=== PATIENT | female | born 1940 | race Caucasian/White ===

== ENCOUNTER 2024-06-29 12:40 | Observation (INO) | payer MEDICARE, SELFPAY ==
[2024-06-29] VITALS (12 sets, daily range): BP systolic 109–144; BP diastolic 63–98; PULSE 69–143; RESP 14–25; TEMP 36.6–37; O2SAT 95–100; BMI 30.7
--- NOTE | ~2024-06-29 | CT_ITS ---
EXAMINATION: CT brain wo con DATE: 06/29/2024 15:02 INDICATION: Tremors TECHNIQUE: Computed tomography (CT) of the head was performed without intravenous contrast. The mA wa s adjusted according to patient size. Iterative reconstruction technique was employed. Exam dose: 12 86.33 mGy-cm total exam DLP. COMPARISON: None FINDINGS: The examination is limited because of motion artifact, despite 2 sets of images being obtai alberto. There is central and cortical cerebral and cerebellar atrophy. There is nonspecific diminished attenu ation the cerebral white matter, likely due to chronic small vessel ischemic changes. Bilateral carot id siphon internal carotid artery calcifications are noted. Chronic right basal ganglia lacunar infarcts. Small chronic left basal ganglia lacunar infarct. No obvious intracranial mass lesion or hemorrhage, midline shift or mass effect or subdural or epidur al hematoma. Prominent opacification of the left maxillary sinus. No fracture or bone destruction of the cranial vault is evident. 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 Reviewed, dictated and finalized at location [facility]. IMPRESSION: Very limited examination due to motion artifact Cerebral atherosclerosis and chronic small vessel ischemic changes of the cereb ral white matter Central and cortical cerebral and cerebellar atrophy Right basal ganglia and left thalamic chronic lacunar infarcts No obvious acute intracranial finding
--- NOTE | ~2024-06-29 | US_ITS ---
EXAMINATION: US carotid duplex BI DATE: 07/01/2024 15:26 INDICATION: Cerebrovascular disease TECHNIQUE: Grayscale, color Doppler, and pulsed Doppler images of the cervical carotid arteries were obtained. The degree of vessel stenosis is placed in one of the following categories: normal, <50%, 5 0-69%, >=70% but less than near-occlusion, near-occlusion, or total occlusion. Note that percent sten osis relative to normal distal artery lumen diameter is indirectly measured from velocity measurement s as described by Moises, et al. Radiology 2003; 229:340-346. COMPARISON: None. FINDINGS: RIGHT: The right common carotid artery (CCA) peak systolic velocity (PSV) is 88 cm/s. The right internal car otid artery (ICA) PSV is 60 cm/s. The right ICA end-diastolic velocity (EDV) is 9 cm/s. The right ICA /CCA PSV ratio is 0.7. Grayscale and color Doppler images yield an estimate of <50% diameter reductio n from plaque in the ICA. The external carotid artery (ECA) PSV is 87 cm/s. There is antegrade flow i n the right vertebral artery. LEFT: The left CCA PSV is 85 cm/s. The left ICA PSV is 90 cm/s. The left ICA EDV is 20 cm/s. The left ICA/C CA PSV ratio is 1.1. Grayscale and color Doppler images yield an estimate of <50% diameter reduction from plaque in the ICA. The ECA PSV is 191 cm/s. There is antegrade flow in the left vertebral artery . IMPRESSION: 1. <50% stenosis in the right internal carotid artery. 2. <50% stenosis in the left internal carotid artery. Reviewed, dictated and finalized at location [facility].
--- NOTE | ~2024-06-29 | MR_ITS ---
MR brain/brain stem wo/w con Ordering provider: Una Rubi APRN History: 83 years Female with . Tremor . Comparison: None. Technique: MRI brain was performed with and without contrast. 15 mL MultiHance was given IV. FINDINGS: BONES: Normal. CRANIOCERVICAL JUNCTION: normal. PITUITARY: Normal. MAJOR INTRACRANIAL VESSELS: Normal flow void. OPTIC NERVES AND CRANIAL NERVES VII AND VIII COMPLEXES: Grossly normal. BRAIN PARENCHYMA AND CSF SPACES: Mild nonspecific T2 white matter hyperintensities are seen in a alberto ateral periventricular and deep white matter distribution which are likely related to chronic ischemi c small vessel disease. Mild diffuse cortical atrophy. Prominent Virchow-Misha spaces are seen bila terally in the basal ganglia. T2 bright signal is seen in the midbrain area most likely due to chinchilla anneliese degeneration. Tthe brainstem and cerebellum are normal. No acute or chronic intracranial hemorrha ge. No extra axial fluid collections. Diffusion weighted and ADC mapping images reveal no recent isch emia. No midline shift or mass effect. No abnormal contrast enhancement. PARANASAL SINUSES: Left maxillary sinus disease. MASTOIDS: Normal SUPERFICIAL/SURROUNDING SOFT TISSUES: Normal. IMPRESSION: 1. No acute intracranial process. 2. Mild brain atrophy with deep white matter ischemic changes.wallerian degeneration seen in the mid brain. 3. No abnormal enhancement. Reviewed, dictated and finalized at location A. IMPRESSION: 1. No acute intracranial process. 2. Mild brain atrophy with deep white matter ischemic changes.wallerian degene ration seen in the midbrain. 3. No abnormal enhancement.
[2024-06-29 12:51] LABS: Glucose Point of Care 228 mg/dl (65-105)
--- NOTE | 2024-06-29 14:13 | ED.GENADULT ---
HPI - General Adult General Chief complaint: Unspecified Stated complaint: tremors Time Seen by Provider: 06/29/24 13:36 History of Present Illness HPI narrative: 83-year-old female presented emergency department for evaluation for increased psychomotor agitation and tremor. Family states patient is currently being treated for a urinary tract infection. Family states that they were diagnosed with COVID a few weeks ago, family states patient ever test positive for COVID.. This morning patient has increased tremor. Patient denies any specific complaint other than the tremor. Related Data Home Medications Medication Instructions Recorded Confirmed anastrozole 1 mg tablet mg 06/29/24 06/29/24 atorvastatin 20 mg tablet mg 06/29/24 hydrochlorothiazide 25 mg tablet mg 06/29/24 lisinopril 40 mg tablet mg 06/29/24 metformin 500 mg tablet mg 06/29/24 metoprolol tartrate 50 mg tablet mg 06/29/24 cluzxlrv-otz-tyetx acid 0.4 tablet PO 06/29/24 06/29/24 mg-lycopene 300 mcg-lutein 250 mcg tablet (Centrum Silver) omeprazole 20 mg capsule,delayed mg 06/29/24 release paroxetine HCl 40 mg tablet mg PO 06/29/24 Review of Systems Review of Systems: All systems reviewed & are unremarkable except as noted in HPI and below Exam Narrative: APPEARANCE: Well appearing, no pain, no distress, well-nourished. HEAD: normocephalic, atraumatic. EYES: PERRLA/EOMI, conjunctivae clear. NOSE: Normal no drainage EARS:TMS clear with good light reflex. THROAT: Pharynx clear, no exudate. NECK: Supple. No adenopathy, no masses. RESPIRATORY: Airway patent, respirations nonlabored. Clear to auscultation bilaterally, no rales, rhonchi, wheezing. CARDIOVASCULAR: Regular rate and rhythm without murmurs rubs or gallops. ABDOMINAL: Soft, nontender, nondistended, normal bowel sounds MUSCULOSKELETAL: Moves all extremities. Strength/ROM intact, No edema, No calf tenderness. NEURO: Alert. Grossly intact. Tremor. Tremor is lessened when patient is distracted. SKIN: Warm, dry. Normal Color Course Course Emergency Course: Patient was admitted for further evaluation. Vital Signs Vital signs: Vital Signs Temperature 98.3 F 06/29/24 12:45 Pulse Rate 85 06/29/24 12:45 Respiratory Rate 18 08/17/24 12:45 Pulse Oximetry 99 06/29/24 12:45 Oxygen Delivery Room Air 06/29/24 12:45 Temperature 97.9 F 06/29/24 13:40 Pulse Rate 70 06/29/24 18:01 Respiratory Rate 14 06/29/24 18:01 Blood Pressure 110/79 06/29/24 18:01 Pulse Oximetry 98 06/29/24 18:01 Oxygen Delivery Room Air 06/29/24 13:40 Medical Decision Making MDM Narrative Medical decision making narrative: [age] old female presented emergency department for evaluation for increased tremor that is new. Family states that in this condition patient is unable to care for herself. Patient is afebrile with no leukocytosis and a stable hemoglobin 11.4. Patient had a creatinine of 1.9 per baseline is unknown. Patient's potassium was within normal limits, patient does have history of hypokalemia. Patient's magnesium was 1.4 this was replaced. Urine was negative for urinary tract infection. Patient had a negative urine drug screen. Head CT showed no acute intracranial abnormality. Since patient is still having some tremor and is unable to care for herself in this current state case was discussed with hospitalist patient was admitted for further workup. Differential Diagnosis Differential Diagnosis: Subdural hematoma, subarachnoid hemorrhage, urinary tract infection, COVID, RSV, influenza, dementia, anxiety Vital Signs Vital Signs: Vital Signs Temperature 98.3 F 06/29/24 12:45 Pulse Rate 85 06/29/24 12:45 Respiratory Rate 18 06/29/24 12:45 Pulse Oximetry 99 06/29/24 12:45 Oxygen Delivery Room Air 06/29/24 12:45 Temperature 97.9 F 06/29/24 13:40 Pulse Rate 70 06/29/24 18:01 Respiratory Rate 14 06/29/24 18:01 Blood Pre
[2024-06-29] MEDS: SODIUM CHLORIDE 0.9% IV 1,000 ML 999 ML IV CONT (14:26)
[2024-06-29] MEDS: LORazepam INJ (*CRX) 2 MG/ML VIAL 0.5 MG IV PUSH (14:30)
[2024-06-29] MEDS: ACETAMINOPHEN 500 MG TABLET 1000 MG PO (14:30)
[2024-06-29 14:47] LABS: Add Urine Microscopic? YES; Appearance Urine Clear (Clear); Bacteria Urine None Seen /hpf; Bilirubin Urine Negative (Negative); Blood Urine Negative (Negative); Color Urine Yellow (Yellow); Glucose Urine UA Negative (Negative); Ketones Urine Trace mg/dL (Negative); Leukocyte Esterase Ur Negative LEU/UL (Negative); Nitrate Urine Negative (Negative); Protein Urine Trace mg/dL (Negative); RBC Urine 0-2 /hpf (0-2); Specific Grav Ur 1.018 (1.001-1.035); Squamous Epithelial Cell Urine None Seen /hpf (Few); Urobilinogen Urine 0.2 mg/dL (<2.0); WBC Urine 0-5 /hpf (0-3); pH Urine 5.5 (5.0-9.0)
[2024-06-29 16:03] LABS: Basophils Percent Auto 0.4 % (0.2-1.2); Eosinophils Absolute Auto 0.1 K/mm3 (0-0.3); Eosinophils Percent Auto 1.1 % (0-4.4); Hematocrit 34.4 % (37.0-47.0); Hemoglobin 11.4 g/dL (12.0-15.0); Immature Granulocyte Absolute 0.02 K/mm3 (0.00-0.031); Immature Granulocyte Percent A 0.3 % (0-0.5); Immature Platelet Fraction Pct 4.6 % (0.9-11.2); Lymphocytes Absolute Auto 1.46 K/mm3 (0.9-3.2); Lymphocytes Percent Auto 20.2 % (18.3-44.2); Mean Corpuscular HGB Conc 33.1 g/dl (32-36); Mean Corpuscular Hemoglobin 31.7 pg (26-34); Mean Corpuscular Volume 95.6 fl (80-100); Mean Platelet Volume 10.9 fl (7.4-10.4); Monocytes Absolute Auto 0.5 K/mm3 (0.1-0.6); Monocytes Percent Auto 7.5 % (2.6-8.5); Neutrophils Absolute Auto 5.1 K/mm3 (1.3-6.7); Neutrophils Percent Auto 70.5 % (45.5-73.1); Platelet Count Result 206 k/mm3 (150-375); Red Cell Distribution Width 11.9 % (11.5-14.5); White Blood Count 7.2 K/mm3 (4.5-10.0)
[2024-06-29 16:16] LABS: Alanine Aminotransferase 34 U/L (6-35); Albumin Level 3.9 g/dL (3.5-5.1); Alkaline Phosphatase 85 U/L (38-126); Anion Gap 13 mmol/L (4-12); Aspartate Amino Transferase 50 U/L (14-36); Bilirubin,Total 0.5 mg/dL (0.2-1.3); Blood Urea Nitrogen 18 mg/dL (7-17); Calcium 9.1 mg/dL (8.4-10.2); Carbon Dioxide 27 mmol/L (22-30); Chloride 96 mmol/L (98-107); Estimated CRCL calculation 22 ml/min; Estimated Glomerular Filt Rate 25; Glucose 125 mg/dL (65-110); Potassium 3.8 mmol/L (3.4-5.0); Sodium 136 mmol/L (137-145)
[2024-06-29 17:04] LABS: Magnesium 1.4 mg/dL (1.6-2.3)
[2024-06-29] MEDS: MAGNESIUM SULF 1 GM/D5W 100 ML 1 GM/100 ML BAG IVPB ×2 (17:24→22:32)
--- NOTE | 2024-06-29 18:18 | PM.IMHP ---
H&P: HPI History of Present Illness Date/Time: 06/29/24 18:18 Chief Complaint: Abnormal Movements/Shaking Narrative: 83 y/o F presents here with abnormal movements/aching with PMH of hypertension, hyperlipidemia, GERD, and diabetes. The patient presents here from home via EMS for further evaluation of abnormal movements and diaphoresis that started this morning. Family at the bedside reports that she had a tremor to her arms/hands bilaterally that started 1-1.5 weeks ago. Appeared symmetric to family. Tremor was initially intermittent and aggravated by not eating. Per daughter who saw her last night she did not have any tremor and appeared at her baseline prior to symptom onset. Then today when her daughter went over there at 10:30 she saw the patient was shaking pretty violently . She describes it as effecting her whole body, sporadic (not rhythmic), different amplitudes in different limbs. No precipitating falls or new medications. No new stressors. Patient has been complaining of abdominal pain, headache, and dizziness started approximately 1 month ago. She described the headache to her daughter as shooting pains in her brain. No alcohol use or recreational drug use. Paxil increased 2 months ago because patient was not leaving her house as much and they were concerned she was more anxious. Initial VS at presentation: 98.3? F, HR 85, R 18, 136/93, and 99% on RA. ED workup showed: No leukocytosis, hemoglobin 11.4, sodium 136, creatinine 1.9 and GFR 25 (no previous available for comparison), initial glucose 228, magnesium 1.4, and UA showed trace ketones. Head CT was very limited due to motion artifact, however showed cerebral atherosclerosis and chronic small vessel ischemic changes, central and cortical cerebral and cerebellar atrophy, right basal ganglia and left ophthalmic chronic lacunar infarcts, with no obvious acute intracranial finding. Review of Systems Review of Systems: All systems reviewed & are unremarkable except as noted in HPI and below [facility] Past Medical History Medical History (Updated 06/29/24 @ 22:04 by Una Rubi APRN) Anxiety Breast cancer s/p on mastectomy and radiation Dementia Diabetes Eczema GERD (gastroesophageal reflux disease) HTN (hypertension) Hyperlipidemia Migraine Surgical History Surgical History (Updated 06/29/24 @ 21:57 by Una Rubi APRN) History of mastectomy Social History Social History Smoking status: Former smoker Alcohol intake: never Substance use: never Do You Feel Safe in your Home?: Yes Lack of Transportation: No Lack of Food: Never True Current Housing: I Have Housing Concerned About Future Housing: No Difficulty Paying Gas/Electric Bills: No Difficulty Paying for Meds: No Currently Unemployed: No Education: High School Diploma/GED Difficulty w/ Childcare or Family Care: No Spiritual care concerns: No Meds Home Medications and Allergies Home Medications Medication Instructions Recorded Confirmed Type anastrozole 1 mg tablet 1 mg PO DAILY 06/29/24 06/29/24 History atorvastatin 20 mg tablet 20 mg PO DAILY 06/29/24 06/29/24 History hydrochlorothiazide 25 mg tablet 25 mg PO DAILY 06/29/24 06/29/24 History lisinopril 40 mg tablet 40 mg PO DAILY 06/29/24 06/29/24 History metformin 500 mg tablet 500 mg PO DAILY 06/29/24 06/29/24 History metoprolol tartrate 50 mg tablet 50 mg PO BID 06/29/24 06/29/24 History hjrfmcsa-ohy-vlqxv acid 0.4 1 tablet PO DAILY 06/29/24 06/29/24 History mg-lycopene 300 mcg-lutein 250 mcg tablet (Centrum Silver) omeprazole 20 mg capsule,delayed 20 mg PO DAILY 06/29/24 06/29/24 History release paroxetine HCl 40 mg tablet 40 mg PO DAILY 06/29/24 06/29/24 History Allergies Allergy/AdvReac Type Severity Reaction Status Date / Time No Known Allergies Allergy Verified 06/29/24 20:01 Vital Signs Vital Signs - 24 hr 06/29/24 12:45 06/29/24 13:40 06/29/24 13:49 Julio
[2024-06-29 19:18] LABS: Amphetamine Screen Urine Negative (Negative); Barbiturate Screen Urine Negative (Negative); Benzodiazepines Screen Urine Negative (Negative); Cannabinoid Screen Urine Negative (Negative); Cocaine Screen Urine Negative (Negative); Methadone Screen Urine Negative (Negative); Opiate Screen Urine Negative (Negative); Phencyclidine Screen Urine Negative (Negative)
--- NOTE | 2024-06-29 19:36 | ADMGEN ---
This patient, Jolene Mclean, was admitted to Medical Room 250-01. Patient/family oriented to hospital policies and general routines including ID bracelet, bed and alarms, visiting hours, pain management, procedures, bathroom and other care routines, personal items, smoking policy, room service/diet, and visiting hours. Information on how to activate the Rapid Response Team has been discussed. Patient/Family are encouraged to report perceived risks to care and to ask questions if they do not understand what they are told or what they should do.
[2024-06-29 20:29] LABS: Creatine Kinase 74 U/L (30-135); Lactic Acid Reflex 1.1 mmol/L (0.7-2.0)
[2024-06-29] MEDS: SODIUM CHLORIDE 0.9% IV 1,000 ML 100 ML IV CONT (22:32)
[2024-06-29] MEDS: METOPROLOL TARTRATE 50 MG TAB PO (22:32)
[2024-06-29 22:49] LABS: Glucose Point of Care 139 mg/dl (65-105)
[2024-06-29 22:54] LABS: Creatine Kinase 103 U/L (30-135)
[2024-06-29] MEDS: diazePAM INJ (*CRX) 10 MG/2 ML SYRINGE 5 MG IV PUSH (22:54)
[2024-06-30] VITALS (13 sets, daily range): BP systolic 131–165; BP diastolic 58–69; PULSE 58–68; RESP 16–20; TEMP 36–36.8; O2SAT 94–100
[2024-06-30 05:13] LABS: Basophils Percent Auto 0.5 % (0.2-1.2); Eosinophils Absolute Auto 0.3 K/mm3 (0-0.3); Eosinophils Percent Auto 4.3 % (0-4.4); Hematocrit 38.3 % (37.0-47.0); Hemoglobin 12.1 g/dL (12.0-15.0); Immature Granulocyte Absolute 0.01 K/mm3 (0.00-0.031); Immature Granulocyte Percent A 0.2 % (0-0.5); Lymphocytes Percent Auto 33.8 % (18.3-44.2); Mean Corpuscular HGB Conc 31.6 g/dl (32-36); Mean Corpuscular Hemoglobin 31.3 pg (26-34); Mean Corpuscular Volume 99.2 fl (80-100); Mean Platelet Volume 10.1 fl (7.4-10.4); Monocytes Absolute Auto 0.8 K/mm3 (0.1-0.6); Monocytes Percent Auto 12.4 % (2.6-8.5); Neutrophils Absolute Auto 3.2 K/mm3 (1.3-6.7); Neutrophils Percent Auto 48.8 % (45.5-73.1); Platelet Count Result 213 k/mm3 (150-375); Red Blood Count 3.86 M/mm3 (4.2-5.4); White Blood Count 6.5 K/mm3 (4.5-10.0)
[2024-06-30 05:34] LABS: Hemoglobin A1C 6.3 % (<5.7)
[2024-06-30 05:59] LABS: Alanine Aminotransferase 39 U/L (6-35); Albumin Level 4.5 g/dL (3.5-5.1); Alkaline Phosphatase 85 U/L (38-126); Anion Gap 14 mmol/L (4-12); Aspartate Amino Transferase 71 U/L (14-36); Bilirubin,Total 0.9 mg/dL (0.2-1.3); Blood Urea Nitrogen 15 mg/dL (7-17); Calcium 9.3 mg/dL (8.4-10.2); Carbon Dioxide 23 mmol/L (22-30); Chloride 98 mmol/L (98-107); Estimated CRCL calculation 23 ml/min; Estimated Glomerular Filt Rate 31; Glucose 108 mg/dL (65-110); Potassium 3.7 mmol/L (3.4-5.0); Sodium 135 mmol/L (137-145)
--- NOTE | 2024-06-30 07:37 | PM.IMPN ---
Progress Note: A&P Assessment and Plan (1) Tremor: Code(s): R25.1 - Tremor, unspecified Status: Acute Assessment and Plan: - Head CT Very limited examination due to motion artifact Cerebral atherosclerosis and chronic small vessel ischemic changes of the cerebral white matter Central and cortical cerebral and cerebellar atrophy Right basal ganglia and left thalamic chronic lacunar infarcts No obvious acute intracranial finding - Mag 1.4, repleted - recent increase of Paxil from 20 mg -> 40 mg on 05/21 - UDS negative and UA showed trace ketones - neurology consulted, awaiting recs - NPO, difficulty drinking/swallowing due to tremor. May need speech consult if no improvement with holding Paxil. - DDx: CVA, serotonin syndrome, conversion disorder, nonepileptic seizures/pseudoseizures, hypomagnesium. Strong suspicion for serotonin syndrome given physical exam and recent increase with peak around when symptom it is started. Holding Paxil. (2) LISA (acute kidney injury): Code(s): N17.9 - Acute kidney failure, unspecified Status: Acute Assessment and Plan: - reports intermittent diarrhea for some time, suspect patient has IBS. However has worsened after recent UTI treatment. Rehydrate. - add CK, 74 - monitor I&Os - hold quinton inhibitors and diuretics - trend renal function (3) HTN (hypertension): Qualifiers: Hypertension type: primary hypertension Qualified Code(s): I10 - Essential (primary) hypertension Code(s): I10 - Essential (primary) hypertension Status: Acute Assessment and Plan: - chronic, currently 110/79 - holding hydrochlorothiazide and lisinopril, continue metoprolol - monitor (4) Anxiety: Code(s): F41.9 - Anxiety disorder, unspecified Status: Acute Assessment and Plan: - holding Paxil, concern for serotonin syndrome - she had been on paxil for over 20 years and recently it was increased per her pcp due to her decreased energy level and increased depressed mood (5) Hypomagnesemia: Code(s): E83.42 - Hypomagnesemia Status: Acute Assessment and Plan: - Mag 1.4, given 1G. will give additional 1G. - trend (6) Diabetes: Qualifiers: Diabetes mellitus complication status: without complication Diabetes mellitus skilled nursing insulin use: without skilled nursing use Diabetes mellitus type: type 2 Qualified Code(s): E11.9 - Type 2 diabetes mellitus without complications Code(s): E11.9 - Type 2 diabetes mellitus without complications Status: Acute Assessment and Plan: - hypoglycemia protocol - POC blood glucose ACHS - home medication: Hold metformin - correct regimen ordered - low dose TIDWM - A1C ordered Plan Diet: NPO GI Prophylaxis: Not currently indicated DVT Prophylaxis: SCDs Lines: Peripheral Code Status: Full code Time Spent With Patient Time with patient: Greater than 35 minutes Subjective Date/time seen: 06/30/24 07:37 Interval history: Narrative: 83 y/o F presents here with abnormal movements/aching with PMH of hypertension, hyperlipidemia, GERD, and diabetes. The patient presents here from home via EMS for further evaluation of abnormal movements and diaphoresis that started this morning. Family at the bedside reports that she had a tremor to her arms/hands bilaterally that started 1-1.5 weeks ago. Appeared symmetric to family. Tremor was initially intermittent and aggravated by not eating. Per daughter who saw her last night she did not have any tremor and appeared at her baseline prior to symptom onset. Then today when her daughter went over there at 10:30 she saw the patient was shaking pretty violently . She describes it as effecting her whole body, sporadic (not rhythmic), different amplitudes in different limbs. No precipitating falls or new medications. No new stressors. Patient has been complaining of abdominal pain, headache, and di
[2024-06-30 08:07] LABS: Glucose Point of Care 102 mg/dl (65-105)
[2024-06-30] MEDS: SODIUM CHLORIDE 0.9% IV 1,000 ML 100 ML IV CONT ×2 (09:51→21:06)
[2024-06-30] MEDS: METOPROLOL TARTRATE 50 MG TAB PO ×2 (09:51→21:06)
[2024-06-30] MEDS: ANASTROZOLE (*CHEMO) 1 MG TABLET PO (09:52)
[2024-06-30 12:06] LABS: Glucose Point of Care 133 mg/dl (65-105)
--- NOTE | 2024-06-30 13:00 | PC.NURSE ---
gave patient water, pudding, and nakul crackers to perform a bedside swallow evaluation as requested by hospitalist. patient swallowed with no trouble
[2024-06-30 14:05] LABS: Toxigenic C. Diff NEGATIVE (NEGATIVE)
[2024-06-30 17:16] LABS: Glucose Point of Care 101 mg/dl (65-105)
[2024-06-30 20:34] LABS: Glucose Point of Care 113 mg/dl (65-105)
[2024-07-01] VITALS (12 sets, daily range): BP systolic 165–182; BP diastolic 60–81; PULSE 61–78; RESP 14–18; TEMP 36.3–36.4; O2SAT 99–100
[2024-07-01] MEDS: SODIUM CHLORIDE 0.9% IV 1,000 ML 100 ML IV CONT (07:24)
--- NOTE | 2024-07-01 07:38 | PM.IMPN ---
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 Strong suspicion for serotonin syndrome given physical exam and recent increase with peak around when symptom it is started. Holding Paxil. (2) LISA (acute kidney injury): Code(s): N17.9 - Acute kidney failure, unspecified Status: Acute Assessment and Plan: - reports intermittent diarrhea for some time, suspect patient has IBS. However has worsened after recent UTI treatment. Rehydrate. - add CK, 74 - monitor I&Os - hold quinton inhibitors and diuretics - trend renal function (3) HTN (hypertension): Qualifiers: Hypertension type: primary hypertension Qualified Code(s): I10 - Essential (primary) hypertension Code(s): I10 - Essential (primary) hypertension Status: Acute Assessment and Plan: - chronic, currently 110/79 - holding hydrochlorothiazide and lisinopril, continue metoprolol - monitor (4) Anxiety: Code(s): F41.9 - Anxiety disorder, unspecified Status: Acute Assessment and Plan: - holding Paxil, concern for serotonin syndrome - she had been on paxil for over 20 years and recently it was increased per her pcp due to her decreased energy level and increased depressed mood (5) Hypomagnesemia: Code(s): E83.42 - Hypomagnesemia Status: Acute Assessment and Plan: - Mag 1.4, given 1G. will give additional 1G. - trend (6) Diabetes: Qualifiers: Diabetes mellitus complication status: without complication Diabetes mellitus senior living insulin use: without senior living use Diabetes mellitus type: type 2 Qualified Code(s): E11.9 - Type 2 diabetes mellitus without complications Code(s): E11.9 - Type 2 diabetes mellitus without complications Status: Acute Assessment and Plan: - hypoglycemia protocol - POC blood glucose ACHS - home medication: Hold metformin - correct regimen ordered - low dose TIDWM - A1C ordered (7) Toxic metabolic encephalopathy: Code(s): G92.8 - Other toxic encephalopathy Status: Acute Assessment and Plan: - neurology saw her today- appreciate recommendations A repeat mini-mental status examination in 4 weeks is recommended and if necessary she can be started on medications for memory loss. - f/u with DR Rutherford as an outpt - carotid Doppler study and lipid profile ordered-advised to treat her with antiplatelets and statins as a concurrent risk factor for many other problems the patient in this age may face. The results of B12 and folic acid level and TSH are pending. A follow-up magnesium level is also pending. Plan Diet: heart healthy diet GI Prophylaxis: Not currently indicated DVT Prophylaxis: SCDs Lines: Peripheral Code Status: Full code Time Spent With Patient Time with patient: Greater than 35 minutes Subjective Date/time seen: 07/01/24 07:38 Interval history: Narrative: 83 y/o F presents here with abnormal movements/aching with PMH of hypertension, hyperlipidemia, GERD, and diabetes. The patient presents here from home via EMS for further evaluation of abnormal movements and diaphoresis that started this morning. Family at the bedside reports that she had a hay
[2024-07-01 08:17] LABS: Glucose Point of Care 102 mg/dl (65-105)
[2024-07-01 08:41] LABS: Hematocrit 33.3 % (37.0-47.0); Hemoglobin 10.8 g/dL (12.0-15.0); Mean Corpuscular HGB Conc 32.4 g/dl (32-36); Mean Corpuscular Hemoglobin 31.8 pg (26-34); Mean Corpuscular Volume 97.9 fl (80-100); Mean Platelet Volume 10.5 fl (7.4-10.4); Platelet Count Result 204 k/mm3 (150-375); Red Cell Distribution Width 12.1 % (11.5-14.5); White Blood Count 5.1 K/mm3 (4.5-10.0)
[2024-07-01] MEDS: METOPROLOL TARTRATE 50 MG TAB PO ×2 (08:56→20:52)
[2024-07-01] MEDS: ANASTROZOLE (*CHEMO) 1 MG TABLET PO (08:56)
--- NOTE | 2024-07-01 11:37 | WPDNEUROPN ---
Progress Note: A&P Assessment and Plan (1) Toxic metabolic encephalopathy: Code(s): G92.8 - Other toxic encephalopathy Status: Acute (2) Diabetes: Qualifiers: Diabetes mellitus type: type 2 Diabetes mellitus fci insulin use: without fci use Diabetes mellitus complication status: without complication Qualified Code(s): E11.9 - Type 2 diabetes mellitus without complications Code(s): E11.9 - Type 2 diabetes mellitus without complications Status: Acute (3) Hypomagnesemia: Code(s): E83.42 - Hypomagnesemia Status: Acute (4) HTN (hypertension): Qualifiers: Hypertension type: primary hypertension Qualified Code(s): I10 - Essential (primary) hypertension Code(s): I10 - Essential (primary) hypertension Status: Acute (5) LISA (acute kidney injury): Code(s): N17.9 - Acute kidney failure, unspecified Status: Acute (6) Tremor: Code(s): R25.1 - Tremor, unspecified Status: Acute Plan I agree with the 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 After holding off Paxil there has been a significant improvement in the overall neurological condition. Of course he may have underlying dementia Alzheimer's type and this require some follow-up. A repeat mini-mental status examination in 4 weeks is recommended and if necessary she can be started on medications for memory loss. Given her my phone number and advised to contact my office for follow-up. I noted the B12 and folic acid level and thyroid function test were tested and these are within normal range. In view of the cerebrovascular disease noted on MRI of the brain I will suggest a carotid Doppler study and lipid profile and treat her with antiplatelets and statins as a concurrent risk factor for many other problems the patient in this age may face. The results of B12 and folic acid level and TSH are pending. A follow-up magnesium level is also pending. Please feel free to call me if you have any questions with regard to neurological problems in this patient. Subjective Date/time seen: 07/01/24 11:37 Interval history: the patient is a 83-year-old white female presented to the hospital with increased agitation and tremulousness. 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 It was noted that on 05/21/2024 the dose of Paxil was increased from 20-40 mg a day. The patient herself is not able to give me much in the way of history. Apparently patient lives by herself and has 5 children were supportive. The other family members are not present however she has been doing fairly well in the last 24 hours. The patient apparently also has had some headache and abdominal pain and dizziness on and off for the last month. Her magnesium level was found to be low at 1.4. She also has history of diabetes mellitus. Her creatinine was found to be high at 1.[address] scan of brain did not show any significant abnormalities. MRI of the brain was performed today which did show acute abnormalities.. Mild atrophy and deep white matter changes described. These are suggestive of chronic ischemic changes. There is no definite history of passing out spell or stroke. At this time she denies any other pain or dizziness. Review of Systems Review of Systems: All systems reviewed & are unremarkable except as noted in HPI and below Exam Narrative: fully conscious alert, oriented to self time place and person, smiling frequently. No aphasia or dysarthria. However she was unable to name 5 colors or 5 fruits. She had difficulty spelling backward but did manage to do simple calculations such as number of quarters in 5 dollars. She does follow 1 step command and at times two-step command. There does appear to be mild cognitive impairment. Appear to be having any hallucinations or have any delusional ideas. She was unable to tell me the year but chaparrita
[2024-07-01 12:00] LABS: Glucose Point of Care 122 mg/dl (65-105)
[2024-07-01] MEDS: hydrALAZINE HCL 20 MG/ML VIAL 10 MG IV PUSH (14:37)
[2024-07-01 16:29] LABS: Anion Gap 9 mmol/L (4-12); Blood Urea Nitrogen 13 mg/dL (7-17); Calcium 8.6 mg/dL (8.4-10.2); Carbon Dioxide 26 mmol/L (22-30); Chloride 103 mmol/L (98-107); Cholesterol 125 mg/dL (0-200); Estimated CRCL calculation 27 ml/min; Estimated Glomerular Filt Rate 36; Glucose 103 mg/dL (65-110); HDL Direct 38 mg/dL; Magnesium 1.7 mg/dL (1.6-2.3); Potassium 3.5 mmol/L (3.4-5.0); Sodium 138 mmol/L (137-145); Triglycerides 147 mg/dL (<150)
[2024-07-01 16:45] LABS: LDL Cholesterol Direct 60 mg/dL
[2024-07-01 17:11] LABS: Glucose Point of Care 156 mg/dl (65-105)
[2024-07-01 17:45] LABS: Folic Acid > 20.0 ng/mL (2.76->20)
[2024-07-02] VITALS (13 sets, daily range): BP systolic 130–205; BP diastolic 42–76; PULSE 59–74; RESP 16–18; TEMP 36.5–36.7; O2SAT 97–100
[2024-07-02 00:51] LABS: Glucose Point of Care 216 mg/dl (65-105)
[2024-07-02 07:32] LABS: Hemoglobin 11.2 g/dL (12.0-15.0); Mean Corpuscular HGB Conc 32.9 g/dl (32-36); Mean Corpuscular Hemoglobin 31.7 pg (26-34); Mean Corpuscular Volume 96.3 fl (80-100); Platelet Count Result 232 k/mm3 (150-375); Red Blood Count 3.53 M/mm3 (4.2-5.4); Red Cell Distribution Width 12.1 % (11.5-14.5); White Blood Count 5.2 K/mm3 (4.5-10.0)
[2024-07-02 07:47] LABS: Anion Gap 9 mmol/L (4-12); Blood Urea Nitrogen 12 mg/dL (7-17); Calcium 9.3 mg/dL (8.4-10.2); Carbon Dioxide 27 mmol/L (22-30); Chloride 101 mmol/L (98-107); Estimated CRCL calculation 29 ml/min; Estimated Glomerular Filt Rate 39; Glucose 121 mg/dL (65-110); Potassium 3.6 mmol/L (3.4-5.0); Sodium 137 mmol/L (137-145)
--- NOTE | 2024-07-02 08:32 | PM.IMPN ---
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 Strong suspicion for serotonin syndrome given physical exam and recent increase with peak around when symptom it is started. Holding Paxil. - neurology is following (2) LISA (acute kidney injury): Code(s): N17.9 - Acute kidney failure, unspecified Status: Acute Assessment and Plan: - reports intermittent diarrhea for some time, suspect patient has IBS. However has worsened after recent UTI treatment. Rehydrate. - add CK, 74 - monitor I&Os - hold quinton inhibitors and diuretics - trend renal function (3) HTN (hypertension): Qualifiers: Hypertension type: primary hypertension Qualified Code(s): I10 - Essential (primary) hypertension Code(s): I10 - Essential (primary) hypertension Status: Acute Assessment and Plan: - chronic, currently 110/79 - holding hydrochlorothiazide and lisinopril, continue metoprolol - monitor (4) Anxiety: Code(s): F41.9 - Anxiety disorder, unspecified Status: Acute Assessment and Plan: - holding Paxil, concern for serotonin syndrome - she had been on paxil for over 20 years and recently it was increased per her pcp due to her decreased energy level and increased depressed mood (5) Hypomagnesemia: Code(s): E83.42 - Hypomagnesemia Status: Acute Assessment and Plan: - Mag 1.4, given 1G. will give additional 1G. 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 Diabetes mellitus type: type 2 Qualified Code(s): E11.9 - Type 2 diabetes mellitus without complications Code(s): E11.9 - Type 2 diabetes mellitus without complications Status: Acute Assessment and Plan: - hypoglycemia protocol - POC blood glucose ACHS - home medication: Hold metformin - correct regimen ordered - low dose TIDWM - A1C ordered (7) Toxic metabolic encephalopathy: Code(s): G92.8 - Other toxic encephalopathy Status: Acute Assessment and Plan: - neurology saw her today- appreciate recommendations A repeat mini-mental status examination in 4 weeks is recommended and if necessary she can be started on medications for memory loss. - f/u with DR Rutherford as an outpt - carotid Doppler study and lipid profile ordered-advised to treat her with antiplatelets and statins as a concurrent risk factor for many other problems the patient in this age may face. The results of B12 and folic acid level and TSH are pending. A follow-up magnesium level is also pending. Plan Carotid doppler completed: MPRESSION: 1. <50% stenosis in the right internal carotid artery. 2. <50% stenosis in the left internal carotid artery. discussed antiplatelets and statins- wants to wait to discuss it with pcp Diet: heart healthy diet GI Prophylaxis: Not currently indicated DVT Prophylaxis: SCDs Lines: Peripheral Code Status: Full code Time Spent With Patient Time with patient: Greater than 35 minutes Subjective Date/time seen: 07/02/24 08:32 Interval history: the patient is a 83-year-old white fema
[2024-07-02 08:43] LABS: Glucose Point of Care 126 mg/dl (65-105)
[2024-07-02] MEDS: METOPROLOL TARTRATE 50 MG TAB PO ×2 (09:05→20:27)
[2024-07-02] MEDS: ANASTROZOLE (*CHEMO) 1 MG TABLET PO (09:05)
[2024-07-02 11:59] LABS: Glucose Point of Care 146 mg/dl (65-105)
[2024-07-02] MEDS: hydrALAZINE HCL 20 MG/ML VIAL 10 MG IV PUSH (15:15)
[2024-07-02 17:05] LABS: Glucose Point of Care 180 mg/dl (65-105)
[2024-07-02 20:36] LABS: Glucose Point of Care 171 mg/dl (65-105)
[2024-07-03] VITALS (11 sets, daily range): BP systolic 142–149; BP diastolic 53–67; PULSE 58–66; RESP 16–18; TEMP 36.5–36.7; O2SAT 98–100
[2024-07-03 04:58] LABS: Hematocrit 35.4 % (37.0-47.0); Hemoglobin 11.5 g/dL (12.0-15.0); Mean Corpuscular HGB Conc 32.5 g/dl (32-36); Mean Corpuscular Hemoglobin 31.6 pg (26-34); Mean Corpuscular Volume 97.3 fl (80-100); Mean Platelet Volume 10.2 fl (7.4-10.4); Platelet Count Result 232 k/mm3 (150-375); Red Blood Count 3.64 M/mm3 (4.2-5.4); Red Cell Distribution Width 12.2 % (11.5-14.5); White Blood Count 5.6 K/mm3 (4.5-10.0)
[2024-07-03 05:08] LABS: Anion Gap 8 mmol/L (4-12); Blood Urea Nitrogen 13 mg/dL (7-17); Calcium 9.3 mg/dL (8.4-10.2); Carbon Dioxide 29 mmol/L (22-30); Chloride 101 mmol/L (98-107); Estimated CRCL calculation 27 ml/min; Estimated Glomerular Filt Rate 36; Glucose 117 mg/dL (65-110); Potassium 4.1 mmol/L (3.4-5.0); Sodium 138 mmol/L (137-145)
[2024-07-03 08:07] LABS: Glucose Point of Care 122 mg/dl (65-105)
[2024-07-03] MEDS: METOPROLOL TARTRATE 50 MG TAB PO ×2 (09:03→20:05)
[2024-07-03] MEDS: ANASTROZOLE (*CHEMO) 1 MG TABLET PO (09:04)
[2024-07-03 11:43] LABS: Glucose Point of Care 227 mg/dl (65-105)
--- NOTE | 2024-07-03 12:01 | WPDNEUROPN ---
Subjective Date/time seen: 07/03/24 12:01 Interval history: patient being treated for the serotonergic syndrome, with significant improvement documented after holding the Paxil in addition to the possibility of underlying dementia of Alzheimer's type for which she is to follow up with the physician as an outpatient her B12 folic acid and thyroid studies were normal, MRI of the brain was suggestive of only mild brain atrophy, and Doppler study was suggested by which is also normal, B12 folate levels are pending Objective Data Vital Signs Vital Signs: Vital Signs - 24 hr 07/02/24 14:26 07/02/24 16:16 07/02/24 18:21 Temperature Pulse Rate 60 74 Respiratory Rate 18 Blood Pressure 205/75 H 152/54 H Pulse Oximetry 97 Oxygen Delivery 07/02/24 19:39 07/02/24 20:27 07/02/24 20:00 Temperature 36.5 C Pulse Rate 66 66 72 Respiratory Rate 18 Blood Pressure 143/54 H Pulse Oximetry 98 Oxygen Delivery 07/03/24 00:00 07/03/24 04:00 07/03/24 04:54 Temperature 36.6 C Pulse Rate 64 58 L 58 L Respiratory Rate 16 Blood Pressure 149/58 H Pulse Oximetry 98 Oxygen Delivery 07/03/24 08:00 07/03/24 09:03 07/03/24 09:03 Temperature Pulse Rate 63 62 62 Respiratory Rate Blood Pressure 146/59 H Pulse Oximetry Oxygen Delivery 07/03/24 10:40 07/03/24 09:00 Temperature Pulse Rate Respiratory Rate Blood Pressure Pulse Oximetry Oxygen Delivery Room Air Room Air Intake/Output Intake/Output: Intake & Output 06/30/24 07/01/24 07/02/24 07/03/24 23:59 23:59 23:59 23:59 Intake Total 2870 2933.3 530 410 Output Total 1600 1750 1800 1100 Balance 1270 1183.3 -1270 -690 Meds/Results Medications: Active Medications Generic Name Dose Route Start Last Admin Trade Name Freq PRN Reason Stop Dose Admin Anastrozole 1 mg 06/30/24 09:00 07/03/24 09:04 Anastrozole (*Chemo) 1 Mg Tablet PO 1 mg DAILY VERENA Administration Dextrose 12.5 gm 06/29/24 22:04 Dextrose 50% 25 Gm/50 Ml Syringe IV PUSH PRN PRN Hypoglycemia Protocol Glucagon 1 mg 06/29/24 22:04 Glucagon For Inj 1 Mg Vial IM PRN PRN Hypoglycemia Protocol Glucose 15 gm 06/29/24 22:04 Glucose Oral Gel 15 Gm Of Glucse In 37.5 Gm Tube PO PRN PRN Hypoglycemia Protocol Hydralazine HCl 10 mg 07/01/24 13:57 07/02/24 15:15 Hydralazine Hcl 20 Mg/Ml Vial IV PUSH 10 mg Q8H PRN Administration Blood Pressure - High Insulin Aspart 2 - 5 units 06/30/24 08:00 07/03/24 08:56 Insulin Aspart (*Bkc) 100 Units/Ml SUB-Q Not Given TIDWM VERENA Protocol Metoprolol Tartrate 50 mg 06/29/24 22:00 07/03/24 09:03 Metoprolol Tartrate 50 Mg Tab PO 50 mg Q12HR VEERNA Administration Ondansetron HCl 4 mg 06/29/24 17:12 Ondansetron Inj 4 Mg/2 Ml Vial IV PUSH Q4H PRN Nausea Radiology Results: ITS Impressions Head CT 06/29/24 15:22 IMPRESSION: Very limited examination due to motion artifact Cerebral atherosclerosis and chronic small vessel ischemic changes of the cerebral white matter Central and cortical cerebral and cerebellar atrophy Right 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 No acute intracranial process. 2. Mild brain atrophy with deep white matter ischemic changes.wallerian degeneration seen in the midbrain. 3. No abnormal enhancement. Carotid Doppler Study 07/01/24 15:32 IMPRESSION: 1. <50% stenosis in the right internal carotid artery. 2. <50% stenosis in the left internal carotid artery. Labs Labs: Laboratory Results - last 24 hr 07/02/24 07/02/24 07/03/24 16:59 19:44 04:48 WBC 5.6 RBC 3.64 L Hgb 11.5 L Hct 35.4 L MCV 97.3 MCH 31.6 MCHC 32.5 RDW 12.2 Plt Count 232 MPV 10.2 Sodium 138 Potassium 4.1
--- NOTE | 2024-07-03 12:04 | PM.IMPN ---
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 However has worsened after recent UTI treatment. continue to hydrate (3) HTN (hypertension): Qualifiers: Hypertension type: primary hypertension Qualified Code(s): I10 - Essential (primary) hypertension Code(s): I10 - Essential (primary) hypertension Status: Acute Assessment and Plan: - chronic, currently 110/79 - holding hydrochlorothiazide and lisinopril, continue metoprolol - monitor (4) Anxiety: Code(s): F41.9 - Anxiety disorder, unspecified Status: Acute Assessment and Plan: - holding Paxil, concern for serotonin syndrome (5) Hypomagnesemia: Code(s): E83.42 - Hypomagnesemia Status: Acute Assessment and Plan: Mg level corrected (6) Diabetes: Qualifiers: Diabetes mellitus type: type 2 Diabetes mellitus meterman insulin use: without snf use Diabetes mellitus complication status: without complication Qualified Code(s): E11.9 - Type 2 diabetes mellitus without complications Code(s): E11.9 - Type 2 diabetes mellitus without complications Status: Acute Assessment and Plan: - hypoglycemia protocol - POC blood glucose ACHS - home medication: Hold metformin - correct regimen ordered - low dose TIDWM - A1C ordered (7) Toxic metabolic encephalopathy: Code(s): G92.8 - Other toxic encephalopathy Status: Acute Assessment and Plan: - neurology saw her today- appreciate recommendations A repeat mini-mental status examination in 4 weeks is recommended and if necessary she can be started on medications for memory loss. - f/u with DR Rutherford as an outpt The results of B12 and folic acid level and TSH are pending. Subjective Date/time seen: 07/03/24 12:04 Interval history: Interval history Patient is a 83-year-old white female presented to the hospital with increased agitation and tremulousness. 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 It was noted that on 05/21/2024 the dose of Paxil was increased from 20-40 mg a day. The patient herself is not able to give me much in the way of history. Apparently patient lives by herself and has 5 children were supportive. The other family members are not present however she has been doing fairly well in the last 24 hours. The patient apparently also has had some headache and abdominal pain and dizziness on and off for the last month. Her magnesium level was found to be low at 1.4. She also has history of diabetes mellitus. Her creatinine was found to be high at 1.[address] scan of brain did not show any significant abnormalities. MRI of the brain was performed today which did show acute abnormalities.. Mild atrophy and deep white matter changes described. These are suggestive of chronic ischemic changes. There is no definite history of passing out spell or stroke. At this time she denies any other pain or dizziness. 07/02- pt is seen and examined. she is a little confused- thought thta she was at home- but easily re oritned. I discussed with her antiplatelets and statins as recommended per neurology-
--- NOTE | 2024-07-03 12:07 | PCPTNOTE ---
On 07/03/24, the student, [Isamar Kaur], provided care and completed [facility] documentation on this patient. I have reviewed the student's documentation and agree with the findings.
[2024-07-03] MEDS: INSULIN ASPART (*BKC) 100 UNITS/ML SUB-Q (12:19)
[2024-07-03] MEDS: SODIUM CHLORIDE 0.9% IV 1,000 ML 70 ML IV CONT (13:31)
[2024-07-03 17:02] LABS: Glucose Point of Care 117 mg/dl (65-105)
[2024-07-03 20:59] LABS: Glucose Point of Care 137 mg/dl (65-105)
[2024-07-04] MEDS: SODIUM CHLORIDE 0.9% IV 1,000 ML 70 ML IV CONT (03:52)
[2024-07-04 05:33] VITALS: BP 148/52; PULSE 59; RESP 17; TEMP 36.7; O2SAT 100
[2024-07-04 06:48] LABS: Hematocrit 31.3 % (37.0-47.0); Hemoglobin 10.1 g/dL (12.0-15.0); Mean Corpuscular HGB Conc 32.3 g/dl (32-36); Mean Corpuscular Hemoglobin 31.4 pg (26-34); Mean Corpuscular Volume 97.2 fl (80-100); Mean Platelet Volume 9.9 fl (7.4-10.4); Platelet Count Result 192 k/mm3 (150-375); Red Blood Count 3.22 M/mm3 (4.2-5.4); Red Cell Distribution Width 12.3 % (11.5-14.5); White Blood Count 4.2 K/mm3 (4.5-10.0)
[2024-07-04 06:59] LABS: Anion Gap 7 mmol/L (4-12); Blood Urea Nitrogen 13 mg/dL (7-17); Calcium 8.9 mg/dL (8.4-10.2); Carbon Dioxide 27 mmol/L (22-30); Chloride 104 mmol/L (98-107); Estimated CRCL calculation 27 ml/min; Estimated Glomerular Filt Rate 36; Glucose 123 mg/dL (65-110); Potassium 3.8 mmol/L (3.4-5.0); Sodium 138 mmol/L (137-145)
[2024-07-04 08:13] VITALS: BP 178/63; PULSE 61; O2SAT 99
[2024-07-04 08:14] VITALS: PULSE 61
[2024-07-04] MEDS: PANTOPRAZOLE 40 MG TABLET PO (08:14)
[2024-07-04] MEDS: ANASTROZOLE (*CHEMO) 1 MG TABLET PO (08:14)
[2024-07-04] MEDS: METOPROLOL TARTRATE 50 MG TAB PO (08:14)
[2024-07-04] MEDS: ATORVASTATIN 20 MG TABLET PO (08:14)
[2024-07-04 08:27] LABS: Glucose Point of Care 128 mg/dl (65-105)
[2024-07-04 12:10] LABS: Glucose Point of Care 160 mg/dl (65-105)
--- NOTE | 2024-07-04 13:32 | PM.DS ---
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 creat level improved with fluids, htcz held on dc (3) HTN (hypertension): Qualifiers: Hypertension type: primary hypertension Qualified Code(s): I10 - Essential (primary) hypertension Code(s): I10 - Essential (primary) hypertension Status: Acute Assessment and Plan: - chronic and stable (4) Anxiety: Code(s): F41.9 - Anxiety disorder, unspecified Status: Acute Assessment and Plan: - holding Paxil, concern for serotonin syndrome - paxil stopped on DC neurology will follow later (5) Hypomagnesemia: Code(s): E83.42 - Hypomagnesemia Status: Acute Assessment and Plan: Mg level corrected (6) Diabetes: Qualifiers: Diabetes mellitus complication status: without complication Diabetes mellitus watermelon inspector insulin use: without watermelon inspector use Diabetes mellitus type: type 2 Qualified Code(s): E11.9 - Type 2 diabetes mellitus without complications Code(s): E11.9 - Type 2 diabetes mellitus without complications Status: Acute Assessment and Plan: -DC on metformin (7) Toxic metabolic encephalopathy: Code(s): G92.8 - Other toxic encephalopathy Status: Acute Assessment and Plan: - neurology saw her today- appreciate recommendations A repeat mini-mental status examination in 4 weeks is recommended and if necessary she can be started on medications for memory loss. - f/u with DR Rutherford as an outpt - paxil held on DC DS: Summary Hospital Course Hospital Course: nterval history Patient is a 83-year-old white female presented to the hospital with increased agitation and tremulousness. 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 It was noted that on 05/21/2024 the dose of Paxil was increased from 20-40 mg a day. The patient herself is not able to give me much in the way of history. Apparently patient lives by herself and has 5 children were supportive. The other family members are not present however she has been doing fairly well in the last 24 hours. The patient apparently also has had some headache and abdominal pain and dizziness on and off for the last month. Her magnesium level was found to be low at 1.4. She also has history of diabetes mellitus. Her creatinine was found to be high at 1.[address] scan of brain did not show any significant abnormalities. MRI of the brain was performed today which did show acute abnormalities.. Mild atrophy and deep white matter changes described. These are suggestive of chronic ischemic changes. There is no definite history of passing out spell or stroke. At this time she denies any other pain or dizziness. 07/02- pt is seen and examined. she is a little confused- thought thta she was at home- but easily re oritned. I discussed with her antiplatelets and statins as recommended per neurology- she wants to wait and discuss it wth her PCP which is reasonable. She voices no complains, still somewha
[2024-07-04 14:00] VITALS: BP 172/58; PULSE 64; RESP 17; TEMP 36.8; O2SAT 99
== END 2024-07-04 16:21 | disposition home or self-care (01) ==
LOC: ANHED 13:56 → ANH2MED 18:02
PROVIDERS: Nurse Practitioner; Student in an Organized Health Care Education/Training Program; Admitting Provider Internal Medicine; Emergency Provider Emergency Medicine; PCP Internal Medicine; Visit Provider Family Medicine
DX: R25.1 Tremor, unspecified (principal); N17.9 Acute kidney failure, unspecified; E83.42 Hypomagnesemia; G92.8 Other toxic encephalopathy; I10 Essential (primary) hypertension; E78.5 Hyperlipidemia, unspecified; K21.9 Gastro-esophageal reflux disease without esophagitis; E11.9 Type 2 diabetes mellitus without complications; Z85.3 Personal history of malignant neoplasm of breast; Z90.10 Acquired absence of unspecified breast and nipple; F03.90 Unspecified dementia, unspecified severity, without behavioral disturbance, psychotic disturbance, mood disturbance, and anxiety; Z87.891 Personal history of nicotine dependence; F41.9 Anxiety disorder, unspecified; I65.23 Occlusion and stenosis of bilateral carotid arteries
CPT/HCPCS: 36415; 70450; 70553; 80048; 80053; 80061; 80307; 81001; 82550; 82607; 82746; 82948; 83036; 83605; 83735; 84443; 85025; 85027; 85055; 87045; 87427; 87449; 87493; 93880; 96361; 96365; 96366; 96375; 96376; 97161; 97165; 99285; A9270; A9577; G0378; J0360; J1815; J2060; J3360; J3475; J7030

== ENCOUNTER 2024-09-20 14:20 | Outpatient (CLI) | payer MEDICARE, SELFPAY ==
--- NOTE | ~2024-09-20 | CT_ITS ---
Non-contrast CT scan of the Abdomen and Pelvis Clinical indication: Weight loss Technique: 2.5 mm axial scans were obtained through the abdomen and pelvis without intravenous or or al contrast. Dose reduction technique was used on this scan by utilizing automated exposure control a nd iterative reconstruction technique. The dose-length product (DLP) was 432.17 mGy-cm. Findings: Images through the lung bases reveal no abnormalities. There is no evidence of renal or ureteral calculi. The kidneys and the ureters are nondilated. The liver, spleen, pancreas, and adrenals appear normal. Cholelithiasis noted. There are atherosclero tic calcifications of the aorta. . There is no evidence of bowel obstruction. There is colonic diverticulosis. Normal appendix. Images through the pelvis were performed. There is no evidence of ascites or lymphadenopathy. Urinary bladder unremarkable. No pelvic mass seen. Impression: Cholelithiasis. Colonic diverticulosis. Reviewed, dictated and finalized at [facility]. [employer] Impression: Cholelithiasis. Colonic diverticulosis.
== END 2024-09-20 14:21 | disposition home or self-care (01) ==
LOC: ANHIMG 14:20
PROVIDERS: PCP Internal Medicine; Visit Provider Internal Medicine
DX: R63.4 Abnormal weight loss (principal); K80.20 Calculus of gallbladder without cholecystitis without obstruction; K57.30 Diverticulosis of large intestine without perforation or abscess without bleeding
CPT/HCPCS: 74176

== ENCOUNTER 2024-09-26 09:23 | Outpatient (CLI) | payer MEDICARE, SELFPAY ==
--- NOTE | ~2024-09-26 | NM_ITS ---
EXAMINATION: NM hepatobiliary wo pharm DATE: 09/26/2024 14:02 INDICATION: Cholelithiasis without obstruction. COMPARISON: CT abdomen and pelvis 09/20/2024 TECHNIQUE: 5 mCi Tc-99m mebrofenin (Choletec) was administered intravenously. Scintigraphic images o f the abdomen were obtained for one hour. Delayed images were obtained at 4 hours. FINDINGS: There is normal clearance of radiotracer from the blood pool. There is homogeneous tracer u ptake by the liver. Activity progresses to the bowel. IMPRESSION: 1. Lack of activity in the gallbladder at 4 hours. On the prior CT, the gallbladder was small and co ntracted around gallstones. Lack of activity in the gallbladder may be secondary to acute or chronic cholecystitis. Reviewed, dictated and finalized at location A. T DESK TEAM MEMBER IMPRESSION: 1. Lack of activity in the gallbladder at 4 hours. On the prior CT, the gallbl adder was small and contracted around gallstones. Lack of activity in the gallb ladder may be secondary to acute or chronic cholecystitis.
== END 2024-09-26 09:24 | disposition home or self-care (01) ==
PROVIDERS: PCP Internal Medicine; Visit Provider Internal Medicine
DX: K80.80 Other cholelithiasis without obstruction (principal)
CPT/HCPCS: 78226; A9537

== ENCOUNTER 2024-10-07 15:01 | Outpatient (CLI) | payer MEDICARE, SELFPAY ==
--- NOTE | 2024-10-07 15:06 | ECG_ITS ---
Test Date: 2024-10-07 15:12:08 Measurements Intervals [place] Rate: 60 P: 65 W[place]: 227 QRS: 63 QRSD: 78 T: 54 QT: 414 QTc: 415 Interpretive Statements SINUS RHYTHM WITH FIRST DEGREE AV BLOCK CANNOT R/O SEPTAL INFARCT, AGE INDETERMINATE ST-T WAVE ABNORMALITY IN ANTEROLATERAL LEADS- CONSIDER ISCHEMIA BASELINE ARTIFACT- I, II, III, AVR, AVL, AVF ABNORMAL ECG No previous ECG available for comparison Electronically Signed On 10-07-2024 15:28:19 [employer]RA[employer]EL WHE[employer] by Santosh Stanford D.O.
[2024-10-07 15:47] LABS: Prothrombin Time 13.3 Seconds (11.1-14.7)
[2024-10-07 15:48] LABS: Partial Thromboplastin Time 30.7 Seconds (22.3-36.8)
[2024-10-07 16:13] LABS: Alanine Aminotransferase 35 U/L (6-35); Albumin Level 4.6 g/dL (3.5-5.1); Alkaline Phosphatase 77 U/L (38-126); Amylase 101 U/L (30-110); Aspartate Amino Transferase 48 U/L (14-36); Bilirubin,Total 0.7 mg/dL (0.2-1.3); Lipase 286 U/L (23-300)
[2024-10-07 16:14] LABS: Anion Gap 10 mmol/L (4-12); Blood Urea Nitrogen 39 mg/dL (7-17); Calcium 10.3 mg/dL (8.4-10.2); Carbon Dioxide 29 mmol/L (22-30); Chloride 98 mmol/L (98-107); Estimated Glomerular Filt Rate 16; Glucose 142 mg/dL (65-110); Potassium 3.7 mmol/L (3.4-5.0); Sodium 137 mmol/L (137-145)
== END 2024-10-07 15:02 | disposition home or self-care (01) ==
LOC: ANHSURGERY 15:05
PROVIDERS: Anesthesiology; PCP Internal Medicine; Visit Provider Surgery
DX: Z01.818 Encounter for other preprocedural examination (principal); K80.10 Calculus of gallbladder with chronic cholecystitis without obstruction; I12.9 Hypertensive chronic kidney disease with stage 1 through stage 4 chronic kidney disease, or unspecified chronic kidney disease; N18.9 Chronic kidney disease, unspecified; R94.31 Abnormal electrocardiogram [ECG] [EKG]
CPT/HCPCS: 36415; 80048; 80076; 82150; 83690; 85610; 85730; 93005

== ENCOUNTER 2024-10-09 07:26 | Inpatient (IN) | payer MEDICARE, SELFPAY ==
[2024-10-02 10:36] VITALS: BMI 25.2
--- NOTE | 2024-10-02 10:52 | PC.NURSE ---
Report to the Outpatient Waiting Room, entrance under the green pavilion located off [facility], at time __06:00am on date 10/09/24 . Planned Procedure Time: _07:30am .? Time changes happen often and if your time is changed the preop area will call you the afternoon before. - You and your visitor will be asked to self-screen and do not enter if you have any COVID symptoms. Please call surgeon if you need to reschedule. - A mask is optional within the hospital at this time. Patients may have clear liquids (water, carbonated beverages, clear teas, apple juice) until 3 hours prior to surgery with a maximum of 20 ounces. - No food from midnight until time of surgery and no smoking. This includes no chewing gum, candy or mints. Take only the following medications with a SIP of water on the morning of surgery: __Metoprolol DO NOT STOP ANY OF YOUR OTHER PRESCRIPTION MEDICATIONS PRIOR TO SURGERY EXCEPT THE FOLLOWING Medications to discontinue per physician ___None Date to take last dose None Please no make-up, nail greek, hairspray, perfume, deodorant, or body powder the day of surgery.? No jewelry (including any body piercings) or valuables the day of surgery, leave them at home.? Please take a shower or bath the night before, or the morning of, surgery with an antibacterial soap.? Wear comfortable, loose fitting clothing.? - Jewelry must be removed prior to entering the operating room.? Rings and piercings that are not removed may be cut off. - The hospital will not accept responsibility for valuables.? - Please leave all valuables, including medications, at home the day of surgery. If you are going home after surgery, a licensed motorcycle delivery driver must drive you home.? - NO public transportation without another adult if you receive anesthesia. - We recommend that an adult stay with you for 24 hours following discharge. - We also recommend that you do not drive, make important decision, drink alcoholic beverages, or take any drugs that were not prescribed by your health care provider for at least 24 hours after your discharge time. Follow any additional instructions given to you from your surgeon. Telephone instructions given to _Brittney MURRAY ( daughter) and asked if any additional questions and then verbalized understanding. Patient advised to call surgeon office or pre surgery nurse liaison [phone] if any additional questions.
--- NOTE | 2024-10-09 | ECHO_ITS ---
Patient Info Name: Jolene Mclean Age: 83 years : 1940 Gender: Female Ht: 63 in Wt: 145 lbs BSA: 1.72 m2 HR: 66 bpm BP: 111 / 66 mmHg Heart Rhythm: Sinus Rhythm Technical Quality: Fair Exam Date: 10/09/2024 12:51 PM Exam Location: Echo Lab Patient Status: Inpatient Admit Date: 10/09/2024 Staff Ordering Physician: Ramses Gomez MD/landon) Advanced Manufacturing Technician: Darlin Nguyen RDCS Attending Provider: Jarrett Kelly MD Referring Physician: Jason BLUM; Exam Type: CA echo dop color flow w con Study Info Indications R94.31 - Abnormal electrocardiogram ECG EKG Complete two-dimensional, color flow and Doppler transthoracic echocardiogram is performed with contrast to opacify the left ventricle and to improve the deliniation of the left ventricle endocardial borders. Contrast/Agitated Saline Contrast/Ag. Saline: Definity Amount: 2.00 ml Administered By: Darlin Nguyen RDCS Existing IV Access: Yes IV Access Condition: patent with no signs of infiltration Summary 1. Left ventricular chamber dimension is normal. 2. Left ventricular systolic function is normal, estimated at >70%. 3. The left ventricular diastolic function is grade I diastolic dysfunction. 4. Right ventricular systolic function is normal. 5. There is mild tricuspid valve regurgitation. Left Ventricle Left ventricular chamber dimension is normal. Left ventricular systolic function is normal, estimated at >70%. There is no increased left ventricular wall thickness. The left ventricular diastolic function is grade I diastolic dysfunction. Right Ventricle Right ventricular chamber dimension is normal. Right ventricular systolic function is normal. Left Atria Left atrial chamber dimension is normal. Right Atria Right atrial chamber dimension is normal. Atrial Septum Intact interatrial septum visualized by color flow imaging. Aortic Valve The aortic valve is not well visualized. There is no aortic valve stenosis. There is no aortic valve regurgitation. Pulmonic Valve The pulmonic valve is not well visualized. Mitral Valve There is trace mitral valve regurgitation. The mitral valve annulus is mildly calcified. Tricuspid Valve There is mild tricuspid valve regurgitation. Pericardium/Pleural The pericardium appears epicardial fat pad. There is no pericardial effusion. Inferior Vena Cava Normal inferior vena cava with >50% collapse upon inspiration consistent with normal right atrial pressure, 3 mmHg. Aorta The aortic root size at the sinus of Valsalva is normal. Left Ventricular Outflow Tract Name Value Normal LVOT 2D LVOT Diameter 1.88 cm LVOT Doppler LVOT Peak Gradient 5 mmHg LVOT Mean Gradient 2 mmHg LVOT VTI 22.06 cm LVOT VTI/AV VTI Ratio 0.74 LVOT Stroke Volume 61.40 ml LVOT CO 4.06 l/min LVOT CI 2.35 L/min/m2 Pulmonic Valve Name Value Normal RVOT Doppler RVOT Peak Gradient 4 mmHg PV Doppler PV Peak Gradient 5 mmHg Mitral Valve Name Value Normal MV Doppler MV Decel [place] 335.07 cm/s2 MV PHT 0 s MV Area (PHT) 2.86 cm2 4.00-5.00 MV Diastolic Function MV E Peak Velocity 88.91 cm/s MV A Peak Velocity 143.99 cm/s MV E/A 0.62 MV Decel Time 0 s MV Annular TDI MV E/e' (Septal) 18.37 <=8.00 MV E/e' (Lateral) 14.39 <=8.00 MV E/e' (Average) 16.38 Tricuspid Valve Name Value Normal TV Regurgitation Doppler TR Peak Velocity 303.37 cm/s TR Peak Gradient 24 mmHg Estimated PAP/RSVP RA Pressure 3 mmHg <=5 PA Systolic Pressure 40 mmHg <36 RV Systolic Pressure 40 mmHg <36 Aorta Name Value Normal Ascending Aorta Ao Root Diameter (MM) 2.99 cm Ao Root Diam Index (MM) 1.74 cm/m2 Aortic Valve Name Value Normal AV Doppler AV Peak Velocity 156.82 cm/s AV Peak Gradient 10 mmHg AV Mean Gradient 4 mmHg AV VTI 29.73 cm AV Area (Cont Eq VTI) 2.07 cm2 >=3.00 AV Area (Cont Eq Aristides) 2.00 cm2 AV Regurgitation 2D LVOT Area 2.78 cm2 Ventricles Name Value Normal LV Dimensions 2D/MM IVS Diastolic Thickness (2D) 0.94 cm 0.60-1.00 LVID Diastole (2D) 3.55 cm 3.80-5.20 LVIW Diastolic Thickness (2D) 0.86 cm 0.60-0.90 LVID Systole (2D) 2.11 cm 2.20-3.50 LVOT Diameter 1.88 cm LV Mass (2D Cubed) 90.68 g 67.00-162.00 LV Mass Index (2D Cubed) 0.01 g/cm2 0.00-0.01 Relative Wall Thickness (2D) 0.48 LV Fractional Shortening/Ejection Fraction 2D/MM LV Fractional Shortening (2D) 41 % 27-45 LV EF (2D Teicholz) 72 % 54-74 LV Diastolic Volume (4C MOD) 35.16 ml LV EF (4C MOD) 77 % LV Diastolic Volume (2C MOD) 39.76 ml LV EF (2C MOD) 73 % LV Diastolic Volume (BP MOD) 37.93 ml 46.00-106.00 LV Diastolic Volume Index (BP MOD) 0.02 l/m2 0.03-0.06 LV Systolic Volume (BP MOD) 9.45 ml 14.00-42.00 LV Systolic Volume Index (BP MOD) 0.01 l/m2 0.01-0.02 LV EF (BP MOD) 75 % 54-74 LV Diastolic Length (4C) 7.28 cm LV Systolic Length (4C) 6.00 cm LV Stroke Volume (4C MOD) 27.20 ml Atria Name Value Normal LA Dimensions LA Dimension (MM) 4.43 cm 2.70-3.80 LA Volume (4C A-L) 30.92 ml LA Volume (BP A-L) 28.99 ml RA Dimensions RA Area (4C) 11.72 cm2 <=18.00 Report Signatures
--- NOTE | ~2024-10-09 | US_ITS ---
EXAMINATION: US renal BI DATE: 10/09/2024 14:32 INDICATION: Acute on chronic kidney disease TECHNIQUE: Multiple ultrasound grayscale images of the kidneys were obtained. COMPARISON: CT dated 09/20/2024 FINDINGS: The right kidney measures 8.1 x 3.4 x 4.6 cm. The left kidney measures 8.4 x 4.9 x 3.8 cm. The kidney s demonstrate normal echogenicity. There is no hydronephrosis in either kidney. No stones identified . The bladder is normal. IMPRESSION: 1. Normal kidneys without hydronephrosis. Reviewed, dictated and finalized at location A. [facility]
[2024-10-09] MEDS: LACTATED RINGERS 1,000 ML 30 ML IV CONT (06:30)
[2024-10-09] MEDS: KETOROLAC 15 MG/ML VIAL (*BKC) IV PUSH (06:30)
[2024-10-09] MEDS: ACETAMINOPHEN 500 MG TABLET 1000 MG PO (06:30)
[2024-10-09 07:05] LABS: Anion Gap 12 mmol/L (4-12); Blood Urea Nitrogen 51 mg/dL (7-17); Calcium 9.9 mg/dL (8.4-10.2); Carbon Dioxide 26 mmol/L (22-30); Chloride 100 mmol/L (98-107); Estimated CRCL calculation 9 ml/min; Estimated Glomerular Filt Rate 12; Glucose 110 mg/dL (65-110); Potassium 4.3 mmol/L (3.4-5.0); Sodium 138 mmol/L (137-145)
[2024-10-09 07:18] VITALS: BP 111/60; PULSE 66; RESP 16; TEMP 36.7; O2SAT 100
--- NOTE | 2024-10-09 07:22 | WPDHPUPDATE1 ---
History and Physical Update Update Date/Time: 10/09/24 07:22 The patient presented for a scheduled elective laparoscopic cholecystectomy this morning. She had significant elevations in her creatinine 2 days ago on preoperative labs. She has been very symptomatic with her gallbladder has not been taking p.o. very well for an extended period. Stat labs this morning showed further elevation in her creatinine which is now 3.6 which is increased from 2.8 two days ago. She also had some abnormalities noted on her preoperative EKG. Patient appears to be in acute renal failure now likely from poor p.o. intake of volume depletion. Also with her changes on EKG preoperatively I discussed with the patient's family that the patient should be medically optimized before proceeding with a laparoscopic cholecystectomy. They are in agreement with admission to the hospital and medical management of her acute renal failure and further evaluation of her cardiac abnormalities on EKG. After her medical condition has been optimized then can consider performing a laparoscopic cholecystectomy during this admission versus interval laparoscopic cholecystectomy. He cannot take another p.o. intake during this admission then we may need to start her on TPN.
--- NOTE | 2024-10-09 07:36 | SUR.PREOP ---
BMP DRAWN TODAY SHOW WORSENING ELEVATED BUN/CR. DR. CHURCH AND DOMO AWARE AND PT TO BE ADMITTED FOR ACUTE RENAL FAILURE AND SURGERY CANCELLED TODAY. PT ADMIT TO 261. DAUGHTERS PRESENT AND HAVE SPOKEN WITH DR. CHURCH.
--- NOTE | 2024-10-09 07:39 | P.HP_ITS ---
H&P: HPI History of Present Illness Date/Time: 10/09/24 07:39 Chief Complaint: Acute renal failure Narrative: Patient is an 83-year-old female who was seen in my office last week with complaints of chronic nausea as well as poor p.o. intake. Her initial workup for this issue as an outpatient prior to being evaluated by me in the office included CT scan abdomen pelvis which showed cholelithiasis within a decom pressed gallbladder and a HIDA scan which showed nonvisualization of gallbladder at 4hours. She did not have any complaints of pain or pain and so I felt she had chronic cholecystitis due to cholelithiasis leading to poor p.o. intake and her chronic nausea. She was set up to have a laparoscopic cholecystectomy today on a semi elective basis. Her labs 2 days ago preoperatively showed normal whit e blood cell count but her creatinine historically been around 1.5 had elevated to 2.8. This may have been due to dehydration and poor p.o. intake. She also had a preoperative EKG which showed some changes but after discussion with Anesthesia yesterday because she was so symptomatic it was decided that proceeding with a laparoscopic cholecystectomy would be indicated in light of the minor EKG changes. However on presentation to the hospital this morning stat repeat BMP was performed showing further elevation of her creatinine to 3.6 and for the increase in her BUN. It appears the patient is acute renal failure of the present time. The patient has dementia and I discussed with the family her current medical condition I recommend admission to the hospital for treatment of her acute renal failure, for preoperative evaluation of her cardiac status by the Cardiology, and medical optimization prior to any surgery. Patient's family was in agreement with this plan and surgery was canceled for this morning patient was admitted to the hospital. Review of Systems Review of Systems: The remainder of the review of systems to include constitutional, HEENT, cardiovascular, respiratory, GI, , integumentary, musculoskeletal, endocrine, immunologic, hematologic, psychiatric, and neurologic are all negative except for which is mentioned above in the HPI. [facility] Past Medical History Medical History Anxiety Breast cancer s/p on mastectomy and radiation Chronic kidney disease Dementia Diabetes Eczema GERD (gastroesophageal reflux disease) HTN (hypertension) Hyperlipidemia MCI (mild cognitive impairment) Migraine Toxic metabolic encephalopathy Surgical History Surgical History History of mastectomy Family History Family History Mother Heart disease Social History Social History Smoking packs per day: 1 Smoking cigarettes per day: 20.0 Years smoked: 20 Smoking pack-years: 20.00 Smoking status: Former smoker Smoking end date: 11/13/80 Alcohol intake: never Substance use: never Substance use type: does not use Do You Feel Safe in your Home?: Yes Lack of Transportation: No Lack of Food: Never True Current Housing: I Have Housing Concerned About Future Housing: No Difficulty Paying Gas/Electric Bills: No Difficulty Paying for Meds: No Currently Unemployed: No Education: High School Diploma/GED Difficulty w/ Childcare or Family Care: No Living arrangements: alone Spiritual care concerns: No Meds Home Medications and Allergies Home Medications Medication Instructions Recorded Confirmed Type anastrozole 1 mg tablet 1 mg PO DAILY 06/29/24 10/09/24 History atorvastatin 20 mg tablet 20 mg PO DAILY 06/29/24 10/09/24 History lisinopril 40 mg tablet 40 mg PO DAILY 06/29/24 10/09/24 History metformin 500 mg tablet 500 mg PO DAILY 06/29/24 10/09/24 History metoprolol tartrate 50 mg tablet 50 mg PO BID 06/29/24 10/09/24 History donepezil 5 mg tablet (Aricept) 5 mg PO QHS #90 tabs 08/16/24 10/09/24 Rx hydrochlorothiazide 25 mg tablet 25 mg PO DAILY 10/01/24 10/09/24 History pantoprazole 40 mg tablet,delayed 40 mg PO QAM 10/01/24 10/09/24 History release ondansetron 4 mg disintegrating 8 mg PO PRN PRN Nausea 10/02/24 10/09/24 History tablet Allergies Allergy/AdvReac Type Severity Reaction Status Date / Time No Known Allergies Allergy Verified 10/09/24 07:06 Vital Signs Vital Signs - 24 hr 10/09/24 07:18 Temperature 36.7 C Pulse Rate 66 Respiratory Rate 16 Blood Pressure 111/60 Pulse Oximetry 100 Oxygen Delivery Room Air Exam Const: General: comfortable and no acute distress HENMT: Ears: TM's normal bilaterally Face/Nose/Sinus: Normal nares present Mouth: Yes moist mucous membranes Eyes: General: appearance normal, both eyes and all related structures Sclera: sclerae normal Pupils: Equal, round and reactive pupils present EOM: EOMs intact bilaterally Neck: Neck: supple and no JVD Resp: Effort & Inspection: normal respiratory effort Auscultation: clear to auscultation bilaterally Cardio: Rate: regular rate Rhythm: regular rhythm GI: Other: Abdomen is soft and nondistended. No tenderness to palpation in the right upper quadrant in the area the gallbladder. No masses. No ventral hernias. Skin: General skin exam: normal color and no rashes or lesions noted Neuro: General: gait normal Speech: normal speech Motor exam (neuro): 5/5 motor strength present throughout Sensory Exam: normal sensation Extrem: General: normal to inspection Psych: Other: Patient answers questions but clearly has poor insight due to her dementia. H&P: Results Labs Labs: [facility] 10/09/24 06:45 Sodium 138 Potassium 4.3 Chloride 100 Carbon Dioxide 26 BUN 51 H D Creatinine 3.60 H Glucose 110 Calcium 9.9 Imaging US - abdomen: Radiologist's impression: Patient: Jolene Mclean : 1940 MR#: [id number] Age: 83 Acct:[id number] Loc: [facility] ADM Date: 09/20/24Attending Dr: David Grover MLawrence Ordering Physician: Ajay*David MD Date of Service: 09/20/24 Procedure(s): CT abdomen pelvis [facility] Accession Number(s): [id number] cc: Ajay*, David Matos MD~ Non-contrast CT scan of the Abdomen and Pelvis Clinical indication: Weight loss Technique: 2.5 mm axial scans were obtained through the abdomen and pelvis without intravenous or oral contrast. Dose reduction technique was used on this scan by utilizing automated exposure control and iterative reconstruction technique. The dose-length product (DLP) was 432.17 mGy-cm. Findings: Images through the lung bases reveal no abnormalities. There is no evidence of renal or ureteral calculi. The kidneys and the ureters are nondilated. The liver, spleen, pancreas, and adrenals appear normal. Cholelithiasis noted. There are atherosclerotic calcifications of the aorta. . There is no evidence of bowel obstruction. There is colonic diverticulosis. Normal appendix. Images through the pelvis were performed. There is no evidence of ascites or lymphadenopathy. Urinary bladder unremarkable. No pelvic mass seen. Impression: Cholelithiasis. Colonic diverticulosis. Reviewed, dictated and finalized at location M. YST PROGRAMMER Patient: Jolene Mclean : 1940 MR#: [id number] Age: 83 Acct:[id number] Loc: [facility] ADM Date: 09/26/24Attending Dr: David Kelly M.D. Ordering Physician: David Kelly MD Date of Service: 09/26/24 Procedure(s): KS hepatobiliary wo pharm Accession Number(s): [id number] cc: David Kelly MD~ EXAMINATION: KS hepatobiliary wo pharm DATE: 09/26/2024 14:02 INDICATION: Cholelithiasis without obstruction. COMPARISON: CT abdomen and pelvis 09/20/2024 TECHNIQUE: 5 mCi Tc-99m mebrofenin (Choletec) was administered intravenously. Scintigraphic images of the abdomen were obtained for one hour. Delayed images were obtained at 4 hours. FINDINGS: There is normal clearance of radiotracer from the blood pool. There is homogeneous tracer uptake by the liver. Activity progresses to the bowel. IMPRESSION: 1. Lack of activity in the gallbladder at 4 hours. On the prior CT, the gallbladder was small and contracted around gallstones. Lack of activity in the gallbladder may be secondary to acute or chronic cholecystitis. Reviewed, dictated and finalized at location A. YST PROGRAMMER Assessment and Plan Assessment and plan (1) Chronic cholecystitis with calculus: Code(s): K80.10 - Calculus of gallbladder with chronic cholecystitis without obstruction Status: Acute Assessment and Plan: Patient appears to have chronic cholecystitis secondary to cholelithiasis. It has been very symptomatic recently and she has had poor p.o. intake and chronic nausea. He needs to have a laparoscopic cholecystectomy, however, due to her worsening renal function and likely acute renal failure this will need to be addressed 1st. She is going to be admitted to the hospital for medical management and medical optimization with consultations to nephrology and cardiology since she also has some abnormalities on her EKG. Can proceed with a laparoscopic cholecystectomy once she has been medically optimized. (2) Acute renal failure: Code(s): N17.9 - Acute kidney failure, unspecified Status: Acute Assessment and Plan: Creatinine has risen from a baseline of around 1.2-1.5 to 3.6 today over a short period. Suspect she has acute renal failure on top of chronic renal dysfunction. She will need to be admitted to the hospital and nephrology will be consulted. She is on an SHELIA-inhibitor and I suspect this will be held by Nephrology. Workup and management of her renal condition as per Nephrology. (3) MCI (mild cognitive impairment): Code(s): G31.84 - Mild cognitive impairment of uncertain or unknown etiology Status: Acute Assessment and Plan: Patient has chronic dementia which seems to be mild. Continue medications as per hospitalist service (4) Diabetes: Qualifiers: Diabetes mellitus complication status: without complication Diabetes mellitus long wall mining machine tender insulin use: without intermediate use Diabetes mellitus type: type 2 Qualified Code(s): E11.9 - Type 2 diabetes mellitus without complications Code(s): E11.9 - Type 2 diabetes mellitus without complications Status: Acute Assessment and Plan: Patient is not insulin-dependent diabetic. We will keep her on diabetic diet as she can tolerate. (5) Abnormal finding on EKG: Code(s): R94.31 - Abnormal electrocardiogram [ECG] [EKG] Status: Acute Assessment and Plan: Patient has some abnormalities on her preoperative EKG. We will get a Cardiology evaluation while she is inpatient for these changes. Management as per Cardiology.
--- NOTE | 2024-10-09 08:38 | ADMGEN ---
This patient, Jolene Mclean, was admitted to 2 Medical Room 261-01. Patient/family oriented to hospital policies and general routines including ID bracelet, bed and alarms, visiting hours, pain management, procedures, bathroom and other care routines, personal items, smoking policy, room service/diet, and visiting hours. Information on how to activate the Rapid Response Team has been discussed. Patient/Family are encouraged to report perceived risks to care and to ask questions if they do not understand what they are told or what they should do.
[2024-10-09 09:39] VITALS: BMI 25.7
[2024-10-09] MEDS: DEXTROSE 5%/0.9% SOD CHL 1,000 ML 125 ML IV CONT ×2 (10:08→21:29)
[2024-10-09] MEDS: ONDANSETRON INJ 4 MG/2 ML VIAL IV PUSH ×2 (10:08→15:16)
[2024-10-09 10:52] LABS: Basophils Percent Auto 0.3 % (0.2-1.2); Eosinophils Absolute Auto 0.1 K/mm3 (0-0.3); Eosinophils Percent Auto 1.8 % (0-4.4); Hematocrit 35.6 % (37.0-47.0); Hemoglobin 11.5 g/dL (12.0-15.0); Immature Granulocyte Absolute 0.01 K/mm3 (0.00-0.031); Immature Granulocyte Percent A 0.2 % (0-0.5); Lymphocytes Percent Auto 24.7 % (18.3-44.2); Mean Corpuscular HGB Conc 32.3 g/dl (32-36); Mean Corpuscular Hemoglobin 30.7 pg (26-34); Mean Corpuscular Volume 95.2 fl (80-100); Mean Platelet Volume 11.1 fl (7.4-10.4); Monocytes Absolute Auto 0.6 K/mm3 (0.1-0.6); Monocytes Percent Auto 9.2 % (2.6-8.5); Neutrophils Absolute Auto 4.1 K/mm3 (1.3-6.7); Neutrophils Percent Auto 63.8 % (45.5-73.1); Platelet Count Result 170 k/mm3 (150-375); Red Blood Count 3.74 M/mm3 (4.2-5.4); Red Cell Distribution Width 12.6 % (11.5-14.5); White Blood Count 6.5 K/mm3 (4.5-10.0)
[2024-10-09 11:01] LABS: Prothrombin Time 13.6 Seconds (11.1-14.7)
[2024-10-09 11:08] LABS: Alanine Aminotransferase 27 U/L (6-35); Albumin Level 3.8 g/dL (3.5-5.1); Alkaline Phosphatase 75 U/L (38-126); Anion Gap 13 mmol/L (4-12); Aspartate Amino Transferase 35 U/L (14-36); Bilirubin,Total 0.6 mg/dL (0.2-1.3); Blood Urea Nitrogen 47 mg/dL (7-17); Calcium 9.4 mg/dL (8.4-10.2); Carbon Dioxide 22 mmol/L (22-30); Chloride 100 mmol/L (98-107); Estimated CRCL calculation 9 ml/min; Estimated Glomerular Filt Rate 12; Glucose 91 mg/dL (65-110); Magnesium 1.3 mg/dL (1.6-2.3); Potassium 4.2 mmol/L (3.4-5.0); Sodium 135 mmol/L (137-145)
--- NOTE | 2024-10-09 11:22 | P.CONCA_ITS ---
Assessment and Plan Assessment and plan (1) Abnormal finding on EKG: Code(s): R94.31 - Abnormal electrocardiogram [ECG] [EKG] Status: Acute Assessment and Plan: EKG shows sinus rhythm with first degree AV block, nonspecific STTW abnormality. No prior EKG available for comparison. No cardiac symptoms. No cardiac history. Will obtain a transthoracic echocardiogram. If TTE without significant abnormality, then no additional cardiac workup or testing needed prior to the planned surgery. (2) Acute renal failure: Code(s): N17.9 - Acute kidney failure, unspecified Status: Acute Assessment and Plan: Nephrology consulted. (3) Chronic cholecystitis with calculus: Code(s): K80.10 - Calculus of gallbladder with chronic cholecystitis without obstruction Status: Acute Assessment and Plan: Management as per Surgery. (4) HTN (hypertension): Qualifiers: Hypertension type: primary hypertension Qualified Code(s): I10 - Essential (primary) hypertension Code(s): I10 - Essential (primary) hypertension Status: Acute Assessment and Plan: Stable. History of Present Illness History of Present Illness Consult date/time: 10/09/24 11:22 Requesting physician: Jarrett Kelly MD Consult reason: Other (Abnormal ECG) Reason For Visit: Chr Cholecystitis Secondary to Gallstones Narrative: We are consulted for abnormal ECG. This is an 83 year old female with hypertension, hyperlipidemia, diabetes mellitus, CKD who has been having nausea, vomiting, abdominal pain. Found to have chronic cholecystitis. She was set up to have a laparoscopic cholecystectomy on a semi elective basis. Found to have LISA on CKD. Preoperative EKG abnormal. Despite minor EKG abnormality, plan was still to proceed with surgery, however labs showed worsening renal function. Therefore, patient admitted to the hospital for acute on chronic renal failure, preoperative evaluation from us and medical optimization prior to surgery. Patient denies any cardiac history. No history of chest pain. Activity status is limited. Does walk around the house, does not go up stairs. However, no symptoms with exertion. Workup shows SCr is now 3.7. EKG shows sinus rhythm with first degree AV block, nonspecific STTW abnormality. No prior EKG available for comparison. Review of Systems Review of Systems: All systems reviewed & are unremarkable except as noted in HPI and below (HPI) [facility] Past Medical History Medical History Anxiety Breast cancer s/p on mastectomy and radiation Chronic kidney disease Dementia Diabetes Eczema GERD (gastroesophageal reflux disease) HTN (hypertension) Hyperlipidemia MCI (mild cognitive impairment) Migraine Toxic metabolic encephalopathy Surgical History Surgical History History of mastectomy Family History Family History (Reviewed 10/09/24 @ 11: by Ramses Gomez MD) Mother Heart disease Social History Social History Smoking packs per day: 1 Smoking cigarettes per day: 20.0 Years smoked: 20 Smoking pack-years: 20.00 Smoking status: Former smoker Alcohol intake: never Substance use: never Substance use type: does not use Do You Feel Safe in your Home?: Yes Lack of Transportation: No Lack of Food: Never True Current Housing: I Have Housing Concerned About Future Housing: No Difficulty Paying Gas/Electric Bills: No Difficulty Paying for Meds: No Currently Unemployed: No Education: High School Diploma/GED Difficulty w/ Childcare or Family Care: No Living arrangements: alone Spiritual care concerns: No Meds Home Medications and Allergies Home Medications Medication Instructions Recorded Confirmed Type anastrozole 1 mg tablet 1 mg PO DAILY 06/29/24 10/09/24 History atorvastatin 20 mg tablet 20 mg PO DAILY 06/29/24 10/09/24 History lisinopril 40 mg tablet 40 mg PO DAILY 06/29/24 10/09/24 History metformin 500 mg tablet 500 mg PO DAILY 06/29/24 10/09/24 History metoprolol tartrate 50 mg tablet 50 mg PO BID 06/29/24 10/09/24 History donepezil 5 mg tablet (Aricept) 5 mg PO QHS #90 tabs 08/16/24 10/09/24 Rx hydrochlorothiazide 25 mg tablet 25 mg PO DAILY 10/01/24 10/09/24 History pantoprazole 40 mg tablet,delayed 40 mg PO QAM 10/01/24 10/09/24 History release ondansetron 4 mg disintegrating 8 mg PO PRN PRN Nausea 10/02/24 10/09/24 History tablet Allergies Allergy/AdvReac Type Severity Reaction Status Date / Time No Known Allergies Allergy Verified 10/09/24 07:06 Vital Signs Vital Signs - 24 hr 10/09/24 07:18 Temperature 36.7 C Pulse Rate 66 Respiratory Rate 16 Blood Pressure 111/60 Pulse Oximetry 100 Oxygen Delivery Room Air Exam Const: General: comfortable and no acute distress HENMT: Mouth: Yes dry mucous membranes Eyes: General: appearance normal, both eyes and all related structures Sclera: sclerae normal Resp: Effort & Inspection: normal respiratory effort Cardio: Rate: regular rate Rhythm: regular rhythm Heart sounds: no murmurs Skin: General skin exam: normal color Neuro: Speech: normal speech Psych: Mental Status: mental status grossly normal Affect: normal affect Results Labs and Meds 10/09/24 10:37 10/09/24 10:37 Lab results: Cardiac Enzymes 10/09/24 Range/Units 10:37 AST 35 (14-36) U/L Coagulation 10/09/24 Range/Units 10:37 PT 13.6 (11.1-14.7) Seconds CBC 10/09/24 Range/Units 10:37 WBC 6.5 (4.5-10.0) K/mm3 RBC 3.74 L (4.2-5.4) M/mm3 Hgb 11.5 L (12.0-15.0) g/dL Hct 35.6 L (37.0-47.0) % Plt Count 170 (150-375) k/mm3 Lymph # (Auto) 1.60 (0.9-3.2) K/mm3 [place] # (Auto) 0.6 (0.1-0.6) K/mm3 Eos # (Auto) 0.1 (0-0.3) K/mm3 Baso # (Auto) 0.0 (0.0-0.1) K/mm3 Comprehensive Metabolic Panel 10/09/24 10/09/24 Range/Units 06:45 10:37 Sodium 138 135 L (137-145) mmol/L Potassium 4.3 4.2 (3.4-5.0) mmol/L Chloride 100 100 (98-107) mmol/L Carbon Dioxide 26 22 (22-30) mmol/L BUN 51 H D 47 H (7-17) mg/dL Creatinine 3.60 H 3.70 H (0.7-1.0) mg/dL Glucose 110 91 (65-110) mg/dL Calcium 9.9 9.4 (8.4-10.2) mg/dL AST 35 (14-36) U/L ALT 27 (6-35) U/L Alkaline Phosphatase 75 (38-126) U/L Total Protein 7.0 (6.3-8.2) g/dL Albumin 3.8 (3.5-5.1) g/dL Patient Weight 10/09/24 23:59 Weight 65.8 kg
[2024-10-09 12:31] VITALS: BMI 25.7
--- NOTE | 2024-10-09 12:41 | P.CONNP_ITS ---
Assessment and Plan Assessment and plan (1) LISA (acute kidney injury): Code(s): N17.9 - Acute kidney failure, unspecified Status: Acute Assessment and Plan: * history would suggest prerenal azotemia/volume depletion * this was likely complicated by ongoing SHELIA-I and HCTZ use as well * check renal ultrasound, CPK, and urine studies * agree with trial of IVFs * follow trend of repeat labs and UOP (2) Stage 3b chronic kidney disease: Code(s): N18.32 - Chronic kidney disease, stage 3b Status: Chronic Assessment and Plan: * baseline creatinine seems to run ~ 1.3 - 1.4mg/dl * presumably due to hypertension, diabetes, vascular disease, and age-related change (3) Chronic cholecystitis with calculus: Code(s): K80.10 - Calculus of gallbladder with chronic cholecystitis without obstruction Status: Acute Assessment and Plan: * as noted by history/imaging * noted symptoms (nausea, vomiting, poor oral intake) * will eventually need cholecystectomy once medically optimized * Surgery following (4) HTN (hypertension): Qualifiers: Hypertension type: primary hypertension Qualified Code(s): I10 - Essential (primary) hypertension Code(s): I10 - Essential (primary) hypertension Status: Chronic Assessment and Plan: * reasonable control * holding HCTZ and lisinopril given #1 * follow trend of hemodynamics (5) Diabetes: Qualifiers: Diabetes mellitus complication status: without complication Diabetes mellitus assisted insulin use: without local intermodal truck driver use Diabetes mellitus type: type 2 Qualified Code(s): E11.9 - Type 2 diabetes mellitus without complications Code(s): E11.9 - Type 2 diabetes mellitus without complications Status: Chronic Assessment and Plan: * follow accu-cheks * glycemic control per hospitalists I will continue to follow the patient with you while she remains hospitalized and make further recommendations as deemed necessary. Thank you for allowing me to participate in the care of this patient. History of Present Illness Reason for Consult Consult date: 10/09/24 Reason for consult: acute renal failure (on chronic kidney disease) Chief Complaint Chief complaint: Chr Cholecystitis Secondary to Gallstones History of Present Illness Narrative: The patient is an 83-year-old female with a past medical history as outlined below who was directly admitted to the hospital today for further evaluation of acute kidney injury/acute renal failure. The patient was originally seen by General surgery for evaluation of chronic nausea and poor oral intake earlier this month. At that time, she reports she h ad had chronic nausea with occasional emesis in association with right upper quadrant pain for last 4 months. Symptoms have continued to worsen in the last month if not in the last several weeks. Outpatient CT scan of the abdomen pelvis demonstrated cholelithiasis and chronic diverticulosis. HIDA scan done on 09/26/2020 for showed lack of activity in the gallbladder at 4:00 a.m. with the suspected lack of activity in the gallbladder due to acute or chronic cholecystitis. She presented today to the hospital for elective laparoscopic cholecystectomy however preoperative labs showed worsening of her baseline renal function and stat labs performed today in anticipation of her surgery showed further worsening of her renal dysfunction. In light of this finding as well as the fact that she did have some minor EKG changes on preop testing, she was directly admitted to the hospital for further evaluation and therapy. Renal consultation was requested due to her acute kidney injury/acute renal failure on top of her baseline chronic kidney disease. Her baseline creatinine normally runs around 1.3-1.4 mg/dL for last few years. Her outpatient preoperative labs demonstrated her creatinine was up to 2.8 mg/dL and subsequent testing done today showed her creatinine to 3.6 mg/dL. She had no critical electrolyte abnormalities noted. Given the above history with regard to nausea, vomiting, and poor oral intake for a significant period time, it is suspected that volume depletion is the likely etiology of her worsening renal dysfunction. Her baseline chronic kidney disease is likely secondary to her hypertension, diabetes vascular disease, and age-related change. Currently, at the time my evaluation she does not appear to be in any acute distress. Review of Systems Review of Systems: As per HPI. [facility] Past Medical History Medical History Anxiety Breast cancer s/p on mastectomy and radiation Chronic kidney disease Dementia Diabetes Eczema GERD (gastroesophageal reflux disease) HTN (hypertension) Hyperlipidemia MCI (mild cognitive impairment) Migraine Toxic metabolic encephalopathy Surgical History Surgical History History of mastectomy Family History Family History Mother Heart disease Social History Social History Smoking packs per day: 1 Smoking cigarettes per day: 20.0 Years smoked: 20 Smoking pack-years: 20.00 Smoking status: Former smoker Alcohol intake: never Substance use: never Substance use type: does not use Do You Feel Safe in your Home?: Yes Lack of Transportation: No Lack of Food: Never True Current Housing: I Have Housing Concerned About Future Housing: No Difficulty Paying Gas/Electric Bills: No Difficulty Paying for Meds: No Currently Unemployed: No Education: High School Diploma/GED Difficulty w/ Childcare or Family Care: No Living arrangements: alone Spiritual care concerns: No Meds Home Medications and Allergies Home Medications Medication Instructions Recorded Confirmed Type anastrozole 1 mg tablet 1 mg PO DAILY 06/29/24 10/09/24 History atorvastatin 20 mg tablet 20 mg PO DAILY 06/29/24 10/09/24 History lisinopril 40 mg tablet 40 mg PO DAILY 06/29/24 10/09/24 History metformin 500 mg tablet 500 mg PO DAILY 06/29/24 10/09/24 History metoprolol tartrate 50 mg tablet 50 mg PO BID 06/29/24 10/09/24 History donepezil 5 mg tablet (Aricept) 5 mg PO QHS #90 tabs 08/16/24 10/09/24 Rx hydrochlorothiazide 25 mg tablet 25 mg PO DAILY 10/01/24 10/09/24 History pantoprazole 40 mg tablet,delayed 40 mg PO QAM 10/01/24 10/09/24 History release ondansetron 4 mg disintegrating 8 mg PO PRN PRN Nausea 10/02/24 10/09/24 History tablet Allergies Allergy/AdvReac Type Severity Reaction Status Date / Time No Known Allergies Allergy Verified 10/09/24 07:06 Vital Signs Vital Signs Temp Pulse Resp BP Pulse Ox O2 Del Method 10/09/24 12:30 97.3 F L 69 18 137/49 L 100 10/09/24 11:00 97.3 F L 69 18 137/49 L 100 10/09/24 09:40 Room Air 10/09/24 07:18 98.0 F 66 16 111/60 100 Room Air Exam Narrative: GENERAL APPEARANCE: welderly but well developed well nourished female in no acute distress HEENT: normocephalic, atraumatic, normal conjunctiva and sclera, nares patient NECK: no lymphadenopathy, thyromegaly, or JVD MOUTH: normal lips, teeth, and gums CARDIOVASCULAR: RRR, normal S1 and S2, no rub RESPIRATORY: clear aneteriorly ABDOMEN: soft, nontender, nondistended, positive bowel sounds present EXTREMITIES: no evidence of cyanosis, clubbing, or edema NEUROLOGICAL: awake and alert; CN II - XII intact bilaterally; no focal deficits noted Results Lab Results 10/11/24 05:12 10/11/24 05:12 Lab results: Most recent lab results Calcium 9.4 mg/dL (8.4-10.2) 10/09/24 10:37 Phosphorus 3.0 mg/dL (2.5-4.5) 10/09/24 10:37 Magnesium 1.3 mg/dL (1.6-2.3) L 10/09/24 10:37
[2024-10-09] MEDS: PERFLUTREN LIPID MICROSPHERES 1.5 ML VIAL DILUTED TO 10 ML TOTAL VOLUME IV PUSH (13:30)
--- NOTE | 2024-10-09 13:52 | IVDEFINITY ---
Prior to administration of IV Definity the patient was educated on the risks and benefits of the imaging enhancing agent including potential adverse side effects. The patient verbalized understanding. Allergies were verified. No exclusion criteria were identified and at least one of the following inclusion criteria were met: 1) physician request, 2) patient technically difficult to image (per the [place] [employer] guidelines of two or more segments not discernable within the apical view), or 3) questionable left ventricular function. ?
[2024-10-09 14:00] VITALS: BP 137/49; PULSE 69; RESP 18; TEMP 36.3; O2SAT 100
[2024-10-09 16:00] VITALS: BP 137/49; PULSE 69; RESP 18; TEMP 36.3; O2SAT 100
[2024-10-09] MEDS: ENOXAPARIN 30 MG/0.3 ML SYRINGE SUB-Q (16:42)
--- NOTE | 2024-10-09 16:48 | P.CONIM_ITS ---
Assessment and Plan Assessment and plan (1) Acute renal failure: Qualifiers: Acute renal failure type: unspecified Qualified Code(s): N17.9 - Acute kidney failure, unspecified Code(s): N17.9 - Acute kidney failure, unspecified Status: Acute Assessment and Plan: - acute renal failure in the setting of CKD - renal US: Normal kidneys without hydronephrosis. - nephrology consulted, awaiting formal recs - additional labs ordered by nephrology team, awaiting results - trend renal function and monitor I&Os - maintenance fluids: D5NS @125 mL/hr (2) Abnormal finding on EKG: Code(s): R94.31 - Abnormal electrocardiogram [ECG] [EKG] Status: Acute Assessment and Plan: - slight EKG changes shown on her preop workup - cardiology consulted, Jason MAURO provided the following recs: Obtain trans thoracic echocardiogram, if there are no significant a bnormalities there is no additional cardiac workup or testing needed prior to planned surgery (3) Chronic cholecystitis with calculus: Code(s): K80.10 - Calculus of gallbladder with chronic cholecystitis without obstruction Status: Acute Assessment and Plan: - management per surgical team (4) Hypomagnesemia: Code(s): E83.42 - Hypomagnesemia Status: Acute Assessment and Plan: - Mag 1.3 - replete with 1G IVPB - trend (5) Diabetes: Qualifiers: Diabetes mellitus complication status: without complication 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 use: without correction use Diabetes mellitus type: type 2 Qualified Code(s): E11.9 - Type 2 diabetes mellitus without complications Code(s): E11.9 - Type 2 diabetes mellitus without complications Status: Chronic Assessment and Plan: - hypoglycemia protocol - POC blood glucose ACHS - home medication: Hold metformin - correct regimen ordered - low dose TIDWM - A1C 6.3% on 06/30/2024 (6) HTN (hypertension): Qualifiers: Hypertension type: primary hypertension Qualified Code(s): I10 - Essential (primary) hypertension Code(s): I10 - Essential (primary) hypertension Status: Chronic Assessment and Plan: - chronic, currently 137/49 - home medications: Hold hydrochlorothiazide 25 mg and lisinopril 40 mg daily given initially soft/normal pressure, resume when appropriate. Continue metoprolol 50 mg b.i.d.. - monitor Plan Diet: Diabetic GI Prophylaxis: Pantoprazole DVT Prophylaxis: Lovenox Lines: Peripheral Code Status: Full code HPI Date of Consult Consult date: 10/09/24 Requesting Physician: Jarrett Kelly MD Primary Care Provider: David Grover, Consult Narrative Reason for consult: Acute Renal Failure Narrative: 83 y/o F presented here for laparoscopic cholecystectomy with PMH of breast cancer s/p mastectomy and radiation, CKD, dementia, diabetes, GERD, HTN, and anxiety. The patient was originally seen outpatient by General surgery for chronic nausea and poor p.o. intake on 10/01/2024. She reports that she has had ongoing/chronic nausea with occasional emesis and right upper quadrant pain for the past 4 months. Symptoms have worsened in the last month. Outpatient CT of the abdomen/pelvis on 09/20/2024 showed cholelithiasis and chronic diverticulosis. HIDA scan on 09/26/2024 showed lack of activity in the gallbladder at 4:00 a.m. suspected that lack of activity in the gallbladder may be secondary to acute or chronic cholecystitis. Does patient presented today for a semi elective laparoscopic cholecystectomy. However preop labs drawn on 10/07 showed a new elevation in her creatinine from 1.5-2.8. Repeat labs performed today which showed a creatinine of 3.6. In light of the new impairment in her renal function the cholecystectomy has been for con and patient was admitted for further evaluation of acute renal failure. Of note, the patient has also had minor EKG changes for which surgery is requesting cardiology evaluation of her cardiac status. The patient is currently reporting mild nausea. Denies abdominal pain at this time. Initial VS at presentation: 98? F, HR 66, RR 16, 111/60, and 100% on RA. Preop workup showed: No leukocytosis, hemoglobin 11.5, normal coags, creatinine 3.7 and GFR 12 (previously 2.8 and GFR 16 on 10/07/2024, then 1.4 and GFR 36 on 07/04/2024), magnesium 1.3. Renal ultrasound showed normal kidneys without hydronephrosis. Review of Systems Review of Systems: All systems reviewed & are unremarkable except as noted in HPI and below PMFSH Past Medical History Medical History Anxiety Breast cancer s/p on mastectomy and radiation Chronic kidney disease Dementia Diabetes Eczema GERD (gastroesophageal reflux disease) HTN (hypertension) Hyperlipidemia MCI (mild cognitive impairment) Migraine Toxic metabolic encephalopathy Surgical History Surgical History History of mastectomy Family History Family History Mother Heart disease Social History Social History Smoking packs per day: 1 Smoking cigarettes per day: 20.0 Years smoked: 20 Smoking pack-years: 20.00 Smoking status: Former smoker Alcohol intake: never Substance use: never Substance use type: does not use Do You Feel Safe in your Home?: Yes Lack of Transportation: No Lack of Food: Never True Current Housing: I Have Housing Concerned About Future Housing: No Difficulty Paying Gas/Electric Bills: No Difficulty Paying for Meds: No Currently Unemployed: No Education: High School Diploma/GED Difficulty w/ Childcare or Family Care: No Living arrangements: alone Spiritual care concerns: No Meds Home Medications and Allergies Home Medications Medication Instructions Recorded Confirmed Type anastrozole 1 mg tablet 1 mg PO DAILY 06/29/24 10/09/24 History atorvastatin 20 mg tablet 20 mg PO DAILY 06/29/24 10/09/24 History lisinopril 40 mg tablet 40 mg PO DAILY 06/29/24 10/09/24 History metformin 500 mg tablet 500 mg PO DAILY 06/29/24 10/09/24 History metoprolol tartrate 50 mg tablet 50 mg PO BID 06/29/24 10/09/24 History donepezil 5 mg tablet (Aricept) 5 mg PO QHS #90 tabs 08/16/24 10/09/24 Rx hydrochlorothiazide 25 mg tablet 25 mg PO DAILY 10/01/24 10/09/24 History pantoprazole 40 mg tablet,delayed 40 mg PO QAM 10/01/24 10/09/24 History release ondansetron 4 mg disintegrating 8 mg PO PRN PRN Nausea 10/02/24 10/09/24 History tablet Allergies Allergy/AdvReac Type Severity Reaction Status Date / Time No Known Allergies Allergy Verified 10/09/24 07:06 Vital Signs Vital Signs - 24 hr 11/27/24 07:18 10/09/24 09:40 10/09/24 14:00 Temperature 98.0 F 97.3 F L Pulse Rate 66 69 Respiratory Rate 16 18 Blood Pressure 111/60 137/49 L Pulse Oximetry 100 100 Oxygen Delivery Room Air Room Air 10/09/24 16:00 Temperature 97.3 F L Pulse Rate 69 Respiratory Rate 18 Blood Pressure 137/49 L Pulse Oximetry 100 Oxygen Delivery Exam Const: General: comfortable and no acute distress Other: , female, nontoxic appearance HENMT: Face/Nose/Sinus: Normal nares present Other: Tacky mucous membranes Eyes: General: appearance normal, both eyes and all related structures Sclera: sclerae normal Pupils: Equal, round and reactive pupils present EOM: EOMs intact bilaterally Resp: Effort & Inspection: normal respiratory effort Auscultation: clear to auscultation bilaterally Cardio: Rate: regular rate Rhythm: regular rhythm Other: S1-S2 present without murmur, rub, ectopy GI: Other: Abdomen soft, nondistended, nontender. Normoactive bowel sounds in all quadrants. Skin: General skin exam: normal color and no rashes or lesions noted Wounds: no wounds Neuro: Speech: normal speech Motor exam (neuro): 5/5 motor strength present throughout Sensory Exam: normal sensation Other: A&O x3 Extrem: General: normal to inspection Psych: Mental Status: mental status grossly normal Affect: normal affect Other: Fair insight and judgment, pleasant Results Labs 10/09/24 10:37 10/09/24 10:37 Labs: Short CBC 10/09/24 Range/Units 10:37 WBC 6.5 (4.5-10.0) K/mm3 Hgb 11.5 L (12.0-15.0) g/dL Hct 35.6 L (37.0-47.0) % Plt Count 170 (150-375) k/mm3 [facility] 10/09/24 10/09/24 06:45 10:37 Sodium 138 135 L Potassium 4.3 4.2 Chloride 100 100 Carbon Dioxide 26 22 BUN 51 H D 47 H Creatinine 3.60 H 3.70 H Glucose 110 91 Calcium 9.9 9.4 Liver Function 10/09/24 Range/Units 10:37 Total Bilirubin 0.6 (0.2-1.3) mg/dL AST 35 (14-36) U/L ALT 27 (6-35) U/L Alkaline Phosphatase 75 (38-126) U/L Albumin 3.8 (3.5-5.1) g/dL Quality VTE Prophylaxis VTE prophylaxis: pharmacologic ordered Hospitalist MIPS Advance Care Plan I have confirmed that the patient's Advanced Care Plan is present, code status is documented, or surrogate decision maker is listed in patient medical record.: Yes Medication Reconciliation I have utilized all available resources to obtain, update and review the patients current medications (includes all prescriptions, OTC, herbals, cannabis, and nutritional supplements).: Yes
[2024-10-09 16:57] LABS: Glucose Point of Care 122 mg/dl (65-105)
[2024-10-09] MEDS: MAGNESIUM SULF 1 GM/D5W 100 ML 1 GM/100 ML BAG IVPB (20:13)
[2024-10-09 20:25] VITALS: BP 130/45; PULSE 61; RESP 16; TEMP 36.4; O2SAT 99
[2024-10-09 21:02] LABS: Glucose Point of Care 124 mg/dl (65-105)
[2024-10-09 21:29] VITALS: PULSE 68
[2024-10-09] MEDS: METOPROLOL TARTRATE 50 MG TAB PO (21:29)
[2024-10-09] MEDS: DONEPEZIL HCL 5 MG TABLET PO (21:29)
[2024-10-09 21:54] LABS: Add Urine Microscopic? YES; Appearance Urine Clear (Clear); Bacteria Urine None Seen /hpf; Bilirubin Urine Negative (Negative); Blood Urine Negative (Negative); Color Urine Yellow (Yellow); Glucose Urine UA Negative (Negative); Ketones Urine Negative (Negative); Leukocyte Esterase Ur Trace LEU/UL (Negative); Nitrate Urine Negative (Negative); Protein Urine Negative (Negative); RBC Urine 0-2 /hpf (0-2); Specific Grav Ur 1.014 (1.001-1.035); Squamous Epithelial Cell Urine Occasional /hpf (Few); Urobilinogen Urine 0.2 mg/dL (<2.0); WBC Urine 0-5 /hpf (0-3)
[2024-10-09 22:06] LABS: Eosinophil Urine None Seen % (None Seen); Urine Eos QC 2nd Tech Confirmed
[2024-10-09 23:00] LABS: Total Protein Urine Random 7 mg/dL; Ur Ttl Prot Creatinine Ratio 0.06 mg/mg (0-0.20)
[2024-10-09 23:22] LABS: Urea Random Urine 455 MG/DL
[2024-10-09 23:25] LABS: Sodium Urine Random 36 meq/L
[2024-10-10] VITALS (7 sets, daily range): BP systolic 114–145; BP diastolic 41–62; PULSE 58–72; RESP 14–18; TEMP 35.9–36.8; O2SAT 99–100
[2024-10-10 05:27] LABS: Basophils Percent Auto 0.2 % (0.2-1.2); Eosinophils Absolute Auto 0.2 K/mm3 (0-0.3); Eosinophils Percent Auto 3.6 % (0-4.4); Hematocrit 31.7 % (37.0-47.0); Hemoglobin 10.5 g/dL (12.0-15.0); Immature Granulocyte Absolute 0.01 K/mm3 (0.00-0.031); Immature Granulocyte Percent A 0.2 % (0-0.5); Lymphocytes Absolute Auto 0.97 K/mm3 (0.9-3.2); Lymphocytes Percent Auto 23.4 % (18.3-44.2); Mean Corpuscular HGB Conc 33.1 g/dl (32-36); Mean Corpuscular Hemoglobin 31.1 pg (26-34); Mean Corpuscular Volume 93.8 fl (80-100); Monocytes Absolute Auto 0.4 K/mm3 (0.1-0.6); Monocytes Percent Auto 10.6 % (2.6-8.5); Neutrophils Absolute Auto 2.6 K/mm3 (1.3-6.7); Platelet Count Result 162 k/mm3 (150-375); Red Blood Count 3.38 M/mm3 (4.2-5.4); Red Cell Distribution Width 12.5 % (11.5-14.5); White Blood Count 4.2 K/mm3 (4.5-10.0)
[2024-10-10 05:40] LABS: Alanine Aminotransferase 22 U/L (6-35); Albumin Level 3.4 g/dL (3.5-5.1); Alkaline Phosphatase 67 U/L (38-126); Anion Gap 8 mmol/L (4-12); Aspartate Amino Transferase 26 U/L (14-36); Bilirubin,Total 0.5 mg/dL (0.2-1.3); Blood Urea Nitrogen 39 mg/dL (7-17); Calcium 8.8 mg/dL (8.4-10.2); Carbon Dioxide 24 mmol/L (22-30); Chloride 104 mmol/L (98-107); Creatine Kinase 23 U/L (30-135); Creatine Kinase < 20 U/L (30-135); Estimated CRCL calculation 11 ml/min; Estimated Glomerular Filt Rate 15; Glucose 146 mg/dL (65-110); Magnesium 1.6 mg/dL (1.6-2.3); Potassium 3.5 mmol/L (3.4-5.0); Sodium 136 mmol/L (137-145)
[2024-10-10 05:41] LABS: Hemoglobin A1C 5.8 % (<5.7); Magnesium 1.6 mg/dL (1.6-2.3)
[2024-10-10] MEDS: DEXTROSE 5%/0.9% SOD CHL 1,000 ML 125 ML IV CONT ×2 (05:58→15:24)
[2024-10-10 07:47] LABS: Glucose Point of Care 147 mg/dl (65-105)
--- NOTE | 2024-10-10 09:52 | P.PN_ITS ---
Progress Note: A&P Assessment and Plan (1) LISA (acute kidney injury): Code(s): N17.9 - Acute kidney failure, unspecified Status: Acute Assessment and Plan: Renal function is improving. Creatinine is down to 3.0 today. Nephrology following. Continue management as per Nephrology (2) Dementia: Code(s): F03.90 - Unspecified dementia, unspecified severity, without behavioral disturbance, psychotic disturbance, mood disturbance, and anxiety Status: Acute Assessment and Plan: Baseline. Continue home medications. (3) Chronic cholecystitis with calculus: Code(s): K80.10 - Calculus of gallbladder with chronic cholecystitis without obstruction Status: Acute Assessment and Plan: No evidence acute cholecystitis. Will plan on laparoscopic cholecystectomy prior to discharge home when she is medically optimized. Likely early next week. Patient cardiac workup for abnormal EKG. Echocardiogram showed no significant abnormalities for her age. Cardiology has cleared her to proceed with a general anesthetic for surgery when needed. Subjective Date/time seen: 10/10/24 09:52 Interval history: Patient complaining of some nausea today which is been chronic. No emesis. She has Zofran ordered for her. She had echocardiogram performed yesterday as ordered by the hr systems analyst. That was relatively normal for her age. No reason not to proceed with a general anesthetic for her gallbladder once her renal function improved from a cardiac standpoint. Her creatinine today is down to 3.0. Nephrology is following and managing. No fever. White blood count is normal. Liver enzymes are normal. Exam GI: Other: Abdomen is soft and nondistended. No tenderness the right upper quadrant. Exam is benign. Objective Data Vital Signs Vital Signs: Vital Signs - 24 hr 10/09/24 14:00 10/09/24 16:00 10/09/24 20:25 Temperature 36.3 C L 36.3 C L 36.4 C L Pulse Rate 69 69 61 Respiratory Rate 18 18 16 Blood Pressure 137/49 L 137/49 L 130/45 L Pulse Oximetry 100 100 99 Oxygen Delivery 10/09/24 21:29 10/09/24 20:00 10/10/24 05:14 Temperature 36.8 C Pulse Rate 68 60 Respiratory Rate 14 Blood Pressure 135/57 L Pulse Oximetry 99 Oxygen Delivery Room Air Intake/Output Intake/Output: Intake & Output 11/25/24 10/08/24 10/09/24 10/10/24 23:59 23:59 23:59 23:59 Intake Total 1460 1976 Output Total 300 300 Balance 1160 1677 Meds/Results Medications: Active Medications Generic Name Dose Route Start Last Admin Trade Name Freq PRN Reason Stop Dose Admin Anastrozole 1 mg 10/10/24 09:00 Anastrozole (*Chemo) 1 Mg Tablet PO DAILY VERENA Atorvastatin Calcium 20 mg 10/10/24 09:00 Atorvastatin 20 Mg Tablet PO DAILY VERENA Dextrose 12.5 gm 10/09/24 15:46 Dextrose 50% 25 Gm/50 Ml Syringe IV PUSH PRN PRN Hypoglycemia Protocol Donepezil HCl 5 mg 10/09/24 21:00 10/09/24 21:29 Donepezil Hcl 5 Mg Tablet PO 5 mg QHS VERENA Administration Enoxaparin Sodium 30 mg 10/09/24 17:00 10/09/24 16:42 Enoxaparin 30 Mg/0.3 Ml Syringe SUB-Q 30 mg Q24H VERENA Administration Glucagon 1 mg 10/09/24 15:46 Glucagon For Inj 1 Mg Vial IM PRN PRN Hypoglycemia Protocol Glucose 15 gm 10/09/24 15:46 Glucose Oral Gel 15 Gm Of Glucse In 37.5 Gm Tube PO PRN PRN Hypoglycemia Protocol Dextrose/Sodium Chloride 1,000 mls @ 125 mls/hr 10/09/24 07:30 10/10/24 05:58 Dextrose 5% Sodium Chloride 0.9% IV CONT 125 mls/hr .Q8H VERENA Administration Dextrose 1,000 mls @ 100 mls/hr 10/09/24 15:46 Dextrose 5% 1,000 Ml IVPB PRN PRN Hypoglycemia Protocol Insulin Aspart 2 - 5 units 10/09/24 17:00 10/09/24 17:00 Insulin Aspart (*Bkc) 100 Units/Ml SUB-Q Not Given TIDWM VERENA Protocol Metoprolol Tartrate 50 mg 10/09/24 21:00 10/09/24 21:29 Metoprolol Tartrate 50 Mg Tab PO 50 mg Q12HR VERENA Administration Ondansetron HCl 4 mg 10/09/24 07:26 10/09/24 15:16 Ondansetron Inj 4 Mg/2 Ml Vial IV PUSH 4 mg Q6H PRN Administration Nausea And Vomiting Pantoprazole Sodium 40 mg 10/10/24 09:00 Pantoprazole 40 Mg Tablet PO [facility] Radiology Results: ITS Impressions Renal Ultrasound 10/09/24 14:39 IMPRESSION: 1. Normal kidneys without hydronephrosis. Labs Labs: Laboratory Results - last 24 hr 10/09/24 10/09/24 10/09/24 10:37 16:51 20:52 WBC 6.5 RBC 3.74 L Hgb 11.5 L Hct 35.6 L MCV 95.2 MCH 30.7 MCHC 32.3 RDW 12.6 Plt Count 170 MPV 11.1 H Immature Gran % (Auto) 0.2 Neut % (Auto) 63.8 Lymph % (Auto) 24.7 [place] % (Auto) 9.2 H Eos % (Auto) 1.8 Baso % (Auto) 0.3 Lymph # (Auto) 1.60 [place] # (Auto) 0.6 Eos # (Auto) 0.1 Baso # (Auto) 0.0 Abs Immat Gran (auto) 0.01 Absolute Neuts (auto) 4.1 Absolute Nucleated RBC 0.000 Nucleated RBC % 0.0 PT 13.6 INR 1.0 Sodium 135 L Potassium 4.2 Chloride 100 Carbon Dioxide 22 Anion Gap 13 H BUN 47 H Creatinine 3.70 H Estim Creat Clear Calc 9 Estimated GFR 12 L Glucose 91 POC Capillary Glucose 122 H 124 H Hemoglobin A1c Calcium 9.4 Phosphorus 3.0 Magnesium 1.3 L Total Bilirubin 0.6 AST 35 ALT 27 Alkaline Phosphatase 75 Total Creatine Kinase Total Protein 7.0 Albumin 3.8 Urine Color Urine Appearance Urine pH Ur Specific [place] Urine Protein Urine Glucose (UA) Urine Ketones Ur Blood (Man) Urine Nitrate Urine Bilirubin Urine Urobilinogen Leukocyte Esterase Rfl Urine RBC Urine WBC Ur Squamous Epith Cells Urine Bacteria Urine Casts Urine Eosinophils U Random Total Protein Ur Random Sodium Ur Random Urea Urine Total Volume Urine Creatinine Protein/Creat Ratio 2 Blood Type O Positive Antibody Screen Negative 10/09/24 10/09/24 10/09/24 21:42 21:42 21:42 WBC RBC Hgb Hct MCV MCH MCHC RDW Plt Count MPV Immature Gran % (Auto) Neut % (Auto) Lymph % (Auto) [place] % (Auto) Eos % (Auto) Baso % (Auto) Lymph # (Auto) [place] # (Auto) Eos # (Auto) Baso # (Auto) Abs Immat Gran (auto) Absolute Neuts (auto) Absolute Nucleated RBC Nucleated RBC % PT INR Sodium Potassium Chloride Carbon Dioxide Anion Gap BUN Creatinine Estim Creat Clear Calc Estimated GFR Glucose POC Capillary Glucose Hemoglobin A1c Calcium Phosphorus Magnesium Total Bilirubin AST ALT Alkaline Phosphatase Total Creatine Kinase Total Protein Albumin Urine Color Yellow Urine Appearance Clear Urine pH 5.0 Ur Specific [place] 1.014 Urine Protein Negative Urine Glucose (UA) Negative Urine Ketones Negative Ur Blood (Man) Negative Urine Nitrate Negative Urine Bilirubin Negative Urine Urobilinogen 0.2 Leukocyte Esterase Rfl Trace H Urine RBC 0-2 Urine WBC 0-5 Ur Squamous Epith Cells Occasional Urine Bacteria None seen Urine Casts 3-5 Urine Eosinophils None seen U Random Total Protein Cancelled 7 Ur Random Sodium 36 Ur Random Urea 455 Urine Total Volume Cancelled Urine Creatinine Cancelled 117.0 Protein/Creat Ratio 2 0.06 Blood Type Antibody Screen 10/10/24 10/10/24 10/10/24 05:13 05:13 05:13 WBC 4.2 L RBC 3.38 L Hgb 10.5 L Hct 31.7 L MCV 93.8 MCH 31.1 MCHC 33.1 RDW 12.5 Plt Count 162 MPV 11.0 H Immature Gran % (Auto) 0.2 Neut % (Auto) 62.0 Lymph % (Auto) 23.4 [place] % (Auto) 10.6 H Eos % (Auto) 3.6 Baso % (Auto) 0.2 Lymph # (Auto) 0.97 [place] # (Auto) 0.4 Eos # (Auto) 0.2 Baso # (Auto) 0.0 Abs Immat Gran (auto) 0.01 Absolute Neuts (auto) 2.6 Absolute Nucleated RBC 0.000 Nucleated RBC % 0.0 PT INR Sodium 136 L Potassium 3.5 Chloride 104 Carbon Dioxide 24 Anion Gap 8 BUN 39 H Creatinine 3.00 H Estim Creat Clear Calc 11 Estimated GFR 15 L Glucose 146 H POC Capillary Glucose Hemoglobin A1c 5.8 H Calcium 8.8 Phosphorus Magnesium 1.6 1.6 Total Bilirubin 0.5 AST 26 ALT 22 Alkaline Phosphatase 67 Total Creatine Kinase < 20 L 23 L Total Protein 6.0 L Albumin 3.4 L Urine Color Urine Appearance Urine pH Ur Specific [place] Urine Protein Urine Glucose (UA) Urine Ketones Ur Blood (Man) Urine Nitrate Urine Bilirubin Urine Urobilinogen Leukocyte Esterase Rfl Urine RBC Urine WBC Ur Squamous Epith Cells Urine Bacteria Urine Casts Urine Eosinophils U Random Total Protein Ur Random Sodium Ur Random Urea Urine Total Volume Urine Creatinine Protein/Creat Ratio 2 Blood Type Antibody Screen 10/10/24 07:43 WBC RBC Hgb Hct MCV MCH MCHC RDW Plt Count MPV Immature Gran % (Auto) Neut % (Auto) Lymph % (Auto) [place] % (Auto) Eos % (Auto) Baso % (Auto) Lymph # (Auto) [place] # (Auto) Eos # (Auto) Baso # (Auto) Abs Immat Gran (auto) Absolute Neuts (auto) Absolute Nucleated RBC Nucleated RBC % PT INR Sodium Potassium Chloride Carbon Dioxide Anion Gap BUN Creatinine Estim Creat Clear Calc Estimated GFR Glucose POC Capillary Glucose 147 H Hemoglobin A1c Calcium Phosphorus Magnesium Total Bilirubin AST ALT Alkaline Phosphatase Total Creatine Kinase Total Protein Albumin Urine Color Urine Appearance Urine pH Ur Specific [place] Urine Protein Urine Glucose (UA) Urine Ketones Ur Blood (Man) Urine Nitrate Urine Bilirubin Urine Urobilinogen Leukocyte Esterase Rfl Urine RBC Urine WBC Ur Squamous Epith Cells Urine Bacteria Urine Casts Urine Eosinophils U Random Total Protein Ur Random Sodium Ur Random Urea Urine Total Volume Urine Creatinine Protein/Creat Ratio 2 Blood Type Antibody Screen
[2024-10-10] MEDS: ANASTROZOLE (*CHEMO) 1 MG TABLET PO (10:00)
[2024-10-10] MEDS: PANTOPRAZOLE 40 MG TABLET PO (10:00)
[2024-10-10] MEDS: ATORVASTATIN 20 MG TABLET PO (10:01)
[2024-10-10] MEDS: METOPROLOL TARTRATE 50 MG TAB PO ×2 (10:02→20:27)
--- NOTE | 2024-10-10 10:49 | PM.IMPN ---
Progress Note: A&P Assessment and Plan (1) Acute renal failure: Qualifiers: Acute renal failure type: unspecified Qualified Code(s): N17.9 - Acute kidney failure, unspecified Code(s): N17.9 - Acute kidney failure, unspecified Status: Acute Assessment and Plan: - acute renal failure in the setting of CKD. - renal US: Normal kidneys without hydronephrosis. - Possibly pre-renal secondary to volume depletion and worsened by HCTZ and Lisinopril. - nephrology following and agrees with IVF challenge for now. - Continue to trend renal function and monitor I&Os - Continue IVF hydration. (2) Abnormal finding on EKG: Code(s): R94.31 - Abnormal electrocardiogram [ECG] [EKG] Status: Acute Assessment and Plan: - slight EKG changes shown on her preop workup. - Seen by cardiology and TTE recommended: - ECHO done; LVEF 70 %. No significant abnormalities noted. - No further work-up for now. (3) Chronic cholecystitis with calculus: Code(s): K80.10 - Calculus of gallbladder with chronic cholecystitis without obstruction Status: Acute Assessment and Plan: - General surgery following. - Awaiting renal function to stabilize prior to any surgical interventions. (4) Hypomagnesemia: Code(s): E83.42 - Hypomagnesemia Status: Acute Assessment and Plan: - Continue to replete as needed and trend levels. (5) Diabetes: Qualifiers: Diabetes mellitus type: type 2 Diabetes mellitus nursing home insulin use: without nursing home use Diabetes mellitus complication status: without complication Qualified Code(s): E11.9 - Type 2 diabetes mellitus without complications Code(s): E11.9 - Type 2 diabetes mellitus without complications Status: Chronic Assessment and Plan: - hypoglycemia protocol - POC blood glucose ACHS - home medication: Hold metformin - correct regimen ordered - low dose TIDWM - A1C 6.3% on 06/30/2024 (6) HTN (hypertension): Qualifiers: Hypertension type: primary hypertension Qualified Code(s): I10 - Essential (primary) hypertension Code(s): I10 - Essential (primary) hypertension Status: Chronic Assessment and Plan: - Fairly well controlled. - Hold HCTZ and Lisinopril for now with LISA. - Continue metoprolol. - monitor levels closely. Plan Diet: Diabetic GI Prophylaxis: Pantoprazole DVT Prophylaxis: Lovenox Lines: Peripheral Code Status: Full code Time Spent With Patient Time with patient: 15 - 25 minutes Subjective Date/time seen: 10/10/24 10:49 Patient states she feels alright. States she was very nauseated this AM so she didn't have breakfast but feels better now. Interval history: Patient calm seated bedside and looks to be in no acute distress. Review of Systems Review of Systems: All systems reviewed & are unremarkable except as noted in HPI and below Exam Narrative: General: Well appearing, no acute distress. HEENT: Atraumatic, PERRL, EOM, moist mucus membranes. NECK: Supple. HEART: RRR, no murmurs. Abdomen: Soft, non-tender, non-distended, +ve bowel sounds X4 quadrants. Extremities: No edema, +ve pedal and radial pulses. Skin: Warm and dry. No lesions noted. Neuro: Well oriented. CN II-XII grossly intact. Psych: Calm and co-operative. Objective Data Vital Signs Vital Signs: Vital Signs - 24 hr 10/09/24 14:00 10/09/24 16:00 10/09/24 20:25 Temperature 97.3 F L 97.3 F L 97.5 F L Pulse Rate 69 69 61 Respiratory Rate 18 18 16 Blood Pressure 137/49 L 137/49 L 130/45 L Pulse Oximetry 100 100 99 Oxygen Delivery 10/09/24 21:29 10/09/24 20:00 10/10/24 05:14 Temperature 98.3 F Pulse Rate 68 60 Respiratory Rate 14 Blood Pressure 135/57 L Pulse Oximetry 99 Oxygen Delivery Room Air 10/10/24 10:02 Temperature Pulse Rate 59 L Respiratory Rate Blood Pressure Pulse Oximetry Oxygen Delivery Intake/Output Intake/Output: Intake & Output 10/07/24 10/08/24 10/09/24 10/10/24 23:59 23:59 23:59 23:59 Intake Total 1460 1977 Output Total 300 300 Balance 1160 1677 Meds/Results Medications: Active Medications Generic Name Dose Route Start Last Admin Trade Name Freq PRN Reason Stop Dose Admin Anastrozole 1 mg 10/10/24 09:00 10/10/24 10:00 Anastrozole (*Chemo) 1 Mg Tablet PO 1 mg DAILY VERENA Administration Atorvastatin Calcium 20 mg 10/10/24 09:00 10/10/24 10:01 Atorvastatin 20 Mg Tablet PO 20 mg DAILY VERENA Administration Dextrose 12.5 gm 10/09/24 15:46 Dextrose 50% 25 Gm/50 Ml Syringe IV PUSH PRN PRN Hypoglycemia Protocol Donepezil HCl 5 mg 10/09/24 21:00 10/09/24 21:29 Donepezil Hcl 5 Mg Tablet PO 5 mg QHS VERENA Administration Enoxaparin Sodium 30 mg 10/09/24 17:00 10/09/24 16:42 Enoxaparin 30 Mg/0.3 Ml Syringe SUB-Q 30 mg Q24H VERENA Administration Glucagon 1 mg 10/09/24 15:46 Glucagon For Inj 1 Mg Vial IM PRN PRN Hypoglycemia Protocol Glucose 15 gm 10/09/24 15:46 Glucose Oral Gel 15 Gm Of Glucse In 37.5 Gm Tube PO PRN PRN Hypoglycemia Protocol Dextrose/Sodium Chloride 1,000 mls @ 100 mls/hr 10/09/24 07:30 10/10/24 05:58 Dextrose 5% Sodium Chloride 0.9% IV CONT 125 mls/hr .Q10H VERENA Administration Dextrose 1,000 mls @ 100 mls/hr 10/09/24 15:46 Dextrose 5% 1,000 Ml IVPB PRN PRN Hypoglycemia Protocol Insulin Aspart 2 - 5 units 10/09/24 17:00 10/09/24 17:00 Insulin Aspart (*Bkc) 100 Units/Ml SUB-Q Not Given TIDWM VERENA Protocol Metoprolol Tartrate 50 mg 10/09/24 21:00 10/10/24 10:02 Metoprolol Tartrate 50 Mg Tab PO 50 mg Q12HR VERENA Administration Ondansetron HCl 4 mg 10/09/24 07:26 10/09/24 15:16 Ondansetron Inj 4 Mg/2 Ml Vial IV PUSH 4 mg Q6H PRN Administration Nausea And Vomiting Ondansetron HCl 4 mg 10/10/24 09:56 Ondansetron Hcl Odt 4 Mg Tablet PO Q6H PRN Nausea And Vomiting Pantoprazole Sodium 40 mg 10/10/24 09:00 10/10/24 10:00 Pantoprazole 40 Mg Tablet PO 40 mg QAM VERENA Administration Radiology Results: ITS Impressions Renal Ultrasound 10/09/24 14:39 IMPRESSION: 1. Normal kidneys without hydronephrosis. Labs Labs: Laboratory Results - last 24 hr 10/09/24 10/09/24 10/09/24 10:37 16:51 20:52 WBC 6.5 RBC 3.74 L Hgb 11.5 L Hct 35.6 L MCV 95.2 MCH 30.7 MCHC 32.3 RDW 12.6 Plt Count 170 MPV 11.1 H Immature Gran % (Auto) 0.2 Neut % (Auto) 63.8 Lymph % (Auto) 24.7 [place] % (Auto) 9.2 H Eos % (Auto) 1.8 Baso % (Auto) 0.3 Lymph # (Auto) 1.60 [place] # (Auto) 0.6 Eos # (Auto) 0.1 Baso # (Auto) 0.0 Abs Immat Gran (auto) 0.01 Absolute Neuts (auto) 4.1 Absolute Nucleated RBC 0.000 Nucleated RBC % 0.0 PT 13.6 INR 1.0 Sodium 135 L Potassium 4.2 Chloride 100 Carbon Dioxide 22 Anion Gap 13 H BUN 47 H Creatinine 3.70 H Estim Creat Clear Calc 9 Estimated GFR 12 L Glucose 91 POC Capillary Glucose 122 H 124 H Hemoglobin A1c Calcium 9.4 Phosphorus 3.0 Magnesium 1.3 L Total Bilirubin 0.6 AST 35 ALT 27 Alkaline Phosphatase 75 Total Creatine Kinase Total Protein 7.0 Albumin 3.8 Urine Color Urine Appearance Urine pH Ur Specific [place] Urine Protein Urine Glucose (UA) Urine Ketones Ur Blood (Man) Urine Nitrate Urine Bilirubin Urine Urobilinogen Leukocyte Esterase Rfl Urine RBC Urine WBC Ur Squamous Epith Cells Urine Bacteria Urine Casts Urine Eosinophils U Random Total Protein Ur Random Sodium Ur Random Urea Urine Total Volume Urine Creatinine Protein/Creat Ratio 2 Blood Type O Positive Antibody Screen Negative 10/09/24 10/09/24 10/09/24 21:42 21:42 21:42 WBC RBC Hgb Hct MCV MCH MCHC RDW Plt Count MPV Immature Gran % (Auto) Neut % (Auto) Lymph % (Auto) [place] % (Auto) Eos % (Auto) Baso % (Auto) Lymph # (Auto) [place] # (Auto) Eos # (Auto) Baso # (Auto) Abs Immat Gran (auto) Absolute Neuts (auto) Absolute Nucleated RBC Nucleated RBC % PT INR Sodium Potassium Chloride Carbon Dioxide Anion Gap BUN Creatinine Estim Creat Clear Calc Estimated GFR Glucose POC Capillary Glucose Hemoglobin A1c Calcium Phosphorus Magnesium Total Bilirubin AST ALT Alkaline Phosphatase Total Creatine Kinase Total Protein Albumin Urine Color Yellow Urine Appearance Clear Urine pH 5.0 Ur Specific [place] 1.014 Urine Protein Negative Urine Glucose (UA) Negative Urine Ketones Negative Ur Blood (Man) Negative Urine Nitrate Negative Urine Bilirubin Negative Urine Urobilinogen 0.2 Leukocyte Esterase Rfl Trace H Urine RBC 0-2 Urine WBC 0-5 Ur Squamous Epith Cells Occasional Urine Bacteria None seen Urine Casts 3-5 Urine Eosinophils None seen U Random Total Protein Cancelled 7 Ur Random Sodium 36 Ur Random Urea 455 Urine Total Volume Cancelled Urine Creatinine Cancelled 117.0 Protein/Creat Ratio 2 0.06 Blood Type Antibody Screen 10/10/24 10/10/24 10/10/24 05:13 05:13 05:13 WBC 4.2 L RBC 3.38 L Hgb 10.5 L Hct 31.7 L MCV 93.8 MCH 31.1 MCHC 33.1 RDW 12.5 Plt Count 162 MPV 11.0 H Immature Gran % (Auto) 0.2 Neut % (Auto) 62.0 Lymph % (Auto) 23.4 [place] % (Auto) 10.6 H Eos % (Auto) 3.6 Baso % (Auto) 0.2 Lymph # (Auto) 0.97 [place] # (Auto) 0.4 Eos # (Auto) 0.2 Baso # (Auto) 0.0 Abs Immat Gran (auto) 0.01 Absolute Neuts (auto) 2.6 Absolute Nucleated RBC 0.000 Nucleated RBC % 0.0 PT INR Sodium 136 L Potassium 3.5 Chloride 104 Carbon Dioxide 24 Anion Gap 8 BUN 39 H Creatinine 3.00 H Estim Creat Clear Calc 11 Estimated GFR 15 L Glucose 146 H POC Capillary Glucose Hemoglobin A1c 5.8 H Calcium 8.8 Phosphorus Magnesium 1.6 1.6 Total Bilirubin 0.5 AST 26 ALT 22 Alkaline Phosphatase 67 Total Creatine Kinase < 20 L 23 L Total Protein 6.0 L Albumin 3.4 L Urine Color Urine Appearance Urine pH Ur Specific [place] Urine Protein Urine Glucose (UA) Urine Ketones Ur Blood (Man) Urine Nitrate Urine Bilirubin Urine Urobilinogen Leukocyte Esterase Rfl Urine RBC Urine WBC Ur Squamous Epith Cells Urine Bacteria Urine Casts Urine Eosinophils U Random Total Protein Ur Random Sodium Ur Random Urea Urine Total Volume Urine Creatinine Protein/Creat Ratio 2 Blood Type Antibody Screen 10/10/24 07:43 WBC RBC Hgb Hct MCV MCH MCHC RDW Plt Count MPV Immature Gran % (Auto) Neut % (Auto) Lymph % (Auto) [place] % (Auto) Eos % (Auto) Baso % (Auto) Lymph # (Auto) [place] # (Auto) Eos # (Auto) Baso # (Auto) Abs Immat Gran (auto) Absolute Neuts (auto) Absolute Nucleated RBC Nucleated RBC % PT INR Sodium Potassium Chloride Carbon Dioxide Anion Gap BUN Creatinine Estim Creat Clear Calc Estimated GFR Glucose POC Capillary Glucose 147 H Hemoglobin A1c Calcium Phosphorus Magnesium Total Bilirubin AST ALT Alkaline Phosphatase Total Creatine Kinase Total Protein Albumin Urine Color Urine Appearance Urine pH Ur Specific [place] Urine Protein Urine Glucose (UA) Urine Ketones Ur Blood (Man) Urine Nitrate Urine Bilirubin Urine Urobilinogen Leukocyte Esterase Rfl Urine RBC Urine WBC Ur Squamous Epith Cells Urine Bacteria Urine Casts Urine Eosinophils U Random Total Protein Ur Random Sodium Ur Random Urea Urine Total Volume Urine Creatinine Protein/Creat Ratio 2 Blood Type Antibody Screen Quality VTE Prophylaxis VTE prophylaxis: pharmacologic ordered Hospitalist MIPS Advance Care Plan I have confirmed that the patient's Advanced Care Plan is present, code status is documented, or surrogate decision maker is listed in patient medical record.: Yes Medication Reconciliation I have utilized all available resources to obtain, update and review the patients current medications (includes all prescriptions, OTC, herbals, cannabis, and nutritional supplements).: Yes
--- NOTE | 2024-10-10 11:16 | P.PNNP_ITS ---
Progress Note: A&P Assessment and Plan (1) LISA (acute kidney injury): Code(s): N17.9 - Acute kidney failure, unspecified Status: Acute Assessment and Plan: * improvement noted * history would suggest prerenal azotemia/volume depletion * this was likely complicated by ongoing SHELIA-I and HCTZ use as well * evaluation to date: * normal renal ultrasound * urine electrolytes prerenal * urine eosinophils negative * low CPK * bland urine sediment * continue trial of IVFs * follow trend of repeat labs and UOP (2) Stage 3b chronic kidney disease: Code(s): N18.32 - Chronic kidney disease, stage 3b Status: Chronic Assessment and Plan: * baseline creatinine seems to run ~ 1.3 - 1.4mg/dl * presumably due to hypertension, diabetes, vascular disease, and age-related change (3) Chronic cholecystitis with calculus: Code(s): K80.10 - Calculus of gallbladder with chronic cholecystitis without obstruction Status: Acute Assessment and Plan: * as noted by history/imaging * noted symptoms (nausea, vomiting, poor oral intake) * will eventually need chelecyhstectomy once medically optimized * Surgery following (4) HTN (hypertension): Qualifiers: Hypertension type: primary hypertension Qualified Code(s): I10 - Essential (primary) hypertension Code(s): I10 - Essential (primary) hypertension Status: Chronic Assessment and Plan: * reasonable control * holding HCTZ and lisinopril given #1 * follow trend of hemodynamics (5) Diabetes: Qualifiers: Diabetes mellitus complication status: without complication Diabetes mellitus extermination inspector insulin use: without extermination inspector use Diabetes mellitus type: type 2 Qualified Code(s): E11.9 - Type 2 diabetes mellitus without complications Code(s): E11.9 - Type 2 diabetes mellitus without complications Status: Chronic Assessment and Plan: * follow accu-cheks * glycemic control per hospitalists Will continue to follow. Subjective Date/time seen: 10/10/24 11:16 Interval history: Follow-up for acute kidney injury/acute renal failure on chronic kidney disease. Improvement in renal function noted with current interventions/therapy; no apparent distress voiced at the time of my visit; does mention nausea earlier this morning but this is a long-standing issue but denies any vomiting; no other issues/events overnight or earlier this morning. Exam Narrative: General: elderly but WD/WN female in NAD Heart: normal S1 and S2; no rub Lungs: clear to auscultation Abdomen: soft, nontender, nondistended, positive bowel sounds Extremities: no cyanosis or clubbing; no edema Skin: warm and dry Objective Data Vital Signs Vital Signs: Vital Signs Temp Pulse Resp BP Pulse Ox O2 Del Method 10/10/24 11:00 96.7 F L 62 18 114/41 L 100 10/10/24 10:02 59 L 10/10/24 08:00 62 18 100 Room air 10/10/24 05:14 98.3 F 60 14 135/57 L 99 10/09/24 20:00 Room Air 10/09/24 21:29 68 10/09/24 20:25 97.5 F L 61 16 130/45 L 99 Intake/Output Intake/Output: Intake & Output 10/07/24 10/08/24 10/09/24 10/10/24 23:59 23:59 23:59 23:59 Intake Total 1460 3217 Output Total 300 1100 Balance 1160 2117 Meds/Results Medications: Active Medications Generic Name Dose Route Start Last Admin Trade Name Freq PRN Reason Stop Dose Admin Anastrozole 1 mg 10/10/24 09:00 10/10/24 10:00 Anastrozole (*Chemo) 1 Mg Tablet PO 1 mg DAILY VERENA Administration Atorvastatin Calcium 20 mg 10/10/24 09:00 10/10/24 10:01 Atorvastatin 20 Mg Tablet PO 20 mg DAILY VERENA Administration Dextrose 12.5 gm 10/09/24 15:46 Dextrose 50% 25 Gm/50 Ml Syringe IV PUSH PRN PRN Hypoglycemia Protocol Donepezil HCl 5 mg 10/09/24 21:00 10/09/24 21:29 Donepezil Hcl 5 Mg Tablet PO 5 mg QHS VERENA Administration Enoxaparin Sodium 30 mg 10/09/24 17:00 10/09/24 16:42 Enoxaparin 30 Mg/0.3 Ml Syringe SUB-Q 30 mg Q24H VERENA Administration Glucagon 1 mg 10/09/24 15:46 Glucagon For Inj 1 Mg Vial IM PRN PRN Hypoglycemia Protocol Glucose 15 gm 10/09/24 15:46 Glucose Oral Gel 15 Gm Of Glucse In 37.5 Gm Tube PO PRN PRN Hypoglycemia Protocol Dextrose/Sodium Chloride 1,000 mls @ 100 mls/hr 11/27/24 07:30 10/10/24 15:24 Dextrose 5% Sodium Chloride 0.9% IV CONT 125 mls/hr .Q10H VERENA Administration Dextrose 1,000 mls @ 100 mls/hr 10/09/24 15:46 Dextrose 5% 1,000 Ml IVPB PRN PRN Hypoglycemia Protocol Insulin Aspart 2 - 5 units 10/09/24 17:00 10/09/24 17:00 Insulin Aspart (*Bkc) 100 Units/Ml SUB-Q Not Given TIDWM [facility] Protocol Metoprolol Tartrate 50 mg 10/09/24 21:00 10/10/24 10:02 Metoprolol Tartrate 50 Mg Tab PO 50 mg Q12HR VERENA Administration Ondansetron HCl 4 mg 10/09/24 07:26 10/09/24 15:16 Ondansetron Inj 4 Mg/2 Ml Vial IV PUSH 4 mg Q6H PRN Administration Nausea And Vomiting Ondansetron HCl 4 mg 10/10/24 09:56 10/10/24 12:12 Ondansetron Hcl Odt 4 Mg Tablet PO 4 mg Q6H PRN Administration Nausea And Vomiting Pantoprazole Sodium 40 mg 10/10/24 09:00 10/10/24 10:00 Pantoprazole 40 Mg Tablet PO 40 mg QAM [facility] Administration Radiology Results: ITS Impressions Renal Ultrasound 10/09/24 14:39 IMPRESSION: 1. Normal kidneys without hydronephrosis. Labs Labs: Laboratory Tests 10/10/24 05:13 10/10/24 05:13 Hemoglobin A1c 5.8 H Calcium 8.8 Magnesium 1.6 Total Bilirubin 0.5 AST 26 ALT 22 Alkaline Phosphatase 67 Total Creatine Kinase < 20 L
[2024-10-10 11:50] LABS: Glucose Point of Care 168 mg/dl (65-105)
[2024-10-10] MEDS: ONDANSETRON HCL ODT 4 MG TABLET PO ×2 (12:12→19:15)
[2024-10-10 16:16] LABS: Glucose Point of Care 133 mg/dl (65-105)
[2024-10-10] MEDS: ENOXAPARIN 30 MG/0.3 ML SYRINGE SUB-Q (19:15)
[2024-10-10] MEDS: DONEPEZIL HCL 5 MG TABLET PO (20:27)
[2024-10-10 21:45] LABS: Glucose Point of Care 158 mg/dl (65-105)
[2024-10-11] MEDS: DEXTROSE 5%/0.9% SOD CHL 1,000 ML 100 ML IV CONT ×3 (01:38→23:42)
[2024-10-11 03:49] VITALS: BP 151/51; PULSE 61; RESP 20; TEMP 36.6; O2SAT 100
[2024-10-11 05:37] LABS: Basophils Percent Auto 0.5 % (0.2-1.2); Eosinophils Absolute Auto 0.2 K/mm3 (0-0.3); Eosinophils Percent Auto 5.6 % (0-4.4); Hematocrit 33.7 % (37.0-47.0); Hemoglobin 10.9 g/dL (12.0-15.0); Immature Granulocyte Absolute 0.01 K/mm3 (0.00-0.031); Immature Granulocyte Percent A 0.3 % (0-0.5); Lymphocytes Absolute Auto 1.19 K/mm3 (0.9-3.2); Lymphocytes Percent Auto 31.9 % (18.3-44.2); Mean Corpuscular HGB Conc 32.3 g/dl (32-36); Mean Corpuscular Hemoglobin 30.5 pg (26-34); Mean Corpuscular Volume 94.4 fl (80-100); Mean Platelet Volume 11.2 fl (7.4-10.4); Monocytes Absolute Auto 0.4 K/mm3 (0.1-0.6); Monocytes Percent Auto 11.5 % (2.6-8.5); Neutrophils Absolute Auto 1.9 K/mm3 (1.3-6.7); Neutrophils Percent Auto 50.2 % (45.5-73.1); Platelet Count Result 168 k/mm3 (150-375); Red Blood Count 3.57 M/mm3 (4.2-5.4); Red Cell Distribution Width 12.8 % (11.5-14.5); White Blood Count 3.7 K/mm3 (4.5-10.0)
[2024-10-11 05:53] LABS: Alanine Aminotransferase 23 U/L (6-35); Albumin Level 3.5 g/dL (3.5-5.1); Alkaline Phosphatase 73 U/L (38-126); Anion Gap 10 mmol/L (4-12); Aspartate Amino Transferase 28 U/L (14-36); Bilirubin,Total 0.5 mg/dL (0.2-1.3); Blood Urea Nitrogen 24 mg/dL (7-17); Calcium 8.8 mg/dL (8.4-10.2); Carbon Dioxide 24 mmol/L (22-30); Chloride 107 mmol/L (98-107); Estimated CRCL calculation 15 ml/min; Estimated Glomerular Filt Rate 22; Glucose 120 mg/dL (65-110); Potassium 3.6 mmol/L (3.4-5.0); Sodium 141 mmol/L (137-145)
[2024-10-11 08:15] LABS: Glucose Point of Care 104 mg/dl (65-105)
--- NOTE | 2024-10-11 08:33 | P.PNIM_ITS ---
Progress Note: A&P Assessment and Plan (1) Acute renal failure: Qualifiers: Acute renal failure type: unspecified Qualified Code(s): N17.9 - Acute kidney failure, unspecified Code(s): N17.9 - Acute kidney failure, unspecified Status: Acute Assessment and Plan: - acute renal failure in the setting of CKD. - Likely pre-renal secondary to volume depletion from poor PO intake and worsened by HCTZ and Lisinopril. - Continues to improve; Cr 3.7>>3>>2.1 - renal US: Normal kidneys without hydronephrosis. - nephrology following and we'll continue IVF challenge for now. - Continue to trend renal panel and monitor I&Os - Continue IVF hydration. (2) Abnormal finding on EKG: Code(s): R94.31 - Abnormal electrocardiogram [ECG] [EKG] Status: Acute Assessment and Plan: - slight EKG changes shown on her preop workup. - Seen by cardiology and TTE recommended: - ECHO done; LVEF 70 %. No significant abnormalities noted. - No further work-up for now. (3) Chronic cholecystitis with calculus: Code(s): K80.10 - Calculus of gallbladder with chronic cholecystitis without obstruction Status: Acute Assessment and Plan: - General surgery following. - Awaiting renal function to stabilize prior to any surgical interventions plans. (4) Hypomagnesemia: Code(s): E83.42 - Hypomagnesemia Status: Acute Assessment and Plan: - Continue to replete as needed and trend levels. (5) Diabetes: Qualifiers: Diabetes mellitus type: type 2 Diabetes mellitus terminal operations manager insulin use: without terminal operations manager use Diabetes mellitus complication status: without complication Qualified Code(s): E11.9 - Type 2 diabetes mellitus without complications Code(s): E11.9 - Type 2 diabetes mellitus without complications Status: Chronic Assessment and Plan: - hypoglycemia protocol - POC blood glucose ACHS - home medication: Hold metformin - correct regimen ordered - low dose TIDWM - A1C 6.3% on 06/30/2024 (6) HTN (hypertension): Qualifiers: Hypertension type: primary hypertension Qualified Code(s): I10 - Essential (primary) hypertension Code(s): I10 - Essential (primary) hypertension Status: Chronic Assessment and Plan: - Fairly well controlled. - Hold HCTZ and Lisinopril for now with LISA. - Continue metoprolol. - monitor levels closely. Plan Diet: Diabetic GI Prophylaxis: Pantoprazole DVT Prophylaxis: Lovenox Lines: Peripheral Code Status: Full code Time Spent With Patient Time with patient: 15 - 25 minutes Subjective Date/time seen: 10/11/24 08:33 Patient states she feels alright. States she gets nauseated at times, with dry heaves but no emesis. Interval history: Patient calm on bedrest but looks to be in no acute distress. Review of Systems Review of Systems: All systems reviewed & are unremarkable except as noted in HPI and below Exam Narrative: General: Elderly female, well appearing, no acute distress. HEENT: Atraumatic, PERRL, EOM, moist mucus membranes. NECK: Supple. HEART: RRR, no murmurs. Abdomen: Soft, non-tender, non-distended, +ve bowel sounds X4 quadrants. Extremities: No edema, +ve pedal and radial pulses. Skin: Warm and dry. No lesions noted. Neuro: Well oriented. CN II-XII grossly intact. Psych: Calm and co-operative. Objective Data Vital Signs Vital Signs: Vital Signs - 24 hr 10/10/24 10:02 10/10/24 14:00 10/10/24 20:27 Temperature 96.7 F L Pulse Rate 59 L 62 72 Respiratory Rate 18 Blood Pressure 114/41 L Pulse Oximetry 100 Oxygen Delivery 10/10/24 21:00 10/10/24 20:00 10/11/24 03:49 Temperature 97.7 F 97.8 F Pulse Rate 58 L 58 L 61 Respiratory Rate 18 18 20 Blood Pressure 145/62 H 151/51 H Pulse Oximetry 100 100 100 Oxygen Delivery Room Air Intake/Output Intake/Output: Intake & Output 10/08/24 10/09/24 10/10/24 10/11/24 23:59 23:59 23:59 23:59 Intake Total 1460 4457 290 Output Total 300 1300 Balance 1160 3157 290 Meds/Results Medications: Active Medications Generic Name Dose Route Start Last Admin Trade Name Freq PRN Reason Stop Dose Admin Anastrozole 1 mg 10/10/24 09:00 10/10/24 10:00 Anastrozole (*Chemo) 1 Mg Tablet PO 1 mg DAILY VERENA Administration Atorvastatin Calcium 20 mg 10/10/24 09:00 10/10/24 10:01 Atorvastatin 20 Mg Tablet PO 20 mg DAILY VERENA Administration Dextrose 12.5 gm 10/09/24 15:46 Dextrose 50% 25 Gm/50 Ml Syringe IV PUSH PRN PRN Hypoglycemia Protocol Donepezil HCl 5 mg 10/09/24 21:00 10/10/24 20:27 Donepezil Hcl 5 Mg Tablet PO 5 mg QHS VERENA Administration Enoxaparin Sodium 30 mg 10/09/24 17:00 10/10/24 19:15 Enoxaparin 30 Mg/0.3 Ml Syringe SUB-Q 30 mg Q24H VERENA Administration Glucagon 1 mg 10/09/24 15:46 Glucagon For Inj 1 Mg Vial IM PRN PRN Hypoglycemia Protocol Glucose 15 gm 10/09/24 15:46 Glucose Oral Gel 15 Gm Of Glucse In 37.5 Gm Tube PO PRN PRN Hypoglycemia Protocol Dextrose/Sodium Chloride 1,000 mls @ 100 mls/hr 10/09/24 07:30 10/11/24 01:38 Dextrose 5% Sodium Chloride 0.9% IV CONT 100 mls/hr .Q10H VERENA Administration Dextrose 1,000 mls @ 100 mls/hr 10/09/24 15:46 Dextrose 5% 1,000 Ml IVPB PRN PRN Hypoglycemia Protocol Insulin Aspart 2 - 5 units 10/09/24 17:00 10/11/24 08:24 Insulin Aspart (*Bkc) 100 Units/Ml SUB-Q Not Given TIDWM VERENA Protocol Metoprolol Tartrate 50 mg 10/09/24 21:00 10/10/24 20:27 Metoprolol Tartrate 50 Mg Tab PO 50 mg Q12HR VERENA Administration Ondansetron HCl 4 mg 10/09/24 07:26 10/09/24 15:16 Ondansetron Inj 4 Mg/2 Ml Vial IV PUSH 4 mg Q6H PRN Administration Nausea And Vomiting Ondansetron HCl 4 mg 10/10/24 09:56 10/10/24 19:15 Ondansetron Hcl Odt 4 Mg Tablet PO 4 mg Q6H PRN Administration Nausea And Vomiting Pantoprazole Sodium 40 mg 10/10/24 09:00 10/10/24 10:00 Pantoprazole 40 Mg Tablet PO 40 mg QAM VERENA Administration Radiology Results: ITS Impressions Renal Ultrasound 10/09/24 14:39 IMPRESSION: 1. Normal kidneys without hydronephrosis. Labs Labs: Laboratory Results - last 24 hr 10/10/24 10/10/24 10/10/24 11:40 16:11 21:05 WBC RBC Hgb Hct MCV MCH MCHC RDW Plt Count MPV Immature Gran % (Auto) Neut % (Auto) Lymph % (Auto) [place] % (Auto) Eos % (Auto) Baso % (Auto) Lymph # (Auto) [place] # (Auto) Eos # (Auto) Baso # (Auto) Abs Immat Gran (auto) Absolute Neuts (auto) Absolute Nucleated RBC Nucleated RBC % Sodium Potassium Chloride Carbon Dioxide Anion Gap BUN Creatinine Estim Creat Clear Calc Estimated GFR Glucose POC Capillary Glucose 168 H 133 H 158 H Calcium Total Bilirubin AST ALT Alkaline Phosphatase Total Protein Albumin 10/11/24 10/11/24 05:12 07:55 WBC 3.7 L RBC 3.57 L Hgb 10.9 L Hct 33.7 L MCV 94.4 MCH 30.5 MCHC 32.3 RDW 12.8 Plt Count 168 MPV 11.2 H Immature Gran % (Auto) 0.3 Neut % (Auto) 50.2 Lymph % (Auto) 31.9 [place] % (Auto) 11.5 H Eos % (Auto) 5.6 H Baso % (Auto) 0.5 Lymph # (Auto) 1.19 [place] # (Auto) 0.4 Eos # (Auto) 0.2 Baso # (Auto) 0.0 Abs Immat Gran (auto) 0.01 Absolute Neuts (auto) 1.9 Absolute Nucleated RBC 0.000 Nucleated RBC % 0.0 Sodium 141 Potassium 3.6 Chloride 107 Carbon Dioxide 24 Anion Gap 10 BUN 24 H D Creatinine 2.10 H Estim Creat Clear Calc 15 Estimated GFR 22 L Glucose 120 H POC Capillary Glucose 104 Calcium 8.8 Total Bilirubin 0.5 AST 28 ALT 23 Alkaline Phosphatase 73 Total Protein 6.0 L Albumin 3.5 Quality VTE Prophylaxis VTE prophylaxis: pharmacologic ordered Hospitalist [facility] Advance Care Plan I have confirmed that the patient's Advanced Care Plan is present, code status is documented, or surrogate decision maker is listed in patient medical record.: Yes Medication Reconciliation I have utilized all available resources to obtain, update and review the patients current medications (includes all prescriptions, OTC, herbals, cannabis, and nutritional supplements).: Yes
[2024-10-11] MEDS: ATORVASTATIN 20 MG TABLET PO (08:59)
[2024-10-11] MEDS: ANASTROZOLE (*CHEMO) 1 MG TABLET PO (08:59)
[2024-10-11 09:00] VITALS: PULSE 68
[2024-10-11] MEDS: PANTOPRAZOLE 40 MG TABLET PO (09:00)
[2024-10-11] MEDS: METOPROLOL TARTRATE 50 MG TAB PO ×2 (09:00→21:23)
--- NOTE | 2024-10-11 11:18 | PM.PNNEP ---
Progress Note: A&P Assessment and Plan (1) LISA (acute kidney injury): Code(s): N17.9 - Acute kidney failure, unspecified Status: Acute Assessment and Plan: slow improvement noted history would suggest prerenal azotemia/volume depletion this was likely complicated by ongoing SHELIA-I and HCTZ use as well evaluation to date: normal renal ultrasound urine electrolytes prerenal urine eosinophils negative low CPK bland urine sediment continue IVFs for now follow trend of repeat labs and UOP (2) Stage 3b chronic kidney disease: Code(s): N18.32 - Chronic kidney disease, stage 3b Status: Chronic Assessment and Plan: baseline creatinine seems to run ~ 1.3 - 1.4mg/dl presumably due to hypertension, diabetes, vascular disease, and age-related change (3) Chronic cholecystitis with calculus: Code(s): K80.10 - Calculus of gallbladder with chronic cholecystitis without obstruction Status: Acute Assessment and Plan: as noted by history/imaging noted symptoms (nausea, vomiting, poor oral intake) will eventually need chelecyhstectomy once medically optimized Surgery following (4) HTN (hypertension): Qualifiers: Hypertension type: primary hypertension Qualified Code(s): I10 - Essential (primary) hypertension Code(s): I10 - Essential (primary) hypertension Status: Chronic Assessment and Plan: reasonable control holding HCTZ and lisinopril given #1 follow trend of hemodynamics (5) Diabetes: Qualifiers: Diabetes mellitus complication status: without complication Diabetes mellitus streetsweeper operator insulin use: without streetsweeper operator use Diabetes mellitus type: type 2 Qualified Code(s): E11.9 - Type 2 diabetes mellitus without complications Code(s): E11.9 - Type 2 diabetes mellitus without complications Status: Chronic Assessment and Plan: follow accu-cheks glycemic control per hospitalists Will continue to follow. Subjective Date/time seen: 10/11/24 11:18 Interval history: Follow-up for acute kidney injury/acute renal failure on chronic kidney disease. Ongoing improvement in renal function/creatinine noted with current interventions/therapy; overall, she reports feeling better as well; oral intake still reduced but attempting to drink fluids; no apparent distress noted; no issues/events overnight or earlier this morning. Exam Narrative: General: elderly but WD/WN female in NAD Heart: normal S1 and S2; no rub Lungs: clear to auscultation Abdomen: soft, nontender, nondistended, positive bowel sounds Extremities: no cyanosis or clubbing; no edema Skin: warm and intact Objective Data Vital Signs Vital Signs: Vital Signs Temp Pulse Resp BP Pulse Ox O2 Del Method 10/11/24 12:31 97.4 F L 59 L 16 137/68 100 10/11/24 09:00 68 10/11/24 03:49 97.8 F 61 20 151/51 H 100 10/10/24 20:00 58 L 18 100 Room Air 10/10/24 21:00 97.7 F 58 L 18 145/62 H 100 10/10/24 20:27 72 Intake/Output Intake/Output: Intake & Output 10/08/24 10/09/24 10/10/24 10/11/24 23:59 23:59 23:59 23:59 Intake Total 1460 4457 1490 Output Total 300 1300 Balance 1160 3157 1490 Meds/Results Medications: Active Medications Generic Name Dose Route Start Last Admin Trade Name Freq PRN Reason Stop Dose Admin Anastrozole 1 mg 10/10/24 09:00 10/11/24 08:59 Anastrozole (*Chemo) 1 Mg Tablet PO 1 mg DAILY VERENA Administration Atorvastatin Calcium 20 mg 10/10/24 09:00 10/11/24 08:59 Atorvastatin 20 Mg Tablet PO 20 mg DAILY VERENA Administration Dextrose 12.5 gm 10/09/24 15:46 Dextrose 50% 25 Gm/50 Ml Syringe IV PUSH PRN PRN Hypoglycemia Protocol Donepezil HCl 5 mg 10/09/24 21:00 10/10/24 20:27 Donepezil Hcl 5 Mg Tablet PO 5 mg QHS VERENA Administration Enoxaparin Sodium 30 mg 10/09/24 17:00 10/10/24 19:15 Enoxaparin 30 Mg/0.3 Ml Syringe SUB-Q 30 mg Q24H VERENA Administration Glucagon 1 mg 10/09/24 15:46 Glucagon For Inj 1 Mg Vial IM PRN PRN Hypoglycemia Protocol Glucose 15 gm 10/09/24 15:46 Glucose Oral Gel 15 Gm Of Glucse In 37.5 Gm Tube PO PRN PRN Hypoglycemia Protocol Dextrose/Sodium Chloride 1,000 mls @ 100 mls/hr 10/09/24 07:30 10/11/24 13:34 Dextrose 5% Sodium Chloride 0.9% IV CONT 100 mls/hr .Q10H VERENA Administration Dextrose 1,000 mls @ 100 mls/hr 10/09/24 15:46 Dextrose 5% 1,000 Ml IVPB PRN PRN Hypoglycemia Protocol Insulin Aspart 2 - 5 units 10/09/24 17:00 10/11/24 12:01 Insulin Aspart (*Bkc) 100 Units/Ml SUB-Q Not Given TIDWM [facility] Protocol Metoprolol Tartrate 50 mg 10/09/24 21:00 10/11/24 09:00 Metoprolol Tartrate 50 Mg Tab PO 50 mg Q12HR VERENA Administration Ondansetron HCl 4 mg 10/09/24 07:26 10/09/24 15:16 Ondansetron Inj 4 Mg/2 Ml Vial IV PUSH 4 mg Q6H PRN Administration Nausea And Vomiting Ondansetron HCl 4 mg 10/10/24 09:56 10/11/24 15:03 Ondansetron Hcl Odt 4 Mg Tablet PO 4 mg Q6H PRN Administration Nausea And Vomiting Pantoprazole Sodium 40 mg 10/10/24 09:00 10/11/24 09:00 Pantoprazole 40 Mg Tablet PO 40 mg QAM VERENA Administration Radiology Results: ITS Impressions Renal Ultrasound 10/09/24 14:39 IMPRESSION: 1. Normal kidneys without hydronephrosis. Labs Labs: Laboratory Tests 10/11/24 05:12 10/11/24 05:12 Calcium 8.8 Total Bilirubin 0.5 AST 28 ALT 23 Alkaline Phosphatase 73 Total Protein 6.0 L Albumin 3.5
--- NOTE | 2024-10-11 11:47 | WPDPN ---
Progress Note: A&P Assessment and Plan (1) Acute renal failure: Qualifiers: Acute renal failure type: unspecified Qualified Code(s): N17.9 - Acute kidney failure, unspecified Code(s): N17.9 - Acute kidney failure, unspecified Status: Acute Assessment and Plan: Creatinine is decreasing and is now down to 2.1. Her baseline is around 1.5. Nephrology continues to follow and manage. (2) Chronic cholecystitis with calculus: Code(s): K80.10 - Calculus of gallbladder with chronic cholecystitis without obstruction Status: Acute Assessment and Plan: P.o. intake is still relatively low. We will continue to encourage increasing p.o. intake. Albumin is still around 3.5. Cardiology has cleared her for a general anesthetic for the cholecystectomy. Renal condition continues to improve. Will tentatively plan on proceeding to the operating room for her laparoscopic cholecystectomy possible versus open cholecystectomy early next week. Continue supportive management while in the hospital for now. Subjective Date/time seen: 10/11/24 11:47 Interval history: Patient is doing well today. Resting comfortably without complaints of any nausea right now. Creatinine is now down to 2.1. Getting much close to her baseline of 1.5. She is tolerating some p.o. intake. White blood count is normal. No fever. Exam GI: Other: Abdomen is soft and nondistended. No tenderness. Exam is benign. Objective Data Vital Signs Vital Signs: Vital Signs - 24 hr 10/10/24 14:00 10/10/24 20:27 10/10/24 21:00 Temperature 35.9 C L 36.5 C Pulse Rate 62 72 58 L Respiratory Rate 18 18 Blood Pressure 114/41 L 145/62 H Pulse Oximetry 100 100 Oxygen Delivery 10/10/24 20:00 10/11/24 03:49 10/11/24 09:00 Temperature 36.6 C Pulse Rate 58 L 61 68 Respiratory Rate 18 20 Blood Pressure 151/51 H Pulse Oximetry 100 100 Oxygen Delivery Room Air Intake/Output Intake/Output: Intake & Output 10/08/24 10/09/24 10/10/24 10/11/24 23:59 23:59 23:59 23:59 Intake Total 1460 4457 490 Output Total 300 1300 Balance 1160 3157 490 Meds/Results Medications: Active Medications Generic Name Dose Route Start Last Admin Trade Name Freq PRN Reason Stop Dose Admin Anastrozole 1 mg 10/10/24 09:00 10/11/24 08:59 Anastrozole (*Chemo) 1 Mg Tablet PO 1 mg DAILY VERENA Administration Atorvastatin Calcium 20 mg 10/10/24 09:00 10/11/24 08:59 Atorvastatin 20 Mg Tablet PO 20 mg DAILY VERENA Administration Dextrose 12.5 gm 10/09/24 15:46 Dextrose 50% 25 Gm/50 Ml Syringe IV PUSH PRN PRN Hypoglycemia Protocol Donepezil HCl 5 mg 10/09/24 21:00 10/10/24 20:27 Donepezil Hcl 5 Mg Tablet PO 5 mg QHS VERENA Administration Enoxaparin Sodium 30 mg 10/09/24 17:00 10/10/24 19:15 Enoxaparin 30 Mg/0.3 Ml Syringe SUB-Q 30 mg Q24H VERENA Administration Glucagon 1 mg 10/09/24 15:46 Glucagon For Inj 1 Mg Vial IM PRN PRN Hypoglycemia Protocol Glucose 15 gm 10/09/24 15:46 Glucose Oral Gel 15 Gm Of Glucse In 37.5 Gm Tube PO PRN PRN Hypoglycemia Protocol Dextrose/Sodium Chloride 1,000 mls @ 100 mls/hr 10/09/24 07:30 10/11/24 01:38 Dextrose 5% Sodium Chloride 0.9% IV CONT 100 mls/hr .Q10H VERENA Administration Dextrose 1,000 mls @ 100 mls/hr 10/09/24 15:46 Dextrose 5% 1,000 Ml IVPB PRN PRN Hypoglycemia Protocol Insulin Aspart 2 - 5 units 10/09/24 17:00 10/11/24 08:24 Insulin Aspart (*Bkc) 100 Units/Ml SUB-Q Not Given TIDWM VERENA Protocol Metoprolol Tartrate 50 mg 10/09/24 21:00 10/11/24 09:00 Metoprolol Tartrate 50 Mg Tab PO 50 mg Q12HR VERENA Administration Ondansetron HCl 4 mg 10/09/24 07:26 10/09/24 15:16 Ondansetron Inj 4 Mg/2 Ml Vial IV PUSH 4 mg Q6H PRN Administration Nausea And Vomiting Ondansetron HCl 4 mg 10/10/24 09:56 10/10/24 19:15 Ondansetron Hcl Odt 4 Mg Tablet PO 4 mg Q6H PRN Administration Nausea And Vomiting Pantoprazole Sodium 40 mg 10/10/24 09:00 10/11/24 09:00 Pantoprazole 40 Mg Tablet PO 40 mg QAM VERENA Administration Radiology Results: ITS Impressions Renal Ultrasound 10/09/24 14:39 IMPRESSION: 1. Normal kidneys without hydronephrosis. Labs Labs: Laboratory Results - last 24 hr 10/10/24 10/10/24 10/10/24 11:40 16:11 21:05 WBC RBC Hgb Hct MCV MCH MCHC RDW Plt Count MPV Immature Gran % (Auto) Neut % (Auto) Lymph % (Auto) [place] % (Auto) Eos % (Auto) Baso % (Auto) Lymph # (Auto) [place] # (Auto) Eos # (Auto) Baso # (Auto) Abs Immat Gran (auto) Absolute Neuts (auto) Absolute Nucleated RBC Nucleated RBC % Sodium Potassium Chloride Carbon Dioxide Anion Gap BUN Creatinine Estim Creat Clear Calc Estimated GFR Glucose POC Capillary Glucose 168 H 133 H 158 H Calcium Total Bilirubin AST ALT Alkaline Phosphatase Total Protein Albumin 10/11/24 10/11/24 05:12 07:55 WBC 3.7 L RBC 3.57 L Hgb 10.9 L Hct 33.7 L MCV 94.4 MCH 30.5 MCHC 32.3 RDW 12.8 Plt Count 168 MPV 11.2 H Immature Gran % (Auto) 0.3 Neut % (Auto) 50.2 Lymph % (Auto) 31.9 [place] % (Auto) 11.5 H Eos % (Auto) 5.6 H Baso % (Auto) 0.5 Lymph # (Auto) 1.19 [place] # (Auto) 0.4 Eos # (Auto) 0.2 Baso # (Auto) 0.0 Abs Immat Gran (auto) 0.01 Absolute Neuts (auto) 1.9 Absolute Nucleated RBC 0.000 Nucleated RBC % 0.0 Sodium 141 Potassium 3.6 Chloride 107 Carbon Dioxide 24 Anion Gap 10 BUN 24 H D Creatinine 2.10 H Estim Creat Clear Calc 15 Estimated GFR 22 L Glucose 120 H POC Capillary Glucose 104 Calcium 8.8 Total Bilirubin 0.5 AST 28 ALT 23 Alkaline Phosphatase 73 Total Protein 6.0 L Albumin 3.5
[2024-10-11 11:53] LABS: Glucose Point of Care 128 mg/dl (65-105)
[2024-10-11 14:31] VITALS: BP 137/68; PULSE 59; RESP 16; TEMP 36.3; O2SAT 100
[2024-10-11] MEDS: ONDANSETRON HCL ODT 4 MG TABLET PO ×2 (15:03→21:23)
[2024-10-11] MEDS: ENOXAPARIN 30 MG/0.3 ML SYRINGE SUB-Q (16:43)
[2024-10-11 17:08] LABS: Glucose Point of Care 153 mg/dl (65-105)
[2024-10-11 20:00] VITALS: PULSE 58; RESP 14; O2SAT 100
[2024-10-11 21:20] VITALS: BP 142/52; PULSE 66; RESP 14; TEMP 36.4; O2SAT 100
[2024-10-11 21:23] VITALS: PULSE 58
[2024-10-11] MEDS: DONEPEZIL HCL 5 MG TABLET PO (21:23)
[2024-10-11 22:08] LABS: Glucose Point of Care 167 mg/dl (65-105)
[2024-10-12 04:11] VITALS: BP 133/63; PULSE 60; RESP 16; TEMP 36.4; O2SAT 100
[2024-10-12 06:00] LABS: Basophils Percent Auto 0.3 % (0.2-1.2); Eosinophils Absolute Auto 0.2 K/mm3 (0-0.3); Eosinophils Percent Auto 5.4 % (0-4.4); Hematocrit 30.8 % (37.0-47.0); Hemoglobin 9.9 g/dL (12.0-15.0); Immature Granulocyte Absolute 0.02 K/mm3 (0.00-0.031); Immature Granulocyte Percent A 0.5 % (0-0.5); Lymphocytes Absolute Auto 1.15 K/mm3 (0.9-3.2); Lymphocytes Percent Auto 31.3 % (18.3-44.2); Mean Corpuscular HGB Conc 32.1 g/dl (32-36); Mean Corpuscular Hemoglobin 30.5 pg (26-34); Mean Corpuscular Volume 94.8 fl (80-100); Mean Platelet Volume 11.1 fl (7.4-10.4); Monocytes Absolute Auto 0.5 K/mm3 (0.1-0.6); Monocytes Percent Auto 12.3 % (2.6-8.5); Neutrophils Absolute Auto 1.8 K/mm3 (1.3-6.7); Neutrophils Percent Auto 50.2 % (45.5-73.1); Platelet Count Result 158 k/mm3 (150-375); Red Blood Count 3.25 M/mm3 (4.2-5.4); Red Cell Distribution Width 12.8 % (11.5-14.5); White Blood Count 3.7 K/mm3 (4.5-10.0)
[2024-10-12 06:16] LABS: Alanine Aminotransferase 22 U/L (6-35); Albumin Level 2.9 g/dL (3.5-5.1); Alkaline Phosphatase 73 U/L (38-126); Anion Gap 5 mmol/L (4-12); Aspartate Amino Transferase 30 U/L (14-36); Bilirubin,Total 0.5 mg/dL (0.2-1.3); Blood Urea Nitrogen 13 mg/dL (7-17); Calcium 8.2 mg/dL (8.4-10.2); Carbon Dioxide 22 mmol/L (22-30); Chloride 113 mmol/L (98-107); Estimated CRCL calculation 20 ml/min; Estimated Glomerular Filt Rate 31; Glucose 111 mg/dL (65-110); Potassium 3.6 mmol/L (3.4-5.0); Sodium 140 mmol/L (137-145)
[2024-10-12 07:54] LABS: Glucose Point of Care 108 mg/dl (65-105)
[2024-10-12 08:17] VITALS: PULSE 58
[2024-10-12] MEDS: ANASTROZOLE (*CHEMO) 1 MG TABLET PO (08:17)
[2024-10-12] MEDS: ATORVASTATIN 20 MG TABLET PO (08:17)
[2024-10-12] MEDS: METOPROLOL TARTRATE 50 MG TAB PO ×2 (08:17→20:38)
[2024-10-12] MEDS: PANTOPRAZOLE 40 MG TABLET PO (08:17)
--- NOTE | 2024-10-12 10:35 | P.PNIM_ITS ---
Progress Note: A&P Assessment and Plan (1) Acute renal failure: Qualifiers: Acute renal failure type: unspecified Qualified Code(s): N17.9 - Acute kidney failure, unspecified Code(s): N17.9 - Acute kidney failure, unspecified Status: Acute Assessment and Plan: - acute renal failure in the setting of CKD. - Likely pre-renal secondary to volume depletion from poor PO intake and worsened by HCTZ and Lisinopril. - Continues to improve; Cr 3.7>>3>>2.1>>1.6 - renal US: Normal kidneys without hydronephrosis. - nephrology following and we'll continue IVF challenge for now. - Continue to trend renal panel and monitor I&Os (2) Abnormal finding on EKG: Code(s): R94.31 - Abnormal electrocardiogram [ECG] [EKG] Status: Acute Assessment and Plan: - slight EKG changes shown on her preop workup. - Seen by cardiology and TTE recommended: - ECHO done; LVEF 70 %. No significant abnormalities noted. - No further work-up for now. (3) Chronic cholecystitis with calculus: Code(s): K80.10 - Calculus of gallbladder with chronic cholecystitis without obstruction Status: Acute Assessment and Plan: - General surgery following. - Awaiting renal function to stabilize prior to discussing any surgical interventions plans. - Currently tolerating meals well and denies any GI distress. (4) Hypomagnesemia: Code(s): E83.42 - Hypomagnesemia Status: Acute Assessment and Plan: - Continue to replete as needed and trend levels. (5) Diabetes: Qualifiers: Diabetes mellitus type: type 2 Diabetes mellitus shelter insulin use: without shelter use Diabetes mellitus complication status: without complication Qualified Code(s): E11.9 - Type 2 diabetes mellitus without c omplications Code(s): E11.9 - Type 2 diabetes mellitus without complications Status: Chronic Assessment and Plan: - hypoglycemia protocol - POC blood glucose ACHS - home medication: Hold metformin - correct regimen ordered - low dose TIDWM - A1C 6.3% on 06/30/2024 (6) HTN (hypertension): Qualifiers: Hypertension type: primary hypertension Qualified Code(s): I10 - Essential (primary) hypertension Code(s): I10 - Essential (primary) hypertension Status: Chronic Assessment and Plan: - Fairly well controlled. - Hold HCTZ and Lisinopril for now with LISA. - Continue metoprolol. - monitor levels closely. Plan Diet: Diabetic GI Prophylaxis: Pantoprazole DVT Prophylaxis: Lovenox Lines: Peripheral Code Status: Full code Time Spent With Patient Time with patient: 15 - 25 minutes Subjective Date/time seen: 10/12/24 10:35 Patient states she feels alright and has no distressful symptoms. States tolerating meals well with no GI symptoms. Interval history: Patient calm on bedrest and looks to be in no acute distress. Review of Systems Review of Systems: All systems reviewed & are unremarkable except as noted in HPI and below Exam Narrative: General: Elderly female, well appearing, no acute distress. HEENT: Atraumatic, PERRL, EOM, moist mucus membranes. NECK: Supple. HEART: RRR, no murmurs. Abdomen: Soft, non-tender, non-distended, +ve bowel sounds X4 quadrants. Extremities: No edema, +ve pedal and radial pulses. Skin: Warm and dry. No lesions noted. Neuro: Well oriented. CN II-XII grossly intact. Psych: Calm and co-operative. Objective Data Vital Signs Vital Signs: Vital Signs - 24 hr 10/11/24 14:31 10/11/24 21:20 10/11/24 21:23 Temperature 97.4 F L 97.5 F L Pulse Rate 59 L 66 58 L Respiratory Rate 16 14 Blood Pressure 137/68 142/52 H Pulse Oximetry 100 100 Oxygen Delivery 10/11/24 20:00 10/12/24 04:11 10/12/24 08:17 Temperature 97.6 F Pulse Rate 58 L 60 58 L Respiratory Rate 14 16 Blood Pressure 133/63 Pulse Oximetry 100 100 Oxygen Delivery Room Air 10/12/24 08:13 Temperature Pulse Rate Respiratory Rate Blood Pressure Pulse Oximetry Oxygen Delivery Room Air Intake/Output Intake/Output: Intake & Output 10/09/24 10/10/24 10/11/24 10/12/24 23:59 23:59 23:59 23:59 Intake Total 1460 4457 3070 0 Output Total 300 1300 Balance 1160 3157 3070 0 Meds/Results Medications: Active Medications Generic Name Dose Route Start Last Admin Trade Name Freq PRN Reason Stop Dose Admin Anastrozole 1 mg 10/10/24 09:00 10/12/24 08:17 Anastrozole (*Chemo) 1 Mg Tablet PO 1 mg DAILY VERENA Administration Atorvastatin Calcium 20 mg 10/10/24 09:00 10/12/24 08:17 Atorvastatin 20 Mg Tablet PO 20 mg DAILY VERENA Administration Dextrose 12.5 gm 10/09/24 15:46 Dextrose 50% 25 Gm/50 Ml Syringe IV PUSH PRN PRN Hypoglycemia Protocol Donepezil HCl 5 mg 10/09/24 21:00 10/11/24 21:23 Donepezil Hcl 5 Mg Tablet PO 5 mg QHS VERENA Administration Enoxaparin Sodium 30 mg 10/09/24 17:00 10/11/24 16:43 Enoxaparin 30 Mg/0.3 Ml Syringe SUB-Q 30 mg Q24H VERENA Administration Glucagon 1 mg 10/09/24 15:46 Glucagon For Inj 1 Mg Vial IM PRN PRN Hypoglycemia Protocol Glucose 15 gm 10/09/24 15:46 Glucose Oral Gel 15 Gm Of Glucse In 37.5 Gm Tube PO PRN PRN Hypoglycemia Protocol Dextrose/Sodium Chloride 1,000 mls @ 100 mls/hr 10/09/24 07:30 10/11/24 23:42 Dextrose 5% Sodium Chloride 0.9% IV CONT 100 mls/hr .Q10H VERENA Administration Dextrose 1,000 mls @ 100 mls/hr 10/09/24 15:46 Dextrose 5% 1,000 Ml IVPB PRN PRN Hypoglycemia Protocol Insulin Aspart 2 - 5 units 10/09/24 17:00 10/12/24 08:11 Insulin Aspart (*Bkc) 100 Units/Ml SUB-Q Not Given TIDWM [facility] Protocol Metoprolol Tartrate 50 mg 10/09/24 21:00 10/12/24 08:17 Metoprolol Tartrate 50 Mg Tab PO 50 mg Q12HR VERENA Administration Ondansetron HCl 4 mg 10/09/24 07:26 10/09/24 15:16 Ondansetron Inj 4 Mg/2 Ml Vial IV PUSH 4 mg Q6H PRN Administration Nausea And Vomiting Ondansetron HCl 4 mg 10/10/24 09:56 10/11/24 21:23 Ondansetron Hcl Odt 4 Mg Tablet PO 4 mg Q6H PRN Administration Nausea And Vomiting Pantoprazole Sodium 40 mg 10/10/24 09:00 10/12/24 08:17 Pantoprazole 40 Mg Tablet PO 40 mg QAM VERENA Administration Radiology Results: ITS Impressions Renal Ultrasound 10/09/24 14:39 IMPRESSION: 1. Normal kidneys without hydronephrosis. Labs Labs: Laboratory Results - last 24 hr 10/11/24 10/11/24 10/11/24 11:44 16:58 21:25 WBC RBC Hgb Hct MCV MCH MCHC RDW Plt Count MPV Immature Gran % (Auto) Neut % (Auto) Lymph % (Auto) [place] % (Auto) Eos % (Auto) Baso % (Auto) Lymph # (Auto) [place] # (Auto) Eos # (Auto) Baso # (Auto) Abs Immat Gran (auto) Absolute Neuts (auto) Absolute Nucleated RBC Nucleated RBC % Sodium Potassium Chloride Carbon Dioxide Anion Gap BUN Creatinine Estim Creat Clear Calc Estimated GFR Glucose POC Capillary Glucose 128 H 153 H 167 H Calcium Total Bilirubin AST ALT Alkaline Phosphatase Total Protein Albumin 10/12/24 10/12/24 05:38 07:51 WBC 3.7 L RBC 3.25 L Hgb 9.9 L Hct 30.8 L MCV 94.8 MCH 30.5 MCHC 32.1 RDW 12.8 Plt Count 158 MPV 11.1 H Immature Gran % (Auto) 0.5 Neut % (Auto) 50.2 Lymph % (Auto) 31.3 [place] % (Auto) 12.3 H Eos % (Auto) 5.4 H Baso % (Auto) 0.3 Lymph # (Auto) 1.15 [place] # (Auto) 0.5 Eos # (Auto) 0.2 Baso # (Auto) 0.0 Abs Immat Gran (auto) 0.02 Absolute Neuts (auto) 1.8 Absolute Nucleated RBC 0.000 Nucleated RBC % 0.0 Sodium 140 Potassium 3.6 Chloride 113 H Carbon Dioxide 22 Anion Gap 5 BUN 13 D Creatinine 1.60 H Estim Creat Clear Calc 20 Estimated GFR 31 L Glucose 111 H POC Capillary Glucose 108 H Calcium 8.2 L Total Bilirubin 0.5 AST 30 ALT 22 Alkaline Phosphatase 73 Total Protein 6.0 L Albumin 2.9 L Quality VTE Prophylaxis VTE prophylaxis: pharmacologic ordered Hospitalist MIPS Advance Care Plan I have confirmed that the patient's Advanced Care Plan is present, code status is documented, or surrogate decision maker is listed in patient medical record.: Yes Medication Reconciliation I have utilized all available resources to obtain, update and review the patients current medications (includes all prescriptions, OTC, herbals, cannabis, and nutritional supplements).: Yes
[2024-10-12] MEDS: DEXTROSE 5%/0.9% SOD CHL 1,000 ML 100 ML IV CONT (11:07)
[2024-10-12 11:57] LABS: Glucose Point of Care 105 mg/dl (65-105)
--- NOTE | 2024-10-12 13:11 | P.PN_ITS ---
Progress Note: A&P Assessment and Plan (1) Chronic cholecystitis with calculus: Code(s): K80.10 - Calculus of gallbladder with chronic cholecystitis without obstruction Status: Acute Assessment and Plan: Patient is very symptomatic and is affecting her ability to the eat well. We will go and proceed with a laparoscopic cholecystectomy possible conversion open cholecystectomy early next week. Which is going to keep her in the hospital for a day or 2 to get the surgery done. (2) Acute renal failure: Qualifiers: Acute renal failure type: unspecified Qualified Code(s): N17.9 - Acute kidney failure, unspecified Code(s): N17.9 - Acute kidney failure, unspecified Status: Acute Assessment and Plan: Resolved. Creatinine is down to her baseline of 1.5 to 1.6. Nephrology following. (3) Abnormal finding on EKG: Code(s): R94.31 - Abnormal electrocardiogram [ECG] [EKG] Status: Acute Assessment and Plan: Followed up with echocardiogram. Results were benign. Cardiology has cleared the patient proceed with a general anesthetic. Subjective Date/time seen: 10/12/24 13:11 Interval history: Patient continues do well. Seems to be eating a bit more. Denies any nausea. Creatinine is down to her baseline around 1.5 to 1.6. Echocardiogram normal. Cardiology has no issues with her proceeding with surgery for her gallbladder. Exam GI: Other: Abdomen is soft and nondistended. Nontender no masses. Benign exam. Objective Data Vital Signs Vital Signs: Vital Signs - 24 hr 10/11/24 14:31 10/11/24 21:20 10/11/24 21:23 Temperature 36.3 C L 36.4 C L Pulse Rate 59 L 66 58 L Respiratory Rate 16 14 Blood Pressure 137/68 142/52 H Pulse Oximetry 100 100 Oxygen Delivery 10/11/24 20:00 10/12/24 04:11 10/12/24 08:17 Temperature 36.4 C Pulse Rate 58 L 60 58 L Respiratory Rate 14 16 Blood Pressure 133/63 Pulse Oximetry 100 100 Oxygen Delivery Room Air 10/12/24 08:13 Temperature Pulse Rate Respiratory Rate Blood Pressure Pulse Oximetry Oxygen Delivery Room Air Intake/Output Intake/Output: Intake & Output 10/09/24 10/10/24 10/11/24 10/12/24 23:59 23:59 23:59 23:59 Intake Total 1460 4457 3070 1240 Output Total 300 1300 Balance 1160 3157 3070 1240 Meds/Results Medications: Active Medications Generic Name Dose Route Start Last Admin Trade Name Freq PRN Reason Stop Dose Admin Anastrozole 1 mg 10/10/24 09:00 10/12/24 08:17 Anastrozole (*Chemo) 1 Mg Tablet PO 1 mg DAILY VERENA Administration Atorvastatin Calcium 20 mg 10/10/24 09:00 10/12/24 08:17 Atorvastatin 20 Mg Tablet PO 20 mg DAILY VERENA Administration Dextrose 12.5 gm 10/09/24 15:46 Dextrose 50% 25 Gm/50 Ml Syringe IV PUSH PRN PRN Hypoglycemia Protocol Donepezil HCl 5 mg 10/09/24 21:00 10/11/24 21:23 Donepezil Hcl 5 Mg Tablet PO 5 mg QHS VERENA Administration Enoxaparin Sodium 30 mg 10/09/24 17:00 10/11/24 16:43 Enoxaparin 30 Mg/0.3 Ml Syringe SUB-Q 30 mg Q24H VERENA Administration Glucagon 1 mg 10/09/24 15:46 Glucagon For Inj 1 Mg Vial IM PRN PRN Hypoglycemia Protocol Glucose 15 gm 10/09/24 15:46 Glucose Oral Gel 15 Gm Of Glucse In 37.5 Gm Tube PO PRN PRN Hypoglycemia Protocol Dextrose/Sodium Chloride 1,000 mls @ 75 mls/hr 10/09/24 07:30 10/12/24 11:07 Dextrose 5% Sodium Chloride 0.9% IV CONT 100 mls/hr .[id number] VERENA Administration Dextrose 1,000 mls @ 100 mls/hr 10/09/24 15:46 Dextrose 5% 1,000 Ml IVPB PRN PRN Hypoglycemia Protocol Insulin Aspart 2 - 5 units 10/09/24 17:00 10/12/24 12:04 Insulin Aspart (*Bkc) 100 Units/Ml SUB-Q Not Given TIDWM VERENA Protocol Metoprolol Tartrate 50 mg 10/09/24 21:00 10/12/24 08:17 Metoprolol Tartrate 50 Mg Tab PO 50 mg Q12HR VERENA Administration Ondansetron HCl 4 mg 10/09/24 07:26 10/09/24 15:16 Ondansetron Inj 4 Mg/2 Ml Vial IV PUSH 4 mg Q6H PRN Administration Nausea And Vomiting Ondansetron HCl 4 mg 10/10/24 09:56 10/11/24 21:23 Ondansetron Hcl Odt 4 Mg Tablet PO 4 mg Q6H PRN Administration Nausea And Vomiting Pantoprazole Sodium 40 mg 10/10/24 09:00 10/12/24 08:17 Pantoprazole 40 Mg Tablet PO 40 mg QAM VERENA Administration Radiology Results: ITS Impressions Renal Ultrasound 10/09/24 14:39 IMPRESSION: 1. Normal kidneys without hydronephrosis. Labs Labs: Laboratory Results - last 24 hr 10/11/24 10/11/24 10/12/24 16:58 21:25 05:38 WBC 3.7 L RBC 3.25 L Hgb 9.9 L Hct 30.8 L MCV 94.8 MCH 30.5 MCHC 32.1 RDW 12.8 Plt Count 158 MPV 11.1 H Immature Gran % (Auto) 0.5 Neut % (Auto) 50.2 Lymph % (Auto) 31.3 [place] % (Auto) 12.3 H Eos % (Auto) 5.4 H Baso % (Auto) 0.3 Lymph # (Auto) 1.15 [place] # (Auto) 0.5 Eos # (Auto) 0.2 Baso # (Auto) 0.0 Abs Immat Gran (auto) 0.02 Absolute Neuts (auto) 1.8 Absolute Nucleated RBC 0.000 Nucleated RBC % 0.0 Sodium 140 Potassium 3.6 Chloride 113 H Carbon Dioxide 22 Anion Gap 5 BUN 13 D Creatinine 1.60 H Estim Creat Clear Calc 20 Estimated GFR 31 L Glucose 111 H POC Capillary Glucose 153 H 167 H Calcium 8.2 L Total Bilirubin 0.5 AST 30 ALT 22 Alkaline Phosphatase 73 Total Protein 6.0 L Albumin 2.9 L 10/12/24 10/12/24 07:51 11:45 WBC RBC Hgb Hct MCV MCH MCHC RDW Plt Count MPV Immature Gran % (Auto) Neut % (Auto) Lymph % (Auto) [place] % (Auto) Eos % (Auto) Baso % (Auto) Lymph # (Auto) [place] # (Auto) Eos # (Auto) Baso # (Auto) Abs Immat Gran (auto) Absolute Neuts (auto) Absolute Nucleated RBC Nucleated RBC % Sodium Potassium Chloride Carbon Dioxide Anion Gap BUN Creatinine Estim Creat Clear Calc Estimated GFR Glucose POC Capillary Glucose 108 H 105 Calcium Total Bilirubin AST ALT Alkaline Phosphatase Total Protein Albumin
--- NOTE | 2024-10-12 13:18 | P.PNNP_ITS ---
Progress Note: A&P Assessment and Plan (1) LISA (acute kidney injury): Code(s): N17.9 - Acute kidney failure, unspecified Status: Acute Assessment and Plan: * slow improvement noted * history would suggest prerenal azotemia/volume depletion * this was likely complicated by ongoing SHELIA-I and HCTZ use as well * evaluation to date: * normal renal ultrasound * urine electrolytes prerenal * urine eosinophils negative * low CPK * bland urine sediment * creatinine is down from its peak of 3.72 the current value of 1.6. * continue IVFs for now * Check another creatinine tomorrow (2) Stage 3b chronic kidney disease: Code(s): N18.32 - Chronic kidney disease, stage 3b Status: Chronic Assessment and Plan: * baseline creatinine seems to run ~ 1.3 - 1.4mg/dl * presumably due to hypertension, diabetes, vascular disease, and age-related change (3) Chronic cholecystitis with calculus: Code(s): K80.10 - Calculus of gallbladder with chronic cholecystitis without obstruction Status: Acute Assessment and Plan: * as noted by history/imaging * noted symptoms (nausea, vomiting, poor oral intake) * will eventually need chelecystectomy once medically optimized * Surgery following (4) HTN (hypertension): Qualifiers: Hypertension type: primary hypertension Qualified Code(s): I10 - Essential (primary) hypertension Code(s): I10 - Essential (primary) hypertension Status: Chronic Assessment and Plan: * systolic 110-160, mostly in the 130s and 140s. * holding HCTZ and lisinopril given #1 * follow trend of hemodynamics (5) Diabetes: Qualifiers: Diabetes mellitus type: type 2 Diabetes mellitus snf insulin use: without roasterman use Diabetes mellitus complication status: without complication Qualified Code(s): E11.9 - Type 2 diabetes mellitus without complications Code(s): E11.9 - Type 2 diabetes mellitus without complications Status: Chronic Assessment and Plan: * follow accu-cheks * glycemic control per hospitalists Will continue to follow. Subjective Date/time seen: 10/12/24 13:18 Interval history: Patient is feeling okay. No chest pain or shortness of Exam Narrative: General: elderly but WD/WN female in NAD Heart: normal S1 and S2; no rub or gallop Lungs: clear to auscultation Abdomen: soft, nontender, nondistended, positive bowel sounds Extremities: no cyanosis or clubbing; no edema Skin: no rash Objective Data Vital Signs Vital Signs: Vital Signs - 24 hr 10/11/24 14:31 10/11/24 21:20 10/11/24 21:23 Temperature 97.4 F L 97.5 F L Pulse Rate 59 L 66 58 L Respiratory Rate 16 14 Blood Pressure 137/68 142/52 H Pulse Oximetry 100 100 Oxygen Delivery 10/11/24 20:00 10/12/24 04:11 10/12/24 08:17 Temperature 97.6 F Pulse Rate 58 L 60 58 L Respiratory Rate 14 16 Blood Pressure 133/63 Pulse Oximetry 100 100 Oxygen Delivery Room Air 10/12/24 08:13 Temperature Pulse Rate Respiratory Rate Blood Pressure Pulse Oximetry Oxygen Delivery Room Air Intake/Output Intake/Output: Intake & Output 10/09/24 10/10/24 10/11/24 10/12/24 23:59 23:59 23:59 23:59 Intake Total 1460 4457 3070 1240 Output Total 300 1300 Balance 1160 3157 3070 1240 Meds/Results Medications: Active Medications Generic Name Dose Route Start Last Admin Trade Name Freq PRN Reason Stop Dose Admin Anastrozole 1 mg 10/10/24 09:00 10/12/24 08:17 Anastrozole (*Chemo) 1 Mg Tablet PO 1 mg DAILY VERENA Administration Atorvastatin Calcium 20 mg 10/10/24 09:00 10/12/24 08:17 Atorvastatin 20 Mg Tablet PO 20 mg DAILY VERENA Administration Dextrose 12.5 gm 10/09/24 15:46 Dextrose 50% 25 Gm/50 Ml Syringe IV PUSH PRN PRN Hypoglycemia Protocol Donepezil HCl 5 mg 10/09/24 21:00 10/11/24 21:23 Donepezil Hcl 5 Mg Tablet PO 5 mg QHS VERENA Administration Enoxaparin Sodium 30 mg 10/09/24 17:00 10/11/24 16:43 Enoxaparin 30 Mg/0.3 Ml Syringe SUB-Q 30 mg Q24H VERENA Administration Glucagon 1 mg 10/09/24 15:46 Glucagon For Inj 1 Mg Vial IM PRN PRN Hypoglycemia Protocol Glucose 15 gm 10/09/24 15:46 Glucose Oral Gel 15 Gm Of Glucse In 37.5 Gm Tube PO PRN PRN Hypoglycemia Protocol Dextrose/Sodium Chloride 1,000 mls @ 75 mls/hr 10/09/24 07:30 10/12/24 11:07 Dextrose 5% Sodium Chloride 0.9% IV CONT 100 mls/hr .[id number] VERENA Administration Dextrose 1,000 mls @ 100 mls/hr 10/09/24 15:46 Dextrose 5% 1,000 Ml IVPB PRN PRN Hypoglycemia Protocol Insulin Aspart 2 - 5 units 10/09/24 17:00 10/12/24 12:04 Insulin Aspart (*Bkc) 100 Units/Ml SUB-Q Not Given TIDWM VERENA Protocol Metoprolol Tartrate 50 mg 10/09/24 21:00 10/12/24 08:17 Metoprolol Tartrate 50 Mg Tab PO 50 mg Q12HR VERENA Administration Ondansetron HCl 4 mg 10/09/24 07:26 10/09/24 15:16 Ondansetron Inj 4 Mg/2 Ml Vial IV PUSH 4 mg Q6H PRN Administration Nausea And Vomiting Ondansetron HCl 4 mg 10/10/24 09:56 10/11/24 21:23 Ondansetron Hcl Odt 4 Mg Tablet PO 4 mg Q6H PRN Administration Nausea And Vomiting Pantoprazole Sodium 40 mg 10/10/24 09:00 10/12/24 08:17 Pantoprazole 40 Mg Tablet PO 40 mg QAM VERENA Administration Radiology Results: ITS Impressions Renal Ultrasound 10/09/24 14:39 IMPRESSION: 1. Normal kidneys without hydronephrosis. Labs Labs: Laboratory Results - last 24 hr 10/11/24 10/11/24 10/12/24 16:58 21:25 05:38 WBC 3.7 L RBC 3.25 L Hgb 9.9 L Hct 30.8 L MCV 94.8 MCH 30.5 MCHC 32.1 RDW 12.8 Plt Count 158 MPV 11.1 H Immature Gran % (Auto) 0.5 Neut % (Auto) 50.2 Lymph % (Auto) 31.3 [place] % (Auto) 12.3 H Eos % (Auto) 5.4 H Baso % (Auto) 0.3 Lymph # (Auto) 1.15 [place] # (Auto) 0.5 Eos # (Auto) 0.2 Baso # (Auto) 0.0 Abs Immat Gran (auto) 0.02 Absolute Neuts (auto) 1.8 Absolute Nucleated RBC 0.000 Nucleated RBC % 0.0 Sodium 140 Potassium 3.6 Chloride 113 H Carbon Dioxide 22 Anion Gap 5 BUN 13 D Creatinine 1.60 H Estim Creat Clear Calc 20 Estimated GFR 31 L Glucose 111 H POC Capillary Glucose 153 H 167 H Calcium 8.2 L Total Bilirubin 0.5 AST 30 ALT 22 Alkaline Phosphatase 73 Total Protein 6.0 L Albumin 2.9 L 10/12/24 10/12/24 07:51 11:45 WBC RBC Hgb Hct MCV MCH MCHC RDW Plt Count MPV Immature Gran % (Auto) Neut % (Auto) Lymph % (Auto) [place] % (Auto) Eos % (Auto) Baso % (Auto) Lymph # (Auto) [place] # (Auto) Eos # (Auto) Baso # (Auto) Abs Immat Gran (auto) Absolute Neuts (auto) Absolute Nucleated RBC Nucleated RBC % Sodium Potassium Chloride Carbon Dioxide Anion Gap BUN Creatinine Estim Creat Clear Calc Estimated GFR Glucose POC Capillary Glucose 108 H 105 Calcium Total Bilirubin AST ALT Alkaline Phosphatase Total Protein Albumin
[2024-10-12 14:46] VITALS: BP 152/60; PULSE 58; RESP 16; TEMP 36.8; O2SAT 100
[2024-10-12 16:54] LABS: Glucose Point of Care 100 mg/dl (65-105)
[2024-10-12] MEDS: ENOXAPARIN 30 MG/0.3 ML SYRINGE SUB-Q (17:29)
[2024-10-12 20:00] VITALS: PULSE 60; RESP 16; O2SAT 94
[2024-10-12 20:38] VITALS: PULSE 72
[2024-10-12] MEDS: DONEPEZIL HCL 5 MG TABLET PO (20:38)
[2024-10-12 21:23] VITALS: BP 150/56; PULSE 60; RESP 16; TEMP 36.5; O2SAT 94
[2024-10-12 22:13] LABS: Glucose Point of Care 113 mg/dl (65-105)
[2024-10-12] MEDS: DEXTROSE 5%/0.9% SOD CHL 1,000 ML 75 ML IV CONT (23:35)
[2024-10-13 04:17] VITALS: BP 158/60; PULSE 62; RESP 16; TEMP 36.6; O2SAT 97
[2024-10-13 05:50] LABS: Basophils Percent Auto 0.4 % (0.2-1.2); Eosinophils Absolute Auto 0.2 K/mm3 (0-0.3); Hematocrit 33.8 % (37.0-47.0); Hemoglobin 10.8 g/dL (12.0-15.0); Immature Granulocyte Absolute 0.01 K/mm3 (0.00-0.031); Immature Granulocyte Percent A 0.2 % (0-0.5); Lymphocytes Absolute Auto 1.14 K/mm3 (0.9-3.2); Lymphocytes Percent Auto 24.2 % (18.3-44.2); Mean Corpuscular Hemoglobin 30.5 pg (26-34); Mean Corpuscular Volume 95.5 fl (80-100); Mean Platelet Volume 11.8 fl (7.4-10.4); Monocytes Absolute Auto 0.5 K/mm3 (0.1-0.6); Monocytes Percent Auto 10.2 % (2.6-8.5); Neutrophils Absolute Auto 2.9 K/mm3 (1.3-6.7); Platelet Count Result 161 k/mm3 (150-375); Red Blood Count 3.54 M/mm3 (4.2-5.4); Red Cell Distribution Width 12.9 % (11.5-14.5); White Blood Count 4.7 K/mm3 (4.5-10.0)
[2024-10-13 06:02] LABS: Alanine Aminotransferase 22 U/L (6-35); Albumin Level 3.1 g/dL (3.5-5.1); Alkaline Phosphatase 82 U/L (38-126); Anion Gap 5 mmol/L (4-12); Aspartate Amino Transferase 28 U/L (14-36); Bilirubin,Total 0.6 mg/dL (0.2-1.3); Blood Urea Nitrogen 9 mg/dL (7-17); Calcium 8.1 mg/dL (8.4-10.2); Carbon Dioxide 24 mmol/L (22-30); Chloride 112 mmol/L (98-107); Estimated CRCL calculation 21 ml/min; Estimated Glomerular Filt Rate 33; Glucose 112 mg/dL (65-110); Potassium 3.5 mmol/L (3.4-5.0); Sodium 141 mmol/L (137-145)
--- NOTE | 2024-10-13 08:18 | P.PNNP_ITS ---
Progress Note: A&P Assessment and Plan (1) LISA (acute kidney injury): Code(s): N17.9 - Acute kidney failure, unspecified Status: Acute Assessment and Plan: * acute kidney injury * history would suggest prerenal azotemia/volume depletion * this was likely complicated by ongoing SHELIA-I and HCTZ use as well * evaluation to date: * normal renal ultrasound * urine electrolytes prerenal * urine eosinophils negative * low CPK * bland urine sediment * creatinine is down from its peak of 3.72 the current value of 1.5. * this is just about at her baseline. * Will stop IV fluids * Check another creatinine tomorrow (2) Stage 3b chronic kidney disease: Code(s): N18.32 - Chronic kidney disease, stage 3b Status: Chronic Assessment and Plan: * baseline creatinine seems to run ~ 1.3 - 1.4mg/dl * presumably due to hypertension, diabetes, vascular disease, and age-related change (3) Chronic cholecystitis with calculus: Code(s): K80.10 - Calculus of gallbladder with chronic cholecystitis without obstruction Status: Acute Assessment and Plan: * symptoms much better. * will eventually need chelecystectomy once medically optimized * Surgery following (4) HTN (hypertension): Qualifiers: Hypertension type: primary hypertension Qualified Code(s): I10 - Essential (primary) hypertension Code(s): I10 - Essential (primary) hypertension Status: Chronic Assessment and Plan: * systolic 130s to 150s, mostly in the 130s and 140s. * holding HCTZ and lisinopril given #1 * On metoprolol 50 q.12. * Heart rate in the 60s. * Start low-dose amlodipine (5) Diabetes: Qualifiers: Diabetes mellitus type: type 2 Diabetes mellitus senior care insulin use: without senior care use Diabetes mellitus complication status: without complication Qualified Code(s): E11.9 - Type 2 diabetes mellitus without complications Code(s): E11.9 - Type 2 diabetes mellitus without complications Status: Chronic Assessment and Plan: * on accu-cheks * glycemic control per hospitalists Subjective Date/time seen: 10/13/24 08:18 Interval history: Jolene is feeling okay. No shortness of breath or chest pain. Eating okay. Exam Narrative: General: elderly but WD/WN female in NAD Heart: normal S1 and S2; no rub Lungs: clear bilaterally Abdomen: soft, nontender, nondistended, positive bowel sounds Extremities: no cyanosis or clubbing; no edema Skin: no rash Or subcu nodules Objective Data Vital Signs Vital Signs: Vital Signs - 24 hr 10/12/24 14:46 10/12/24 20:38 10/12/24 21:23 Temperature 98.2 F 97.7 F Pulse Rate 58 L 72 60 Respiratory Rate 16 16 Blood Pressure 152/60 H 150/56 H Pulse Oximetry 100 94 Oxygen Delivery 10/12/24 20:00 10/13/24 04:17 Temperature 97.9 F Pulse Rate 60 62 Respiratory Rate 16 16 Blood Pressure 158/60 H Pulse Oximetry 94 97 Oxygen Delivery Room Air Intake/Output Intake/Output: Intake & Output 10/10/24 10/11/24 10/12/24 10/13/24 23:59 23:59 23:59 23:59 Intake Total 4457 3070 2575.5 250 Output Total 1300 Balance 3157 3070 2575.5 250 Meds/Results Medications: Active Medications Generic Name Dose Route Start Last Admin Trade Name Freq PRN Reason Stop Dose Admin Anastrozole 1 mg 10/10/24 09:00 10/12/24 08:17 Anastrozole (*Chemo) 1 Mg Tablet PO 1 mg DAILY VERENA Administration Atorvastatin Calcium 20 mg 10/10/24 09:00 10/12/24 08:17 Atorvastatin 20 Mg Tablet PO 20 mg DAILY VERENA Administration Dextrose 12.5 gm 10/09/24 15:46 Dextrose 50% 25 Gm/50 Ml Syringe IV PUSH PRN PRN Hypoglycemia Protocol Donepezil HCl 5 mg 10/09/24 21:00 10/12/24 20:38 Donepezil Hcl 5 Mg Tablet PO 5 mg QHS VERENA Administration Enoxaparin Sodium 30 mg 10/09/24 17:00 10/12/24 17:29 Enoxaparin 30 Mg/0.3 Ml Syringe SUB-Q 30 mg Q24H VERENA Administration Glucagon 1 mg 10/09/24 15:46 Glucagon For Inj 1 Mg Vial IM PRN PRN Hypoglycemia Protocol Glucose 15 gm 10/09/24 15:46 Glucose Oral Gel 15 Gm Of Glucse In 37.5 Gm Tube PO PRN PRN Hypoglycemia Protocol Dextrose/Sodium Chloride 1,000 mls @ 75 mls/hr 10/09/24 07:30 10/12/24 23:35 Dextrose 5% Sodium Chloride 0.9% IV CONT 75 mls/hr .[id number] VERENA Administration Dextrose 1,000 mls @ 100 mls/hr 10/09/24 15:46 Dextrose 5% 1,000 Ml IVPB PRN PRN Hypoglycemia Protocol Insulin Aspart 2 - 5 units 10/09/24 17:00 10/12/24 16:52 Insulin Aspart (*Bkc) 100 Units/Ml SUB-Q Not Given TIDWM VERENA Protocol Metoprolol Tartrate 50 mg 10/09/24 21:00 10/12/24 20:38 Metoprolol Tartrate 50 Mg Tab PO 50 mg Q12HR VERENA Administration Ondansetron HCl 4 mg 10/09/24 07:26 10/09/24 15:16 Ondansetron Inj 4 Mg/2 Ml Vial IV PUSH 4 mg Q6H PRN Administration Nausea And Vomiting Ondansetron HCl 4 mg 10/10/24 09:56 10/11/24 21:23 Ondansetron Hcl Odt 4 Mg Tablet PO 4 mg Q6H PRN Administration Nausea And Vomiting Pantoprazole Sodium 40 mg 10/10/24 09:00 10/12/24 08:17 Pantoprazole 40 Mg Tablet PO 40 mg QAM VERENA Administration Radiology Results: ITS Impressions Renal Ultrasound 10/09/24 14:39 IMPRESSION: 1. Normal kidneys without hydronephrosis. Labs Labs: Laboratory Results - last 24 hr 10/12/24 10/12/24 10/12/24 11:45 16:48 21:26 WBC RBC Hgb Hct MCV MCH MCHC RDW Plt Count MPV Immature Gran % (Auto) Neut % (Auto) Lymph % (Auto) [place] % (Auto) Eos % (Auto) Baso % (Auto) Lymph # (Auto) [place] # (Auto) Eos # (Auto) Baso # (Auto) Abs Immat Gran (auto) Absolute Neuts (auto) Absolute Nucleated RBC Nucleated RBC % Sodium Potassium Chloride Carbon Dioxide Anion Gap BUN Creatinine Estim Creat Clear Calc Estimated GFR Glucose POC Capillary Glucose 105 100 113 H Calcium Total Bilirubin AST ALT Alkaline Phosphatase Total Protein Albumin 10/13/24 05:04 WBC 4.7 RBC 3.54 L Hgb 10.8 L Hct 33.8 L MCV 95.5 MCH 30.5 MCHC 32.0 RDW 12.9 Plt Count 161 MPV 11.8 H Immature Gran % (Auto) 0.2 Neut % (Auto) 61.0 Lymph % (Auto) 24.2 [place] % (Auto) 10.2 H Eos % (Auto) 4.0 Baso % (Auto) 0.4 Lymph # (Auto) 1.14 [place] # (Auto) 0.5 Eos # (Auto) 0.2 Baso # (Auto) 0.0 Abs Immat Gran (auto) 0.01 Absolute Neuts (auto) 2.9 Absolute Nucleated RBC 0.000 Nucleated RBC % 0.0 Sodium 141 Potassium 3.5 Chloride 112 H Carbon Dioxide 24 Anion Gap 5 BUN 9 Creatinine 1.50 H Estim Creat Clear Calc 21 Estimated GFR 33 L Glucose 112 H POC Capillary Glucose Calcium 8.1 L Total Bilirubin 0.6 AST 28 ALT 22 Alkaline Phosphatase 82 Total Protein 6.0 L Albumin 3.1 L
[2024-10-13 08:36] LABS: Glucose Point of Care 98 mg/dl (65-105)
[2024-10-13] MEDS: PANTOPRAZOLE 40 MG TABLET PO (09:20)
--- NOTE | 2024-10-13 09:20 | PM.IMPN ---
Progress Note: A&P Assessment and Plan (1) Acute renal failure: Qualifiers: Acute renal failure type: unspecified Qualified Code(s): N17.9 - Acute kidney failure, unspecified Code(s): N17.9 - Acute kidney failure, unspecified Status: Acute Assessment and Plan: - acute renal failure in the setting of CKD. - Likely pre-renal secondary to volume depletion from poor PO intake and worsened by HCTZ and Lisinopril. - Continues to improve; Cr 3.7>>3>>2.1>>1.6>>1.5 - renal US: Normal kidneys without hydronephrosis. - nephrology following and we'll continue IVF for now. - Continue to trend renal panel and monitor I&Os (2) Abnormal finding on EKG: Code(s): R94.31 - Abnormal electrocardiogram [ECG] [EKG] Status: Acute Assessment and Plan: - slight EKG changes shown on her preop workup. - Seen by cardiology and TTE recommended: - ECHO done; LVEF 70 %. No significant abnormalities noted. - No further work-up for now. (3) Chronic cholecystitis with calculus: Code(s): K80.10 - Calculus of gallbladder with chronic cholecystitis without obstruction Status: Acute Assessment and Plan: - General surgery following. - Awaiting renal function to stabilize with possible surgical interventions next week. - Currently tolerating meals well and denies any GI distress. (4) Hypomagnesemia: Code(s): E83.42 - Hypomagnesemia Status: Acute Assessment and Plan: - Continue to replete as needed and trend levels. (5) Diabetes: Qualifiers: Diabetes mellitus type: type 2 Diabetes mellitus senior care insulin use: without senior care use Diabetes mellitus complication status: without complication Qualified Code(s): E11.9 - Type 2 diabetes mellitus without complications Code(s): E11.9 - Type 2 diabetes mellitus without complications Status: Chronic Assessment and Plan: - hypoglycemia protocol - POC blood glucose ACHS - home medication: Hold metformin - correct regimen ordered - low dose TIDWM - A1C 6.3% on 06/30/2024 (6) HTN (hypertension): Qualifiers: Hypertension type: primary hypertension Qualified Code(s): I10 - Essential (primary) hypertension Code(s): I10 - Essential (primary) hypertension Status: Chronic Assessment and Plan: - Fairly well controlled. - Hold HCTZ and Lisinopril for now with LISA. - Continue metoprolol. - monitor levels closely. Plan Diet: Diabetic GI Prophylaxis: Pantoprazole DVT Prophylaxis: Lovenox Lines: Peripheral Code Status: Full code Time Spent With Patient Time with patient: 15 - 25 minutes Subjective Date/time seen: 10/13/24 09:20 Patient states she's feeling alright and has no distressful symptoms. Interval history: Patient appears comfortable on bedrest, with no signs of acute distress noted. Patient with chronic cholecystitis and will possibly have surgery next week per general surgery. Presented with LISA possibly from dehydration, which is well improving on IVF hydration. Review of Systems Review of Systems: All systems reviewed & are unremarkable except as noted in HPI and below Exam Narrative: General: Elderly female, well appearing, no acute distress. HEENT: Atraumatic, PERRL, EOM, moist mucus membranes. NECK: Supple. HEART: RRR, no murmurs. Abdomen: Soft, non-tender, non-distended, +ve bowel sounds X4 quadrants. Extremities: No edema, +ve pedal and radial pulses. Skin: Warm and dry. No lesions noted. Neuro: Well oriented. CN II-XII grossly intact. Psych: Calm and co-operative. Objective Data Vital Signs Vital Signs: Vital Signs - 24 hr 10/12/24 14:46 10/12/24 20:38 10/12/24 21:23 Temperature 98.2 F 97.7 F Pulse Rate 58 L 72 60 Respiratory Rate 16 16 Blood Pressure 152/60 H 150/56 H Pulse Oximetry 100 94 Oxygen Delivery 10/12/24 20:00 10/13/24 04:17 Temperature 97.9 F Pulse Rate 60 62 Respiratory Rate 16 16 Blood Pressure 158/60 H Pulse Oximetry 94 97 Oxygen Delivery Room Air Intake/Output Intake/Output: Intake & Output 10/10/24 10/11/24 10/12/24 10/13/24 23:59 23:59 23:59 23:59 Intake Total 4457 3070 2575.5 370 Output Total 1300 Balance 3157 3070 2575.5 370 Meds/Results Medications: Active Medications Generic Name Dose Route Start Last Admin Trade Name Freq PRN Reason Stop Dose Admin Amlodipine Besylate 2.5 mg 10/13/24 09:00 Amlodipine Besylate 2.5 Mg Tablet PO QAM VERENA Anastrozole 1 mg 10/10/24 09:00 10/12/24 08:17 Anastrozole (*Chemo) 1 Mg Tablet PO 1 mg DAILY VERENA Administration Atorvastatin Calcium 20 mg 10/10/24 09:00 10/12/24 08:17 Atorvastatin 20 Mg Tablet PO 20 mg DAILY VERENA Administration Dextrose 12.5 gm 10/09/24 15:46 Dextrose 50% 25 Gm/50 Ml Syringe IV PUSH PRN PRN Hypoglycemia Protocol Donepezil HCl 5 mg 10/09/24 21:00 10/12/24 20:38 Donepezil Hcl 5 Mg Tablet PO 5 mg QHS VERENA Administration Enoxaparin Sodium 30 mg 10/09/24 17:00 10/12/24 17:29 Enoxaparin 30 Mg/0.3 Ml Syringe SUB-Q 30 mg Q24H VERENA Administration Glucagon 1 mg 10/09/24 15:46 Glucagon For Inj 1 Mg Vial IM PRN PRN Hypoglycemia Protocol Glucose 15 gm 10/09/24 15:46 Glucose Oral Gel 15 Gm Of Glucse In 37.5 Gm Tube PO PRN PRN Hypoglycemia Protocol Dextrose 1,000 mls @ 100 mls/hr 10/09/24 15:46 Dextrose 5% 1,000 Ml IVPB PRN PRN Hypoglycemia Protocol Insulin Aspart 2 - 5 units 10/09/24 17:00 10/13/24 09:19 Insulin Aspart (*Bkc) 100 Units/Ml SUB-Q Not Given TIDWM [facility] Protocol Metoprolol Tartrate 50 mg 10/09/24 21:00 10/12/24 20:38 Metoprolol Tartrate 50 Mg Tab PO 50 mg Q12HR VERENA Administration Ondansetron HCl 4 mg 10/09/24 07:26 10/09/24 15:16 Ondansetron Inj 4 Mg/2 Ml Vial IV PUSH 4 mg Q6H PRN Administration Nausea And Vomiting Ondansetron HCl 4 mg 10/10/24 09:56 10/11/24 21:23 Ondansetron Hcl Odt 4 Mg Tablet PO 4 mg Q6H PRN Administration Nausea And Vomiting Pantoprazole Sodium 40 mg 10/10/24 09:00 10/12/24 08:17 Pantoprazole 40 Mg Tablet PO 40 mg QAM VERENA Administration Radiology Results: ITS Impressions Renal Ultrasound 10/09/24 14:39 IMPRESSION: 1. Normal kidneys without hydronephrosis. Labs Labs: Laboratory Results - last 24 hr 10/12/24 10/12/24 10/12/24 11:45 16:48 21:26 WBC RBC Hgb Hct MCV MCH MCHC RDW Plt Count MPV Immature Gran % (Auto) Neut % (Auto) Lymph % (Auto) [place] % (Auto) Eos % (Auto) Baso % (Auto) Lymph # (Auto) [place] # (Auto) Eos # (Auto) Baso # (Auto) Abs Immat Gran (auto) Absolute Neuts (auto) Absolute Nucleated RBC Nucleated RBC % Sodium Potassium Chloride Carbon Dioxide Anion Gap BUN Creatinine Estim Creat Clear Calc Estimated GFR Glucose POC Capillary Glucose 105 100 113 H Calcium Total Bilirubin AST ALT Alkaline Phosphatase Total Protein Albumin 10/13/24 10/13/24 05:04 08:08 WBC 4.7 RBC 3.54 L Hgb 10.8 L Hct 33.8 L MCV 95.5 MCH 30.5 MCHC 32.0 RDW 12.9 Plt Count 161 MPV 11.8 H Immature Gran % (Auto) 0.2 Neut % (Auto) 61.0 Lymph % (Auto) 24.2 [place] % (Auto) 10.2 H Eos % (Auto) 4.0 Baso % (Auto) 0.4 Lymph # (Auto) 1.14 [place] # (Auto) 0.5 Eos # (Auto) 0.2 Baso # (Auto) 0.0 Abs Immat Gran (auto) 0.01 Absolute Neuts (auto) 2.9 Absolute Nucleated RBC 0.000 Nucleated RBC % 0.0 Sodium 141 Potassium 3.5 Chloride 112 H Carbon Dioxide 24 Anion Gap 5 BUN 9 Creatinine 1.50 H Estim Creat Clear Calc 21 Estimated GFR 33 L Glucose 112 H POC Capillary Glucose 98 Calcium 8.1 L Total Bilirubin 0.6 AST 28 ALT 22 Alkaline Phosphatase 82 Total Protein 6.0 L Albumin 3.1 L Quality VTE Prophylaxis VTE prophylaxis: pharmacologic ordered Hospitalist MIPS Advance Care Plan I have confirmed that the patient's Advanced Care Plan is present, code status is documented, or surrogate decision maker is listed in patient medical record.: Yes Medication Reconciliation I have utilized all available resources to obtain, update and review the patients current medications (includes all prescriptions, OTC, herbals, cannabis, and nutritional supplements).: Yes
[2024-10-13] MEDS: ANASTROZOLE (*CHEMO) 1 MG TABLET PO (09:21)
[2024-10-13] MEDS: ATORVASTATIN 20 MG TABLET PO (09:21)
[2024-10-13] MEDS: amLODIPine BESYLATE 2.5 MG TABLET PO (09:21)
[2024-10-13 09:22] VITALS: PULSE 78
[2024-10-13] MEDS: METOPROLOL TARTRATE 50 MG TAB PO ×2 (09:22→20:45)
--- NOTE | 2024-10-13 10:07 | P.PN_ITS ---
Progress Note: A&P Assessment and Plan (1) Chronic cholecystitis with calculus: Code(s): K80.10 - Calculus of gallbladder with chronic cholecystitis without obstruction Status: Acute Assessment and Plan: Stable. We will go ahead proceed with laparoscopic cholecystectomy possible conversion open cholecystectomy tomorrow. Will need to add her onto the operative schedule. Continue diet today but she will need to be NPO after midnight. Risks, benefits, indications, and expected outcomes were discussed with the patient and the family during their office visit but her elective surgery was delayed due to her presentation and acute renal failure. Patient and family do not have any further questions at this time in addition to what was already discussed in the office. (2) Acute renal failure: Qualifiers: Acute renal failure type: unspecified Qualified Code(s): N17.9 - Acute kidney failure, unspecified Code(s): N17.9 - Acute kidney failure, unspecified Status: Acute Assessment and Plan: Resolved. Patient is renal function is now back to her baseline with a creatinine 1.5. Her acute kidney injury and renal failure was likely due to poor p.o. intake and volume depletion on top of her mild renal dysfunction. (3) Abnormal finding on EKG: Code(s): R94.31 - Abnormal electrocardiogram [ECG] [EKG] Status: Acute Assessment and Plan: Cardiology has seen the patient and dry no concerns for workup to proceeding with a general anesthetic for laparoscopic cholecystectomy. Subjective Date/time seen: 10/13/24 10:07 Interval history: Patient is doing well today. No complaints. Still eating some under diabetic diet and supplement shakes. No nausea or vomiting today. Creatinine is now back to her baseline of 1.5. White blood count is normal. She is optimized to proceed with a laparoscopic cholecystectomy during this admission. Exam GI: Other: Abdomen is soft and nondistended. No tenderness right upper quadrant. Gallbladder is not palpable. No hernias. Objective Data Vital Signs Vital Signs: Vital Signs - 24 hr 10/12/24 14:46 10/12/24 20:38 10/12/24 21:23 Temperature 36.8 C 36.5 C Pulse Rate 58 L 72 60 Respiratory Rate 16 16 Blood Pressure 152/60 H 150/56 H Pulse Oximetry 100 94 Oxygen Delivery 10/12/24 20:00 10/13/24 04:17 10/13/24 09:22 Temperature 36.6 C Pulse Rate 60 62 78 Respiratory Rate 16 16 Blood Pressure 158/60 H Pulse Oximetry 94 97 Oxygen Delivery Room Air Intake/Output Intake/Output: Intake & Output 10/10/24 10/11/24 10/12/24 10/13/24 23:59 23:59 23:59 23:59 Intake Total 4457 3070 2575.5 370 Output Total 1300 Balance 3157 3070 2575.5 370 Meds/Results Medications: Active Medications Generic Name Dose Route Start Last Admin Trade Name Freq PRN Reason Stop Dose Admin Amlodipine Besylate 2.5 mg 10/13/24 09:00 10/13/24 09:21 Amlodipine Besylate 2.5 Mg Tablet PO 2.5 mg QAM VERENA Administration Anastrozole 1 mg 10/10/24 09:00 10/13/24 09:21 Anastrozole (*Chemo) 1 Mg Tablet PO 1 mg DAILY VERENA Administration Atorvastatin Calcium 20 mg 10/10/24 09:00 10/13/24 09:21 Atorvastatin 20 Mg Tablet PO 20 mg DAILY VERENA Administration Dextrose 12.5 gm 10/09/24 15:46 Dextrose 50% 25 Gm/50 Ml Syringe IV PUSH PRN PRN Hypoglycemia Protocol Donepezil HCl 5 mg 10/09/24 21:00 10/12/24 20:38 Donepezil Hcl 5 Mg Tablet PO 5 mg QHS VERENA Administration Enoxaparin Sodium 30 mg 10/09/24 17:00 10/12/24 17:29 Enoxaparin 30 Mg/0.3 Ml Syringe SUB-Q 30 mg Q24H VERENA Administration Glucagon 1 mg 10/09/24 15:46 Glucagon For Inj 1 Mg Vial IM PRN PRN Hypoglycemia Protocol Glucose 15 gm 10/09/24 15:46 Glucose Oral Gel 15 Gm Of Glucse In 37.5 Gm Tube PO PRN PRN Hypoglycemia Protocol Dextrose 1,000 mls @ 100 mls/hr 10/09/24 15:46 Dextrose 5% 1,000 Ml IVPB PRN PRN Hypoglycemia Protocol Insulin Aspart 2 - 5 units 10/09/24 17:00 10/13/24 09:19 Insulin Aspart (*Bkc) 100 Units/Ml SUB-Q Not Given TIDWM VERENA Protocol Metoprolol Tartrate 50 mg 10/09/24 21:00 12/01/24 09:22 Metoprolol Tartrate 50 Mg Tab PO 50 mg Q12HR VERENA Administration Ondansetron HCl 4 mg 10/09/24 07:26 10/09/24 15:16 Ondansetron Inj 4 Mg/2 Ml Vial IV PUSH 4 mg Q6H PRN Administration Nausea And Vomiting Ondansetron HCl 4 mg 10/10/24 09:56 10/11/24 21:23 Ondansetron Hcl Odt 4 Mg Tablet PO 4 mg Q6H PRN Administration Nausea And Vomiting Pantoprazole Sodium 40 mg 10/10/24 09:00 10/13/24 09:20 Pantoprazole 40 Mg Tablet PO 40 mg QAM VERENA Administration Radiology Results: ITS Impressions Renal Ultrasound 10/09/24 14:39 IMPRESSION: 1. Normal kidneys without hydronephrosis. Labs Labs: Laboratory Results - last 24 hr 10/12/24 10/12/24 10/12/24 11:45 16:48 21:26 WBC RBC Hgb Hct MCV MCH MCHC RDW Plt Count MPV Immature Gran % (Auto) Neut % (Auto) Lymph % (Auto) [place] % (Auto) Eos % (Auto) Baso % (Auto) Lymph # (Auto) [place] # (Auto) Eos # (Auto) Baso # (Auto) Abs Immat Gran (auto) Absolute Neuts (auto) Absolute Nucleated RBC Nucleated RBC % Sodium Potassium Chloride Carbon Dioxide Anion Gap BUN Creatinine Estim Creat Clear Calc Estimated GFR Glucose POC Capillary Glucose 105 100 113 H Calcium Total Bilirubin AST ALT Alkaline Phosphatase Total Protein Albumin 10/13/24 10/13/24 05:04 08:08 WBC 4.7 RBC 3.54 L Hgb 10.8 L Hct 33.8 L MCV 95.5 MCH 30.5 MCHC 32.0 RDW 12.9 Plt Count 161 MPV 11.8 H Immature Gran % (Auto) 0.2 Neut % (Auto) 61.0 Lymph % (Auto) 24.2 [place] % (Auto) 10.2 H Eos % (Auto) 4.0 Baso % (Auto) 0.4 Lymph # (Auto) 1.14 [place] # (Auto) 0.5 Eos # (Auto) 0.2 Baso # (Auto) 0.0 Abs Immat Gran (auto) 0.01 Absolute Neuts (auto) 2.9 Absolute Nucleated RBC 0.000 Nucleated RBC % 0.0 Sodium 141 Potassium 3.5 Chloride 112 H Carbon Dioxide 24 Anion Gap 5 BUN 9 Creatinine 1.50 H Estim Creat Clear Calc 21 Estimated GFR 33 L Glucose 112 H POC Capillary Glucose 98 Calcium 8.1 L Total Bilirubin 0.6 AST 28 ALT 22 Alkaline Phosphatase 82 Total Protein 6.0 L Albumin 3.1 L
[2024-10-13 11:41] LABS: Glucose Point of Care 93 mg/dl (65-105)
[2024-10-13 14:00] VITALS: BP 155/71; PULSE 66; RESP 20; TEMP 36.7; O2SAT 100
[2024-10-13] MEDS: ENOXAPARIN 30 MG/0.3 ML SYRINGE SUB-Q (17:12)
[2024-10-13 17:21] LABS: Glucose Point of Care 114 mg/dl (65-105)
[2024-10-13 20:00] VITALS: PULSE 61; RESP 18; O2SAT 100
[2024-10-13 20:45] VITALS: PULSE 61
[2024-10-13] MEDS: DONEPEZIL HCL 5 MG TABLET PO (20:45)
[2024-10-13 22:00] VITALS: BP 146/58; PULSE 61; RESP 18; TEMP 36.8; O2SAT 100
[2024-10-13 23:50] LABS: Glucose Point of Care 91 mg/dl (65-105)
[2024-10-14] VITALS (11 sets, daily range): BP systolic 131–172; BP diastolic 55–68; PULSE 63–110; RESP 15–28; TEMP 36.4–37.1; O2SAT 97–100
[2024-10-14] MEDS: DEXTROSE 5%/0.45% SOD CHL 1,000 ML 90 ML IV CONT ×2 (00:17→11:16)
[2024-10-14 06:08] LABS: Anion Gap 6 mmol/L (4-12); Blood Urea Nitrogen 7 mg/dL (7-17); Calcium 8.2 mg/dL (8.4-10.2); Carbon Dioxide 24 mmol/L (22-30); Chloride 111 mmol/L (98-107); Estimated CRCL calculation 22 ml/min; Estimated Glomerular Filt Rate 36; Glucose 105 mg/dL (65-110); Potassium 3.4 mmol/L (3.4-5.0); Sodium 141 mmol/L (137-145)
[2024-10-14 07:43] LABS: Glucose Point of Care 107 mg/dl (65-105)
[2024-10-14] MEDS: amLODIPine BESYLATE 2.5 MG TABLET PO (08:46)
[2024-10-14] MEDS: PANTOPRAZOLE 40 MG TABLET PO (08:46)
[2024-10-14] MEDS: METOPROLOL TARTRATE 50 MG TAB PO ×2 (08:46→22:03)
[2024-10-14] MEDS: ANASTROZOLE (*CHEMO) 1 MG TABLET PO (09:18)
--- NOTE | 2024-10-14 10:24 | PM.PNNEP ---
Progress Note: A&P Assessment and Plan (1) LISA (acute kidney injury): Code(s): N17.9 - Acute kidney failure, unspecified Status: Acute Assessment and Plan: improved if not resolved history would suggest prerenal azotemia/volume depletion this was likely complicated by ongoing SHELIA-I and HCTZ use as well evaluation to date: normal renal ultrasound urine electrolytes prerenal urine eosinophils negative low CPK bland urine sediment follow trend of repeat labs and UOP continue supportive therapy (2) Stage 3b chronic kidney disease: Code(s): N18.32 - Chronic kidney disease, stage 3b Status: Chronic Assessment and Plan: baseline creatinine seems to run ~ 1.3 - 1.4mg/dl presumably due to hypertension, diabetes, vascular disease, and age-related change (3) Chronic cholecystitis with calculus: Code(s): K80.10 - Calculus of gallbladder with chronic cholecystitis without obstruction Status: Acute Assessment and Plan: appears relatively stable Surgery following noted plans for possible OR intervention (cholecystectomy) today (4) HTN (hypertension): Qualifiers: Hypertension type: primary hypertension Qualified Code(s): I10 - Essential (primary) hypertension Code(s): I10 - Essential (primary) hypertension Status: Chronic Assessment and Plan: reasonable control holding HCTZ and lisinopril given #1 on metoprolol with recent addition of amlodipine follow trend of hemodynamics (5) Diabetes: Qualifiers: Diabetes mellitus complication status: without complication Diabetes mellitus skilled nursing insulin use: without ocean transportation intermediary use Diabetes mellitus type: type 2 Qualified Code(s): E11.9 - Type 2 diabetes mellitus without complications Code(s): E11.9 - Type 2 diabetes mellitus without complications Status: Chronic Assessment and Plan: on accu-cheks glycemic control per hospitalists Not much else to add -- will continue to follow from a distance. Subjective Date/time seen: 10/14/24 10:24 Interval history: Follow-up for acute kidney injury/acute renal failure on chronic kidney disease. Chart reviewed since last seen -- renal function/creatinine back to baseline with supportive therapy; currently NPO for possible cholecystectomy today; no apparent distress noted; no issues/events overnight or earlier this morning. Exam Narrative: General: elderly but WD/WN female in NAD Heart: normal S1 and S2; no rub Lungs: clear bilaterally Abdomen: soft, nontender, nondistended, positive bowel sounds Extremities: no cyanosis or clubbing; no edema Skin: warm and dry Objective Data Vital Signs Vital Signs: Vital Signs Temp Pulse Resp BP Pulse Ox O2 Del Method 10/14/24 08:46 18 99 Room Air 10/14/24 08:46 64 10/14/24 06:00 98.1 F 64 18 156/60 H 99 10/13/24 20:00 61 18 100 Room Air 10/13/24 22:00 98.2 F 61 18 146/58 H 100 10/13/24 20:45 61 10/13/24 14:00 98.0 F 66 20 155/71 H 100 Intake/Output Intake/Output: Intake & Output 10/11/24 10/12/24 10/13/24 10/14/24 23:59 23:59 23:59 23:59 Intake Total 3070 2575.5 840 0 Balance 3070 2575.5 840 0 Meds/Results Medications: Active Medications Generic Name Dose Route Start Last Admin Trade Name Freq PRN Reason Stop Dose Admin Amlodipine Besylate 2.5 mg 10/13/24 09:00 10/14/24 08:46 Amlodipine Besylate 2.5 Mg Tablet PO 2.5 mg QAM VERENA Administration Anastrozole 1 mg 10/10/24 09:00 10/14/24 09:18 Anastrozole (*Chemo) 1 Mg Tablet PO 1 mg DAILY VERENA Administration Atorvastatin Calcium 20 mg 10/10/24 09:00 10/14/24 08:47 Atorvastatin 20 Mg Tablet PO Not Given DAILY VERENA Dextrose 12.5 gm 10/09/24 15:46 Dextrose 50% 25 Gm/50 Ml Syringe IV PUSH PRN PRN Hypoglycemia Protocol Donepezil HCl 5 mg 10/09/24 21:00 10/13/24 20:45 Donepezil Hcl 5 Mg Tablet PO 5 mg QHS VERENA Administration Enoxaparin Sodium 30 mg 10/09/24 17:00 10/13/24 17:12 Enoxaparin 30 Mg/0.3 Ml Syringe SUB-Q 30 mg Q24H VERENA Administration Glucagon 1 mg 10/09/24 15:46 Glucagon For Inj 1 Mg Vial IM PRN PRN Hypoglycemia Protocol Glucose 15 gm 10/09/24 15:46 Glucose Oral Gel 15 Gm Of Glucse In 37.5 Gm Tube PO PRN PRN Hypoglycemia Protocol Dextrose 1,000 mls @ 100 mls/hr 10/09/24 15:46 Dextrose 5% 1,000 Ml IVPB PRN PRN Hypoglycemia Protocol Dextrose/Sodium Chloride 1,000 mls @ 90 mls/hr 10/13/24 23:55 10/14/24 00:17 Dextrose 5% Sodium Chloride 0.45% IV CONT 90 mls/hr .Q11H7M VERENA Administration Insulin Aspart 2 - 5 units 10/09/24 17:00 10/14/24 08:00 Insulin Aspart (*Bkc) 100 Units/Ml SUB-Q Not Given [facility] Protocol Metoprolol Tartrate 50 mg 10/09/24 21:00 10/14/24 08:46 Metoprolol Tartrate 50 Mg Tab PO 50 mg Q12HR VERENA Administration Ondansetron HCl 4 mg 10/09/24 07:26 10/09/24 15:16 Ondansetron Inj 4 Mg/2 Ml Vial IV PUSH 4 mg Q6H PRN Administration Nausea And Vomiting Ondansetron HCl 4 mg 10/10/24 09:56 10/11/24 21:23 Ondansetron Hcl Odt 4 Mg Tablet PO 4 mg Q6H PRN Administration Nausea And Vomiting Pantoprazole Sodium 40 mg 10/10/24 09:00 10/14/24 08:46 Pantoprazole 40 Mg Tablet PO 40 mg QAM VERENA Administration Radiology Results: ITS Impressions Renal Ultrasound 10/09/24 14:39 IMPRESSION: 1. Normal kidneys without hydronephrosis. Labs Labs: Laboratory Tests 10/13/24 05:04 10/14/24 05:22
--- NOTE | 2024-10-14 10:27 | PM.IMPN ---
Progress Note: A&P Assessment and Plan (1) Acute renal failure: Qualifiers: Acute renal failure type: unspecified Qualified Code(s): N17.9 - Acute kidney failure, unspecified Code(s): N17.9 - Acute kidney failure, unspecified Status: Acute Assessment and Plan: - acute renal failure in the setting of CKD. - Likely pre-renal secondary to volume depletion from poor PO intake and worsened by HCTZ and Lisinopril. - Continues to improve; Cr 3.7>>3>>2.1>>1.6>>1.5>>1.4. - renal US: Normal kidneys without hydronephrosis. - nephrology following and we'll continue IVF for now with NPO status prior to surgery. - Continue to trend renal panel and monitor I&Os (2) Abnormal finding on EKG: Code(s): R94.31 - Abnormal electrocardiogram [ECG] [EKG] Status: Acute Assessment and Plan: - slight EKG changes shown on her preop workup. - Seen by cardiology and TTE recommended: - ECHO done; LVEF 70 %. No significant abnormalities noted. - No further work-up for now. (3) Chronic cholecystitis with calculus: Code(s): K80.10 - Calculus of gallbladder with chronic cholecystitis without obstruction Status: Acute Assessment and Plan: - General surgery following. - Scheduled for surgery later on today. - Currently NPO for possible Lap Lucia later today. (4) Hypomagnesemia: Code(s): E83.42 - Hypomagnesemia Status: Acute Assessment and Plan: - Repleted and currently wnl. (5) Diabetes: Qualifiers: Diabetes mellitus type: type 2 Diabetes mellitus skilled nursing insulin use: without skilled nursing use Diabetes mellitus complication status: without complication Qualified Code(s): E11.9 - Type 2 diabetes mellitus without complications Code(s): E11.9 - Type 2 diabetes mellitus without complications Status: Chronic Assessment and Plan: - hypoglycemia protocol - POC blood glucose ACHS - home medication: Hold metformin - correct regimen ordered - low dose TIDWM - A1C 6.3% on 06/30/2024 (6) HTN (hypertension): Qualifiers: Hypertension type: primary hypertension Qualified Code(s): I10 - Essential (primary) hypertension Code(s): I10 - Essential (primary) hypertension Status: Chronic Assessment and Plan: - Fairly well controlled. - Hold HCTZ and Lisinopril for now with LISA. - Continue metoprolol. - monitor levels closely. Plan Scheduled for Lap Lucia later today. Continue IVF hydration with NPO status. Diet: Diabetic GI Prophylaxis: Pantoprazole DVT Prophylaxis: Lovenox Lines: Peripheral Code Status: Full code Time Spent With Patient Time with patient: 15 - 25 minutes Subjective Date/time seen: 10/14/24 10:27 Patient states she feels alright, just awaiting surgery later on today. Interval history: Patient doing well and denies any distressful symptoms. Creatinine now back to her baseline of 1.4. She is scheduled for laparoscopic cholecystectomy later on today. Review of Systems Review of Systems: All systems reviewed & are unremarkable except as noted in HPI and below Exam Narrative: General: Elderly female, well appearing, no acute distress. HEENT: Atraumatic, PERRL, EOM, moist mucus membranes. NECK: Supple. HEART: RRR, no murmurs. Abdomen: Soft, non-tender, non-distended, +ve bowel sounds X4 quadrants. Extremities: No edema, acyanotic, +ve pedal and radial pulses. Skin: Warm and dry. No lesions noted. Neuro: Well oriented. CN II-XII grossly intact. Psych: Calm and co-operative. Objective Data Vital Signs Vital Signs: Vital Signs - 24 hr 10/13/24 14:00 10/13/24 20:45 10/13/24 22:00 Temperature 98.0 F 98.2 F Pulse Rate 66 61 61 Respiratory Rate 20 18 Blood Pressure 155/71 H 146/58 H Pulse Oximetry 100 100 Oxygen Delivery 10/13/24 20:00 10/14/24 06:00 10/14/24 08:46 Temperature 98.1 F Pulse Rate 61 64 64 Respiratory Rate 18 18 Blood Pressure 156/60 H Pulse Oximetry 100 99 Oxygen Delivery Room Air Intake/Output Intake/Output: Intake & Output 10/11/24 10/12/24 10/13/24 10/14/24 23:59 23:59 23:59 23:59 Intake Total 3070 2575.5 840 0 Balance 3070 2575.5 840 0 Meds/Results Medications: Active Medications Generic Name Dose Route Start Last Admin Trade Name Freq PRN Reason Stop Dose Admin Amlodipine Besylate 2.5 mg 10/13/24 09:00 10/14/24 08:46 Amlodipine Besylate 2.5 Mg Tablet PO 2.5 mg QAM VERENA Administration Anastrozole 1 mg 10/10/24 09:00 10/14/24 09:18 Anastrozole (*Chemo) 1 Mg Tablet PO 1 mg DAILY VERENA Administration Atorvastatin Calcium 20 mg 10/10/24 09:00 10/14/24 08:47 Atorvastatin 20 Mg Tablet PO Not Given DAILY VERENA Dextrose 12.5 gm 10/09/24 15:46 Dextrose 50% 25 Gm/50 Ml Syringe IV PUSH PRN PRN Hypoglycemia Protocol Donepezil HCl 5 mg 10/09/24 21:00 10/13/24 20:45 Donepezil Hcl 5 Mg Tablet PO 5 mg QHS VERENA Administration Enoxaparin Sodium 30 mg 10/09/24 17:00 10/13/24 17:12 Enoxaparin 30 Mg/0.3 Ml Syringe SUB-Q 30 mg Q24H VERENA Administration Glucagon 1 mg 10/09/24 15:46 Glucagon For Inj 1 Mg Vial IM PRN PRN Hypoglycemia Protocol Glucose 15 gm 10/09/24 15:46 Glucose Oral Gel 15 Gm Of Glucse In 37.5 Gm Tube PO PRN PRN Hypoglycemia Protocol Dextrose 1,000 mls @ 100 mls/hr 10/09/24 15:46 Dextrose 5% 1,000 Ml IVPB PRN PRN Hypoglycemia Protocol Dextrose/Sodium Chloride 1,000 mls @ 90 mls/hr 10/13/24 23:55 10/14/24 00:17 Dextrose 5% Sodium Chloride 0.45% IV CONT 90 mls/hr .Q11H7M VERENA Administration Insulin Aspart 2 - 5 units 10/09/24 17:00 10/14/24 08:00 Insulin Aspart (*Bkc) 100 Units/Ml SUB-Q Not Given TIDWM VERENA Protocol Metoprolol Tartrate 50 mg 10/09/24 21:00 10/14/24 08:46 Metoprolol Tartrate 50 Mg Tab PO 50 mg Q12HR VERENA Administration Ondansetron HCl 4 mg 10/09/24 07:26 10/09/24 15:16 Ondansetron Inj 4 Mg/2 Ml Vial IV PUSH 4 mg Q6H PRN Administration Nausea And Vomiting Ondansetron HCl 4 mg 10/10/24 09:56 10/11/24 21:23 Ondansetron Hcl Odt 4 Mg Tablet PO 4 mg Q6H PRN Administration Nausea And Vomiting Pantoprazole Sodium 40 mg 10/10/24 09:00 10/14/24 08:46 Pantoprazole 40 Mg Tablet PO 40 mg QAM VERENA Administration Radiology Results: ITS Impressions Renal Ultrasound 10/09/24 14:39 IMPRESSION: 1. Normal kidneys without hydronephrosis. Labs Labs: Laboratory Results - last 24 hr 10/13/24 10/13/24 10/13/24 11:39 17:15 22:45 Sodium Potassium Chloride Carbon Dioxide Anion Gap BUN Creatinine Estim Creat Clear Calc Estimated GFR Glucose POC Capillary Glucose 93 114 H 91 Calcium 10/14/24 10/14/24 05:22 07:40 Sodium 141 Potassium 3.4 Chloride 111 H Carbon Dioxide 24 Anion Gap 6 BUN 7 Creatinine 1.40 H Estim Creat Clear Calc 22 Estimated GFR 36 L Glucose 105 POC Capillary Glucose 107 H Calcium 8.2 L Quality VTE Prophylaxis VTE prophylaxis: pharmacologic ordered Hospitalist MIPS Advance Care Plan I have confirmed that the patient's Advanced Care Plan is present, code status is documented, or surrogate decision maker is listed in patient medical record.: Yes Medication Reconciliation I have utilized all available resources to obtain, update and review the patients current medications (includes all prescriptions, OTC, herbals, cannabis, and nutritional supplements).: Yes
[2024-10-14 12:22] LABS: Glucose Point of Care 106 mg/dl (65-105)
--- NOTE | 2024-10-14 16:15 | PC.NURSE ---
To OR via bed. Family at bedside.
--- NOTE | 2024-10-14 16:38 | WPDANESEPPF ---
Anes - Initial Pre Proc Eval Procedure: Operation Date: 10/14/24 16:30 Proposed Procedures p Laparoscopic Cholecystectomy, Possible Open - Jarrett Kelly MD Date/Time: 10/14/24 16:38 Surgeon: Jarrett Kelly MD Pre Op Diagnosis: Chr Cholecystitis Secondary to Gallstones Patient Data Age: 83 Gender: F Height: 1.6 m Weight: 65.8 kg Last Vital Signs Temp 36.9 C 10/14/24 14:00 Pulse 63 10/14/24 14:00 Resp 16 10/14/24 14:00 BP 145/68 H 10/14/24 14:00 Pulse Ox 100 10/14/24 14:00 O2 Del Method Room Air 10/14/24 08:46 Allergies Allergy/AdvReac Type Severity Reaction Status Date / Time No Known Allergies Allergy Verified 10/09/24 07:06 Home Medications Medication Instructions Recorded Confirmed Type anastrozole 1 mg tablet 1 mg PO DAILY 06/29/24 10/09/24 History atorvastatin 20 mg tablet 20 mg PO DAILY 06/29/24 10/09/24 History lisinopril 40 mg tablet 40 mg PO DAILY 06/29/24 10/09/24 History metformin 500 mg tablet 500 mg PO DAILY 06/29/24 10/09/24 History metoprolol tartrate 50 mg tablet 50 mg PO BID 06/29/24 10/09/24 History donepezil 5 mg tablet (Aricept) 5 mg PO QHS #90 tabs 08/16/24 10/09/24 Rx hydrochlorothiazide 25 mg tablet 25 mg PO DAILY 10/01/24 10/09/24 History pantoprazole 40 mg tablet,delayed 40 mg PO QAM 10/01/24 10/09/24 History release ondansetron 4 mg disintegrating 8 mg PO PRN PRN Nausea 10/02/24 10/09/24 History tablet Laboratory Tests 10/13/24 10/13/24 10/14/24 17:15 22:45 05:22 Sodium 141 mmol/L (137-145) Potassium 3.4 mmol/L (3.4-5.0) Chloride 111 H mmol/L (98-107) Carbon Dioxide 24 mmol/L (22-30) Anion Gap 6 mmol/L (4-12) BUN 7 mg/dL (7-17) Creatinine 1.40 H mg/dL (0.7-1.0) Estim Creat Clear Calc 22 ml/min Estimated GFR 36 L (59 - ) Glucose 105 mg/dL (65-110) POC Capillary Glucose 114 H mg/dl 91 mg/dl (65-105) (65-105) Calcium 8.2 L mg/dL (8.4-10.2) 10/14/24 10/14/24 07:40 12:07 Sodium Potassium Chloride Carbon Dioxide Anion Gap BUN Creatinine Estim Creat Clear Calc Estimated GFR Glucose POC Capillary Glucose 107 H mg/dl 106 H mg/dl (65-105) (65-105) Calcium Patient hx anesthesia problems: none Family hx anesthesia problems: none Results Review: All pre-operative results and documents have been reviewed as part of the pre-operative evaluation. [facility] Past Medical History Medical History Anxiety Breast cancer s/p on mastectomy and radiation Chronic kidney disease Dementia Diabetes Eczema GERD (gastroesophageal reflux disease) HTN (hypertension) Hyperlipidemia MCI (mild cognitive impairment) Migraine Toxic metabolic encephalopathy Surgical History Surgical History History of mastectomy Family History Family History Mother Heart disease Social History Social History Smoking packs per day: 1 Smoking cigarettes per day: 20.0 Years smoked: 20 Smoking pack-years: 20.00 Smoking status: Former smoker Alcohol intake: never Substance use: never Substance use type: does not use Do You Feel Safe in your Home?: Yes Lack of Transportation: No Lack of Food: Never True Current Housing: I Have Housing Concerned About Future Housing: No Difficulty Paying Gas/Electric Bills: No Difficulty Paying for Meds: No Currently Unemployed: No Education: High School Diploma/GED Difficulty w/ Childcare or Family Care: No Living arrangements: alone Spiritual care concerns: No Anes - Eval Final PreProcedure Day of Procedure 10/14/24 16:38 Patient weight: overweight Heart: regular rate and rhythm Lungs: clear to auscultation Airway: Mallampati scale class II Neurological: alert and oriented Last oral intake: >/= 8 hours ASA classification: III Emergent: no Anesthetic plan: proceed Anesthesia type and monitoring: general ETT and standard monitoring Results Review: All pre-operative results and documents have been reviewed as part of the pre-operative evaluation. Informed Consent: The patient's anesthetic plan and its attendant risks and benefits were discussed with the patient/family/POA. Questions were solicited and answers provided to the satisfaction of the patient/family/POA.
[2024-10-14 16:43] LABS: Glucose Point of Care 106 mg/dl (65-105)
[2024-10-14] MEDS: LACTATED RINGERS 1,000 ML 30 ML IV CONT (17:01)
--- NOTE | 2024-10-14 17:29 | WPDHPUPDATE1 ---
History and Physical Update Update Date/Time: 10/14/24 17:29 History and Physical has been reviewed, including an updated exam of the patient. There are NO changes in the patient's condition. Risks, benefits, and alternatives have been discussed and questions answered. Patient agrees to proceed with procedure.
[2024-10-14] MEDS: ceFAZolin SODIUM 1 GM VIAL IV PUSH (18:07)
[2024-10-14] MEDS: LIDO 1%/EPINEPHRINE 1:100,000 20 ML VIAL 60 ML INFILTRATE (18:09)
--- NOTE | 2024-10-14 18:40 | SUR.OPER ---
Specimen is gallbladder and stone
[2024-10-14 19:20] LABS: Glucose Point of Care 191 mg/dl (65-105)
--- NOTE | 2024-10-14 19:24 | W.PM.PROC2 ---
Procedure Note - Detailed Date of Procedure 10/14/24 Pre-op Diagnosis Chr Cholecystitis Secondary to Gallstones Post-op Diagnosis Same Procedure Performed Laparoscopic cholecystectomy Surgeon Jarrett Kelly MD Film Casting [employer] Renée Sands [facility] Anesthesia General Indications Patient is a 83-year-old female who has been having issues with chronic nausea right upper quadrant pain for several weeks. She has been losing weight and has not been keeping well hydrated because she is not drinking or eating well. She was scheduled to have a elective laparoscopic cholecystectomy last week she was found to have a very thickened contracted gallbladder and gallstone suggestive of chronic cholecystitis. When she presented for the surgery she had a markedly elevated creatinine and was likely an in acute renal failure due to poor p.o. intake. She says was admitted to the hospital and treated for acute renal failure and her creatinine is now back to her baseline. She was also seen by Cardiology and the EKG changes preoperative were found to be inconsequential and after a normal echocardiogram she was cleared to proceed with surgery. She presents now for a laparoscopic cholecystectomy. Findings Patient had a chronically inflamed gallbladder contracted down around the large gallstone. There were adhesions to the gallbladder that were chronic. There is no acute inflammatory change of the gallbladder. Description of Procedure After informed consent was obtained patient brought to the operating room where she was placed supine position and general endotracheal anesthesia was administered. The abdomen was then prepped and draped usual sterile fashion. A time-out was then performed correctly identifying the patient as well as the procedure to be performed. She was given Ancef for perioperative IV antibiotics. I then entered the abdomen left upper quadrant utilizing a 5mm Optiview port. Once inside the abdomen insufflated to adequate pneumoperitoneum of 15mmHg of CO2. I then placed a periumbilical 5mm trocar port as well as a 10mm epigastric trocar port and then 2 more additional right subcostal 5mm trocar ports. The gallbladder had some omentum which was chronically inflamed and adherent to the gallbladder wall. These omental adhesions were taken down and released from the gallbladder utilizing electrocautery. I was then able to hold the gallbladder at the dome but this was difficult due to the contracted and thickened nature of the gallbladder wall around a large gallstone. I was eventually able to hold the gallbladder and elevated then continue stripping down the chronic adhesions of the omentum to the gallbladder wall. I was then able to place a grasper on to the infundibulum and then attempted to strip down the visceral peritoneum around infundibular gallbladder to identify the cystic duct. Due to the chronic inflammation this area was difficult to try to identify the cystic duct or cystic artery. I felt it would be safer to try to open the gallbladder remove the gallstone and then perhaps perform a subtotal cholecystectomy. Utilizing electrocautery I incised the middle of the gallbladder and the anterior wall in the infundibulum. I carried the incision towards the dome of the gallbladder and its exposed a very large gallstone impacted within the lumen of the gallbladder. I was able to remove the gallstone from the gallbladder and placed into an Endo-Catch bag and removed from the abdomen. He was sent to pathology with the rest the gallbladder ventrally. I then continued my division of the anterior gallbladder wall laterally to both sides until I reached the liver bed. On the medial side of the gallbladder encountered the cystic artery which was dissected out and then clipped with a hemoclip. Once I reached the posterior wall the gallbladder as it attached to the liver bed I could develop a plane in this area and then completely transected the infundibular gallbladder. And dissected the posterior wall the gallbladder as well as the anterior wall the gallbladder off the liver bed. Once the gallbladder wall was completely free from liver is then placed into an Endo-Catch bag and brought out through the epigastric trocar port as well. It was sent with a gallstone to pathology for examination. This then left the infundibular cuff of the gallbladder. I decided to go ahead and ligate this with a 0 Vicryl endoloop. One was placed across the infundibular remnant to ligated close. I then irrigated out the right upper quadrant the abdomen gallbladder fossa with sterile saline solution. There was some oozing of blood from the liver bed which was treated electrocautery to achieve hemostasis. I then placed a 15mm round Riaz drain into the right upper quadrant the abdomen and brought out through the most lateral right subcostal 5mm trocar port site. It was then secured at the skin level a 3-0 nylon suture. I then aspirated the fluid from the right upper quadrant the abdomen from the pelvis. I then removed all the trocar ports under direct visualization. The abdomen was allowed to decompress. The port sites were then irrigated sterile saline solution. They were hemostatic. I then closed the epigastric 10mm trocar port fascial defect utilizing 0 Vicryl suture. The skin edges in all the port sites were then approximated utilizing a running subcuticular 4-0 Monocryl suture. Incisions were then cleaned and then skin glue was applied. The drain was dressed with a drain dressing and then it was attached to a grenade bulb to active grenade bulb suction. The patient tolerated the procedure well no complications. All sponges, needles, and instrument counts were correct at the end procedure. EBL was _50__cc. The patient was awakened and taken to recovery in stable and satisfactory condition. Implants None Estimated Blood Loss 50 Urine Output 200 Drains Yes (15 Icelandic round Riaz drain right upper quadrant in the gallbladder fossa) Packing No Pathology Yes (Gallbladder and gallstones to pathology) Complications No immediate complications Condition Stable Disposition PACU [facility] Billing Surgery - Charge Forward: Surgery Billing
[2024-10-14] MEDS: ONDANSETRON INJ 4 MG/2 ML VIAL IV PUSH (19:38)
[2024-10-14] MEDS: SODIUM CHLORIDE 0.9% IV 1,000 ML 75 ML IV CONT (21:57)
[2024-10-14] MEDS: DONEPEZIL HCL 5 MG TABLET PO (22:03)
[2024-10-14] MEDS: HYDROcodone/acetaminophen (*CRX) 5-325 MG TABLET 1 TAB PO (22:27)
[2024-10-15] VITALS (10 sets, daily range): BP systolic 121–161; BP diastolic 53–64; PULSE 58–66; RESP 16–18; TEMP 36.1–36.7; O2SAT 97–100
[2024-10-15 00:24] LABS: Glucose Point of Care 195 mg/dl (65-105)
[2024-10-15 06:13] LABS: Basophils Percent Auto 0.2 % (0.2-1.2); Hemoglobin 10.8 g/dL (12.0-15.0); Immature Granulocyte Absolute 0.02 K/mm3 (0.00-0.031); Immature Granulocyte Percent A 0.4 % (0-0.5); Lymphocytes Absolute Auto 0.49 K/mm3 (0.9-3.2); Mean Corpuscular HGB Conc 32.7 g/dl (32-36); Mean Corpuscular Hemoglobin 30.9 pg (26-34); Mean Corpuscular Volume 94.6 fl (80-100); Mean Platelet Volume 11.3 fl (7.4-10.4); Monocytes Absolute Auto 0.2 K/mm3 (0.1-0.6); Monocytes Percent Auto 3.9 % (2.6-8.5); Neutrophils Absolute Auto 4.7 K/mm3 (1.3-6.7); Neutrophils Percent Auto 86.5 % (45.5-73.1); Platelet Count Result 162 k/mm3 (150-375); Red Blood Count 3.49 M/mm3 (4.2-5.4); White Blood Count 5.5 K/mm3 (4.5-10.0)
[2024-10-15 06:25] LABS: Alanine Aminotransferase 32 U/L (6-35); Albumin Level 3.3 g/dL (3.5-5.1); Alkaline Phosphatase 100 U/L (38-126); Anion Gap 5 mmol/L (4-12); Aspartate Amino Transferase 57 U/L (14-36); Bilirubin,Total 0.5 mg/dL (0.2-1.3); Blood Urea Nitrogen 8 mg/dL (7-17); Calcium 8.4 mg/dL (8.4-10.2); Carbon Dioxide 23 mmol/L (22-30); Chloride 110 mmol/L (98-107); Estimated CRCL calculation 24 ml/min; Estimated Glomerular Filt Rate 39; Glucose 150 mg/dL (65-110); Potassium 3.7 mmol/L (3.4-5.0); Sodium 138 mmol/L (137-145)
[2024-10-15 08:39] LABS: Glucose Point of Care 120 mg/dl (65-105)
[2024-10-15] MEDS: PANTOPRAZOLE 40 MG TABLET PO (08:49)
[2024-10-15] MEDS: ANASTROZOLE (*CHEMO) 1 MG TABLET PO (08:49)
[2024-10-15] MEDS: ATORVASTATIN 20 MG TABLET PO (08:49)
[2024-10-15] MEDS: METOPROLOL TARTRATE 50 MG TAB PO ×2 (08:50→20:09)
[2024-10-15] MEDS: amLODIPine BESYLATE 2.5 MG TABLET PO (08:50)
--- NOTE | 2024-10-15 10:59 | PC.NURSE ---
On 10/15/24, the student, [Jasmin Sahni], provided care and completed [facility] documentation on this patient. I have reviewed the student's documentation and agree with the findings.
[2024-10-15] MEDS: SODIUM CHLORIDE 0.9% IV 1,000 ML 75 ML IV CONT (11:09)
[2024-10-15 12:03] LABS: Glucose Point of Care 100 mg/dl (65-105)
--- NOTE | 2024-10-15 13:28 | PM.PNGS ---
Progress Note: A&P Assessment and Plan (1) Chronic cholecystitis with calculus: Code(s): K80.10 - Calculus of gallbladder with chronic cholecystitis without obstruction Status: Acute Assessment and Plan: Postop day 1 following laparoscopic cholecystectomy. Her nausea has improved. Will try advancing her diet as tolerated to a low fat diet. She is still having some RUQ pain near her MUKUND drain, but it is well controlled. MUKUND drain with nonbilious output, continue to monitor. Encouraged her to try increasing activity and try ambulating today as tolerated. She can be up to the chair. (2) Acute renal failure: Qualifiers: Acute renal failure type: unspecified Qualified Code(s): N17.9 - Acute kidney failure, unspecified Code(s): N17.9 - Acute kidney failure, unspecified Status: Acute Assessment and Plan: Resolved. Creatinine is back to baseline. Plan I have discussed the patient's case and plan of care with Dr. Kelly. Subjective Subjective Date/Time Seen: 10/15/24 13:28 Patient reports: no new complaints, feels better and voiding w/o difficulty Interval history: Patient is still complaining of abdominal pain but states it is where the MUKUND drain is located and feels different from surgery. She has not had any nausea this morning and was able to tolerate her breakfast. She has full liquids for lunch that she was about to try. She has ambulated in the room today and tolerated this well. Review of Systems Review of Systems: All systems reviewed & are unremarkable except as noted in HPI and below Exam Const: General: comfortable and no acute distress GI: Inspection: non-distended, incision (dry and glue intact, no erythema) and other (RUQ MUKUND drain with serosanguineous drainage, no bilious output) GI Palp: Yes Soft to palpation, Yes Tenderness to palpation present (GI) (mild tenderness in the RUQ), No Guarding due to palpation present (GI) and No Rebound tenderness present Auscultation: normal bowel sounds Objective Data Vital Signs Vital Signs: Vital Signs - 24 hr 10/14/24 14:00 10/14/24 16:40 10/14/24 19:06 Temperature 98.4 F 97.5 F L 98.7 F Pulse Rate 63 66 110 H Respiratory Rate 16 20 28 H Blood Pressure 145/68 H 172/63 H 163/68 H Pulse Oximetry 100 99 100 Oxygen Delivery Room Air Simple Face Mask Oxygen Flow Rate 10 10/14/24 19:20 10/14/24 19:35 10/14/24 19:50 Temperature Pulse Rate 93 83 84 Respiratory Rate 16 16 16 Blood Pressure 143/62 H 133/55 L 132/55 L Pulse Oximetry 100 100 98 Oxygen Delivery Simple Face Mask Room Air Room Air Oxygen Flow Rate 10 10/14/24 20:05 10/14/24 20:58 10/14/24 22:03 Temperature 97.5 F L Pulse Rate 86 85 85 Respiratory Rate 15 18 Blood Pressure 131/60 145/55 H Pulse Oximetry 97 97 Oxygen Delivery Room Air Oxygen Flow Rate 10/14/24 20:00 10/14/24 22:03 10/15/24 00:02 Temperature 97.8 F 97.6 F Pulse Rate 86 64 Respiratory Rate 18 18 Blood Pressure 152/58 H 142/57 H Pulse Oximetry 100 97 Oxygen Delivery Room Air Oxygen Flow Rate 10/15/24 05:07 10/15/24 07:46 10/15/24 08:50 Temperature 98.1 F Pulse Rate 66 64 Respiratory Rate 18 18 Blood Pressure 149/59 H Pulse Oximetry 99 99 Oxygen Delivery Room Air Oxygen Flow Rate 10/15/24 10:00 10/15/24 11:13 Temperature 96.9 F L 98.1 F Pulse Rate 58 L Respiratory Rate 18 Blood Pressure 121/64 Pulse Oximetry 100 Oxygen Delivery Oxygen Flow Rate Intake/Output Intake/Output: Intake & Output 10/12/24 10/13/24 10/14/24 10/15/24 23:59 23:59 23:59 23:59 Intake Total 2575.5 840 1481.0 1300 Output Total 215 45 Balance 2575.5 840 1266.0 1255 Meds/Results Medications: Active Medications Generic Name Dose Route Start Last Admin Trade Name Freq PRN Reason Stop Dose Admin Acetaminophen 1,000 mg 10/14/24 19:21 Acetaminophen 500 Mg Tablet PO Q6H PRN Mild Pain (1-3) or Fever Hydrocodone Bitart/Acetaminophen 1 tab 10/14/24 19:21 10/14/24 22:27 Hydrocodone/Acetaminophen (*Crx) 5-325 Mg Tablet PO 1 tab Q4H PRN Administration Pain Rated 4-6 Amlodipine Besylate 2.5 mg 10/13/24 09:00 12/03/24 08:50 Amlodipine Besylate 2.5 Mg Tablet PO 2.5 mg QAM VERENA Administration Anastrozole 1 mg 10/10/24 09:00 10/15/24 08:49 Anastrozole (*Chemo) 1 Mg Tablet PO 1 mg DAILY VERENA Administration Atorvastatin Calcium 20 mg 10/10/24 09:00 10/15/24 08:49 Atorvastatin 20 Mg Tablet PO 20 mg DAILY VERENA Administration Dextrose 12.5 gm 10/09/24 15:46 Dextrose 50% 25 Gm/50 Ml Syringe IV PUSH PRN PRN Hypoglycemia Protocol Donepezil HCl 5 mg 10/09/24 21:00 10/14/24 22:03 Donepezil Hcl 5 Mg Tablet PO 5 mg QHS VERENA Administration Enoxaparin Sodium 30 mg 10/09/24 17:00 10/14/24 15:01 Enoxaparin 30 Mg/0.3 Ml Syringe SUB-Q Not Given Q24H VERENA Glucagon 1 mg 10/09/24 15:46 Glucagon For Inj 1 Mg Vial IM PRN PRN Hypoglycemia Protocol Glucose 15 gm 10/09/24 15:46 Glucose Oral Gel 15 Gm Of Glucse In 37.5 Gm Tube PO PRN PRN Hypoglycemia Protocol Dextrose 1,000 mls @ 100 mls/hr 10/09/24 15:46 Dextrose 5% 1,000 Ml IVPB PRN PRN Hypoglycemia Protocol Sodium Chloride 1,000 mls @ 75 mls/hr 10/14/24 20:17 10/15/24 11:09 Normal Saline Iv IV CONT 75 mls/hr .[id number] VERENA Administration Insulin Aspart 2 - 5 units 10/09/24 17:00 10/15/24 12:07 Insulin Aspart (*Bkc) 100 Units/Ml SUB-Q Not Given TIDWM [facility] Protocol Metoprolol Tartrate 50 mg 10/09/24 21:00 10/15/24 08:50 Metoprolol Tartrate 50 Mg Tab PO 50 mg Q12HR VERENA Administration Ondansetron HCl 4 mg 10/09/24 07:26 10/09/24 15:16 Ondansetron Inj 4 Mg/2 Ml Vial IV PUSH 4 mg Q6H PRN Administration Nausea And Vomiting Ondansetron HCl 4 mg 10/10/24 09:56 10/11/24 21:23 Ondansetron Hcl Odt 4 Mg Tablet PO 4 mg Q6H PRN Administration Nausea And Vomiting Oxycodone HCl 5 mg 10/14/24 19:21 Oxycodone Hcl (*Crx) 5 Mg Tab Ir PO Q4H PRN Pain Rated 7-10 Pantoprazole Sodium 40 mg 10/10/24 09:00 10/15/24 08:49 Pantoprazole 40 Mg Tablet PO 40 mg QAM VERENA Administration Radiology Results: ITS Impressions Renal Ultrasound 10/09/24 14:39 IMPRESSION: 1. Normal kidneys without hydronephrosis. Labs Labs: Laboratory Results - last 24 hr 10/14/24 10/14/24 10/14/24 16:41 19:17 21:02 WBC RBC Hgb Hct MCV MCH MCHC RDW Plt Count MPV Immature Gran % (Auto) Neut % (Auto) Lymph % (Auto) [place] % (Auto) Eos % (Auto) Baso % (Auto) Lymph # (Auto) [place] # (Auto) Eos # (Auto) Baso # (Auto) Abs Immat Gran (auto) Absolute Neuts (auto) Absolute Nucleated RBC Nucleated RBC % Sodium Potassium Chloride Carbon Dioxide Anion Gap BUN Creatinine Estim Creat Clear Calc Estimated GFR Glucose POC Capillary Glucose 106 H 191 H 195 H Calcium Total Bilirubin AST ALT Alkaline Phosphatase Total Protein Albumin 10/15/24 10/15/24 10/15/24 05:39 08:33 12:01 WBC 5.5 RBC 3.49 L Hgb 10.8 L Hct 33.0 L MCV 94.6 MCH 30.9 MCHC 32.7 RDW 13.0 Plt Count 162 MPV 11.3 H Immature Gran % (Auto) 0.4 Neut % (Auto) 86.5 H Lymph % (Auto) 9.0 L [place] % (Auto) 3.9 Eos % (Auto) 0.0 Baso % (Auto) 0.2 Lymph # (Auto) 0.49 L [place] # (Auto) 0.2 Eos # (Auto) 0.0 Baso # (Auto) 0.0 Abs Immat Gran (auto) 0.02 Absolute Neuts (auto) 4.7 Absolute Nucleated RBC 0.000 Nucleated RBC % 0.0 Sodium 138 Potassium 3.7 Chloride 110 H Carbon Dioxide 23 Anion Gap 5 BUN 8 Creatinine 1.30 H Estim Creat Clear Calc 24 Estimated GFR 39 L Glucose 150 H POC Capillary Glucose 120 H 100 Calcium 8.4 Total Bilirubin 0.5 AST 57 H ALT 32 Alkaline Phosphatase 100 Total Protein 6.0 L Albumin 3.3 L
--- NOTE | 2024-10-15 14:09 | PM.IMPN ---
Progress Note: A&P Assessment and Plan (1) Acute renal failure: Qualifiers: Acute renal failure type: unspecified Qualified Code(s): N17.9 - Acute kidney failure, unspecified Code(s): N17.9 - Acute kidney failure, unspecified Status: Acute Assessment and Plan: - acute renal failure in the setting of CKD. - Likely pre-renal secondary to volume depletion from poor PO intake and worsened by HCTZ and Lisinopril. - Continues to improve; Cr 3.7>>3>>2.1>>1.6>>1.5>>1.4>>1.3. - renal US: Normal kidneys without hydronephrosis. - Seen by nephrology and renal function appears baseline currently. (2) Chronic cholecystitis with calculus: Code(s): K80.10 - Calculus of gallbladder with chronic cholecystitis without obstruction Status: Acute Assessment and Plan: - s/p Lap Lucia POD # 1. - Slight abdominal pain with palpation. - Encouraged with activity and IS use. - Currently on clears diet and advancement per general surgery. - General surgery continues to follow. (3) Abnormal finding on EKG: Code(s): R94.31 - Abnormal electrocardiogram [ECG] [EKG] Status: Acute Assessment and Plan: - slight EKG changes shown on her preop workup. - Seen by cardiology and TTE recommended: - ECHO done; LVEF 70 %. No significant abnormalities noted. - No chest pain or SOB. - No further work-up for now. (4) Hypomagnesemia: Code(s): E83.42 - Hypomagnesemia Status: Acute Assessment and Plan: - Repleted and currently wnl. 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 Diabetes mellitus type: type 2 Qualified Code(s): E11.9 - Type 2 diabetes mellitus without complications Code(s): E11.9 - Type 2 diabetes mellitus without complications Status: Chronic Assessment and Plan: - hypoglycemia protocol - POC blood glucose ACHS - home medication: Hold metformin - correct regimen ordered - low dose TIDWM - A1C 6.3% on 06/30/2024 (6) HTN (hypertension): Qualifiers: Hypertension type: primary hypertension Qualified Code(s): I10 - Essential (primary) hypertension Code(s): I10 - Essential (primary) hypertension Status: Chronic Assessment and Plan: - Fairly well controlled. - Hold HCTZ and Lisinopril for now with LISA. - Continue metoprolol. - monitor BP levels closely. Plan S/P Lap Lucia POD # 1. Continue IVF hydration. Now on clear diet, advance as tolerated per general surgery. Encouraged with activity. Diet: Clears. GI Prophylaxis: Pantoprazole DVT Prophylaxis: SCD's. Lines: Peripheral Code Status: Full code Time Spent With Patient Time with patient: 15 - 25 minutes Subjective Date/time seen: 10/15/24 11:09 Patient states she's feeling ok, slight pain to right-side abdomen and had some nausea earlier but improving. States will try walk later on today. Interval history: Patient on bedrest with some generalized weakness but in no acute distress. Admitted for chronic cholecystitis and underwent Lap Lucia yesterday. Currently on clear liquid and diet advancement per general surgery. Her LISA appears to have resolved with IVF hydration. Review of Systems Review of Systems: All systems reviewed & are unremarkable except as noted in HPI and below Exam Narrative: General: Elderly female, well appearing, gen muscle weakness. HEENT: Atraumatic, PERRL, EOM, moist mucus membranes. NECK: Supple. HEART: RRR, no murmurs. Abdomen: Soft, mildly-tender to palpation, non-distended, hypoactive BS X4 quads, J-P drain intact R-side with small clear drainage. Extremities: No edema, acyanotic, +ve pedal and radial pulses. Skin: Warm and dry. No lesions noted. Neuro: Well oriented. CN II-XII grossly intact. Psych: Calm and co-operative. Objective Data Vital Signs Vital Signs: Vital Signs - 24 hr 10/14/24 16:40 10/14/24 19:06 10/14/24 19:20 Temperature 97.5 F L 98.7 F Pulse Rate 66 110 H 93 Respiratory Rate 20 28 H 16 Blood Pressure 172/63 H 163/68 H 143/62 H Pulse Oximetry 99 100 100 Oxygen Delivery Room Air Simple Face Mask Simple Face Mask Oxygen Flow Rate 10 10 10/14/24 19:35 10/14/24 19:50 10/14/24 20:05 Temperature Pulse Rate 83 84 86 Respiratory Rate 16 16 15 Blood Pressure 133/55 L 132/55 L 131/60 Pulse Oximetry 100 98 97 Oxygen Delivery Room Air Room Air Room Air Oxygen Flow Rate 10/14/24 20:58 10/14/24 22:03 10/14/24 20:00 Temperature 97.5 F L Pulse Rate 85 85 Respiratory Rate 18 Blood Pressure 145/55 H Pulse Oximetry 97 Oxygen Delivery Room Air Oxygen Flow Rate 10/14/24 22:03 10/15/24 00:02 10/15/24 05:07 Temperature 97.8 F 97.6 F 98.1 F Pulse Rate 86 64 66 Respiratory Rate 18 18 18 Blood Pressure 152/58 H 142/57 H 149/59 H Pulse Oximetry 100 97 99 Oxygen Delivery Oxygen Flow Rate 10/15/24 07:46 10/15/24 08:50 10/15/24 10:00 Temperature 96.9 F L Pulse Rate 64 58 L Respiratory Rate 18 18 Blood Pressure 121/64 Pulse Oximetry 99 100 Oxygen Delivery Room Air Oxygen Flow Rate 10/15/24 11:13 Temperature 98.1 F Pulse Rate Respiratory Rate Blood Pressure Pulse Oximetry Oxygen Delivery Oxygen Flow Rate Intake/Output Intake/Output: Intake & Output 10/12/24 10/13/24 10/14/24 10/15/24 23:59 23:59 23:59 23:59 Intake Total 2575.5 840 1481.0 1300 Output Total 215 45 Balance 2575.5 840 1266.0 1255 Meds/Results Medications: Active Medications Generic Name Dose Route Start Last Admin Trade Name Freq PRN Reason Stop Dose Admin Acetaminophen 1,000 mg 10/14/24 19:21 Acetaminophen 500 Mg Tablet PO Q6H PRN Mild Pain (1-3) or Fever Hydrocodone Bitart/Acetaminophen 1 tab 10/14/24 19:21 10/14/24 22:27 Hydrocodone/Acetaminophen (*Crx) 5-325 Mg Tablet PO 1 tab Q4H PRN Administration Pain Rated 4-6 Amlodipine Besylate 2.5 mg 10/13/24 09:00 10/15/24 08:50 Amlodipine Besylate 2.5 Mg Tablet PO 2.5 mg QAM VERENA Administration Anastrozole 1 mg 10/10/24 09:00 10/15/24 08:49 Anastrozole (*Chemo) 1 Mg Tablet PO 1 mg DAILY VERENA Administration Atorvastatin Calcium 20 mg 10/10/24 09:00 10/15/24 08:49 Atorvastatin 20 Mg Tablet PO 20 mg DAILY VERENA Administration Dextrose 12.5 gm 10/09/24 15:46 Dextrose 50% 25 Gm/50 Ml Syringe IV PUSH PRN PRN Hypoglycemia Protocol Donepezil HCl 5 mg 10/09/24 21:00 10/14/24 22:03 Donepezil Hcl 5 Mg Tablet PO 5 mg QHS VERENA Administration Enoxaparin Sodium 30 mg 10/09/24 17:00 10/14/24 15:01 Enoxaparin 30 Mg/0.3 Ml Syringe SUB-Q Not Given Q24H VERENA Glucagon 1 mg 10/09/24 15:46 Glucagon For Inj 1 Mg Vial IM PRN PRN Hypoglycemia Protocol Glucose 15 gm 10/09/24 15:46 Glucose Oral Gel 15 Gm Of Glucse In 37.5 Gm Tube PO PRN PRN Hypoglycemia Protocol Dextrose 1,000 mls @ 100 mls/hr 10/09/24 15:46 Dextrose 5% 1,000 Ml IVPB PRN PRN Hypoglycemia Protocol Sodium Chloride 1,000 mls @ 75 mls/hr 10/14/24 20:17 10/15/24 11:09 Normal Saline Iv IV CONT 75 mls/hr .[id number] VERENA Administration Insulin Aspart 2 - 5 units 10/09/24 17:00 10/15/24 12:07 Insulin Aspart (*Bkc) 100 Units/Ml SUB-Q Not Given TIDWM [facility] Protocol Metoprolol Tartrate 50 mg 10/09/24 21:00 10/15/24 08:50 Metoprolol Tartrate 50 Mg Tab PO 50 mg Q12HR VERENA Administration Ondansetron HCl 4 mg 10/09/24 07:26 10/09/24 15:16 Ondansetron Inj 4 Mg/2 Ml Vial IV PUSH 4 mg Q6H PRN Administration Nausea And Vomiting Ondansetron HCl 4 mg 10/10/24 09:56 10/11/24 21:23 Ondansetron Hcl Odt 4 Mg Tablet PO 4 mg Q6H PRN Administration Nausea And Vomiting Oxycodone HCl 5 mg 10/14/24 19:21 Oxycodone Hcl (*Crx) 5 Mg Tab Ir PO Q4H PRN Pain Rated 7-10 Pantoprazole Sodium 40 mg 10/10/24 09:00 10/15/24 08:49 Pantoprazole 40 Mg Tablet PO 40 mg QAM VERENA Administration Radiology Results: ITS Impressions Renal Ultrasound 10/09/24 14:39 IMPRESSION: 1. Normal kidneys without hydronephrosis. Labs Labs: Laboratory Results - last 24 hr 10/14/24 10/14/24 10/14/24 16:41 19:17 21:02 WBC RBC Hgb Hct MCV MCH MCHC RDW Plt Count MPV Immature Gran % (Auto) Neut % (Auto) Lymph % (Auto) [place] % (Auto) Eos % (Auto) Baso % (Auto) Lymph # (Auto) [place] # (Auto) Eos # (Auto) Baso # (Auto) Abs Immat Gran (auto) Absolute Neuts (auto) Absolute Nucleated RBC Nucleated RBC % Sodium Potassium Chloride Carbon Dioxide Anion Gap BUN Creatinine Estim Creat Clear Calc Estimated GFR Glucose POC Capillary Glucose 106 H 191 H 195 H Calcium Total Bilirubin AST ALT Alkaline Phosphatase Total Protein Albumin 10/15/24 10/15/24 10/15/24 05:39 08:33 12:01 WBC 5.5 RBC 3.49 L Hgb 10.8 L Hct 33.0 L MCV 94.6 MCH 30.9 MCHC 32.7 RDW 13.0 Plt Count 162 MPV 11.3 H Immature Gran % (Auto) 0.4 Neut % (Auto) 86.5 H Lymph % (Auto) 9.0 L [place] % (Auto) 3.9 Eos % (Auto) 0.0 Baso % (Auto) 0.2 Lymph # (Auto) 0.49 L [place] # (Auto) 0.2 Eos # (Auto) 0.0 Baso # (Auto) 0.0 Abs Immat Gran (auto) 0.02 Absolute Neuts (auto) 4.7 Absolute Nucleated RBC 0.000 Nucleated RBC % 0.0 Sodium 138 Potassium 3.7 Chloride 110 H Carbon Dioxide 23 Anion Gap 5 BUN 8 Creatinine 1.30 H Estim Creat Clear Calc 24 Estimated GFR 39 L Glucose 150 H POC Capillary Glucose 120 H 100 Calcium 8.4 Total Bilirubin 0.5 AST 57 H ALT 32 Alkaline Phosphatase 100 Total Protein 6.0 L Albumin 3.3 L Quality VTE Prophylaxis VTE prophylaxis: mechanical ordered Hospitalist MIPS Advance Care Plan I have confirmed that the patient's Advanced Care Plan is present, code status is documented, or surrogate decision maker is listed in patient medical record.: Yes Medication Reconciliation I have utilized all available resources to obtain, update and review the patients current medications (includes all prescriptions, OTC, herbals, cannabis, and nutritional supplements).: Yes
--- NOTE | 2024-10-15 15:17 | WPDANESPN ---
Anes - Prog Note Post-Op Date/Time: 10/15/24 15:17 Cardiovascular status: normal Respiratory status: normal Airway patency: baseline Mental status: baseline Post-Op hydration status: normal Vital Signs: Last Vital Signs Temp 36.7 C 10/15/24 11:13 Pulse 58 L 10/15/24 10:00 Resp 18 10/15/24 10:00 BP 121/64 10/15/24 10:00 Pulse Ox 100 10/15/24 10:00 O2 Del Method Room Air 10/15/24 07:46 O2 Flow Rate 10 10/14/24 19:20 Pain Score (VAS): 0 I/O: Intake & Output 10/14/24 10/15/24 10/15/24 23:59 07:59 15:59 Intake Total 492.5 190 1110 Output Total 215 45 Balance 277.5 145 1110 Laboratory Tests 10/15/24 05:39 10/15/24 05:39 10/14/24 10/14/24 10/14/24 16:41 19:17 21:02 WBC RBC Hgb Hct MCV MCH MCHC RDW Plt Count MPV Immature Gran % (Auto) Neut % (Auto) Lymph % (Auto) [place] % (Auto) Eos % (Auto) Baso % (Auto) Lymph # (Auto) [place] # (Auto) Eos # (Auto) Baso # (Auto) Abs Immat Gran (auto) Absolute Neuts (auto) Absolute Nucleated RBC Nucleated RBC % Sodium Potassium Chloride Carbon Dioxide Anion Gap BUN Creatinine Estim Creat Clear Calc Estimated GFR Glucose POC Capillary Glucose 106 H 191 H 195 H Calcium Total Bilirubin AST ALT Alkaline Phosphatase Total Protein Albumin 10/15/24 10/15/24 10/15/24 05:39 08:33 12:01 WBC 5.5 RBC 3.49 L Hgb 10.8 L Hct 33.0 L MCV 94.6 MCH 30.9 MCHC 32.7 RDW 13.0 Plt Count 162 MPV 11.3 H Immature Gran % (Auto) 0.4 Neut % (Auto) 86.5 H Lymph % (Auto) 9.0 L [place] % (Auto) 3.9 Eos % (Auto) 0.0 Baso % (Auto) 0.2 Lymph # (Auto) 0.49 L [place] # (Auto) 0.2 Eos # (Auto) 0.0 Baso # (Auto) 0.0 Abs Immat Gran (auto) 0.02 Absolute Neuts (auto) 4.7 Absolute Nucleated RBC 0.000 Nucleated RBC % 0.0 Sodium 138 Potassium 3.7 Chloride 110 H Carbon Dioxide 23 Anion Gap 5 BUN 8 Creatinine 1.30 H Estim Creat Clear Calc 24 Estimated GFR 39 L Glucose 150 H POC Capillary Glucose 120 H 100 Calcium 8.4 Total Bilirubin 0.5 AST 57 H ALT 32 Alkaline Phosphatase 100 Total Protein 6.0 L Albumin 3.3 L Post-procedural complaints: none Patient Feedback: Patient satisfied with anesthetic care.
[2024-10-15] MEDS: ACETAMINOPHEN 500 MG TABLET 1000 MG PO (15:18)
[2024-10-15] MEDS: MAGNESIUM HYDROXIDE SUSP 30 ML UDC PO (16:31)
[2024-10-15] MEDS: ENOXAPARIN 30 MG/0.3 ML SYRINGE SUB-Q (16:32)
[2024-10-15 16:57] LABS: Glucose Point of Care 98 mg/dl (65-105)
[2024-10-15 20:05] LABS: Glucose Point of Care 97 mg/dl (65-105)
[2024-10-15] MEDS: DONEPEZIL HCL 5 MG TABLET PO (20:09)
[2024-10-16] MEDS: SODIUM CHLORIDE 0.9% IV 1,000 ML 75 ML IV CONT (01:28)
[2024-10-16 03:18] VITALS: BP 146/72; PULSE 63; RESP 16; TEMP 36.6; O2SAT 99
[2024-10-16 05:58] LABS: Basophils Percent Auto 0.3 % (0.2-1.2); Eosinophils Absolute Auto 0.2 K/mm3 (0-0.3); Eosinophils Percent Auto 2.3 % (0-4.4); Hematocrit 34.9 % (37.0-47.0); Hemoglobin 11.1 g/dL (12.0-15.0); Immature Granulocyte Absolute 0.03 K/mm3 (0.00-0.031); Immature Granulocyte Percent A 0.4 % (0-0.5); Lymphocytes Percent Auto 24.6 % (18.3-44.2); Mean Corpuscular HGB Conc 31.8 g/dl (32-36); Mean Corpuscular Hemoglobin 30.8 pg (26-34); Mean Corpuscular Volume 96.9 fl (80-100); Mean Platelet Volume 10.7 fl (7.4-10.4); Monocytes Absolute Auto 0.4 K/mm3 (0.1-0.6); Monocytes Percent Auto 6.1 % (2.6-8.5); Neutrophils Absolute Auto 4.6 K/mm3 (1.3-6.7); Neutrophils Percent Auto 66.3 % (45.5-73.1); Platelet Count Result 197 k/mm3 (150-375); Red Cell Distribution Width 13.2 % (11.5-14.5); White Blood Count 6.9 K/mm3 (4.5-10.0)
[2024-10-16 06:08] LABS: Alanine Aminotransferase 28 U/L (6-35); Albumin Level 3.6 g/dL (3.5-5.1); Alkaline Phosphatase 109 U/L (38-126); Anion Gap 8 mmol/L (4-12); Aspartate Amino Transferase 51 U/L (14-36); Bilirubin,Total 0.6 mg/dL (0.2-1.3); Blood Urea Nitrogen 8 mg/dL (7-17); Calcium 8.6 mg/dL (8.4-10.2); Carbon Dioxide 21 mmol/L (22-30); Chloride 111 mmol/L (98-107); Estimated CRCL calculation 24 ml/min; Estimated Glomerular Filt Rate 39; Glucose 89 mg/dL (65-110); Potassium 3.1 mmol/L (3.4-5.0); Sodium 140 mmol/L (137-145)
[2024-10-16 08:51] LABS: Glucose Point of Care 76 mg/dl (65-105)
[2024-10-16 09:12] VITALS: PULSE 68
[2024-10-16] MEDS: amLODIPine BESYLATE 2.5 MG TABLET PO (09:12)
[2024-10-16] MEDS: ANASTROZOLE (*CHEMO) 1 MG TABLET PO (09:12)
[2024-10-16] MEDS: ATORVASTATIN 20 MG TABLET PO (09:12)
[2024-10-16] MEDS: METOPROLOL TARTRATE 50 MG TAB PO ×2 (09:12→20:22)
[2024-10-16] MEDS: POTASSIUM CHLORIDE 20 MEQ PACKET (FOR LIQUID) 40 MEQ PO (09:13)
[2024-10-16] MEDS: PANTOPRAZOLE 40 MG TABLET PO (09:13)
[2024-10-16] MEDS: HYDROcodone/acetaminophen (*CRX) 5-325 MG TABLET 1 TAB PO (09:20)
--- NOTE | 2024-10-16 10:23 | PCNFU ---
Nutrition Follow-Up Complete: Unintentional weight loss related to reduced appetite and intake as evidenced by family report PO intake greater than 50% of meals and supplements - progressing with intakes post lap fred. Intakes 10-100% on current Goal: Pt current nutrition is Full liquid diet post lap fred 10/14/24. Glucerna TID for additional 220 kcal and 10 g protein each. Nutrition recommendation: Advance diet as medically able. Continue with current nutrition care plan. Agree with orders Last recorded weight is 65.8 kg. Bowel Motility: +1 BM 10/16/24 Labs Reviewed: Hgb 11.1, Hct 35.9, K+ 3.1, Cre 1.3 Meds Noted: Lovenox, Zofran Skin: No skin issues Additional Notes: Advancing diet post operatively. MUKUND drain in place after lap tyron. Continue with diet advancement per MD Monitor intake, wt, labs. Follow up in 7 days
--- NOTE | 2024-10-16 11:55 | PCPTNOTE ---
Attempted PT evaluation, pt refused stating no, I'm trying to take a nap. Nursing aware. Will follow.
[2024-10-16 12:04] LABS: Glucose Point of Care 97 mg/dl (65-105)
[2024-10-16 14:00] VITALS: BP 96/76; PULSE 60; RESP 14; TEMP 36.8; O2SAT 93
--- NOTE | 2024-10-16 16:17 | PM.PNGS ---
Progress Note: A&P Assessment and Plan (1) Chronic cholecystitis with calculus: Code(s): K80.10 - Calculus of gallbladder with chronic cholecystitis without obstruction <Marylu SimpsonMathew BROOK Taylor - Last Filed: 10/16/24 16:22> Status: Acute <Marylu B. BROOK Taylor - Last Filed: 10/16/24 16:22> Assessment and Plan: Postop day 2 following laparoscopic cholecystectomy. Her diet did not get advanced yesterday by nursing, so I advanced her diet this afternoon to a low fat diabetic diet. She reports having severe nausea again today similar to before the surgery. No vomiting, but reports gagging. She was able to tolerate her meals for breakfast and lunch today and has not received any antiemetics. <Marylu SimpsonMathew BROOK Taylor - Last Filed: 10/16/24 16:22> Postop day 2 following laparoscopic cholecystectomy. Her diet did not get advanced yesterday by nursing, so I advanced her diet this afternoon to a low fat diabetic diet. She reports having severe nausea again today similar to before the surgery. No vomiting, but reports gagging. She was able to tolerate her meals for breakfast and lunch today and has not received any antiemetics. Will get calorie count to see if she is eating enough. No real contraindications to D/C unless she cannot eat enough to sustain herself and not go back into acute renal failure. If she cannot eat well, then placement of a PEG tube by GI for feedings would be one potential option. <Jarrett Kelly MD - Last Filed: 10/17/24 10:54> (2) Acute renal failure: Qualifiers: Acute renal failure type: unspecified Qualified Code(s): N17.9 - Acute kidney failure, unspecified <BROOK Matos - Last Filed: 10/16/24 16:22> Code(s): N17.9 - Acute kidney failure, unspecified <BROOK Matos - Last Filed: 10/16/24 16:22> Status: Acute <BROOK Matos - Last Filed: 10/16/24 16:22> Assessment and Plan: Resolved. Creatinine is back to baseline. Potassium low at 3.1 today and replaced by Hospitalist. <BROOK Matos - Last Filed: 10/16/24 16:22> Assessment and Plan: I have discussed the patient's case and plan of care with Dr. Kelly. <BROOK Matos - Last Filed: 10/16/24 16:22> Subjective Subjective Date/Time Seen: 10/16/24 16:17 <BROOK Matos - Last Filed: 10/16/24 16:22> Post Op day: 2 (Laparoscopic cholecystectomy) <BROOK Matos - Last Filed: 10/16/24 16:22> Patient reports: still having pain and nausea <BROOK Matos - Last Filed: 10/16/24 16:22> Interval history: Patient reports she is still having right upper quadrant pain similar to her pain before surgery. Yesterday she was telling me was only in the right upper quadrant and today she says also the right lower quadrant. She is complaining again of nausea and reports that she has been gagging intermittently today. I discussed this with nursing and they have not given her any antiemetics. The nurse that she has not mention any nausea all day. The nurses notice a lot of forgetfulness and has had to repeat a lot of instructions to the patient today. The patient is up and moving. She is ambulatory and tolerating activity well. <BROOK Matos - Last Filed: 10/16/24 16:22> Exam Const: General: comfortable and no acute distress <BROOK Matos - Last Filed: 10/16/24 16:22> Orientation/consciousness: patient oriented x3 <BROOK Matos - Last Filed: 10/16/24 16:22> GI: Inspection: other (MUKUND drain with mostly serous drainage, no bilious appearing output) <BROOK Matos - Last Filed: 10/16/24 16:22> GI Palp: Yes Soft to palpation, Yes Tenderness to palpation present (GI) (RUQ near MUKUND drain and mild RLQ TTP) and No Guarding due to palpation present (GI) <BROOK Matos - Last Filed: 10/16/24 16:22> Auscultation: normal bowel sounds <Marylu ZarateBROOK lundy - Last Filed: 10/16/24 16:22> Neuro: General: moves all extremities and no focal motor deficits <Marylu TaylorKATHLEENP - Last Filed: 10/16/24 16:22> Extrem: General: no calf tenderness and no edema <Marylu ZarateKATHLEEN lundyP - Last Filed: 10/16/24 16:22> Psych: Mental Status: mental status grossly normal <Marylu Zaratenikkie [employer] - Last Filed: 10/16/24 16:22> Insight: Good insight present (Psych) <Marylu MartelBROOK lindsey - Last Filed: 10/16/24 16:22> Objective Data Vital Signs Vital Signs: Vital Signs - 24 hr 10/15/24 18:49 10/15/24 20:06 10/15/24 20:09 Temperature 97.8 F 97.0 F L Pulse Rate 64 60 64 Respiratory Rate 16 17 Blood Pressure 143/56 H 161/53 H Pulse Oximetry 98 100 Oxygen Delivery 10/15/24 20:00 10/15/24 23:38 10/16/24 03:18 Temperature 97.4 F L 97.8 F Pulse Rate 63 63 Respiratory Rate 18 16 Blood Pressure 127/59 L 146/72 H Pulse Oximetry 100 99 Oxygen Delivery Room Air 10/16/24 09:12 10/16/24 11:03 10/16/24 14:00 Temperature 98.2 F Pulse Rate 68 60 Respiratory Rate 14 Blood Pressure 96/76 L Pulse Oximetry 93 Oxygen Delivery Room Air <Marylu Zaratenikkie [employer] - Last Filed: 10/16/24 16:22> Intake/Output Intake/Output: Intake & Output 10/13/24 10/14/24 10/15/24 10/16/24 23:59 23:59 23:59 23:59 Intake Total 840 1481.0 1960 1240 Output Total 215 115 200 Balance 840 1266.0 1845 1040 <Marylu MartelBROOK lindsey - Last Filed: 10/16/24 16:22> Meds/Results Medications: Active Medications Generic Name Dose Route Start Last Admin Trade Name Freq PRN Reason Stop Dose Admin Acetaminophen 1,000 mg 10/14/24 19:21 10/15/24 15:18 Acetaminophen 500 Mg Tablet PO 1,000 mg Q6H PRN Administration Mild Pain (1-3) or Fever Hydrocodone Bitart/Acetaminophen 1 tab 10/14/24 19:21 10/16/24 09:20 Hydrocodone/Acetaminophen (*Crx) 5-325 Mg Tablet PO 1 tab Q4H PRN Administration Pain Rated 4-6 Amlodipine Besylate 2.5 mg 10/13/24 09:00 10/16/24 09:12 Amlodipine Besylate 2.5 Mg Tablet PO 2.5 mg QAM VERENA Administration Anastrozole 1 mg 10/10/24 09:00 10/16/24 09:12 Anastrozole (*Chemo) 1 Mg Tablet PO 1 mg DAILY VERENA Administration Atorvastatin Calcium 20 mg 10/10/24 09:00 10/16/24 09:12 Atorvastatin 20 Mg Tablet PO 20 mg DAILY VERENA Administration Bisacodyl 10 mg 10/15/24 16:15 Bisacodyl 10 Mg Suppository RECTAL QAM PRN Constipation Dextrose 12.5 gm 10/09/24 15:46 Dextrose 50% 25 Gm/50 Ml Syringe IV PUSH PRN PRN Hypoglycemia Protocol Donepezil HCl 5 mg 10/09/24 21:00 10/15/24 20:09 Donepezil Hcl 5 Mg Tablet PO 5 mg QHS VERENA Administration Enoxaparin Sodium 30 mg 10/09/24 17:00 10/15/24 16:32 Enoxaparin 30 Mg/0.3 Ml Syringe SUB-Q 30 mg Q24H VERENA Administration Glucagon 1 mg 10/09/24 15:46 Glucagon For Inj 1 Mg Vial IM PRN PRN Hypoglycemia Protocol Glucose 15 gm 10/09/24 15:46 Glucose Oral Gel 15 Gm Of Glucse In 37.5 Gm Tube PO PRN PRN Hypoglycemia Protocol Dextrose 1,000 mls @ 100 mls/hr 10/09/24 15:46 Dextrose 5% 1,000 Ml IVPB PRN PRN Hypoglycemia Protocol Sodium Chloride 1,000 mls @ 75 mls/hr 10/14/24 20:17 10/16/24 01:28 Normal Saline Iv IV CONT 75 mls/hr .[id number] VERENA Administration Insulin Aspart 2 - 5 units 10/09/24 17:00 10/16/24 12:44 Insulin Aspart (*Bkc) 100 Units/Ml SUB-Q Not Given TIDWM [facility] Protocol Metoprolol Tartrate 50 mg 10/09/24 21:00 10/16/24 09:12 Metoprolol Tartrate 50 Mg Tab PO 50 mg Q12HR VERENA Administration Ondansetron HCl 4 mg 10/09/24 07:26 10/09/24 15:16 Ondansetron Inj 4 Mg/2 Ml Vial IV PUSH 4 mg Q6H PRN Administration Nausea And Vomiting Ondansetron HCl 4 mg 10/10/24 09:56 10/11/24 21:23 Ondansetron Hcl Odt 4 Mg Tablet PO 4 mg Q6H PRN Administration Nausea And Vomiting Oxycodone HCl 5 mg 10/14/24 19:21 Oxycodone Hcl (*Crx) 5 Mg Tab Ir PO Q4H PRN Pain Rated 7-10 Pantoprazole Sodium 40 mg 10/10/24 09:00 10/16/24 09:13 Pantoprazole 40 Mg Tablet PO 40 mg QAM VERENA Administration <BROOK Matos - Last Filed: 10/16/24 16:22> Radiology Results: ITS Impressions Renal Ultrasound 10/09/24 14:39 IMPRESSION: 1. Normal kidneys without hydronephrosis. <BROOK Matos - Last Filed: 10/16/24 16:22> Labs Labs: Laboratory Results - last 24 hr 10/15/24 10/15/24 10/16/24 16:52 19:46 05:49 WBC 6.9 RBC 3.60 L Hgb 11.1 L Hct 34.9 L MCV 96.9 MCH 30.8 MCHC 31.8 L RDW 13.2 Plt Count 197 MPV 10.7 H Immature Gran % (Auto) 0.4 Neut % (Auto) 66.3 Lymph % (Auto) 24.6 [place] % (Auto) 6.1 Eos % (Auto) 2.3 Baso % (Auto) 0.3 Lymph # (Auto) 1.70 [place] # (Auto) 0.4 Eos # (Auto) 0.2 Baso # (Auto) 0.0 Abs Immat Gran (auto) 0.03 Absolute Neuts (auto) 4.6 Absolute Nucleated RBC 0.000 Nucleated RBC % 0.0 Sodium 140 Potassium 3.1 L Chloride 111 H Carbon Dioxide 21 L Anion Gap 8 BUN 8 Creatinine 1.30 H Estim Creat Clear Calc 24 Estimated GFR 39 L Glucose 89 POC Capillary Glucose 98 97 Calcium 8.6 Total Bilirubin 0.6 AST 51 H ALT 28 Alkaline Phosphatase 109 Total Protein 6.0 L Albumin 3.6 10/16/24 10/16/24 08:43 11:55 WBC RBC Hgb Hct MCV MCH MCHC RDW Plt Count MPV Immature Gran % (Auto) Neut % (Auto) Lymph % (Auto) [place] % (Auto) Eos % (Auto) Baso % (Auto) Lymph # (Auto) [place] # (Auto) Eos # (Auto) Baso # (Auto) Abs Immat Gran (auto) Absolute Neuts (auto) Absolute Nucleated RBC Nucleated RBC % Sodium Potassium Chloride Carbon Dioxide Anion Gap BUN Creatinine Estim Creat Clear Calc Estimated GFR Glucose POC Capillary Glucose 76 97 Calcium Total Bilirubin AST ALT Alkaline Phosphatase Total Protein Albumin <Marylu Taylor, BROOK - Last Filed: 10/16/24 16:22>
[2024-10-16 16:54] LABS: Glucose Point of Care 74 mg/dl (65-105)
--- NOTE | 2024-10-16 16:55 | P.PNIM_ITS ---
Progress Note: A&P Assessment and Plan (1) Acute renal failure: Qualifiers: Acute renal failure type: unspecified Qualified Code(s): N17.9 - Acute kidney failure, unspecified Code(s): N17.9 - Acute kidney failure, unspecified Status: Acute Assessment and Plan: - acute renal failure in the setting of CKD. - Likely pre-renal secondary to volume depletion from poor PO intake and worsened by HCTZ and Lisinopril. - Continues to improve; Cr 3.7>>3>>2.1>>1.6>>1.5>>1.4>>1.3. - renal US: Normal kidneys without hydronephrosis. - Seen by nephrology and renal function appears baseline currently. - IVF discontinued with renal function baseline. - Encouraged with PO fluids. (2) Chronic cholecystitis with calculus: Code(s): K80.10 - Calculus of gallbladder with chronic cholecystitis without obstruction Status: Acute Assessment and Plan: - s/p Lap Lucai POD # 2. - Slight abdominal pain with palpation. - Encouraged with activity and IS use. - Currently on low-fat diet and advancement per general surgery. - General surgery continues to follow. (3) Abnormal finding on EKG: Code(s): R94.31 - Abnormal electrocardiogram [ECG] [EKG] Status: Acute Assessment and Plan: - slight EKG changes shown on her preop workup. - Seen by cardiology and TTE recommended: - ECHO done; LVEF 70 %. No significant abnormalities noted. - No chest pain or SOB. - No further work-up needed. (4) Hypomagnesemia: Code(s): E83.42 - Hypomagnesemia Status: Acute Assessment and Plan: - Repleted and currently wnl. (5) Diabetes: Qualifiers: Diabetes mellitus type: type 2 Diabetes mellitus terminal supervisor insulin use: without assisted use Diabetes mellitus complication status: without complication Qualified Code(s): E11.9 - Type 2 diabetes mellitus without complications Code(s): E11.9 - Type 2 diabetes mellitus without complications Status: Chronic Assessment and Plan: - hypoglycemia protocol - POC blood glucose ACHS - home medication: Hold metformin - correct regimen ordered - low dose TIDWM - A1C 6.3% on 06/30/2024 (6) HTN (hypertension): Qualifiers: Hypertension type: primary hypertension Qualified Code(s): I10 - Essential (primary) hypertension Code(s): I10 - Essential (primary) hypertension Status: Chronic Assessment and Plan: - Fairly well controlled. - Hold HCTZ and Lisinopril for now with recent LISA. - Continue metoprolol and low-dose amlodipine. - monitor BP closely and adjust meds as needed. Plan S/P Lap Lucia POD # 2. Continue IVF hydration. Now on clear diet, advance as tolerated per general surgery. Encouraged with activity. Diet: Clears. GI Prophylaxis: Pantoprazole DVT Prophylaxis: SCD's. Lines: Peripheral Code Status: Full code Time Spent With Patient Time with patient: less than 15 minutes Subjective Date/time seen: 10/16/24 08:55 Patient states she has some slight soreness to her abdomen. States she hasn't had any meals yet and was slightly nauseated earlier. States will get up and walk later after she rests a little bit. Interval history: Patient on bedrest with generalized weakness but in no acute distress. Admitted for chronic cholecystitis and underwent Lap Lucia 2 days ago. Currently on LOW- FAT diet and advancement per general surgery. Her LISA appears to have resolved with IVF hydration and discontinued. Review of Systems Review of Systems: All systems reviewed & are unremarkable except as noted in HPI and below Exam Narrative: General: Elderly female, fair appearing, gen muscle weakness. HEENT: Atraumatic, PERRL, EOM, moist mucus membranes. NECK: Supple. HEART: RRR, no murmurs. Abdomen: Soft, mildly-tender to palpation, non-distended, +ve BS X4 quads, J-P drain intact R-upper abd with small clear drainage. Extremities: No edema, acyanotic, +ve pedal and radial pulses. Skin: Warm and dry. No lesions noted. Neuro: Well oriented. CN II-XII grossly intact. Psych: Calm and co-operative. Objective Data Vital Signs Vital Signs: Vital Signs - 24 hr 10/15/24 18:49 10/15/24 20:06 10/15/24 20:09 Temperature 97.8 F 97.0 F L Pulse Rate 64 60 64 Respiratory Rate 16 17 Blood Pressure 143/56 H 161/53 H Pulse Oximetry 98 100 Oxygen Delivery 10/15/24 20:00 10/15/24 23:38 10/16/24 03:18 Temperature 97.4 F L 97.8 F Pulse Rate 63 63 Respiratory Rate 18 16 Blood Pressure 127/59 L 146/72 H Pulse Oximetry 100 99 Oxygen Delivery Room Air 10/16/24 09:12 10/16/24 11:03 10/16/24 14:00 Temperature 98.2 F Pulse Rate 68 60 Respiratory Rate 14 Blood Pressure 96/76 L Pulse Oximetry 93 Oxygen Delivery Room Air Intake/Output Intake/Output: Intake & Output 10/13/24 10/14/24 10/15/24 10/16/24 23:59 23:59 23:59 23:59 Intake Total 840 1481.0 1960 1240 Output Total 215 115 200 Balance 840 1266.0 1845 1040 Meds/Results Medications: Active Medications Generic Name Dose Route Start Last Admin Trade Name Freq PRN Reason Stop Dose Admin Acetaminophen 1,000 mg 10/14/24 19:21 10/15/24 15:18 Acetaminophen 500 Mg Tablet PO 1,000 mg Q6H PRN Administration Mild Pain (1-3) or Fever Hydrocodone Bitart/Acetaminophen 1 tab 10/14/24 19:21 10/16/24 09:20 Hydrocodone/Acetaminophen (*Crx) 5-325 Mg Tablet PO 1 tab Q4H PRN Administration Pain Rated 4-6 Amlodipine Besylate 2.5 mg 10/13/24 09:00 10/16/24 09:12 Amlodipine Besylate 2.5 Mg Tablet PO 2.5 mg QAM VERENA Administration Anastrozole 1 mg 10/10/24 09:00 10/16/24 09:12 Anastrozole (*Chemo) 1 Mg Tablet PO 1 mg DAILY VERENA Administration Atorvastatin Calcium 20 mg 10/10/24 09:00 10/16/24 09:12 Atorvastatin 20 Mg Tablet PO 20 mg DAILY VERENA Administration Bisacodyl 10 mg 10/15/24 16:15 Bisacodyl 10 Mg Suppository RECTAL QAM PRN Constipation Dextrose 12.5 gm 10/09/24 15:46 Dextrose 50% 25 Gm/50 Ml Syringe IV PUSH PRN PRN Hypoglycemia Protocol Donepezil HCl 5 mg 10/09/24 21:00 10/15/24 20:09 Donepezil Hcl 5 Mg Tablet PO 5 mg QHS VERENA Administration Enoxaparin Sodium 30 mg 10/09/24 17:00 12/03/24 16:32 Enoxaparin 30 Mg/0.3 Ml Syringe SUB-Q 30 mg Q24H VERENA Administration Glucagon 1 mg 10/09/24 15:46 Glucagon For Inj 1 Mg Vial IM PRN PRN Hypoglycemia Protocol Glucose 15 gm 10/09/24 15:46 Glucose Oral Gel 15 Gm Of Glucse In 37.5 Gm Tube PO PRN PRN Hypoglycemia Protocol Dextrose 1,000 mls @ 100 mls/hr 10/09/24 15:46 Dextrose 5% 1,000 Ml IVPB PRN PRN Hypoglycemia Protocol Sodium Chloride 1,000 mls @ 75 mls/hr 10/14/24 20:17 10/16/24 01:28 Normal Saline Iv IV CONT 75 mls/hr .[id number] VERENA Administration Insulin Aspart 2 - 5 units 10/09/24 17:00 10/16/24 12:44 Insulin Aspart (*Bkc) 100 Units/Ml SUB-Q Not Given TIDWM [facility] Protocol Metoprolol Tartrate 50 mg 10/09/24 21:00 10/16/24 09:12 Metoprolol Tartrate 50 Mg Tab PO 50 mg Q12HR VERENA Administration Ondansetron HCl 4 mg 10/09/24 07:26 10/09/24 15:16 Ondansetron Inj 4 Mg/2 Ml Vial IV PUSH 4 mg Q6H PRN Administration Nausea And Vomiting Ondansetron HCl 4 mg 10/10/24 09:56 10/11/24 21:23 Ondansetron Hcl Odt 4 Mg Tablet PO 4 mg Q6H PRN Administration Nausea And Vomiting Oxycodone HCl 5 mg 10/14/24 19:21 Oxycodone Hcl (*Crx) 5 Mg Tab Ir PO Q4H PRN Pain Rated 7-10 Pantoprazole Sodium 40 mg 10/10/24 09:00 10/16/24 09:13 Pantoprazole 40 Mg Tablet PO 40 mg QAM VERENA Administration Radiology Results: ITS Impressions Renal Ultrasound 10/09/24 14:39 IMPRESSION: 1. Normal kidneys without hydronephrosis. Labs Labs: Laboratory Results - last 24 hr 10/15/24 10/15/24 10/16/24 16:52 19:46 05:49 WBC 6.9 RBC 3.60 L Hgb 11.1 L Hct 34.9 L MCV 96.9 MCH 30.8 MCHC 31.8 L RDW 13.2 Plt Count 197 MPV 10.7 H Immature Gran % (Auto) 0.4 Neut % (Auto) 66.3 Lymph % (Auto) 24.6 [place] % (Auto) 6.1 Eos % (Auto) 2.3 Baso % (Auto) 0.3 Lymph # (Auto) 1.70 [place] # (Auto) 0.4 Eos # (Auto) 0.2 Baso # (Auto) 0.0 Abs Immat Gran (auto) 0.03 Absolute Neuts (auto) 4.6 Absolute Nucleated RBC 0.000 Nucleated RBC % 0.0 Sodium 140 Potassium 3.1 L Chloride 111 H Carbon Dioxide 21 L Anion Gap 8 BUN 8 Creatinine 1.30 H Estim Creat Clear Calc 24 Estimated GFR 39 L Glucose 89 POC Capillary Glucose 98 97 Calcium 8.6 Total Bilirubin 0.6 AST 51 H ALT 28 Alkaline Phosphatase 109 Total Protein 6.0 L Albumin 3.6 10/16/24 10/16/24 10/16/24 08:43 11:55 16:43 WBC RBC Hgb Hct MCV MCH MCHC RDW Plt Count MPV Immature Gran % (Auto) Neut % (Auto) Lymph % (Auto) [place] % (Auto) Eos % (Auto) Baso % (Auto) Lymph # (Auto) [place] # (Auto) Eos # (Auto) Baso # (Auto) Abs Immat Gran (auto) Absolute Neuts (auto) Absolute Nucleated RBC Nucleated RBC % Sodium Potassium Chloride Carbon Dioxide Anion Gap BUN Creatinine Estim Creat Clear Calc Estimated GFR Glucose POC Capillary Glucose 76 97 74 Calcium Total Bilirubin AST ALT Alkaline Phosphatase Total Protein Albumin Quality VTE Prophylaxis VTE prophylaxis: mechanical ordered Hospitalist MIPS Advance Care Plan I have confirmed that the patient's Advanced Care Plan is present, code status is documented, or surrogate decision maker is listed in patient medical record.: Yes Medication Reconciliation I have utilized all available resources to obtain, update and review the patients current medications (includes all prescriptions, OTC, herbals, cannabis, and nutritional supplements).: Yes
[2024-10-16] MEDS: ENOXAPARIN 30 MG/0.3 ML SYRINGE SUB-Q (16:56)
[2024-10-16 19:35] VITALS: BP 143/85; PULSE 67; RESP 18; TEMP 37; O2SAT 100
[2024-10-16 20:22] VITALS: PULSE 66
[2024-10-16] MEDS: DONEPEZIL HCL 5 MG TABLET PO (20:22)
[2024-10-16 21:47] LABS: Glucose Point of Care 100 mg/dl (65-105)
[2024-10-16 22:47] VITALS: BP 151/62; PULSE 60; RESP 18; TEMP 36.7; O2SAT 98
[2024-10-17 04:15] VITALS: BP 149/60; PULSE 60; RESP 16; TEMP 36.8; O2SAT 100
[2024-10-17 06:26] LABS: Glucose Point of Care 74 mg/dl (65-105)
--- NOTE | 2024-10-17 07:25 | P.PNIM_ITS ---
Progress Note: A&P Assessment and Plan (1) Acute renal failure: Qualifiers: Acute renal failure type: unspecified Qualified Code(s): N17.9 - Acute kidney failure, unspecified Code(s): N17.9 - Acute kidney failure, unspecified Status: Acute Assessment and Plan: - acute renal failure in the setting of CKD. - Likely pre-renal secondary to volume depletion from poor PO intake and worsened by HCTZ and Lisinopril. - Continues to improve; Cr 3.7>>3>>2.1>>1.6>>1.5>>1.4>>1.3. - renal US: Normal kidneys without hydronephrosis. - Seen by nephrology and renal function appears baseline currently. - IVF discontinued with renal function baseline. - Encouraged with PO fluids. Creatinine appears to be at baseline (2) Chronic cholecystitis with calculus: Code(s): K80.10 - Calculus of gallbladder with chronic cholecystitis without obstruction Status: Acute Assessment and Plan: - s/p Lap Lucia POD # 2. - Slight abdominal pain with palpation. - Encouraged with activity and IS use. - Currently on low-fat diet and advancement per general surgery. - General surgery continues to follow. (3) Abnormal finding on EKG: Code(s): R94.31 - Abnormal electrocardiogram [ECG] [EKG] Status: Acute Assessment and Plan: - slight EKG changes shown on her preop workup. - Seen by cardiology and TTE recommended: - ECHO done; LVEF 70 %. No significant abnormalities noted. - No chest pain or SOB. - No further work-up needed. (4) Hypomagnesemia: Code(s): E83.42 - Hypomagnesemia Status: Acute Assessment and Plan: - Repleted and currently wnl. (5) Diabetes: Qualifiers: Diabetes mellitus complication status: without complication Diabetes mellitus long term care social worker insulin use: without long term care social worker use Diabetes mellitus type: type 2 Qualified Code(s): E11.9 - Type 2 diabetes mellitus without complications Code(s): E11.9 - Type 2 diabetes mellitus without complications Status: Chronic Assessment and Plan: - hypoglycemia protocol - POC blood glucose ACHS - home medication: Hold metformin - correct regimen ordered - low dose TIDWM - A1C 6.3% on 06/30/2024 (6) HTN (hypertension): Qualifiers: Hypertension type: primary hypertension Qualified Code(s): I10 - Essential (primary) hypertension Code(s): I10 - Essential (primary) hypertension Status: Chronic Assessment and Plan: - Fairly well controlled. - Hold HCTZ and Lisinopril for now with recent LISA. - Continue metoprolol and low-dose amlodipine. - monitor BP closely and adjust meds as needed. (7) Hypokalemia: Code(s): E87.6 - Hypokalemia Status: Acute Assessment and Plan: Repleted Plan S/P Lap Lucia POD # 3. advance as tolerated per general surgery. Encouraged with activity. Diet: Clears. Okay to discharge from a hospitalist standpoint. GI Prophylaxis: Pantoprazole DVT Prophylaxis: SCD's. Lines: Peripheral Code Status: Full code Time Spent With Patient Time with patient: Greater than 35 minutes Subjective Date/time seen: 10/17/24 07:26 Interval history: Admitted for chronic cholecystitis and underwent Lap Lucia 3 days ago. Currently on LOW-FAT diet and advancement per general surgery. Her LISA appears to have resolved with IVF hydration and discontinued. Patient may discharge home from a hospitalist standpoint. Outpatient PT is ordered for patient Review of Systems Review of Systems: All systems reviewed & are unremarkable except as noted in HPI and below Exam Narrative: General: Elderly female, fair appearing, gen muscle weakness. HEENT: Atraumatic, PERRL, EOM, moist mucus membranes. NECK: Supple. HEART: RRR, no murmurs. Abdomen: Soft, mildly-tender to palpation, non-distended, +ve BS X4 quads, J-P drain intact R-upper abd with small clear drainage. Lap sites with Dermabond Extremities: No edema, acyanotic, +ve pedal and radial pulses. Skin: Warm and dry. No lesions noted. Neuro: Well oriented. CN II-XII grossly intact. Psych: Calm and co-operative. Const: General: comfortable and no acute distress Other: , female, nontoxic appearance HENMT: Face/Nose/Sinus: Normal nares present Other: Tacky mucous membranes Eyes: General: appearance normal, both eyes and all related structures Sclera: sclerae normal Pupils: Equal, round and reactive pupils present EOM: EOMs intact bilaterally Resp: Effort & Inspection: normal respiratory effort Auscultation: clear to auscultation bilaterally Cardio: Rate: regular rate Rhythm: regular rhythm Other: S1-S2 present without murmur, rub, ectopy GI: Other: Abdomen soft, nondistended, nontender. Normoactive bowel sounds in all quadrants. Skin: General skin exam: normal color and no rashes or lesions noted Wounds: no wounds Neuro: Cranial nerves: Yes Equal, round and reactive pupils present Speech: normal speech Motor exam (neuro): 5/5 motor strength present throughout Sensory Exam: normal sensation Other: A&O x3 Extrem: General: normal to inspection Psych: Mental Status: mental status grossly normal Affect: normal affect Other: Fair insight and judgment, pleasant Objective Data Vital Signs Vital Signs: Vital Signs - 24 hr 10/16/24 09:12 10/16/24 11:03 10/16/24 14:00 Temperature 98.2 F Pulse Rate 68 60 Respiratory Rate 14 Blood Pressure 96/76 L Pulse Oximetry 93 Oxygen Delivery Room Air 10/16/24 20:22 10/16/24 19:35 10/16/24 22:47 Temperature 98.6 F 98.1 F Pulse Rate 66 67 60 Respiratory Rate 18 18 Blood Pressure 143/85 H 151/62 H Pulse Oximetry 100 98 Oxygen Delivery 10/17/24 04:15 Temperature 98.2 F Pulse Rate 60 Respiratory Rate 16 Blood Pressure 149/60 H Pulse Oximetry 100 Oxygen Delivery Intake/Output Intake/Output: Intake & Output 10/14/24 10/15/24 10/16/24 10/17/24 23:59 23:59 23:59 23:59 Intake Total 1481.0 1960 2480 200 Output Total 215 115 250 30 Balance 1266.0 1845 2230 170 Meds/Results Medications: Active Medications Generic Name Dose Route Start Last Admin Trade Name Freq PRN Reason Stop Dose Admin Acetaminophen 1,000 mg 10/14/24 19:21 10/15/24 15:18 Acetaminophen 500 Mg Tablet PO 1,000 mg Q6H PRN Administration Mild Pain (1-3) or Fever Hydrocodone Bitart/Acetaminophen 1 tab 10/14/24 19:21 10/16/24 09:20 Hydrocodone/Acetaminophen (*Crx) 5-325 Mg Tablet PO 1 tab Q4H PRN Administration Pain Rated 4-6 Amlodipine Besylate 2.5 mg 10/13/24 09:00 10/16/24 09:12 Amlodipine Besylate 2.5 Mg Tablet PO 2.5 mg QAM VERENA Administration Anastrozole 1 mg 10/10/24 09:00 10/16/24 09:12 Anastrozole (*Chemo) 1 Mg Tablet PO 1 mg DAILY VERENA Administration Atorvastatin Calcium 20 mg 10/10/24 09:00 10/16/24 09:12 Atorvastatin 20 Mg Tablet PO 20 mg DAILY VERENA Administration Bisacodyl 10 mg 10/15/24 16:15 Bisacodyl 10 Mg Suppository RECTAL QAM PRN Constipation Dextrose 12.5 gm 10/09/24 15:46 Dextrose 50% 25 Gm/50 Ml Syringe IV PUSH PRN PRN Hypoglycemia Protocol Donepezil HCl 5 mg 10/09/24 21:00 10/16/24 20:22 Donepezil Hcl 5 Mg Tablet PO 5 mg QHS VERENA Administration Enoxaparin Sodium 30 mg 10/09/24 17:00 10/16/24 16:56 Enoxaparin 30 Mg/0.3 Ml Syringe SUB-Q 30 mg Q24H VERENA Administration Glucagon 1 mg 10/09/24 15:46 Glucagon For Inj 1 Mg Vial IM PRN PRN Hypoglycemia Protocol Glucose 15 gm 10/09/24 15:46 Glucose Oral Gel 15 Gm Of Glucse In 37.5 Gm Tube PO PRN PRN Hypoglycemia Protocol Dextrose 1,000 mls @ 100 mls/hr 10/09/24 15:46 Dextrose 5% 1,000 Ml IVPB PRN PRN Hypoglycemia Protocol Insulin Aspart 2 - 5 units 10/09/24 17:00 10/16/24 16:56 Insulin Aspart (*Bkc) 100 Units/Ml SUB-Q Not Given TIDWM [facility] Protocol Metoprolol Tartrate 50 mg 10/09/24 21:00 10/16/24 20:22 Metoprolol Tartrate 50 Mg Tab PO 50 mg Q12HR VERENA Administration Ondansetron HCl 4 mg 10/09/24 07:26 10/09/24 15:16 Ondansetron Inj 4 Mg/2 Ml Vial IV PUSH 4 mg Q6H PRN Administration Nausea And Vomiting Ondansetron HCl 4 mg 10/10/24 09:56 10/11/24 21:23 Ondansetron Hcl Odt 4 Mg Tablet PO 4 mg Q6H PRN Administration Nausea And Vomiting Oxycodone HCl 5 mg 10/14/24 19:21 Oxycodone Hcl (*Crx) 5 Mg Tab Ir PO Q4H PRN Pain Rated 7-10 Pantoprazole Sodium 40 mg 10/10/24 09:00 10/16/24 09:13 Pantoprazole 40 Mg Tablet PO 40 mg QAM VERENA Administration Radiology Results: ITS Impressions Renal Ultrasound 10/09/24 14:39 IMPRESSION: 1. Normal kidneys without hydronephrosis. Labs Labs: Laboratory Results - last 24 hr 10/16/24 10/16/24 10/16/24 08:43 11:55 16:43 POC Capillary Glucose 76 97 74 10/16/24 10/17/24 20:00 06:23 POC Capillary Glucose 100 74 Quality VTE Prophylaxis VTE prophylaxis: mechanical ordered Hospitalist [facility] Advance Care Plan I have confirmed that the patient's Advanced Care Plan is present, code status is documented, or surrogate decision maker is listed in patient medical record.: Yes Medication Reconciliation I have utilized all available resources to obtain, update and review the patients current medications (includes all prescriptions, OTC, herbals, cannabis, and nutritional supplements).: Yes
[2024-10-17 08:01] LABS: Glucose Point of Care 88 mg/dl (65-105)
[2024-10-17 08:03] VITALS: PULSE 80
[2024-10-17] MEDS: amLODIPine BESYLATE 2.5 MG TABLET PO (08:03)
[2024-10-17] MEDS: METOPROLOL TARTRATE 50 MG TAB PO (08:03)
[2024-10-17] MEDS: ANASTROZOLE (*CHEMO) 1 MG TABLET PO (08:03)
[2024-10-17] MEDS: ATORVASTATIN 20 MG TABLET PO (08:03)
[2024-10-17] MEDS: PANTOPRAZOLE 40 MG TABLET PO (08:03)
--- NOTE | 2024-10-17 11:21 | PCDIET ---
Physician consult for Calorie Count. Discussed with nursing today, calorie count has been initiated. Following.
[2024-10-17 11:27] LABS: Glucose Point of Care 108 mg/dl (65-105)
[2024-10-17 14:00] VITALS: BP 151/57; PULSE 58; RESP 18; TEMP 36.7; O2SAT 98
--- NOTE | 2024-10-17 16:24 | PM.DS ---
DS: Admitting Diagnosis Discharge Date 10/17/2024 Admitting Diagnosis Chronic cholecystitis with calculus Acute renal failure Mild cognitive impairment Diabetes type 2 Abnormal EKG DS: Discharge Diagnosis Discharge Diagnosis (1) Chronic cholecystitis with calculus: Code(s): K80.10 - Calculus of gallbladder with chronic cholecystitis without obstruction Status: Acute (2) Acute renal failure: Qualifiers: Acute renal failure type: unspecified Qualified Code(s): N17.9 - Acute kidney failure, unspecified Code(s): N17.9 - Acute kidney failure, unspecified Status: Acute (3) Hypokalemia: Code(s): E87.6 - Hypokalemia Status: Acute (4) Dementia: Code(s): F03.90 - Unspecified dementia, unspecified severity, without behavioral disturbance, psychotic disturbance, mood disturbance, and anxiety Status: Acute (5) Diabetes: Qualifiers: Diabetes mellitus complication status: without complication 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 Church with complaints of chronic nausea as well as poor p.o. intake. Her initial workup for this issue as an outpatient prior to being evaluated in the office included CT scan abdomen pelvis which showed cholelithiasis within a decompressed gallbladder and a HIDA scan which showed nonvisualization of gallbladder at 4hours. She did not have any complaints of pain or pain and so it was felt that she had chronic cholecystitis due to cholelithiasis leading to poor p.o. intake and her chronic nausea. She was set up to have a laparoscopic cholecystectomy on a semi elective basis. Her labs preoperatively showed normal white blood cell count but her creatinine historically been around 1.5 had elevated to 2.8. This may have been due to dehydration and poor p.o. intake. She also had a preoperative EKG which showed some changes but after discussion with Anesthesia because she was so symptomatic it was decided that proceeding with a laparoscopic cholecystectomy would be indicated in light of the minor EKG changes. However on presentation to the hospital for surgery, stat repeat BMP was performed showing further elevation of her creatinine to 3.6 and increase in her BUN. It was thought that she was in acute renal failure and her surgery was canceled for the morning and she was admitted to the hospital. This would also allow preoperative evaluation by Cardiology prior to proceeding with a cholecystectomy. Hospital Course: She was admitted for medical management of acute renal failure and Nephrology was consulted. Cardiology was also consulted due to EKG abnormalities for preoperative clearance. Cardiology recommended proceeding with a transthoracic echocardiogram, which was unremarkable, and they cleared her for surgery. Her LISA was treated with IV fluids and some of her home medications, including her Goran inhibitor and hydrochlorothiazide were held. Renal ultrasound was normal. It was felt she had volume depletion/prerenal azotemia. Her LISA I resolved and her creatinine came back down to baseline which was around 1.5. She was eventually cleared for surgery and underwent laparoscopic cholecystectomy on 10/14/2024. Surgery was straightforward and a MUKUND drain was monitored following surgery. No bilious output from the MUKUND drain, which was removed today. Her diet was slowly advanced. She did still have some complaints of nausea and vomiting postop day 2, but some of her complaints may be related to her dementia and being forgetful with when she was actually having nausea preoperatively. Nursing reports she had no issues with nausea or gagging yesterday or today. This morning, she denies any nausea. She still complained of right upper quadrant abdominal pain following surgery, but this has improved today and improved further after her MUKUND drain was removed. She is tolerating activity independently. She is tolerating a diet without any nausea or vomiting. Calorie count today showed that she is tolerating majority of her meal and sustaining enough oral intake for appropriate nutrition. Patient is now stable for discharge. Hospitalist agrees patient is stable for discharge and will be adjusting her home medications. Status at Discharge Functional status at discharge: independent ambulation Overall status at discharge: patient is progressing back to baseline Time Spent with Patient Time attestation: Total time spent providing and/or coordinating discharge services: Time spent: Greater than 30 minutes Exam Const: General: comfortable and no acute distress GI: Inspection: non-distended, incision (incisions dry and intact) and other (MUKUND drain with serous output, which I removed and gauze dressing applied) GI Palp: Yes Soft to palpation, Yes Tenderness to palpation present (GI) (incisional) and No Guarding due to palpation present (GI) Auscultation: normal bowel sounds Psych: Mental Status: mental status grossly normal Insight: Good insight present (Psych) DS: Data Data Completed and Pending Completed studies during hospitalization: Gallbladder, cholecystectomy: - Chronic cholecystitis with erosion of surface mucosa and cholelithiasis Labs on day of discharge: Labs from last 24 hours 10/17/24 10/17/24 10/17/24 11:23 07:57 06:23 POC Capillary Glucose 108 H 88 74 10/16/24 10/16/24 20:00 16:43 POC Capillary Glucose 100 74 Procedures/Treatments: Procedures Operation Date: 10/09/24 07:30 <No data on this case meets the specified criteria> Operation Date: 10/14/24 16:30 Actual Procedure Side Surgeon p Laparoscopic Cholecystectomy Jarrett Church MD Imaging Radiologist's impression: ITS Impressions Renal Ultrasound 10/09/24 14:39 IMPRESSION: 1. Normal kidneys without hydronephrosis. Discharge Plan Discharge Attending physician on discharge: Jarrett Church Consulting providers: Keron Cao; Ramses Gomez; Una Rubi; Lorraine Beauchamp; Carlos Veronica; Dilip Mao; Cindy Alvares; Ivan Pepe; Viraj Olvera Discharging Clinician: Marylu Taylor Anticipated Discharge Date/Time: 10/17/24 16:19 Patient Disposition: Home, Self-Care Activity: may shower, no straining, no driving and other - see discharge instructions Diet: low fat Wound Care Instructions: incision open to air and other - see discharge instructions Discharge Instructions: DISCHARGE INSTRUCTION SHEET FOR HERNIA, GALLBLADDER AND APPENDIX SURGERIES DR. CHURCH 1. May shower in 24 hours, no soaking in bath x 2weeks. You have gauze for your MUKUND drain was located. You may remove the gauze dressing tomorrow, 10/18/2024. Then you may shower overall incisions with mild soap and water daily. Apply a gauze dressing to the drain site for the next 3-4 days or until there is no longer any drainage. 2. Call office for: Wound increasingly painful or bleeding Vomiting Fever of greater than 101 degrees 3. If no bowel movement for three days, take 1 oz. (30 ml) Milk of Magnesia or MiraLax 17g 1 to 2 times daily. 4. No heavy lifting > 10-15 pounds x 2 weeks for laparoscopic cholecystectomy or appendectomy. 5. No driving for 3 days or while taking narcotic pain medications. 6. Ice to surgical site for 48 hours (30 min on, then 30 min off). 7. Up walking 10-30 minutes three times per day. 8. Resume previous home medications. 9. Follow-up with Dr. Church in 2 weeks. Call to schedule the appointment. [phone]) 10. Take Tylenol 500mg every 6 hours and Ibuprofen 600mg every 6 hours for the first 2 days, then as needed. Opioid pain medication was also sent electronically to the pharmacy to be taken only as needed for moderate to severe postoperative pain. 11. Gallbladders-Low Fat Diet for 2 weeks Patient Instructions: Antibiotic Form Stand Alone Forms: General Discharge Information Follow-up/Referrals: Jarrett Church MD [Physician] - 2 Weeks Discharge Medications: New hydrocodone-acetaminophen 5-325 mg Tablet 1 tablet PO Q6H PRN (Reason: Pain Rated 4-6) Qty: 7 0RF Continued pantoprazole 40 mg tablet,delayed release (DR/EC) 40 mg PO QAM hydrochlorothiazide 25 mg tablet 25 mg PO DAILY donepezil [Aricept] 5 mg tablet 5 mg PO QHS Qty: 90 4RF Rx Instructions: increase to 2 tablets after 1 month if no side effects metformin 500 mg tablet 500 mg PO DAILY anastrozole 1 mg tablet 1 mg PO DAILY atorvastatin 20 mg tablet 20 mg PO DAILY metoprolol tartrate 50 mg tablet 50 mg PO BID lisinopril 40 mg tablet 40 mg PO DAILY ondansetron 4 mg tablet,disintegrating 8 mg PO PRN PRN (Reason: Nausea) Other Ambulatory Orders: PT Outpatient Eval and Treat (ONCE) Timeframe: [id number] Location: Determined by Patient Ordered By: Kenya Olvera Date of admission: 10/09/24 07:26 Primary Care Provider: Reilly,Dvaid Matos Admitting Provider: Jarrett Church Attending physician on admission: Marylu Taylor Condition: Stable Quality VTE Prophylaxis VTE prophylaxis: mechanical ordered and pharmacologic ordered
== END 2024-10-17 16:50 | disposition home or self-care (01) | DRG 418 ==
LOC: ANH2MED 09:35
PROVIDERS: Internal Medicine Nephrology; Nurse Practitioner Adult Health; Student in an Organized Health Care Education/Training Program; Admitting Provider Surgery; PCP Internal Medicine; Visit Provider Nurse Practitioner Family
PROC: 0FT44ZZ Resection of Gallbladder, Percutaneous Endoscopic Approach (ICD-10-PCS; CPT 47562; principal; 2024-10-09 07:30)
DX: K80.11 Calculus of gallbladder with chronic cholecystitis with obstruction (principal); N17.9 Acute kidney failure, unspecified; K82.8 Other specified diseases of gallbladder; E83.42 Hypomagnesemia; E11.22 Type 2 diabetes mellitus with diabetic chronic kidney disease; E78.5 Hyperlipidemia, unspecified; F03.90 Unspecified dementia, unspecified severity, without behavioral disturbance, psychotic disturbance, mood disturbance, and anxiety; I12.9 Hypertensive chronic kidney disease with stage 1 through stage 4 chronic kidney disease, or unspecified chronic kidney disease; N18.32 Chronic kidney disease, stage 3b; R94.31 Abnormal electrocardiogram [ECG] [EKG]; Z85.3 Personal history of malignant neoplasm of breast; Z92.3 Personal history of irradiation; Z87.891 Personal history of nicotine dependence
CPT/HCPCS: 36415; 76775; 80048; 80053; 80076; 81001; 81050; 82150; 82550; 82570; 82948; 83036; 83690; 83735; 84100; 84156; 84300; 84540; 85025; 85610; 85730; 85999; 86850; 86900; 86901; 88304; 93005; 97161; 97165; A9270; C8929; J0690; J1100; J1650; J1885; J2003; J2004; J2371; J2405; J2704; J3010; J3475; J7030; J7042; J7120; Q9957

== ENCOUNTER 2024-11-20 15:43 | Inpatient (IN) | payer MEDICARE, SELFPAY ==
[2024-11-20] VITALS (21 sets, daily range): BP systolic 82–146; BP diastolic 41–124; PULSE 70–79; RESP 15–20; TEMP 36.4; O2SAT 96–100; BMI 23.2
--- NOTE | ~2024-11-20 | CT_ITS ---
EXAMINATION: CT abdomen pelvis wo con DATE: 11/20/2024 17:13 INDICATION: Abdominal pain. Hypertension. Weakness. TECHNIQUE: Computed tomography (CT) of the abdomen and pelvis was performed without intravenous contr ast. Automated exposure control and iterative reconstruction technique were employed. The dose-length product was 463.41 mGy-cm. COMPARISON: CT abdomen and pelvis 09/20/2024 FINDINGS: The visualized portions of the lung bases demonstrate mild atelectasis. No pleural effusion . The heart size is normal. There are coronary artery calcifications. No pericardial effusion. There is mild intrahepatic bile duct dilatation, likely secondary to cholecystectomy. The spleen, pancreas, adrenal glands, and kidneys are normal. There are no dilated loops of bowel. The appendix is normal. There is diverticulosis of the colon. There is mild fat stranding adjacent to the descending colon, consistent with diverticulitis. There is no free intraperitoneal fluid. There is moderate lumbar spon dylosis. There are bridging endplate osteophytes at multiple levels in the spine, consistent with dif fuse idiopathic skeletal hyperostosis (DISH). IMPRESSION: 1. Mild diverticulitis of descending colon. No perforation or abscess. Reviewed, dictated and finalized at location A. CENTER MANAGER
--- NOTE | ~2024-11-20 | US_ITS ---
EXAMINATION: US renal BI DATE: 11/21/2024 08:22 INDICATION: Acute kidney injury. TECHNIQUE: Multiple ultrasound grayscale images of the kidneys were obtained. COMPARISON: CT abdomen and pelvis 11/20/24, 09/20/2024 FINDINGS: The right kidney measures 7.8 x 4.1 x 4.6 cm. The left kidney measures 10.0 x 4.9 x 5.4 cm. The kidne ys demonstrate normal parenchymal echogenicity. There is no hydronephrosis. The bladder demonstrates focal thickening of the left posterior wall. IMPRESSION: 1. Mild atrophy of right kidney. No hydronephrosis. 2. Focal thickening of the left posterior wall of the bladder suspicious for urothelial carcinoma. Reviewed, dictated and finalized at location A. DRYING MACHINE OPERATOR IMPRESSION: 1. Mild atrophy of right kidney. No hydronephrosis. 2. Focal thickening of the left posterior wall of the bladder suspicious for ur othelial carcinoma.
--- NOTE | ~2024-11-20 | CT_ITS ---
CT brain wo con Ordering provider: Howard Sanford MD History: 83 years Female with . weakness . Comparison: None. Technique: CT of the head without contrast. Radiation reduction technique utilized. The dose-length product was 529.67 mGy-cm. FINDINGS: BRAIN PARENCHYMA AND CSF SPACES: Mild leukoaraiosis and diffuse cortical atrophy. Mild atheromatous d isease. Bilateral basal ganglia lacunar infarcts. No midline shift, mass effect or hemorrhage. The b rain parenchyma and CSF spaces are otherwise normal. Empty sella turcica. VISUALIZED PARANASAL SINUSES: left sphenoid and maxillary sinus disease. MASTOIDS: Well aerated. BONES: The bones appear intact. SOFT TISSUES: Visualized nasopharynx is normal. Superficial soft tissues are normal. IMPRESSION: No acute intracranial findings. Reviewed, dictated and finalized at location A. OWS SERVER ARCHITECT
--- NOTE | ~2024-11-20 | XR_ITS ---
EXAMINATION: XR chest 1V portable DATE: 11/20/2024 16:31 INDICATION: Weakness. TECHNIQUE: A single frontal view of the chest was obtained. COMPARISON: CT abdomen and pelvis 09/20/2024 FINDINGS: There is no pneumonia, pleural effusion, or pneumothorax. The heart size is normal. There a re prominent pericardial fat pads. There are surgical clips in left axilla. IMPRESSION: 1. No acute cardiopulmonary disease. Reviewed, dictated and finalized at location A. TIVE PHYSICAL EDUCATION TEACHER
--- NOTE | 2024-11-20 15:52 | ECG_ITS ---
Test Date: 2024-11-20 16:00:16 Measurements Intervals [place] Rate: 75 P: 66 LA: 269 QRS: 71 QRSD: 75 T: 157 QT: 351 QTc: 392 Interpretive Statements SINUS RHYTHM WITH FIRST DEGREE AV BLOCK ST DEVIATION AND MODERATE T-WAVE ABNORMALITY, CONSIDER ANTEROLATERAL ISCHEMIA [-0.1+ mV T WAVE IN V3-V6] Compared to ECG 10/07/2024 15:12:08 Myocardial infarct finding no longer present T-wave abnormality still present Possible ischemia still present Electronically Signed On 11-21-2024 16:29:11 JAMMER HOOKER by Buzz Limon M.D.
[2024-11-20 16:01] LABS: Glucose Point of Care 97 mg/dl (65-105)
[2024-11-20 16:35] LABS: Basophils Percent Auto 0.3 % (0.2-1.2); Eosinophils Absolute Auto 0.2 K/mm3 (0-0.3); Eosinophils Percent Auto 3.2 % (0-4.4); Hematocrit 34.7 % (37.0-47.0); Hemoglobin 11.4 g/dL (12.0-15.0); Immature Granulocyte Absolute 0.02 K/mm3 (0.00-0.031); Immature Granulocyte Percent A 0.3 % (0-0.5); Lymphocytes Absolute Auto 2.14 K/mm3 (0.9-3.2); Lymphocytes Percent Auto 29.6 % (18.3-44.2); Mean Corpuscular HGB Conc 32.9 g/dl (32-36); Mean Corpuscular Hemoglobin 31.1 pg (26-34); Mean Corpuscular Volume 94.6 fl (80-100); Mean Platelet Volume 11.1 fl (7.4-10.4); Monocytes Absolute Auto 0.7 K/mm3 (0.1-0.6); Monocytes Percent Auto 9.4 % (2.6-8.5); Neutrophils Absolute Auto 4.1 K/mm3 (1.3-6.7); Neutrophils Percent Auto 57.2 % (45.5-73.1); Platelet Count Result 216 k/mm3 (150-375); Red Blood Count 3.67 M/mm3 (4.2-5.4); Red Cell Distribution Width 12.9 % (11.5-14.5); White Blood Count 7.2 K/mm3 (4.5-10.0)
--- NOTE | 2024-11-20 16:35 | PC.NURSE ---
This RN continued EMS initiated IV fluids of NS bolus, 1 L, due to pt hypotensive. Family at beside. Pt on tele monitor.
[2024-11-20] MEDS: LACTATED RINGERS 500 ML 999 ML IV CONT ×2 (16:43→17:50)
--- NOTE | 2024-11-20 16:43 | PC.NURSE ---
This RN noted at time of continuing NS, the fluids are LR. This RN cancelled order for NS and ordered LR as initiated per EMS in route.
[2024-11-20 16:48] LABS: Add Urine Microscopic? YES; Appearance Urine Cloudy (Clear); Bacteria Urine 4+ /hpf; Bilirubin Urine Negative (Negative); Blood Urine Trace (Negative); Color Urine Yellow (Yellow); Glucose Urine UA Negative (Negative); Hyaline Casts Urine Present /lpf; Ketones Urine Trace mg/dL (Negative); Leukocyte Esterase Ur 3+ LEU/UL (Negative); Nitrate Urine Negative (Negative); Protein Urine 1+ mg/dL (Negative); RBC Urine 0-2 /hpf (0-2); Specific Grav Ur 1.018 (1.001-1.035); Squamous Epithelial Cell Urine None Seen /hpf (Few); WBC Urine >100 /hpf (0-3); pH Urine 5.5 (5.0-9.0)
[2024-11-20 16:54] LABS: Alanine Aminotransferase 13 U/L (6-35); Albumin Level 3.7 g/dL (3.5-5.1); Alkaline Phosphatase 86 U/L (38-126); Anion Gap 8 mmol/L (4-12); Aspartate Amino Transferase 15 U/L (14-36); Bilirubin,Total 0.7 mg/dL (0.2-1.3); Blood Urea Nitrogen 66 mg/dL (7-17); Carbon Dioxide 23 mmol/L (22-30); Chloride 104 mmol/L (98-107); Estimated CRCL calculation 6 ml/min; Estimated Glomerular Filt Rate 7; Glucose 92 mg/dL (65-110); Potassium 5.7 mmol/L (3.4-5.0); Sodium 135 mmol/L (137-145)
--- NOTE | 2024-11-20 16:56 | ED_ITS ---
HPI - Weakness General Chief complaint: Weakness Stated complaint: Not eating/drinking, lethargic, bed bound Time Seen by Provider: 11/20/24 16:26 History of Present Illness HPI Narrative: 83-year-old female with a past medical history including dementia, hypertension, CKD, recent admission to the hospital for chronic cholecystitis status post laparoscopic cholecystectomy. Patient went home before Priscila and had a follow-up appoint with her surgeon on the . Patient and family are present at bedside. Family states that she has not been eating or drinking these last 2 weeks and slowly declining from a functional standpoint. Office visit from General surgery prior to the knee your states that patient was complaining of decreased p.o. intake but was otherwise doing well postoperatively. Patient herself states that she is thirsty, having abdominal pain with palpation but denies any shortness of breath, chest pain, nausea or vomiting. Family states that she lives alone and they visit her daily. They state that patient has also had a productive cough for the last several days. Patient is DNR and the power of transactional attorney is present at bedside. Related Data Home Medications ?Medication ?Instructions ?Recorded ?Confirmed ?Last Taken ?Type anastrozole 1 mg tablet 1 mg PO DAILY 06/29/24 11/12/24 Unknown History atorvastatin 20 mg tablet 20 mg PO DAILY 06/29/24 11/12/24 Unknown History lisinopril 40 mg tablet 40 mg PO DAILY 06/29/24 11/12/24 Unknown History metformin 500 mg tablet 500 mg PO DAILY 06/29/24 11/12/24 Unknown History metoprolol tartrate 50 mg tablet 50 mg PO BID 06/29/24 11/12/24 10/09/24 06:00 History hydrochlorothiazide 25 mg tablet 25 mg PO DAILY 10/01/24 11/12/24 Unknown History pantoprazole 40 mg tablet,delayed 40 mg PO QAM 10/01/24 11/12/24 Unknown History release ondansetron 4 mg disintegrating 8 mg PO PRN PRN Nausea 10/02/24 11/12/24 Unknown History tablet Allergies Allergy/AdvReac Type Severity Reaction Status Date / Time No Known Allergies Allergy Verified 11/12/24 09:28 Review of Systems 2 Review of Systems: As reviewed above in HPI [facility] Past Medical History Medical History Chronic kidney disease MCI (mild cognitive impairment) Toxic metabolic encephalopathy Breast cancer s/p on mastectomy and radiation Eczema Diabetes GERD (gastroesophageal reflux disease) Hyperlipidemia Migraine Dementia Anxiety HTN (hypertension) Surgical History Surgical History History of laparoscopic cholecystectomy 10/14/24 History of mastectomy Family History Family History Mother Heart disease Social History Social History Smoking packs per day: 1 Smoking cigarettes per day: 20.0 Years smoked: 20 Smoking pack-years: 20.00 Smoking status: Former smoker Alcohol intake: never Substance use: never Substance use type: does not use Do You Feel Safe in your Home?: Yes Lack of Transportation: No Lack of Food: Never True Current Housing: I Have Housing Concerned About Future Housing: No Difficulty Paying Gas/Electric Bills: No Difficulty Paying for Meds: No Currently Unemployed: No Education: High School Diploma/GED Difficulty w/ Childcare or Family Care: No Living arrangements: alone Spiritual care concerns: No Exam 2 Narrative: GENERAL: Chronically ill-appearing but not any acute distress HEAD: [Normocephalic, atraumatic.] EYES: [PERRLA and EOMI.] ENT: Nares clear, no rhinorrhea or epistaxis. Mucous membranes dry. NECK: Supple. CHEST: [Clear to auscultation. No respiratory distress.] HEART: [Regular rate and rhythm]. No murmur heard. [Normal peripheral pulses.] ABDOMEN: [Soft, nondistended], mildly tender in left lower quadrant of the abdomen, no signs of peritonitis, [No rigidity or guarding] EXTREMITIES: Normal range of motion. [No edema.] SKIN: Warm, dry, no rash. NEURO: [No focal deficits]. Alert and oriented [x3.] PSYCH: [Normal mood and affect.] Course Vital Signs Vital signs: Vital Signs Temperature 36.4 C L 11/20/24 15:42 Pulse Rate 75 11/20/24 15:42 Respiratory Rate 19 11/20/24 15:42 Blood Pressure 90/49 L 01/08/25 15:42 Pulse Oximetry 100 11/20/24 15:42 Oxygen Delivery Room Air 11/20/24 15:42 Temperature 36.4 C L 11/20/24 15:42 Pulse Rate 76 11/20/24 21:23 Respiratory Rate 16 11/20/24 21:23 Blood Pressure 99/46 L 11/20/24 21:23 Pulse Oximetry 100 11/20/24 21:23 Oxygen Delivery Room Air 11/20/24 15:42 MDM - Weakness MDM Narrative Medical decision making narrative: 83-year-old female with a past medical history including dementia, hypertension, chronic cholecystitis status post lap choly at the end of last year. She presents from home accompanied by 2 of her family members and power of transactional attorney. Patient has had failure to thrive at home and not eating or drinking as much for the last week. She has had diarrhea for last week with loose watery stools. Patient herself states she is having some abdominal pain but no present nausea or vomiting. She has some focal tenderness in left lower quadrant of her abdomen. She is hypotensive with a blood pressure 90/49, no tachycardia, fever or hypoxia. She is chronically ill-appearing but not any acute distress. Considerations presently are for failure to thrive, infectious process such as diverticulitis, urinary tract infection, appendicitis or any kind of abscess formation status post her surgery. Sepsis is also suspicious based on her hypotension and dehydration. I spoke directly with the family members and the power of transactional attorney who made me aware that patient is DNR, DNI, does not want to be put on dialysis, but would be okay with invasive procedures such as line placement in the event she needs any kind of pressors. Workup was ordered this time including a CBC, CMP, COVID fluid RSV swabs, urinalysis with straight catheterization, troponin, EKG, chest x-ray, CT of the abdomen pelvis with contrast, rehydration with 1 L LR bolus. She also received 1 L normal saline from triage. CT of the head was ordered for weakness. Workup reveals no leukocytosis, hemoglobin 11.4 which is in line with previous levels, normal platelet level. Electrolyte panel shows potassium 5.7, BUN and creatinine are elevated with BUN 66 and creatinine 5.84 indicative of acute renal failure compared to her previous levels just last month. She has an elevated calcium of 12.0 also likely secondary dehydration. Negative initial and repeat troponin at 0.015. CMP within normal limits, negative lactic acid of 1.5. Urinalysis shows evidence of florid urinary tract infection. Negative COVID fluid RSV swabs. CT IMPRESSION: 1. Mild diverticulitis of descending colon. No perforation or abscess CT of the head shows no acute intracranial process, chest x-ray shows no acute cardiopulmonary disease. EKG shows some T-wave inversions in the lateral precordial leads V4 through V6 however on comparison the previous EKGs in our system these are chronic and not acute evidence of any ischemia. Patient was started on ciprofloxacin and metronidazole to cover both her diverticulitis and urinary tract infection. Her potassium was treated with calcium, bicarb, sodium zirconium. Patient's family reiterated that she would not want any kind dialysis or any renal replacement therapy and we will treat this medically. At this time we will admit the patient to the hospital for continued evaluation and treatment. I spoke to the hospitalist team currently being covered by the midlevel provider [place]. We went over patient's care plan, clinical assessment, plan for antibiotics and blood cultures and she has already received appropriate fluid resuscitation with greater than 2 L, improved vital signs and blood pressures, no tachycardia or fever. I made the team aware of her DNR, DNI status and she was safely admitted at this time. Medical Records Attestation: I reviewed the patient's medical records. Lab Data Attestation: I reviewed the patient's lab results. 11/20/24 16:25 11/20/24 16:25 Labs: Lab Results 11/20/24 11/20/24 11/20/24 Range/Units 15:56 16:23 16:24 WBC (4.5-10.0) K/mm3 RBC (4.2-5.4) M/mm3 Hgb (12.0-15.0) g/dL Hct (37.0-47.0) % MCV (80-100) fl MCH (26-34) pg MCHC (32-36) g/dl RDW (11.5-14.5) % Plt Count (150-375) k/mm3 MPV (7.4-10.4) fl Immature Gran % (Auto) (0-0.5) % Neut % (Auto) (45.5-73.1) % Lymph % (Auto) (18.3-44.2) % Cecil % (Auto) (2.6-8.5) % Eos % (Auto) (0-4.4) % Baso % (Auto) (0.2-1.2) % Lymph # (Auto) (0.9-3.2) K/mm3 Cecil # (Auto) (0.1-0.6) K/mm3 Eos # (Auto) (0-0.3) K/mm3 Baso # (Auto) (0.0-0.1) K/mm3 Abs Immat Gran (auto) (0.00-0.031) K/mm3 Absolute Neuts (auto) (1.3-6.7) K/mm3 Absolute Nucleated RBC (0.0-0.012) K/mm3 Nucleated RBC % (0.0-0.2) % Sodium (137-145) mmol/L Potassium (3.4-5.0) mmol/L Chloride (98-107) mmol/L Carbon Dioxide (22-30) mmol/L Anion Gap (4-12) mmol/L BUN (7-17) mg/dL Creatinine (0.7-1.0) mg/dL Estim Creat Clear Calc ml/min Estimated GFR (59 - ) Glucose (65-110) mg/dL POC Capillary Glucose 97 (65-105) mg/dl Calcium (8.4-10.2) mg/dL Total Bilirubin (0.2-1.3) mg/dL AST (14-36) U/L ALT (6-35) U/L Alkaline Phosphatase (38-126) U/L Troponin I 0.015 (0.000-0.034) ng/mL Total Protein (6.3-8.2) g/dL Albumin (3.5-5.1) g/dL Urine Color Yellow (Yellow) Urine Appearance Cloudy H (Clear) Urine pH 5.5 (5.0-9.0) Ur Specific [place] 1.018 (1.001-1.035) Urine Protein 1+ H (Negative) mg/dL Urine Glucose (UA) Negative (Negative) mg/dL Urine Ketones Trace H (Negative) mg/dL Ur Blood (Man) Trace (Negative) Urine Nitrate Negative (Negative) Urine Bilirubin Negative (Negative) Urine Urobilinogen 1.0 (<2.0) mg/dL Leukocyte Esterase Rfl 3+ H (Negative) ERICKA/UL Urine RBC 0-2 (0-2) /hpf Urine WBC >100 H (0-3) /hpf Ur Squamous Epith Cells None seen (Few) /hpf Urine Bacteria 4+ H /hpf Urine Casts 11-20 Hyaline Casts Present (None) /lpf Influenza A (RT-PCR) (Negative) Influenza B (RT-PCR) (Negative) RSV (RT-PCR) (Negative) SARS-CoV-2 RNA (RT-PCR) (Negative) 11/20/24 Range/Units 16:25 WBC 7.2 (4.5-10.0) K/mm3 RBC 3.67 L (4.2-5.4) M/mm3 Hgb 11.4 L (12.0-15.0) g/dL Hct 34.7 L (37.0-47.0) % MCV 94.6 (80-100) fl MCH 31.1 (26-34) pg MCHC 32.9 (32-36) g/dl RDW 12.9 (11.5-14.5) % Plt Count 216 (150-375) k/mm3 MPV 11.1 H (7.4-10.4) fl Immature Gran % (Auto) 0.3 (0-0.5) % Neut % (Auto) 57.2 (45.5-73.1) % Lymph % (Auto) 29.6 (18.3-44.2) % Cecil % (Auto) 9.4 H (2.6-8.5) % Eos % (Auto) 3.2 (0-4.4) % Baso % (Auto) 0.3 (0.2-1.2) % Lymph # (Auto) 2.14 (0.9-3.2) K/mm3 Cecil # (Auto) 0.7 H (0.1-0.6) K/mm3 Eos # (Auto) 0.2 (0-0.3) K/mm3 Baso # (Auto) 0.0 (0.0-0.1) K/mm3 Abs Immat Gran (auto) 0.02 (0.00-0.031) K/mm3 Absolute Neuts (auto) 4.1 (1.3-6.7) K/mm3 Absolute Nucleated RBC 0.000 (0.0-0.012) K/mm3 Nucleated RBC % 0.0 (0.0-0.2) % Sodium 135 L (137-145) mmol/L Potassium 5.7 H (3.4-5.0) mmol/L Chloride 104 (98-107) mmol/L Carbon Dioxide 23 (22-30) mmol/L Anion Gap 8 (4-12) mmol/L BUN 66 H D (7-17) mg/dL Creatinine 5.84 H (0.7-1.0) mg/dL Estim Creat Clear Calc 6 ml/min Estimated GFR 7 L (59 - ) Glucose 92 (65-110) mg/dL POC Capillary Glucose (65-105) mg/dl Calcium 12.0 H (8.4-10.2) mg/dL Total Bilirubin 0.7 (0.2-1.3) mg/dL AST 15 (14-36) U/L ALT 13 (6-35) U/L Alkaline Phosphatase 86 (38-126) U/L Troponin I (0.000-0.034) ng/mL Total Protein 7.0 (6.3-8.2) g/dL Albumin 3.7 (3.5-5.1) g/dL Urine Color (Yellow) Urine Appearance (Clear) Urine pH (5.0-9.0) Ur Specific [place] (1.001-1.035) Urine Protein (Negative) mg/dL Urine Glucose (UA) (Negative) mg/dL Urine Ketones (Negative) mg/dL Ur Blood (Man) (Negative) Urine Nitrate (Negative) Urine Bilirubin (Negative) Urine Urobilinogen (<2.0) mg/dL Leukocyte Esterase Rfl (Negative) ERICKA/UL Urine RBC (0-2) /hpf Urine WBC (0-3) /hpf Ur Squamous Epith Cells (Few) /hpf Urine Bacteria /hpf Urine Casts Hyaline Casts (None) /lpf Influenza A (RT-PCR) Negative (Negative) Influenza B (RT-PCR) Negative (Negative) RSV (RT-PCR) Negative (Negative) SARS-CoV-2 RNA (RT-PCR) Negative (Negative) Imaging Data Attestation: I personally reviewed and interpreted this imaging study as follows: My impression: Impressions Chest X-Ray 01/08/25 16:34 IMPRESSION: 1. No acute cardiopulmonary disease. Head CT 11/20/24 17:14 IMPRESSION: No acute intracranial findings. Abdomen/Pelvis CT 11/20/24 17:18 IMPRESSION: 1. Mild diverticulitis of descending colon. No perforation or abscess. ECG Data EKG #1: Attestation: I personally reviewed and interpreted this ECG as follows: ECG completion date: 11/20/24 ECG completion time: 16:00 Prior ECG tracings: available for review Interpretation: Diffuse T-wave flattening and T-wave inversions in the lateral precordial leads V3 through V6. QTC of 392, QRS 75, CT interval slightly prolonged 269 milliseconds. Overall sinus rhythm with first-degree block. Compared to previous EKGs the lateral T-wave inversions are chronic and not acute. Critical Care Time Critical Care Time Critical Care Time: Yes Total Critical Care Time: 65 Discharge Plan Discharge Clinical Impression: Sepsis, Acute hyperkalemia, Diverticulitis, Urinary tract infection, Acute dehydration, Adult failure to thrive Acute renal failure Qualifiers: Acute renal failure type: unspecified Qualified Code(s): N17.9 - Acute kidney failure, unspecified Patient Disposition: Still a Patient Condition: Serious Time of Disposition: 18:46
[2024-11-20 17:14] LABS: Influenza A QL RT-PCR Negative (Negative); Influenza B QL RT-PCR Negative (Negative); RSV RNA, RT-PCR Negative (Negative); SARS-CoV-2 RNA PCR Negative (Negative)
[2024-11-20 17:23] LABS: Troponin I 0.015 ng/mL (0.000-0.034)
[2024-11-20] MEDS: SODIUM BICARBONATE 8.4% 50 MEQ/50 ML SYRINGE IV PUSH (18:39)
[2024-11-20] MEDS: CALCIUM GLUCONATE 1,000 MG/10 ML VIAL 1000 MG IV PUSH (18:40)
[2024-11-20] MEDS: SODIUM ZIRCONIUM CYCLOSILICATE 10 GM POWD.PACK PO (18:52)
[2024-11-20] MEDS: metroNIDAZOLE 500 MG/ISO 100ML 500 MG/100 ML BAG 100 MG IVPB (18:56)
[2024-11-20 19:53] LABS: Lactic Acid Reflex 1.5 mmol/L (0.7-2.0)
[2024-11-20 20:07] LABS: Troponin I 0.015 ng/mL (0.000-0.034)
[2024-11-20] MEDS: CIPROFLOXACIN 400 MG/D5W 200ML 200 ML 200 MG IVPB (20:07)
--- NOTE | 2024-11-20 20:26 | P.HP_ITS ---
H&P: HPI History of Present Illness Date/Time: 11/20/24 20:26 Chief Complaint: Generalized weakness Narrative: This is an 83-year-old female with past medical history significant for hypertension, chronic kidney disease, breast CA, GERD, dyslipidemia, dementia. Patient with recent cholecystectomy complicated with intra-abdominal abscesses. Patient is brought to the emergency room from home due to altered mental status for the last day or so patient in the last 2 weeks has had poor per orally intake and overall very weak. Patient unable to provide any meaningful history which has been obtained from daughters who are sitting at bedside. Preliminary workup was significant for a sodium of 135, creatinine 5.8 BUN is 66 urinalysis significant for numerous WBCs present. Patient ruled out for influenza type A influenza type B COVID and RSV. CT of abdomen and pelvis showed mild diverticulitis and ureteral stricture. Patient has been admitted for further evaluation management and treatment. EXAMINATION: XR chest 1V portable DATE: 11/20/2024 16:31 INDICATION: Weakness. TECHNIQUE: A single frontal view of the chest was obtained. COMPARISON: CT abdomen and pelvis 09/20/2024 FINDINGS: There is no pneumonia, pleural effusion, or pneumothorax. The heart size is normal. There are prominent pericardial fat pads. There are surgical clips in left axilla. IMPRESSION: 1. No acute cardiopulmonary disease. CT brain wo con Ordering provider: Howard Sanford MD History: 83 years Female with . weakness . Comparison: None. Technique: CT of the head without contrast. Radiation reduction technique utilized. The dose-length product was 529.67 mGy-cm. FINDINGS: BRAIN PARENCHYMA AND CSF SPACES: Mild leukoaraiosis and diffuse cortical atrophy. Mild atheromatous disease. Bilateral basal ganglia lacunar infarcts. No midline shift, mass effect or hemorrhage. The brain parenchyma and CSF spaces are otherwise normal. Empty sella turcica. VISUALIZED PARANASAL SINUSES: left sphenoid and maxillary sinus disease. MASTOIDS: Well aerated. BONES: The bones appear intact. SOFT TISSUES: Visualized nasopharynx is normal. Superficial soft tissues are normal. IMPRESSION: No acute intracranial findings. EXAMINATION: CT abdomen pelvis wo con DATE: 11/20/2024 17:13 INDICATION: Abdominal pain. Hypertension. Weakness. TECHNIQUE: Computed tomography (CT) of the abdomen and pelvis was performed without intravenous contrast. Automated exposure control and iterative reconstruction technique were employed. The dose-length product was 463.41 mGy- cm. COMPARISON: CT abdomen and pelvis 09/20/2024 FINDINGS: The visualized portions of the lung bases demonstrate mild atelectasis. No pleural effusion. The heart size is normal. There are coronary artery calcifications. No pericardial effusion. There is mild intrahepatic bile duct dilatation, likely secondary to cholecystectomy. The spleen, pancreas, adrenal glands, and kidneys are normal. There are no dilated loops of bowel. The appendix is normal. There is diverticulosis of the colon. There is mild fat stranding adjacent to the descending colon, consistent with diverticulitis. Ther e is no free intraperitoneal fluid. There is moderate lumbar spondylosis. There are bridging endplate osteophytes at multiple levels in the spine, consistent with diffuse idiopathic skeletal hyperostosis (DISH). IMPRESSION: 1. Mild diverticulitis of descending colon. No perforation or abscess. [facility] Past Medical History Medical History Chronic kidney disease MCI (mild cognitive impairment) Toxic metabolic encephalopathy Breast cancer s/p on mastectomy and radiation Eczema Diabetes GERD (gastroesophageal reflux disease) Hyperlipidemia Migraine Dementia Anxiety HTN (hypertension) Surgical History Surgical History History of laparoscopic cholecystectomy 10/14/24 History of mastectomy Family History Family History Mother Heart disease Social History Social History Smoking packs per day: 1 Smoking cigarettes per day: 20.0 Years smoked: 20 Smoking pack-years: 20.00 Smoking status: Former smoker Alcohol intake: never Substance use: never Substance use type: does not use Do You Feel Safe in your Home?: Yes Lack of Transportation: No Lack of Food: Never True Current Housing: I Have Housing Concerned About Future Housing: No Difficulty Paying Gas/Electric Bills: No Difficulty Paying for Meds: No Currently Unemployed: No Education: High School Diploma/GED Difficulty w/ Childcare or Family Care: No Living arrangements: alone Spiritual care concerns: No Meds Home Medications and Allergies Home Medications ?Medication ?Instructions ?Recorded ?Confirmed ?Type anastrozole 1 mg tablet 1 mg PO DAILY 06/29/24 11/12/24 History atorvastatin 20 mg tablet 20 mg PO DAILY 06/29/24 11/12/24 History lisinopril 40 mg tablet 40 mg PO DAILY 06/29/24 11/12/24 History metformin 500 mg tablet 500 mg PO DAILY 06/29/24 11/12/24 History metoprolol tartrate 50 mg tablet 50 mg PO BID 06/29/24 11/12/24 History donepezil 5 mg tablet (Aricept) 5 mg PO QHS #90 tabs 08/16/24 11/12/24 Rx hydrochlorothiazide 25 mg tablet 25 mg PO DAILY 10/01/24 11/12/24 History pantoprazole 40 mg tablet,delayed 40 mg PO QAM 10/01/24 11/12/24 History release ondansetron 4 mg disintegrating 8 mg PO PRN PRN Nausea 10/02/24 11/12/24 History tablet hydrocodone 5 mg-acetaminophen 325 1 tablet PO Q6H PRN Pain Rated 4-6 10/17/24 11/12/24 Rx mg tablet #7 tabs Allergies Allergy/AdvReac Type Severity Reaction Status Date / Time No Known Allergies Allergy Verified 11/12/24 09:28 Vital Signs Vital Signs - 24 hr 11/20/24 15:42 11/20/24 15:49 11/20/24 15:53 Temperature 97.5 F L Pulse Rate 75 75 75 Respiratory Rate 19 17 19 Blood Pressure 90/49 L 90/49 L 86/48 L Pulse Oximetry 100 100 100 Oxygen Delivery Room Air 11/20/24 15:55 11/20/24 16:18 11/20/24 16:19 Temperature Pulse Rate 76 74 75 Respiratory Rate 18 15 Blood Pressure 146/124 H 104/54 L Pulse Oximetry 100 100 Oxygen Delivery 11/20/24 16:20 11/20/24 16:28 11/20/24 16:32 Temperature Pulse Rate 75 76 74 Respiratory Rate 15 18 19 Blood Pressure 104/54 L 90/41 L 82/46 L Pulse Oximetry 100 100 100 Oxygen Delivery 11/20/24 18:24 11/20/24 18:25 11/20/24 18:31 Temperature Pulse Rate 73 72 70 Respiratory Rate 17 19 17 Blood Pressure 108/52 L 108/52 L 102/48 L Pulse Oximetry 99 99 99 Oxygen Delivery 11/20/24 18:57 11/20/24 18:59 11/20/24 19:17 Temperature Pulse Rate 78 77 79 Respiratory Rate 18 18 18 Blood Pressure 115/52 L 115/52 L 94/63 L Pulse Oximetry 98 96 100 Oxygen Delivery 11/20/24 20:02 Temperature Pulse Rate 75 Respiratory Rate 19 Blood Pressure 97/48 L Pulse Oximetry 100 Oxygen Delivery Exam Narrative: Patient is laying in a stretcher Const: General: comfortable, no acute distress, well developed, ill appearing acutely, lethargic, patient obtunded, average body habitus and other (Appears dry) Nutritional Appearance: average body habitus Orientation/consciousness: oriented to person, patient obtunded and lethargic HENMT: Head: normal to inspection, normocephalic and atraumatic Ears: hearing grossly normal bilaterally Face/Nose/Sinus: normal facial exam Face and sinus: normal facial exam Eyes: General: appearance normal, both eyes and all related structures Pupils: Equal, round and reactive pupils present EOM: EOMs intact bilaterally Neck: Neck: full ROM, no lymphadenopathy and no JVD Thyroid: thyroid normal Lymphatic: no lymphadenopathy noted Resp: Effort & Inspection: normal respiratory effort and able to speak in complete sentences Auscultation: clear to auscultation bilaterally Cardio: Jugular venous distension: no JVD Rate: regular rate Rhythm: regular rhythm Heart sounds: S1 normal heart sound present and S2 normal heart sound present GI: Inspection: normal to inspection GI Palp: Yes Soft to palpation, Yes Tenderness to palpation present (GI) (Left lower quadrant) and Yes No hepato splenomegaly present : General: Yes deferred Skin: Rashes: no rashes Wounds: no wounds Neuro: General: patient oriented x3 and CN's II-XI intact bilaterally Cranial nerves: Yes CN's II-XII intact bilaterally and Yes Equal, round and reactive pupils present Cognition (Neuro): normal cognition Speech: normal speech Gait exam (Neuro): Normal gait present Motor exam (neuro): 5/5 motor strength present throughout Extrem: General: normal to inspection, full ROM, no joint enlargement and no pedal edema H&P: Results Labs Labs: Short CBC 11/20/24 Range/Units 16:25 WBC 7.2 (4.5-10.0) K/mm3 Hgb 11.4 L (12.0-15.0) g/dL Hct 34.7 L (37.0-47.0) % Plt Count 216 (150-375) k/mm3 BMP 11/20/24 16:25 Sodium 135 L Potassium 5.7 H Chloride 104 Carbon Dioxide 23 BUN 66 H D Creatinine 5.84 H Glucose 92 Calcium 12.0 H Cardiac Enzymes 11/20/24 11/20/24 Range/Units 16:23 19:35 Troponin I 0.015 0.015 (0.000-0.034) ng/mL Liver Function 11/20/24 Range/Units 16:25 Total Bilirubin 0.7 (0.2-1.3) mg/dL AST 15 (14-36) U/L ALT 13 (6-35) U/L Alkaline Phosphatase 86 (38-126) U/L Albumin 3.7 (3.5-5.1) g/dL Urine 11/20/24 Range/Units 16:24 Urine Color Yellow (Yellow) Urine Appearance Cloudy H (Clear) Urine pH 5.5 (5.0-9.0) Ur Specific [place] 1.018 (1.001-1.035) Urine Protein 1+ H (Negative) mg/dL Urine Glucose (UA) Negative (Negative) mg/dL Assessment and Plan Assessment and plan (1) Adult failure to thrive: Code(s): R62.7 - Adult failure to thrive Status: Acute Assessment and Plan: PT OT consult Likely secondary to acute illness (2) LISA (acute kidney injury): Code(s): N17.9 - Acute kidney failure, unspecified Status: Acute Assessment and Plan: Likely combination of prerenal azotemia and meds Will hold lisinopril Will hold hydrochlorothiazide (3) Stage 3b chronic kidney disease: Code(s): N18.32 - Chronic kidney disease, stage 3b Status: Chronic Assessment and Plan: BUN and creatinine worse Kidney ultrasound in the morning (4) Toxic metabolic encephalopathy: Code(s): G92.8 - Other toxic encephalopathy Status: Acute Assessment and Plan: Likely secondary to sepsis (5) Weakness: Code(s): R53.1 - Weakness Status: Acute Assessment and Plan: Likely secondary to acute illness (6) Urinary tract infection: Code(s): N39.0 - Urinary tract infection, site not specified Status: Acute Assessment and Plan: Patient is currently on ciprofloxacin and Flagyl (7) Diverticulitis: Code(s): K57.92 - Diverticulitis of intestine, part unspecified, without perforation or abscess without bleeding Status: Acute Assessment and Plan: Patient started on ciprofloxacin and Flagyl (8) Hyperkalemia: Code(s): E87.5 - Hyperkalemia Status: Acute Assessment and Plan: Patient receives sodium zirconium in emergency room Will repeat BMP Hospitalist MIPS Advance Care Plan I have confirmed that the patient's Advanced Care Plan is present, code status is documented, or surrogate decision maker is listed in patient medical record.: Yes Medication Reconciliation I have utilized all available resources to obtain, update and review the patients current medications (includes all prescriptions, OTC, herbals, cannabis, and nutritional supplements).: Yes
[2024-11-20] MEDS: LACTATED RINGERS 1,000 ML 125 ML IV CONT (21:10)
[2024-11-21] VITALS (17 sets, daily range): BP systolic 98–140; BP diastolic 41–96; PULSE 63–77; RESP 15–20; TEMP 36.4–36.9; O2SAT 98–100
--- NOTE | 2024-11-21 00:19 | ADMGEN ---
This patient, Jolene Mclean, was admitted to IMU Room 210-01. Patient/family oriented to hospital policies and general routines including ID bracelet, bed and alarms, visiting hours, pain management, procedures, bathroom and other care routines, personal items, smoking policy, room service/diet, and visiting hours. Information on how to activate the Rapid Response Team has been discussed. Patient/Family are encouraged to report perceived risks to care and to ask questions if they do not understand what they are told or what they should do.
[2024-11-21 07:28] LABS: Basophils Percent Auto 0.4 % (0.2-1.2); Eosinophils Absolute Auto 0.2 K/mm3 (0-0.3); Eosinophils Percent Auto 3.8 % (0-4.4); Hematocrit 32.5 % (37.0-47.0); Hemoglobin 10.8 g/dL (12.0-15.0); Immature Granulocyte Absolute 0.01 K/mm3 (0.00-0.031); Immature Granulocyte Percent A 0.2 % (0-0.5); Lymphocytes Absolute Auto 1.36 K/mm3 (0.9-3.2); Lymphocytes Percent Auto 24.9 % (18.3-44.2); Mean Corpuscular HGB Conc 33.2 g/dl (32-36); Mean Corpuscular Hemoglobin 31.3 pg (26-34); Mean Corpuscular Volume 94.2 fl (80-100); Mean Platelet Volume 11.4 fl (7.4-10.4); Monocytes Absolute Auto 0.4 K/mm3 (0.1-0.6); Monocytes Percent Auto 7.5 % (2.6-8.5); Neutrophils Absolute Auto 3.5 K/mm3 (1.3-6.7); Neutrophils Percent Auto 63.2 % (45.5-73.1); Platelet Count Result 178 k/mm3 (150-375); Red Blood Count 3.45 M/mm3 (4.2-5.4); Red Cell Distribution Width 12.9 % (11.5-14.5); White Blood Count 5.5 K/mm3 (4.5-10.0)
[2024-11-21 07:41] LABS: Anion Gap 9 mmol/L (4-12); Blood Urea Nitrogen 73 mg/dL (7-17); Calcium 11.4 mg/dL (8.4-10.2); Carbon Dioxide 24 mmol/L (22-30); Chloride 103 mmol/L (98-107); Estimated CRCL calculation 6 ml/min; Estimated Glomerular Filt Rate 7; Glucose 74 mg/dL (65-110); Potassium 5.6 mmol/L (3.4-5.0); Sodium 136 mmol/L (137-145)
[2024-11-21] MEDS: METOPROLOL TARTRATE 50 MG TAB PO ×2 (08:42→21:00)
[2024-11-21] MEDS: MIRTAZAPINE 15 MG TABLET PO (08:42)
[2024-11-21] MEDS: ANASTROZOLE (*CHEMO) 1 MG TABLET PO (08:43)
[2024-11-21] MEDS: PANTOPRAZOLE SODIUM IV 40 MG VIAL IV PUSH (08:43)
[2024-11-21] MEDS: metroNIDAZOLE 500 MG/ISO 100ML 500 MG/100 ML BAG 100 MG IVPB ×3 (08:44→22:50)
--- NOTE | 2024-11-21 09:52 | P.PNIM_ITS ---
Progress Note: A&P Assessment and Plan (1) Adult failure to thrive: Code(s): R62.7 - Adult failure to thrive Status: Acute (2) LISA (acute kidney injury): Code(s): N17.9 - Acute kidney failure, unspecified Status: Acute (3) Stage 3b chronic kidney disease: Code(s): N18.32 - Chronic kidney disease, stage 3b Status: Chronic (4) Acute dehydration: Code(s): E86.0 - Dehydration Status: Acute Plan Adult failure to thrive: Code(s): R62.7 - Adult failure to thrive Status: Acute Assessment and Plan: due to multiple comorbidities, is aggravated by acute illness LISA on CKD Stage 3b chronic kidney disease: Code(s): N18.32 - Chronic kidney disease, stage 3b Status: Chronic Assessment and Plan: Upon arrival, Creatinine 5.84, baseline creatinine 1.30 on October 13, 2024 Unclear etiology, Possibly resulting from UTI, dehydration, electrolyte abnormality Kidney ultrasound in the morning Patient is on lactated Ringer once 25 mL/hour Consult chemistry account manager for evaluation treatment Will hold lisinopril Will hold hydrochlorothiazide Toxic metabolic encephalopathy: Code(s): G92.8 - Other toxic encephalopathy Status: Acute Assessment and Plan: Likely secondary to sepsis Weakness: Code(s): R53.1 - Weakness Status: Acute Assessment and Plan: Physical deconditioning due to multiple comorbidities, exacerbated by acute illness including sepsis, UTI, dehydration, electrolyte abnormality PT OT consult Urinary tract infection: Code(s): N39.0 - Urinary tract infection, site not specified Status: Acute Assessment and Plan: Patient is currently on ciprofloxacin and Flagyl Diverticulitis: Code(s): K57.92 - Diverticulitis of intestine, part unspecified, without perforation or abscess without bleeding Status: Acute Assessment and Plan: Patient started on ciprofloxacin and Flagyl Hyperkalemia: Code(s): E87.5 - Hyperkalemia Status: Acute Assessment and Plan: Patient receives sodium zirconium in emergency room Will repeat BMP Subjective Date/time seen: 11/21/24 09:52 Interval history: I saw and examined patient today. Patient is confused, arousable, has no complaints, unable to answer questions. Currently blood pressure stable, soft, no O2 desaturation on room air Exam Narrative: GENERAL: Ill-appearing, in no acute distress. Well-nourished. - EYES: EOMI. Anicteric. - HENT: Dry mucous membranes. - LUNGS: Clear to auscultation bilateral ly, no wheezing, rhonchi, or rales. - CARDIOVASCULAR: Regular rate and rhyth m. No murmur. No JVD. - ABDOMEN: Soft, non-tender and non-dist ended. No palpable masses. - EXTREMITIES: No edema. Peripheral puls es 2+. Non-tender. - NEUROLOGIC: Moving all extremities - PSYCHIATRIC: Arousable, not oriented x 3. Appropriate mood and affect. - SKIN: No rashes or lesions. Warm. - LYMPH: No cervical lymphadenopathy. Objective Data Vital Signs Vital Signs: Vital Signs - 24 hr 11/20/24 15:42 11/20/24 15:49 11/20/24 15:53 Temperature 97.5 F L Pulse Rate 75 75 75 Respiratory Rate 19 17 19 Blood Pressure 90/49 L 90/49 L 86/48 L Pulse Oximetry 100 100 100 Oxygen Delivery Room Air 11/20/24 15:55 11/20/24 16:18 11/20/24 16:19 Temperature Pulse Rate 76 74 75 Respiratory Rate 18 15 Blood Pressure 146/124 H 104/54 L Pulse Oximetry 100 100 Oxygen Delivery 11/20/24 16:20 11/20/24 16:28 11/20/24 16:32 Temperature Pulse Rate 75 76 74 Respiratory Rate 15 18 19 Blood Pressure 104/54 L 90/41 L 82/46 L Pulse Oximetry 100 100 100 Oxygen Delivery 11/20/24 18:24 11/20/24 18:25 11/20/24 18:31 Temperature Pulse Rate 73 72 70 Respiratory Rate 17 19 17 Blood Pressure 108/52 L 108/52 L 102/48 L Pulse Oximetry 99 99 99 Oxygen Delivery 11/20/24 18:57 11/20/24 18:59 11/20/24 19:17 Temperature Pulse Rate 78 77 79 Respiratory Rate 18 18 18 Blood Pressure 115/52 L 115/52 L 94/63 L Pulse Oximetry 98 96 100 Oxygen Delivery 11/20/24 20:02 11/20/24 20:46 11/20/24 21:23 Temperature Pulse Rate 75 72 76 Respiratory Rate 19 18 16 Blood Pressure 97/48 L 99/46 L 99/46 L Pulse Oximetry 100 100 100 Oxygen Delivery 11/20/24 21:31 11/20/24 22:16 11/20/24 23:55 Temperature 97.5 F L Pulse Rate 72 71 73 Respiratory Rate 20 18 16 Blood Pressure 99/53 L 92/43 L 113/49 L Pulse Oximetry 99 98 98 Oxygen Delivery 11/21/24 00:00 11/21/24 00:00 11/21/24 02:00 Temperature Pulse Rate 73 70 Respiratory Rate Blood Pressure Pulse Oximetry Oxygen Delivery Room Air 11/21/24 04:00 11/21/24 04:00 11/21/24 04:00 Temperature 97.8 F Pulse Rate 68 68 Respiratory Rate 15 Blood Pressure 98/52 L Pulse Oximetry 98 Oxygen Delivery Room Air 11/21/24 06:00 11/21/24 07:54 11/21/24 08:42 Temperature 98.0 F Pulse Rate 66 68 77 Respiratory Rate 20 Blood Pressure 109/41 L Pulse Oximetry 99 Oxygen Delivery Intake/Output Intake/Output: Intake & Output 11/18/24 11/19/24 11/20/24 11/21/24 23:59 23:59 23:59 23:59 Intake Total 1612.5 120 Output Total 60 Balance 1552.5 120 Meds/Results Medications: Active Medications Generic Name Dose Route Start Last Admin Trade Name Freq PRN Reason Stop Dose Admin Acetaminophen 650 mg 11/20/24 18:46 Acetaminophen 325 Mg Tablet PO Q4H PRN Mild Pain (1-3) or Fever Anastrozole 1 mg 11/21/24 09:00 11/21/24 08:43 Anastrozole (*Chemo) 1 Mg Tablet PO 1 mg DAILY VERENA Administration Donepezil HCl 5 mg 11/21/24 21:00 Donepezil Hcl 5 Mg Tablet PO QHS VERENA Lactated Ringer's 1,000 mls @ 125 mls/hr 11/20/24 18:50 11/21/24 07:30 Lr - Lactated Ringers Iv IV CONT 125 mls/hr .Q8H VERENA Infusion Ciprofloxacin/Dextrose 200 mls @ 200 mls/hr 11/21/24 20:00 Cipro 400 Mg/D5w 200 Ml IVPB Q24H VERENA Metronidazole 500 mg in 100 mls @ 100 mls/hr 11/21/24 08:00 11/21/24 08:44 Flagyl 500 Mg/Iso Soln 100 Ml IVPB 100 mls/hr Q8HR VERENA Administration Metoprolol Tartrate 50 mg 11/21/24 09:00 11/21/24 08:42 Metoprolol Tartrate 50 Mg Tab PO 50 mg Q12HR VERENA Administration Mirtazapine 15 mg 11/21/24 09:00 11/21/24 08:42 Mirtazapine 15 Mg Tablet PO 15 mg DAILY VERENA Administration Ondansetron HCl 4 mg 11/20/24 18:46 Ondansetron Inj 4 Mg/2 Ml Vial IV PUSH Q4H PRN Nausea Pantoprazole Sodium 40 mg 11/21/24 09:00 11/21/24 08:43 Pantoprazole Sodium Iv 40 Mg Vial IV PUSH 40 mg QAM VERENA Administration Radiology Results: ITS Impressions Chest X-Ray 11/20/24 16:34 IMPRESSION: 1. No acute cardiopulmonary disease. Head CT 11/20/24 17:14 IMPRESSION: No acute intracranial findings. Abdomen/Pelvis CT 11/20/24 17:18 IMPRESSION: 1. Mild diverticulitis of descending colon. No perforation or abscess. Labs Labs: Laboratory Results - last 24 hr 11/20/24 11/20/24 11/20/24 15:56 16:23 16:24 WBC RBC Hgb Hct MCV MCH MCHC RDW Plt Count MPV Immature Gran % (Auto) Neut % (Auto) Lymph % (Auto) [place] % (Auto) Eos % (Auto) Baso % (Auto) Lymph # (Auto) [place] # (Auto) Eos # (Auto) Baso # (Auto) Abs Immat Gran (auto) Absolute Neuts (auto) Absolute Nucleated RBC Nucleated RBC % Sodium Potassium Chloride Carbon Dioxide Anion Gap BUN Creatinine Estim Creat Clear Calc Estimated GFR Glucose POC Capillary Glucose 97 Lactic Acid Calcium Total Bilirubin AST ALT Alkaline Phosphatase Troponin I 0.015 Total Protein Albumin Urine Color Yellow Urine Appearance Cloudy H Urine pH 5.5 Ur Specific [place] 1.018 Urine Protein 1+ H Urine Glucose (UA) Negative Urine Ketones Trace H Ur Blood (Man) Trace Urine Nitrate Negative Urine Bilirubin Negative Urine Urobilinogen 1.0 Leukocyte Esterase Rfl 3+ H Urine RBC 0-2 Urine WBC >100 H Ur Squamous Epith Cells None seen Urine Bacteria 4+ H Urine Casts 11-20 Hyaline Casts Present Influenza A (RT-PCR) Influenza B (RT-PCR) RSV (RT-PCR) SARS-CoV-2 RNA (RT-PCR) 11/20/24 11/20/24 11/21/24 16:25 19:35 06:55 WBC 7.2 RBC 3.67 L Hgb 11.4 L Hct 34.7 L MCV 94.6 MCH 31.1 MCHC 32.9 RDW 12.9 Plt Count 216 MPV 11.1 H Immature Gran % (Auto) 0.3 Neut % (Auto) 57.2 Lymph % (Auto) 29.6 [place] % (Auto) 9.4 H Eos % (Auto) 3.2 Baso % (Auto) 0.3 Lymph # (Auto) 2.14 [place] # (Auto) 0.7 H Eos # (Auto) 0.2 Baso # (Auto) 0.0 Abs Immat Gran (auto) 0.02 Absolute Neuts (auto) 4.1 Absolute Nucleated RBC 0.000 Nucleated RBC % 0.0 Sodium 135 L 136 L Potassium 5.7 H 5.6 H Chloride 104 103 Carbon Dioxide 23 24 Anion Gap 8 9 BUN 66 H D 73 H Creatinine 5.84 H 5.74 H Estim Creat Clear Calc 6 6 Estimated GFR 7 L 7 L Glucose 92 74 POC Capillary Glucose Lactic Acid 1.5 Calcium 12.0 H 11.4 H Total Bilirubin 0.7 AST 15 ALT 13 Alkaline Phosphatase 86 Troponin I 0.015 Total Protein 7.0 Albumin 3.7 Urine Color Urine Appearance Urine pH Ur Specific [place] Urine Protein Urine Glucose (UA) Urine Ketones Ur Blood (Man) Urine Nitrate Urine Bilirubin Urine Urobilinogen Leukocyte Esterase Rfl Urine RBC Urine WBC Ur Squamous Epith Cells Urine Bacteria Urine Casts Hyaline Casts Influenza A (RT-PCR) Negative Influenza B (RT-PCR) Negative RSV (RT-PCR) Negative SARS-CoV-2 RNA (RT-PCR) Negative 11/21/24 07:08 WBC 5.5 RBC 3.45 L Hgb 10.8 L Hct 32.5 L MCV 94.2 MCH 31.3 MCHC 33.2 RDW 12.9 Plt Count 178 MPV 11.4 H Immature Gran % (Auto) 0.2 Neut % (Auto) 63.2 Lymph % (Auto) 24.9 [place] % (Auto) 7.5 Eos % (Auto) 3.8 Baso % (Auto) 0.4 Lymph # (Auto) 1.36 [place] # (Auto) 0.4 Eos # (Auto) 0.2 Baso # (Auto) 0.0 Abs Immat Gran (auto) 0.01 Absolute Neuts (auto) 3.5 Absolute Nucleated RBC 0.000 Nucleated RBC % 0.0 Sodium Potassium Chloride Carbon Dioxide Anion Gap BUN Creatinine Estim Creat Clear Calc Estimated GFR Glucose POC Capillary Glucose Lactic Acid Calcium Total Bilirubin AST ALT Alkaline Phosphatase Troponin I Total Protein Albumin Urine Color Urine Appearance Urine pH Ur Specific [place] Urine Protein Urine Glucose (UA) Urine Ketones Ur Blood (Man) Urine Nitrate Urine Bilirubin Urine Urobilinogen Leukocyte Esterase Rfl Urine RBC Urine WBC Ur Squamous Epith Cells Urine Bacteria Urine Casts Hyaline Casts Influenza A (RT-PCR) Influenza B (RT-PCR) RSV (RT-PCR) SARS-CoV-2 RNA (RT-PCR)
--- NOTE | 2024-11-21 12:10 | P.CONNP_ITS ---
Assessment and Plan Assessment and plan (1) LISA (acute kidney injury): Code(s): N17.9 - Acute kidney failure, unspecified Status: Acute Assessment and Plan: * history would suggest prerenal azotemia/volume depletion * poor oral intake x 2 weeks if not longer * may have progress to ATN * this was likely complicated by ongoing SHELIA-I and HCTZ use as well * evaluation to date noted: * renal u/s with mild atrophy of right kidney and focal thickening of the left posterior wall of the bladder suspicious for urothelial carcinoma * UA suggest possible infection * urine studies pending * follow-up on urine studies * agree with trial of IVFs * 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 * follow trend of repeat labs and UOP (2) Stage 3b chronic kidney disease: Code(s): N18.32 - Chronic kidney disease, stage 3b Status: Chronic Assessment and Plan: * baseline creatinine seems to run ~ 1.3 - 1.4mg/dl * presumably due to hypertension, diabetes, vascular disease, and age-related change (3) Sepsis: Code(s): A41.9 - Sepsis, unspecified organism Status: Acute Assessment and Plan: * as suggested on admission with altered mental status, hypotension, and LISA * presumed source = diverticulitis +/- UTI * follow trend of hemodynamics * follow culture data * on antibiotics (4) Hyperkalemia: Code(s): E87.5 - Hyperkalemia Status: Acute Assessment and Plan: * as noted by admission labs * s/p medical management in the ER * follow trend of repeat K+ (5) Diverticulitis: Code(s): K57.92 - Diverticulitis of intestine, part unspecified, without perforation or abscess without bleeding Status: Acute Assessment and Plan: * as noted by admission CT of A/P * follow cultures * on antibiotics (6) Urinary tract infection: Code(s): N39.0 - Urinary tract infection, site not specified Status: Acute Assessment and Plan: * admission UA somewhat suggestive * follow culture data * on antibiotics (7) Adult failure to thrive: Code(s): R62.7 - Adult failure to thrive Status: Acute Assessment and Plan: * recurrent issue/problem as noted by multiple hospitalizations * suspect due to progression of underlying dementia (8) HTN (hypertension): Qualifiers: Hypertension type: primary hypertension Qualified Code(s): I10 - Essential (primary) hypertension Code(s): I10 - Essential (primary) hypertension Status: Chronic Assessment and Plan: * soft on admission * holding HCTZ and lisinopril given #1 * follow trend of hemodynamics (9) Diabetes: Qualifiers: Diabetes mellitus complication status: without complication Diabetes mellitus residential insulin use: without terminal press operator use Diabetes mellitus type: t ype 2 Qualified Code(s): E11.9 - Type 2 diabetes mellitus without complications Code(s): E11.9 - Type 2 diabetes mellitus without complications Status: Chronic Assessment and Plan: * follow accu-cheks * glycemic control per hospitalist Long and lengthy discussion (> 20 minutes) with family at bedside regarding her acute kidney injury and her associated failure to thrive in the context of her worsening dementia -- she has had several admissions for this same issue and usually recovers to baseline creatinine with supportive therapy although her LISA/ARF has never been this severe. She is not making much urine and I worry about the possible need for dialysis if her kidney function does not improve. Furthermore, even if her renal function does recover, I worry this same scenario will recur as evidenced by her history. May need to consider G-tube placement to ensure adequate nutrition although this may not change residential prognosis. The family does not seem inclined to purse G-tube placement at this time and considering palliative care/comfort care measures... I will continue to follow the patient with you while she remains hospitalized and make further recommendations as deemed necessary. Thank you for allowing me to participate in the care of this patient. L History of Present Illness Reason for Consult Consult date: 11/21/24 Reason for consult: acute renal failure (on chronic kidney disease) Chief Complaint Chief complaint: Failure to thrive, Acute renal failure, Diverticul History of Present Illness Narrative: The patient is an 83-year-old female with a past medical history as outlined below who presented to [facility] ER due to poor oral intake and lethargy. The patient was recently discharged from [facility] after undergoing a laparoscopic cholecystectomy for chronic cholecystitis. Apparently, since her discharge from the hospital, she has not been eating and drinking very well and apparently has been slowly declining from a functional standpoint. She did see surgery in follow-up in late October of 2024 and apparently was doing okay although it was reported at that time that she was not eating very well in general. Following that office follow-up, she has also started developing on and off diarrhea with loose watery stools. This was coupled with on and off abdominal pain and further worsening of her oral intake. Given the ongoing progression of the symptoms, her family decided to bring her to the emergency room for further assessment Workup and evaluation emergency room demonstrated the patient to be confused and with relative hypotension with a systolic BP in the 90s. However, she was not tachycardic or hypoxic and did not have a fever. Routine blood test demonstrated a CBC with no evidence leukocytosis, relative anemia with a hemoglobin 11.4, and a normal platelet count. Her chemistry showed a potassium of 5.7 with evidence of acute kidney injury with a BUN of 66 and a creatinine of 5.84 mg/dL. Her calcium was also elevated 12.0 as well. Her lactic acid was 1.5 and her urinalysis was suggestive of urinary tract infection as well. Viral swabs for COVID-19, RSV, and influenza were negative. Given her complaints of abdominal pain, CT scan of the abdomen pelvis was done which demonstrated mild diverticulitis of descending colon without perforation or abscess and no other acute pathology. CT scan of her head showed no acute intracranial process and a chest x-ray demonstrated no acute cardiopulmonary disease. Her EKG did not show any evidence of acute ischemic changes. Given her hypotension the concerns for sepsis, appropriate cultures were obtained and she was started on antibiotics, specifically ciprofloxacin and metronidazole given the findings of diverticulitis and possible urinary tract infection by testing to date. Her elevated potassium level was treated with medical management in the form of IV calcium, bicarbonate, and Lokelma. Upon further discussion with the ER physician, the patient's family reiterated her DNR DNI code status and reported that they would not want to pursue dialysis as a therapeutic intervention but were okay with IV fluids, central line placement, and vasopressors if needed. She received IV fluid boluses with improvement in her blood pressure and she was subsequently admitted to the hospital for further evaluation therapy. Since her admission, her mental status has not really significantly improved and there has been minimal improvement in her renal function as well. More concerning is that she has not made very much urine despite the aggressive IV fluids she has been receiving although her electrolytes appear to be somewhat better with regard to her potassium and calcium. Renal consultation was requested due to her acute kidney injury/acute renal failure on top of her baseline chronic kidney disease. Her baseline creatinine normally runs around 1.3 - 1.4 mg/dL for last few years. As mentioned above, her BUN and creatinine were far above her baseline and have minimally improved since her admission and with current interventions to date. From review of her record, the patient has had numerous admissions for acute kidney injury/ acute renal failure which do tend to improve with supportive therapy resulting in her creatinine returning to its baseline by the time of discharge. However, this is the 1st time her renal function has deteriorated to such severity as mentioned above. As already mentioned, both the patient as well as the family are not interested in renal replacement therapy / dialysis as a therapeutic intervention if this is required. Currently, at the time, She appears to be in no acute distress but is resting comfortably with her family at bedside. Review of Systems 2 Review of Systems: As per HPI. [facility] Past Medical History Medical History Chronic kidney disease MCI (mild cognitive impairment) Toxic metabolic encephalopathy Breast cancer s/p on mastectomy and radiation Eczema Diabetes GERD (gastroesophageal reflux disease) Hyperlipidemia Migraine Dementia Anxiety HTN (hypertension) Surgical History Surgical History History of laparoscopic cholecystectomy 10/14/24 History of mastectomy Family History Family History Mother Heart disease Social History Social History Smoking packs per day: 1 Smoking cigarettes per day: 20.0 Years smoked: 15 Smoking pack-years: 15.00 Smoking status: Former smoker Alcohol intake: never Substance use: never Substance use type: does not use Do You Feel Safe in your Home?: Yes Lack of Transportation: No Lack of Food: Never True Current Housing: I Have Housing Concerned About Future Housing: No Difficulty Paying Gas/Electric Bills: No Difficulty Paying for Meds: No Currently Unemployed: No Education: High School Diploma/GED Difficulty w/ Childcare or Family Care: No Living arrangements: alone Spiritual care concerns: No Meds Home Medications and Allergies Home Medications ?Medication ?Instructions ?Recorded ?Confirmed ?Type anastrozole 1 mg tablet 1 mg PO DAILY 06/29/24 11/21/24 History atorvastatin 20 mg tablet 20 mg PO DAILY 06/29/24 11/21/24 History lisinopril 40 mg tablet 40 mg PO DAILY 06/29/24 11/21/24 History metformin 500 mg tablet 500 mg PO DAILY 06/29/24 11/21/24 History metoprolol tartrate 50 mg tablet 50 mg PO BID 06/29/24 11/21/24 History donepezil 5 mg tablet (Aricept) 5 mg PO QHS #90 tabs 08/16/24 11/21/24 Rx hydrochlorothiazide 25 mg tablet 25 mg PO DAILY 10/01/24 11/21/24 History pantoprazole 40 mg tablet,delayed 40 mg PO QAM 10/01/24 11/21/24 History release ondansetron 4 mg disintegrating 8 mg PO PRN PRN Nausea 10/02/24 11/21/24 History tablet hydrocodone 5 mg-acetaminophen 325 1 tablet PO Q6H PRN Pain Rated 4-6 10/17/24 11/21/24 Rx mg tablet #7 tabs blood sugar diagnostic ([facility] 11/21/24 11/21/24 History Verio test strips) blood-glucose meter ([facility] 11/21/24 11/21/24 History Verio Flex Meter) lancets 33 gauge ([place] [facility] 11/21/24 11/21/24 History Plus Lancet) lancing device with lancets kit 11/21/24 11/21/24 History ([employer] in Hand Plus Lancing Device kit) mirtazapine 15 mg tablet 15 mg PO DAILY 11/21/24 11/21/24 History nitrofurantoin 100 mg PO BID 11/21/24 11/21/24 History monohydrate/macrocrystals 100 mg capsule omeprazole 20 mg capsule,delayed 20 mg PO DAILY 11/21/24 11/21/24 History release Allergies Allergy/AdvReac Type Severity Reaction Status Date / Time No Known Allergies Allergy Verified 11/21/24 00:26 Vital Signs Vital Signs Temp Pulse Resp BP Pulse Ox O2 Del Method 11/21/24 12:00 66 11/21/24 11:22 97.6 F 63 20 104/42 L 98 11/21/24 10:00 69 11/21/24 08:42 77 11/21/24 08:00 71 11/21/24 07:54 98.0 F 68 20 109/41 L 99 11/21/24 06:00 66 11/21/24 04:00 97.8 F 68 15 98/52 L 98 11/21/24 04:00 Room Air 11/21/24 04:00 68 11/21/24 02:00 70 11/21/24 00:00 73 11/21/24 00:00 Room Air 11/20/24 23:55 97.5 F L 73 16 113/49 L 98 11/20/24 22:16 71 18 92/43 L 98 11/20/24 21:31 72 20 99/53 L 99 11/20/24 21:23 76 16 99/46 L 100 11/20/24 20:46 72 18 99/46 L 100 11/20/24 20:02 75 19 97/48 L 100 11/20/24 19:17 79 18 94/63 L 100 11/20/24 18:59 77 18 115/52 L 96 11/20/24 18:57 78 18 115/52 L 98 11/20/24 18:31 70 17 102/48 L 99 11/20/24 18:25 72 19 108/52 L 99 11/20/24 18:24 73 17 108/52 L 99 Exam 2 Narrative: GENERAL APPEARANCE: elderly, thin and ill appearing female in no acute distress HEENT: normocephalic, atraumatic, normal conjunctiva and sclera, nares patient NECK: no lymphadenopathy, thyromegaly, or JVD MOUTH: dry oral mucosa CARDIOVASCULAR: RRR, normal S1 and S2, no rub RESPIRATORY: clear anteriorly ABDOMEN: soft, nontender, nondistended, positive bowel sounds present EXTREMITIES: no evidence of cyanosis, clubbing, or edema NEUROLOGICAL: confused but no focal deficits noted Results Lab Results 11/21/24 07:08 11/21/24 06:55 Lab results: Most recent lab results Calcium 11.4 mg/dL (8.4-10.2) H 11/21/24 06:55
[2024-11-21] MEDS: LIDOCAINE 1% LOCAL INJ 2 ML AMPUL 5 ML INFILTRATE (12:15)
[2024-11-21 18:02] LABS: Eosinophil Urine None Seen % (None Seen); Urine Eos QC 2nd Tech Confirmed
[2024-11-21 18:54] LABS: Total Protein Urine Random 40 mg/dL; Urea Random Urine 311 MG/DL
[2024-11-21 18:55] LABS: Sodium Urine Random 74 meq/L
[2024-11-21] MEDS: LACTATED RINGERS 1,000 ML 125 ML IV CONT (19:00)
[2024-11-21 19:27] LABS: Creatinine Urine 59.3 mg/dL; Total Protein Urine Random 40 mg/dL; Ur Ttl Prot Creatinine Ratio 0.67 mg/mg (0-0.20)
[2024-11-21 20:02] LABS: Creatinine Urine 60.1 mg/dL
[2024-11-21] MEDS: CIPROFLOXACIN 400 MG/D5W 200ML 200 ML 200 MG IVPB (20:59)
[2024-11-21] MEDS: DONEPEZIL HCL 5 MG TABLET PO (21:00)
[2024-11-21] MEDS: SALINE LOCK FLUSH 10 ML IV PUSH (21:12)
[2024-11-21 21:35] LABS: Anion Gap 4 mmol/L (4-12); Blood Urea Nitrogen 65 mg/dL (7-17); Carbon Dioxide 26 mmol/L (22-30); Chloride 103 mmol/L (98-107); Creatine Kinase < 20 U/L (30-135); Estimated CRCL calculation 6 ml/min; Estimated Glomerular Filt Rate 7; Glucose 83 mg/dL (65-110); Potassium 4.5 mmol/L (3.4-5.0); Sodium 133 mmol/L (137-145)
[2024-11-22] VITALS (19 sets, daily range): BP systolic 106–155; BP diastolic 40–81; PULSE 50–84; RESP 16–20; TEMP 36.4–37.2; O2SAT 95–100
[2024-11-22] MEDS: metroNIDAZOLE 500 MG/ISO 100ML 500 MG/100 ML BAG 100 MG IVPB ×2 (05:06→13:17)
[2024-11-22] MEDS: LACTATED RINGERS 1,000 ML 125 ML IV CONT ×2 (05:07→13:15)
[2024-11-22] MEDS: SALINE LOCK FLUSH 10 ML IV PUSH ×3 (05:08→22:48)
[2024-11-22 07:29] LABS: Basophils Percent Auto 0.2 % (0.2-1.2); Eosinophils Absolute Auto 0.2 K/mm3 (0-0.3); Eosinophils Percent Auto 4.7 % (0-4.4); Hematocrit 27.6 % (37.0-47.0); Hemoglobin 9.1 g/dL (12.0-15.0); Immature Granulocyte Absolute 0.01 K/mm3 (0.00-0.031); Immature Granulocyte Percent A 0.2 % (0-0.5); Lymphocytes Absolute Auto 1.03 K/mm3 (0.9-3.2); Lymphocytes Percent Auto 25.6 % (18.3-44.2); Mean Corpuscular Volume 93.9 fl (80-100); Mean Platelet Volume 11.1 fl (7.4-10.4); Monocytes Absolute Auto 0.4 K/mm3 (0.1-0.6); Monocytes Percent Auto 10.2 % (2.6-8.5); Neutrophils Absolute Auto 2.4 K/mm3 (1.3-6.7); Neutrophils Percent Auto 59.1 % (45.5-73.1); Platelet Count Result 169 k/mm3 (150-375); Red Blood Count 2.94 M/mm3 (4.2-5.4); Red Cell Distribution Width 12.7 % (11.5-14.5)
[2024-11-22 07:50] LABS: Alanine Aminotransferase 10 U/L (6-35); Albumin Level 2.7 g/dL (3.5-5.1); Alkaline Phosphatase 69 U/L (38-126); Anion Gap 6 mmol/L (4-12); Aspartate Amino Transferase 14 U/L (14-36); Bilirubin,Total 0.5 mg/dL (0.2-1.3); Blood Urea Nitrogen 61 mg/dL (7-17); Calcium 10.4 mg/dL (8.4-10.2); Carbon Dioxide 24 mmol/L (22-30); Chloride 104 mmol/L (98-107); Estimated CRCL calculation 6 ml/min; Estimated Glomerular Filt Rate 8; Glucose 92 mg/dL (65-110); Magnesium 1.2 mg/dL (1.6-2.3); Phosphorus 2.7 mg/dL (2.5-4.5); Potassium 4.4 mmol/L (3.4-5.0); Sodium 134 mmol/L (137-145)
[2024-11-22] MEDS: MIRTAZAPINE 15 MG TABLET PO (08:38)
[2024-11-22] MEDS: METOPROLOL TARTRATE 50 MG TAB PO ×2 (08:38→22:47)
[2024-11-22] MEDS: ANASTROZOLE (*CHEMO) 1 MG TABLET PO (08:38)
[2024-11-22] MEDS: PANTOPRAZOLE SODIUM IV 40 MG VIAL IV PUSH (08:38)
--- NOTE | 2024-11-22 10:01 | P.PNNP_ITS ---
Progress Note: A&P Assessment and Plan (1) LISA (acute kidney injury): Code(s): N17.9 - Acute kidney failure, unspecified Status: Acute Assessment and Plan: * suspect multifactorial etiology: * poor oral intake x 2 weeks if not longer * continue use of SHELIA-I and HCTZ prior to admission * suspected urinary tract infection * evaluation to date noted: * renal u/s with mild atrophy of right kidney and focal thickening of the left posterior wall of the bladder suspicious for urothelial carcinoma * UA suggests infection * urine electrolytes non-prerenal * urine eosinophils negative * moderate proteinuria * CPK low * some improvement noted with IVFs * follow trend of repeat labs and UOP (2) Stage 3b chronic kidney disease: Code(s): N18.32 - Chronic kidney disease, stage 3b Status: Chronic Assessment and Plan: * baseline creatinine seems to run ~ 1.3 - 1.4mg/dl * presumably due to hypertension, diabetes, vascular disease, and age-related change (3) Sepsis: Code(s): A41.9 - Sepsis, unspecified organism Status: Acute Assessment and Plan: * as suggested on admission with altered mental status, hypotension, and LISA * presumed source = diverticulitis +/- UTI * follow trend of hemodynamics * follow culture data * on antibiotics (4) Hyperkalemia: Code(s): E87.5 - Hyperkalemia Status: Acute Assessment and Plan: * as noted by admission labs * s/p medical management in the ER * follow trend of repeat K+ (5) Diverticulitis: Code(s): K57.92 - Diverticulitis of intestine, part unspecified, without perforation or abscess without bleeding Status: Acute Assessment and Plan: * as noted by admission CT of A/P * follow cultures * on antibiotics (6) Urinary tract infection: Code(s): N39.0 - Urinary tract infection, site not specified Status: Acute Assessment and Plan: * admission UA somewhat suggestive * follow culture data * on antibiotics (7) Adult failure to thrive: Code(s): R62.7 - Adult failure to thrive Status: Acute Assessment and Plan: * recurrent issue/problem as noted by multiple hospitalizations * suspect due to progression of underlying dementia * may need to consider G-tube placement if family is willing... (8) HTN (hypertension): Qualifiers: Hypertension type: primary hypertension Qualified Code(s): I10 - Essential (primary) hypertension Code(s): I10 - Essential (primary) hypertension Status: Chronic Assessment and Plan: * soft on admission * better at this time * holding HCTZ and lisinopril given #1 * follow trend of hemodynamics (9) Diabetes: Qualifiers: Diabetes mellitus complication status: without complication Diabetes mellitus terminal worker insulin use: without group home use Diabetes mellitus type: t ype 2 Qualified Code(s): E11.9 - Type 2 diabetes mellitus without complications Code(s): E11.9 - Type 2 diabetes mellitus without complications Status: Chronic Assessment and Plan: * follow accu-cheks * glycemic control per hospitalist Will continue to follow. L Subjective Date/time seen: 11/22/24 10:01 Interval history: Follow-up for acute kidney injury/acute renal failure on chronic kidney disease. Mentation appears to be doing better at the time of my visit; better urine output in the last 24 hours but with only mild improvement in renal function/creatinine; no apparent distress noted; no other issues/events overnight or earlier this morning. Exam 2 Narrative: General: elderly but frail female in NAD Heart: normal S1 and S2; no rub Lungs: clear to auscultation Abdomen: soft, nontender, nondistended, positive bowel sounds Extremities: no cyanosis or clubbing; no edema Skin: warm and dry Objective Data Vital Signs Vital Signs: Vital Signs Temp Pulse Resp BP Pulse Ox O2 Del Method 11/22/24 08:38 61 11/22/24 08:05 97.5 F L 58 L 18 142/49 H 98 11/22/24 06:00 52 L 11/22/24 04:00 54 L 11/22/24 04:00 Room Air 11/22/24 04:00 97.7 F 55 L 16 142/48 H 99 11/22/24 02:00 52 L 11/22/24 00:00 Room Air 11/22/24 00:00 52 L 11/22/24 00:00 97.7 F 55 L 16 155/74 H 95 11/21/24 22:00 63 11/21/24 21:00 64 11/21/24 20:00 68 11/21/24 20:00 Room Air 11/21/24 20:00 97.9 F 67 16 140/96 H 100 11/21/24 18:00 70 11/21/24 16:00 70 11/21/24 15:45 98.5 F 67 18 103/63 98 Intake/Output Intake/Output: Intake & Output 11/19/24 11/20/24 11/21/24 11/22/24 23:59 23:59 23:59 23:59 Intake Total 1612.5 1517.5 2460 Output Total 60 100 925 Balance 1552.5 1417.5 1535 Meds/Results Medications: Active Medications Generic Name Dose Route Start Last Admin Trade Name Freq PRN Reason Stop Dose Admin Acetaminophen 650 mg 11/20/24 18:46 Acetaminophen 325 Mg Tablet PO Q4H PRN Mild Pain (1-3) or Fever Anastrozole 1 mg 11/21/24 09:00 11/22/24 08:38 Anastrozole (*Chemo) 1 Mg Tablet PO 1 mg DAILY VERENA Administration Ciprofloxacin 500 mg 11/22/24 21:00 Ciprofloxacin 500 Mg Tab PO 11/26/24 21:01 Q24H VERENA Donepezil HCl 5 mg 11/21/24 21:00 11/21/24 21:00 Donepezil Hcl 5 Mg Tablet PO 5 mg QHS VERENA Administration Lactated Ringer's 1,000 mls @ 125 mls/hr 11/20/24 18:50 11/22/24 13:15 Lr - Lactated Ringers Iv IV CONT 125 mls/hr .Q8H VERENA Administration Metoprolol Tartrate 50 mg 11/21/24 09:00 11/22/24 08:38 Metoprolol Tartrate 50 Mg Tab PO 50 mg Q12HR VERENA Administration Metronidazole 500 mg 11/22/24 22:00 Metronidazole 500 Mg Tablet PO 11/26/24 22:01 Q8HR VERENA Mirtazapine 15 mg 11/21/24 09:00 11/22/24 08:38 Mirtazapine 15 Mg Tablet PO 15 mg DAILY VERENA Administration Ondansetron HCl 4 mg 11/20/24 18:46 Ondansetron Inj 4 Mg/2 Ml Vial IV PUSH Q4H PRN Nausea Pantoprazole Sodium 40 mg 11/21/24 09:00 11/22/24 08:38 Pantoprazole Sodium Iv 40 Mg Vial IV PUSH 40 mg QAM VERENA Administration Sodium Chloride 10 ml 11/21/24 14:00 11/22/24 13:21 Saline Lock Flush IV PUSH 10 ml Q8HR VERENA Administration Sodium Chloride 10 ml 11/21/24 12:40 Saline Lock Flush IV PUSH PRN PRN Flush Sodium Chloride 20 ml 11/21/24 12:40 Saline Lock Flush IV PUSH PRN PRN after blood draws Radiology Results: ITS Impressions Chest X-Ray 11/20/24 16:34 IMPRESSION: 1. No acute cardiopulmonary disease. Head CT 11/20/24 17:14 IMPRESSION: No acute intracranial findings. Abdomen/Pelvis CT 11/20/24 17:18 IMPRESSION: 1. Mild diverticulitis of descending colon. No perforation or abscess. Renal Ultrasound 11/21/24 10:01 IMPRESSION: 1. Mild atrophy of right kidney. No hydronephrosis. 2. Focal thickening of the left posterior wall of the bladder suspicious for urothelial carcinoma. Labs Labs: Laboratory Tests 11/22/24 07:10 11/22/24 07:10 Calcium 10.4 H Phosphorus 2.7 Magnesium 1.2 L Total Bilirubin 0.5 AST 14 ALT 10 Alkaline Phosphatase 69 Total Protein 5.0 L Albumin 2.7 L TSH (Reflex) 2.120 Microbiology 11/20/24 16:24 Urine Catheterized Urine Culture - Final Klebsiella pneumoniae 11/20/24 18:21 Blood Blood Culture - Preliminary 11/20/24 18:21 Blood Blood Culture - Preliminary
--- NOTE | 2024-11-22 10:21 | P.PNIM_ITS ---
Progress Note: A&P Assessment and Plan (1) Adult failure to thrive: Code(s): R62.7 - Adult failure to thrive Status: Acute (2) LISA (acute kidney injury): Code(s): N17.9 - Acute kidney failure, unspecified Status: Acute (3) Stage 3b chronic kidney disease: Code(s): N18.32 - Chronic kidney disease, stage 3b Status: Chronic (4) Acute dehydration: Code(s): E86.0 - Dehydration Status: Acute Plan # Adult failure to thrive: Delete due to multiple comorbidities, is aggravated by acute illness # LISA on CKD 3B Upon arrival, Creatinine 5.84, baseline creatinine 1.30 on October 13, 2024 Unclear etiology, Possibly resulting from UTI, dehydration, electrolyte abnormality Kidney ultrasound with no hydronephrosis Patient is on lactated Ringer 125 mL/hour which will be continued Consult finance clerk for evaluation treatment Will hold lisinopril Will hold hydrochlorothiazide # Toxic metabolic encephalopathy: Likely secondary to sepsis # Weakness: Physical deconditioning due to multiple comorbidities, exacerbated by acute illness including sepsis, UTI, dehydration, electrolyte abnormality PT OT consult # Urinary tract infection: Patient is currently on ciprofloxacin and Flagyl # Diverticulitis: Patient started on ciprofloxacin and Flagyl # Hyperkalemia: Patient receives sodium zirconium in emergency room This has resolved Type 2 diabetes Hypertension Recent laparoscopic cholecystectomy for chronic cholecystitis Renal ultrasound with focal thickening of the left posterior wall of the bladder suspicious for urothelial carcinoma. Will need urology follow-up evaluation with cystoscopy DVT prophylaxis: Heparin subQ Code status modified code Subjective Date/time seen: 11/22/24 10:21 Interval history: No overnight events. No new complaints. States doing well. Chest pain shortness of breath Review of Systems Review of Systems: All systems reviewed & are unremarkable except as noted in HPI and below Exam Narrative: GENERAL: Well-appearing, in no acute distress. Well-nourished. - EYES: EOMI. Anicteric. - HENT: Moist mucous membranes. - LUNGS: Clear to auscultation bilateral ly, no wheezing, rhonchi, or rales. - CARDIOVASCULAR: Regular rate and rhyth m. No murmur. No JVD. - ABDOMEN: Soft, non-tender and non-dist ended. No palpable masses. - EXTREMITIES: No edema. Peripheral puls es 2+. Non-tender. - NEUROLOGIC: Moving all extremities - PSYCHIATRIC: Alert and awake, convers ant, oriented to self Appropriate mood and affect. - SKIN: No rashes or lesions. Warm. - LYMPH: No cervical lymphadenopathy. Objective Data Vital Signs Vital Signs: Vital Signs - 24 hr 11/21/24 11:22 11/21/24 12:00 11/21/24 14:00 Temperature 97.6 F Pulse Rate 63 66 65 Respiratory Rate 20 Blood Pressure 104/42 L Pulse Oximetry 98 Oxygen Delivery 11/21/24 15:45 11/21/24 16:00 11/21/24 18:00 Temperature 98.5 F Pulse Rate 67 70 70 Respiratory Rate 18 Blood Pressure 103/63 Pulse Oximetry 98 Oxygen Delivery 11/21/24 20:00 11/21/24 20:00 11/21/24 20:00 Temperature 97.9 F Pulse Rate 67 68 Respiratory Rate 16 Blood Pressure 140/96 H Pulse Oximetry 100 Oxygen Delivery Room Air 11/21/24 21:00 11/21/24 22:00 11/22/24 00:00 Temperature 97.7 F Pulse Rate 64 63 55 L Respiratory Rate 16 Blood Pressure 155/74 H Pulse Oximetry 95 Oxygen Delivery 11/22/24 00:00 11/22/24 00:00 11/22/24 02:00 Temperature Pulse Rate 52 L 52 L Respiratory Rate Blood Pressure Pulse Oximetry Oxygen Delivery Room Air 11/22/24 04:00 11/22/24 04:00 11/22/24 04:00 Temperature 97.7 F Pulse Rate 55 L 54 L Respiratory Rate 16 Blood Pressure 142/48 H Pulse Oximetry 99 Oxygen Delivery Room Air 11/22/24 06:00 11/22/24 08:05 11/22/24 08:38 Temperature 97.5 F L Pulse Rate 52 L 58 L 61 Respiratory Rate 18 Blood Pressure 142/49 H Pulse Oximetry 98 Oxygen Delivery Intake/Output Intake/Output: Intake & Output 11/19/24 11/20/24 11/21/24 11/22/24 23:59 23:59 23:59 23:59 Intake Total 1612.5 1517.5 1220 Output Total 60 100 475 Balance 1552.5 1417.5 745 Meds/Results Medications: Active Medications Generic Name Dose Route Start Last Admin Trade Name Freq PRN Reason Stop Dose Admin Acetaminophen 650 mg 11/20/24 18:46 Acetaminophen 325 Mg Tablet PO Q4H PRN Mild Pain (1-3) or Fever Anastrozole 1 mg 11/21/24 09:00 11/22/24 08:38 Anastrozole (*Chemo) 1 Mg Tablet PO 1 mg DAILY VERENA Administration Donepezil HCl 5 mg 11/21/24 21:00 11/21/24 21:00 Donepezil Hcl 5 Mg Tablet PO 5 mg QHS VERENA Administration Lactated Ringer's 1,000 mls @ 125 mls/hr 11/20/24 18:50 11/22/24 05:07 Lr - Lactated Ringers Iv IV CONT 125 mls/hr .Q8H VERENA Administration Ciprofloxacin/Dextrose 200 mls @ 200 mls/hr 11/21/24 20:00 11/21/24 21:59 Cipro 400 Mg/D5w 200 Ml IVPB Infused Q24H VERENA Infusion Metronidazole 500 mg in 100 mls @ 100 mls/hr 11/21/24 08:00 11/22/24 06:06 Flagyl 500 Mg/Iso Soln 100 Ml IVPB Infused Q8HR VERENA Infusion Metoprolol Tartrate 50 mg 11/21/24 09:00 11/22/24 08:38 Metoprolol Tartrate 50 Mg Tab PO 50 mg Q12HR VERENA Administration Mirtazapine 15 mg 11/21/24 09:00 11/22/24 08:38 Mirtazapine 15 Mg Tablet PO 15 mg DAILY VERENA Administration Ondansetron HCl 4 mg 11/20/24 18:46 Ondansetron Inj 4 Mg/2 Ml Vial IV PUSH Q4H PRN Nausea Pantoprazole Sodium 40 mg 11/21/24 09:00 11/22/24 08:38 Pantoprazole Sodium Iv 40 Mg Vial IV PUSH 40 mg QAM VERENA Administration Sodium Chloride 10 ml 11/21/24 14:00 11/22/24 05:08 Saline Lock Flush IV PUSH 10 ml Q8HR VERENA Administration Sodium Chloride 10 ml 11/21/24 12:40 Saline Lock Flush IV PUSH PRN PRN Flush Sodium Chloride 20 ml 11/21/24 12:40 Saline Lock Flush IV PUSH PRN PRN after blood draws Radiology Results: ITS Impressions Chest X-Ray 11/20/24 16:34 IMPRESSION: 1. No acute cardiopulmonary disease. Head CT 11/20/24 17:14 IMPRESSION: No acute intracranial findings. Abdomen/Pelvis CT 11/20/24 17:18 IMPRESSION: 1. Mild diverticulitis of descending colon. No perforation or abscess. Renal Ultrasound 11/21/24 10:01 IMPRESSION: 1. Mild atrophy of right kidney. No hydronephrosis. 2. Focal thickening of the left posterior wall of the bladder suspicious for urothelial carcinoma. Labs Labs: Laboratory Results - last 24 hr 11/21/24 11/21/24 11/21/24 17:20 17:20 17:20 WBC RBC Hgb Hct MCV MCH MCHC RDW Plt Count MPV Immature Gran % (Auto) Neut % (Auto) Lymph % (Auto) [place] % (Auto) Eos % (Auto) Baso % (Auto) Lymph # (Auto) [place] # (Auto) Eos # (Auto) Baso # (Auto) Abs Immat Gran (auto) Absolute Neuts (auto) Absolute Nucleated RBC Nucleated RBC % Sodium Potassium Chloride Carbon Dioxide Anion Gap BUN Creatinine Estim Creat Clear Calc Estimated GFR Glucose Calcium Phosphorus Magnesium Total Bilirubin AST ALT Alkaline Phosphatase Total Creatine Kinase Total Protein Albumin TSH (Reflex) Urine Eosinophils None seen U Random Total Protein 40 40 Ur Random Sodium 74 Ur Random Urea 311 Urine Creatinine 59.3 60.1 Protein/Creat Ratio 2 0.67 H 11/21/24 11/22/24 21:11 07:10 WBC 4.0 L RBC 2.94 L Hgb 9.1 L Hct 27.6 L MCV 93.9 MCH 31.0 MCHC 33.0 RDW 12.7 Plt Count 169 MPV 11.1 H Immature Gran % (Auto) 0.2 Neut % (Auto) 59.1 Lymph % (Auto) 25.6 [place] % (Auto) 10.2 H Eos % (Auto) 4.7 H Baso % (Auto) 0.2 Lymph # (Auto) 1.03 [place] # (Auto) 0.4 Eos # (Auto) 0.2 Baso # (Auto) 0.0 Abs Immat Gran (auto) 0.01 Absolute Neuts (auto) 2.4 Absolute Nucleated RBC 0.000 Nucleated RBC % 0.0 Sodium 133 L 134 L Potassium 4.5 4.4 Chloride 103 104 Carbon Dioxide 26 24 Anion Gap 4 6 BUN 65 H 61 H Creatinine 5.64 H 5.10 H Estim Creat Clear Calc 6 6 Estimated GFR 7 L 8 L Glucose 83 92 Calcium 11.0 H 10.4 H Phosphorus 2.7 Magnesium 1.2 L Total Bilirubin 0.5 AST 14 ALT 10 Alkaline Phosphatase 69 Total Creatine Kinase < 20 L Total Protein 5.0 L Albumin 2.7 L TSH (Reflex) 2.120 Urine Eosinophils U Random Total Protein Ur Random Sodium Ur Random Urea Urine Creatinine Protein/Creat Ratio 2
[2024-11-22] MEDS: MAGNESIUM SULF 1 GM/D5W 100 ML 1 GM/100 ML BAG IVPB (13:17)
[2024-11-22] MEDS: DONEPEZIL HCL 5 MG TABLET PO (22:47)
[2024-11-22] MEDS: CIPROFLOXACIN 500 MG TAB PO (22:47)
[2024-11-22] MEDS: metroNIDAZOLE 500 MG TABLET PO (22:48)
[2024-11-23] VITALS (19 sets, daily range): BP systolic 122–163; BP diastolic 58–82; PULSE 58–74; RESP 16–18; TEMP 36.6–36.7; O2SAT 98–100
[2024-11-23] MEDS: LACTATED RINGERS 1,000 ML 125 ML IV CONT ×3 (00:30→18:10)
[2024-11-23 05:17] LABS: Basophils Percent Auto 0.5 % (0.2-1.2); Eosinophils Absolute Auto 0.2 K/mm3 (0-0.3); Eosinophils Percent Auto 4.1 % (0-4.4); Hematocrit 28.1 % (37.0-47.0); Hemoglobin 9.3 g/dL (12.0-15.0); Immature Granulocyte Absolute 0.01 K/mm3 (0.00-0.031); Immature Granulocyte Percent A 0.2 % (0-0.5); Lymphocytes Absolute Auto 1.05 K/mm3 (0.9-3.2); Mean Corpuscular HGB Conc 33.1 g/dl (32-36); Mean Corpuscular Hemoglobin 31.3 pg (26-34); Mean Corpuscular Volume 94.6 fl (80-100); Monocytes Absolute Auto 0.4 K/mm3 (0.1-0.6); Monocytes Percent Auto 8.9 % (2.6-8.5); Neutrophils Absolute Auto 2.7 K/mm3 (1.3-6.7); Neutrophils Percent Auto 62.3 % (45.5-73.1); Platelet Count Result 165 k/mm3 (150-375); Red Blood Count 2.97 M/mm3 (4.2-5.4); Red Cell Distribution Width 12.9 % (11.5-14.5); White Blood Count 4.4 K/mm3 (4.5-10.0)
[2024-11-23 05:42] LABS: Alanine Aminotransferase 12 U/L (6-35); Albumin Level 2.8 g/dL (3.5-5.1); Alkaline Phosphatase 81 U/L (38-126); Anion Gap 8 mmol/L (4-12); Aspartate Amino Transferase 17 U/L (14-36); Bilirubin,Total 0.4 mg/dL (0.2-1.3); Blood Urea Nitrogen 51 mg/dL (7-17); Carbon Dioxide 22 mmol/L (22-30); Chloride 106 mmol/L (98-107); Estimated CRCL calculation 8 ml/min; Estimated Glomerular Filt Rate 10; Glucose 124 mg/dL (65-110); Magnesium 1.5 mg/dL (1.6-2.3); Phosphorus 2.6 mg/dL (2.5-4.5); Potassium 4.2 mmol/L (3.4-5.0); Sodium 136 mmol/L (137-145)
[2024-11-23] MEDS: SALINE LOCK FLUSH 10 ML IV PUSH ×3 (06:19→22:26)
[2024-11-23] MEDS: metroNIDAZOLE 500 MG TABLET PO ×3 (06:19→22:31)
--- NOTE | 2024-11-23 08:49 | P.PNIM_ITS ---
Progress Note: A&P Assessment and Plan (1) Adult failure to thrive: Code(s): R62.7 - Adult failure to thrive Status: Acute (2) LISA (acute kidney injury): Code(s): N17.9 - Acute kidney failure, unspecified Status: Acute (3) Stage 3b chronic kidney disease: Code(s): N18.32 - Chronic kidney disease, stage 3b Status: Chronic (4) Acute dehydration: Code(s): E86.0 - Dehydration Status: Acute Plan # Adult failure to thrive: Delete due to multiple comorbidities, is aggravated by acute illness # LISA on CKD 3B Upon arrival, Creatinine 5.84, baseline creatinine 1.30 on October 13, 2024 Unclear etiology, Possibly resulting from UTI, dehydration, electrolyte abnormality Kidney ultrasound with no hydronephrosis Patient is on lactated Ringer 125 mL/hour which will be tapered down to 75 cc an hour Consult branch coordinator for evaluation treatment Will hold lisinopril Will hold hydrochlorothiazide # Toxic metabolic encephalopathy: Likely secondary to sepsis # Weakness: Physical deconditioning due to multiple comorbidities, exacerbated by acute illness including sepsis, UTI, dehydration, electrolyte abnormality PT OT consult # Urinary tract infection: Patient is currently on ciprofloxacin and Flagyl # Diverticulitis: Patient started on ciprofloxacin and Flagyl # Hyperkalemia: Patient receives sodium zirconium in emergency room This has resolved Type 2 diabetes Hypertension Recent laparoscopic cholecystectomy for chronic cholecystitis Renal ultrasound with focal thickening of the left posterior wall of the bladder suspicious for urothelial carcinoma. Will need urology follow-up evaluation with cystoscopy DVT prophylaxis: Heparin subQ Code status modified code Subjective Date/time seen: 11/23/24 08:49 Interval history: No overnight events. No new complaints. No chest pain shortness of breath Review of Systems Review of Systems: All systems reviewed & are unremarkable except as noted in HPI and below Exam Narrative: GENERAL: Well-appearing, in no acute distress. Well-nourished. - EYES: EOMI. Anicteric. - HENT: Moist mucous membranes. - LUNGS: Clear to auscultation bilateral ly, no wheezing, rhonchi, or rales. - CARDIOVASCULAR: Regular rate and rhyth m. No murmur. No JVD. - ABDOMEN: Soft, non-tender and non-dist ended. No palpable masses. - EXTREMITIES: No edema. Peripheral puls es 2+. Non-tender. - NEUROLOGIC: Moving all extremities - PSYCHIATRIC: Alert and awake, convers ant, oriented to self Appropriate mood and affect. - SKIN: No rashes or lesions. Warm. - LYMPH: No cervical lymphadenopathy. Objective Data Vital Signs Vital Signs: Vital Signs - 24 hr 11/22/24 10:00 11/22/24 11:49 11/22/24 12:00 Temperature 98.9 F Pulse Rate 68 58 L 63 Respiratory Rate 18 Blood Pressure 154/81 H Pulse Oximetry 99 Oxygen Delivery 11/22/24 14:00 11/22/24 16:00 11/22/24 16:00 Temperature 97.5 F L Pulse Rate 72 84 66 Respiratory Rate 18 Blood Pressure 123/40 L Pulse Oximetry 99 Oxygen Delivery 11/22/24 20:00 11/22/24 20:13 11/22/24 22:00 Temperature 97.5 F L Pulse Rate 67 65 65 Respiratory Rate 18 Blood Pressure 106/45 L Pulse Oximetry 100 Oxygen Delivery 11/22/24 22:40 11/22/24 22:47 11/22/24 23:50 Temperature Pulse Rate 65 71 64 Respiratory Rate 18 20 Blood Pressure Pulse Oximetry 100 98 Oxygen Delivery Room Air Room Air 11/22/24 23:51 11/23/24 00:00 11/23/24 02:00 Temperature 97.8 F Pulse Rate 64 64 62 Respiratory Rate 20 Blood Pressure 131/64 Pulse Oximetry 98 Oxygen Delivery 11/23/24 04:00 11/23/24 04:38 11/23/24 05:50 Temperature 97.8 F Pulse Rate 64 63 63 Respiratory Rate 18 18 Blood Pressure 122/58 L Pulse Oximetry 98 98 Oxygen Delivery Room Air 11/23/24 06:00 11/23/24 07:29 Temperature 98 F Pulse Rate 59 L 58 L Respiratory Rate 16 Blood Pressure 137/61 Pulse Oximetry 100 Oxygen Delivery Intake/Output Intake/Output: Intake & Output 11/20/24 11/21/24 11/22/24 11/23/24 23:59 23:59 23:59 23:59 Intake Total 1612.5 1517.5 4080 300 Output Total 60 100 925 650 Balance 1552.5 1417.5 3155 -350 Meds/Results Medications: Active Medications Generic Name Dose Route Start Last Admin Trade Name Freq PRN Reason Stop Dose Admin Acetaminophen 650 mg 11/20/24 18:46 Acetaminophen 325 Mg Tablet PO Q4H PRN Mild Pain (1-3) or Fever Anastrozole 1 mg 11/21/24 09:00 11/22/24 08:38 Anastrozole (*Chemo) 1 Mg Tablet PO 1 mg DAILY VERENA Administration Ciprofloxacin 500 mg 11/22/24 21:00 11/22/24 22:47 Ciprofloxacin 500 Mg Tab PO 11/26/24 21:01 500 mg Q24H VERENA Administration Donepezil HCl 5 mg 11/21/24 21:00 11/22/24 22:47 Donepezil Hcl 5 Mg Tablet PO 5 mg QHS VERENA Administration Lactated Ringer's 1,000 mls @ 125 mls/hr 11/20/24 18:50 11/23/24 00:30 Lr - Lactated Ringers Iv IV CONT 125 mls/hr .Q8H VERENA Administration Magnesium Sulfate/Dextrose 1 gm in 100 mls @ 100 mls/hr 11/23/24 08:49 Magnesium Sulf 1 Gm/D5w 100 Ml IVPB 11/23/24 09:48 ONCE ONE Metoprolol Tartrate 50 mg 11/21/24 09:00 11/22/24 22:47 Metoprolol Tartrate 50 Mg Tab PO 50 mg Q12HR VERENA Administration Metronidazole 500 mg 11/22/24 22:00 11/23/24 06:19 Metronidazole 500 Mg Tablet PO 11/26/24 22:01 500 mg Q8HR VERENA Administration Mirtazapine 15 mg 11/21/24 09:00 11/22/24 08:38 Mirtazapine 15 Mg Tablet PO 15 mg DAILY VERENA Administration Ondansetron HCl 4 mg 11/20/24 18:46 Ondansetron Inj 4 Mg/2 Ml Vial IV PUSH Q4H PRN Nausea Pantoprazole Sodium 40 mg 11/21/24 09:00 11/22/24 08:38 Pantoprazole Sodium Iv 40 Mg Vial IV PUSH 40 mg QAM VERENA Administration Sodium Chloride 10 ml 11/21/24 14:00 11/23/24 06:19 Saline Lock Flush IV PUSH 10 ml Q8HR VERENA Administration Sodium Chloride 10 ml 11/21/24 12:40 Saline Lock Flush IV PUSH PRN PRN Flush Sodium Chloride 20 ml 11/21/24 12:40 Saline Lock Flush IV PUSH PRN PRN after blood draws Radiology Results: ITS Impressions Chest X-Ray 11/20/24 16:34 IMPRESSION: 1. No acute cardiopulmonary disease. Head CT 11/20/24 17:14 IMPRESSION: No acute intracranial findings. Abdomen/Pelvis CT 11/20/24 17:18 IMPRESSION: 1. Mild diverticulitis of descending colon. No perforation or abscess. Renal Ultrasound 11/21/24 10:01 IMPRESSION: 1. Mild atrophy of right kidney. No hydronephrosis. 2. Focal thickening of the left posterior wall of the bladder suspicious for urothelial carcinoma. Labs Labs: Laboratory Results - last 24 hr 11/22/24 11/23/24 07:10 05:00 WBC 4.4 L RBC 2.97 L Hgb 9.3 L Hct 28.1 L MCV 94.6 MCH 31.3 MCHC 33.1 RDW 12.9 Plt Count 165 MPV 11.0 H Immature Gran % (Auto) 0.2 Neut % (Auto) 62.3 Lymph % (Auto) 24.0 [place] % (Auto) 8.9 H Eos % (Auto) 4.1 Baso % (Auto) 0.5 Lymph # (Auto) 1.05 [place] # (Auto) 0.4 Eos # (Auto) 0.2 Baso # (Auto) 0.0 Abs Immat Gran (auto) 0.01 Absolute Neuts (auto) 2.7 Absolute Nucleated RBC 0.000 Nucleated RBC % 0.0 Sodium 136 L Potassium 4.2 Chloride 106 Carbon Dioxide 22 Anion Gap 8 BUN 51 H D Creatinine 4.21 H Estim Creat Clear Calc 8 Estimated GFR 10 L Glucose 124 H Calcium 10.0 Phosphorus 2.6 Magnesium 1.5 L Total Bilirubin 0.4 AST 17 ALT 12 Alkaline Phosphatase 81 Total Protein 6.0 L Albumin 2.8 L TSH (Reflex) 2.120
--- NOTE | 2024-11-23 09:30 | P.PNNP_ITS ---
Progress Note: A&P Assessment and Plan (1) LISA (acute kidney injury): Code(s): N17.9 - Acute kidney failure, unspecified Status: Acute Assessment and Plan: * LISA * suspect multifactorial etiology: * poor oral intake x 2 weeks if not longer * low bp on admission * continue use of SHELIA-I and HCTZ prior to admission * suspected urinary tract infection (E coli on cipro) * evaluation to date noted: * renal u/s with mild atrophy of right kidney and focal thickening of the left posterior wall of the bladder suspicious for urothelial carcinoma * UA suggests infection * urine electrolytes abd FeUrea non-prerenal * urine eosinophils negative * moderate proteinuria * CPK low * some improvement noted with IVFscreatinine has fallen to 4.2. * pt looks rehydrated. * I agree with decreasing IVFs. * follow trend of repeat labs and UOP * Discussed with Dr Ramirez. (2) Stage 3b chronic kidney disease: Code(s): N18.32 - Chronic kidney disease, stage 3b Status: Chronic Assessment and Plan: * baseline creatinine seems to run ~ 1.3 - 1.4mg/dl * presumably due to hypertension, diabetes, vascular disease, and age-related change (3) Sepsis: Code(s): A41.9 - Sepsis, unspecified organism Status: Acute Assessment and Plan: * as suggested on admission with altered mental status, hypotension, and LISA * presumed source = diverticulitis +/- UTI * BP improved * Blood cx neg but UCx positive for E coli. * on Cipro (4) Hyperkalemia: Code(s): E87.5 - Hyperkalemia Status: Acute Assessment and Plan: * as noted by admission labs * s/p medical management in the ER * resolved. (5) Diverticulitis: Code(s): K57.92 - Diverticulitis of intestine, part unspecified, without perforation or abscess without bleeding Status: Acute Assessment and Plan: * as noted by admission CT of A/P * blood cx neg * on cipro and flagyl. (6) Urinary tract infection: Code(s): N39.0 - Urinary tract infection, site not specified Status: Acute Assessment and Plan: * admission UA somewhat suggestive * follow culture data * on cipro 500 once a day (renally adjusted) (7) Adult failure to thrive: Code(s): R62.7 - Adult failure to thrive Status: Acute Assessment and Plan: * recurrent issue/problem as noted by multiple hospitalizations * suspect due to progression of underlying dementia * may need to consider G-tube placement if family is willing... (8) HTN (hypertension): Qualifiers: Hypertension type: primary hypertension Qualified Code(s): I10 - Essential (primary) hypertension Code(s): I10 - Essential (primary) hypertension Status: Chronic Assessment and Plan: * soft on admission * better at this time * holding HCTZ and lisinopril given #1 * BP doing well now. 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 Subjective Date/time seen: 11/23/24 09:30 Interval history: patient is feeling okay not hungry but will try to eat breakfast. no nausea. drinking some fluid. Exam Narrative: General: elderly but frail female in NAD Mucus Membranes moist Heart: normal S1 and S2; no rub or ballop Lungs: clear bilaterally Abdomen: soft, nontender, nondistended, positive bowel sounds Extremities: no cyanosis or clubbing; no edema Skin: no rash Objective Data Vital Signs Vital Signs: Vital Signs - 24 hr 11/22/24 10:00 11/22/24 11:49 11/22/24 12:00 Temperature 98.9 F Pulse Rate 68 58 L 63 Respiratory Rate 18 Blood Pressure 154/81 H Pulse Oximetry 99 Oxygen Delivery 11/22/24 14:00 11/22/24 16:00 11/22/24 16:00 Temperature 97.5 F L Pulse Rate 72 84 66 Respiratory Rate 18 Blood Pressure 123/40 L Pulse Oximetry 99 Oxygen Delivery 11/22/24 20:00 11/22/24 20:13 11/22/24 22:00 Temperature 97.5 F L Pulse Rate 67 65 65 Respiratory Rate 18 Blood Pressure 106/45 L Pulse Oximetry 100 Oxygen Delivery 11/22/24 22:40 11/22/24 22:47 11/22/24 23:50 Temperature Pulse Rate 65 71 64 Respiratory Rate 18 20 Blood Pressure Pulse Oximetry 100 98 Oxygen Delivery Room Air Room Air 11/22/24 23:51 11/23/24 00:00 11/23/24 02:00 Temperature 97.8 F Pulse Rate 64 64 62 Respiratory Rate 20 Blood Pressure 131/64 Pulse Oximetry 98 Oxygen Delivery 11/23/24 04:00 11/23/24 04:38 11/23/24 05:50 Temperature 97.8 F Pulse Rate 64 63 63 Respiratory Rate 18 18 Blood Pressure 122/58 L Pulse Oximetry 98 98 Oxygen Delivery Room Air 11/23/24 06:00 11/23/24 07:29 Temperature 98 F Pulse Rate 59 L 58 L Respiratory Rate 16 Blood Pressure 137/61 Pulse Oximetry 100 Oxygen Delivery Intake/Output Intake/Output: Intake & Output 11/20/24 11/21/24 11/22/24 11/23/24 23:59 23:59 23:59 23:59 Intake Total 1612.5 1517.5 4080 300 Output Total 60 100 925 850 Balance 1552.5 1417.5 3155 -550 Meds/Results Medications: Active Medications Generic Name Dose Route Start Last Admin Trade Name Freq PRN Reason Stop Dose Admin Acetaminophen 650 mg 11/20/24 18:46 Acetaminophen 325 Mg Tablet PO Q4H PRN Mild Pain (1-3) or Fever Anastrozole 1 mg 11/21/24 09:00 11/22/24 08:38 Anastrozole (*Chemo) 1 Mg Tablet PO 1 mg DAILY VERENA Administration Ciprofloxacin 500 mg 11/22/24 21:00 11/22/24 22:47 Ciprofloxacin 500 Mg Tab PO 11/26/24 21:01 500 mg Q24H VERENA Administration Donepezil HCl 5 mg 11/21/24 21:00 11/22/24 22:47 Donepezil Hcl 5 Mg Tablet PO 5 mg QHS VERENA Administration Lactated Ringer's 1,000 mls @ 125 mls/hr 11/20/24 18:50 11/23/24 00:30 Lr - Lactated Ringers Iv IV CONT 125 mls/hr .Q8H VERENA Administration Magnesium Sulfate/Dextrose 1 gm in 100 mls @ 100 mls/hr 11/23/24 08:49 Magnesium Sulf 1 Gm/D5w 100 Ml IVPB 11/23/24 09:48 ONCE ONE Metoprolol Tartrate 50 mg 11/21/24 09:00 11/22/24 22:47 Metoprolol Tartrate 50 Mg Tab PO 50 mg Q12HR VERENA Administration Metronidazole 500 mg 11/22/24 22:00 11/23/24 06:19 Metronidazole 500 Mg Tablet PO 11/26/24 22:01 500 mg Q8HR VERENA Administration Mirtazapine 15 mg 11/21/24 09:00 11/22/24 08:38 Mirtazapine 15 Mg Tablet PO 15 mg DAILY VERENA Administration Ondansetron HCl 4 mg 11/20/24 18:46 Ondansetron Inj 4 Mg/2 Ml Vial IV PUSH Q4H PRN Nausea Pantoprazole Sodium 40 mg 11/21/24 09:00 11/22/24 08:38 Pantoprazole Sodium Iv 40 Mg Vial IV PUSH 40 mg QAM VERENA Administration Sodium Chloride 10 ml 11/21/24 14:00 11/23/24 06:19 Saline Lock Flush IV PUSH 10 ml Q8HR VERENA Administration Sodium Chloride 10 ml 11/21/24 12:40 Saline Lock Flush IV PUSH PRN PRN Flush Sodium Chloride 20 ml 11/21/24 12:40 Saline Lock Flush IV PUSH PRN PRN after blood draws Radiology Results: ITS Impressions Chest X-Ray 11/20/24 16:34 IMPRESSION: 1. No acute cardiopulmonary disease. Head CT 11/20/24 17:14 IMPRESSION: No acute intracranial findings. Abdomen/Pelvis CT 11/20/24 17:18 IMPRESSION: 1. Mild diverticulitis of descending colon. No perforation or abscess. Renal Ultrasound 11/21/24 10:01 IMPRESSION: 1. Mild atrophy of right kidney. No hydronephrosis. 2. Focal thickening of the left posterior wall of the bladder suspicious for urothelial carcinoma. Labs Labs: Laboratory Results - last 24 hr 11/22/24 11/23/24 07:10 05:00 WBC 4.4 L RBC 2.97 L Hgb 9.3 L Hct 28.1 L MCV 94.6 MCH 31.3 MCHC 33.1 RDW 12.9 Plt Count 165 MPV 11.0 H Immature Gran % (Auto) 0.2 Neut % (Auto) 62.3 Lymph % (Auto) 24.0 [place] % (Auto) 8.9 H Eos % (Auto) 4.1 Baso % (Auto) 0.5 Lymph # (Auto) 1.05 [place] # (Auto) 0.4 Eos # (Auto) 0.2 Baso # (Auto) 0.0 Abs Immat Gran (auto) 0.01 Absolute Neuts (auto) 2.7 Absolute Nucleated RBC 0.000 Nucleated RBC % 0.0 Sodium 136 L Potassium 4.2 Chloride 106 Carbon Dioxide 22 Anion Gap 8 BUN 51 H D Creatinine 4.21 H Estim Creat Clear Calc 8 Estimated GFR 10 L Glucose 124 H Calcium 10.0 Phosphorus 2.6 Magnesium 1.5 L Total Bilirubin 0.4 AST 17 ALT 12 Alkaline Phosphatase 81 Total Protein 6.0 L Albumin 2.8 L TSH (Reflex) 2.120
[2024-11-23] MEDS: METOPROLOL TARTRATE 50 MG TAB PO ×2 (09:47→22:25)
[2024-11-23] MEDS: ANASTROZOLE (*CHEMO) 1 MG TABLET PO (09:47)
[2024-11-23] MEDS: MIRTAZAPINE 15 MG TABLET PO (09:48)
[2024-11-23] MEDS: PANTOPRAZOLE SODIUM IV 40 MG VIAL IV PUSH (09:48)
[2024-11-23] MEDS: MAGNESIUM SULF 1 GM/D5W 100 ML 1 GM/100 ML BAG IVPB (10:27)
[2024-11-23] MEDS: CIPROFLOXACIN 500 MG TAB PO (22:25)
[2024-11-23] MEDS: DONEPEZIL HCL 5 MG TABLET PO (22:25)
--- NOTE | 2024-11-24 00:01 | PC.NURSE ---
11/23/24 at 2358-Pt's DA, Meghann Ron notified of the orders to transfer patient to Med/Surg with a the new patient room assignment. Meghann states that she will let the rest of her family know tomorrow of the new room location.
[2024-11-24 01:30] VITALS: BP 144/50; PULSE 61; RESP 20; TEMP 36.1; O2SAT 98
--- NOTE | 2024-11-24 03:31 | PC.NURSE ---
This patient, Jolene Mclean, was transferred to room 302 on 11/24/24 at 0025. Personal belongings sent with patient. Report given to DEBORA Zambrano. Appropriate documentation sent with patient.
[2024-11-24 04:25] VITALS: BP 138/66; PULSE 66; RESP 20; TEMP 35.9; O2SAT 98
[2024-11-24] MEDS: LACTATED RINGERS 1,000 ML 75 ML IV CONT (05:11)
[2024-11-24] MEDS: metroNIDAZOLE 500 MG TABLET PO ×3 (05:12→22:38)
[2024-11-24] MEDS: SALINE LOCK FLUSH 10 ML IV PUSH ×3 (05:12→22:38)
[2024-11-24 07:03] LABS: Basophils Percent Auto 0.2 % (0.2-1.2); Eosinophils Absolute Auto 0.3 K/mm3 (0-0.3); Eosinophils Percent Auto 5.2 % (0-4.4); Hematocrit 27.2 % (37.0-47.0); Hemoglobin 9.1 g/dL (12.0-15.0); Immature Granulocyte Absolute 0.02 K/mm3 (0.00-0.031); Immature Granulocyte Percent A 0.4 % (0-0.5); Mean Corpuscular HGB Conc 33.5 g/dl (32-36); Mean Corpuscular Hemoglobin 31.4 pg (26-34); Mean Corpuscular Volume 93.8 fl (80-100); Mean Platelet Volume 10.7 fl (7.4-10.4); Monocytes Absolute Auto 0.5 K/mm3 (0.1-0.6); Monocytes Percent Auto 10.8 % (2.6-8.5); Neutrophils Percent Auto 59.4 % (45.5-73.1); Platelet Count Result 185 k/mm3 (150-375); Red Cell Distribution Width 12.9 % (11.5-14.5)
[2024-11-24 07:23] LABS: Alanine Aminotransferase 11 U/L (6-35); Albumin Level 2.7 g/dL (3.5-5.1); Alkaline Phosphatase 69 U/L (38-126); Anion Gap 7 mmol/L (4-12); Aspartate Amino Transferase 17 U/L (14-36); Bilirubin,Total 0.4 mg/dL (0.2-1.3); Blood Urea Nitrogen 35 mg/dL (7-17); Calcium 9.9 mg/dL (8.4-10.2); Carbon Dioxide 24 mmol/L (22-30); Chloride 108 mmol/L (98-107); Estimated CRCL calculation 8 ml/min; Estimated Glomerular Filt Rate 11; Glucose 98 mg/dL (65-110); Magnesium 1.5 mg/dL (1.6-2.3); Potassium 3.7 mmol/L (3.4-5.0); Sodium 139 mmol/L (137-145)
[2024-11-24 09:14] VITALS: PULSE 66
[2024-11-24] MEDS: MIRTAZAPINE 15 MG TABLET PO (09:14)
[2024-11-24] MEDS: METOPROLOL TARTRATE 50 MG TAB PO ×2 (09:14→20:28)
[2024-11-24] MEDS: ANASTROZOLE (*CHEMO) 1 MG TABLET PO (09:15)
[2024-11-24] MEDS: PANTOPRAZOLE SODIUM IV 40 MG VIAL IV PUSH (09:15)
[2024-11-24] MEDS: MAGNESIUM SULF 2 GM/WATER 50ML 2 GM/50 ML BAG IVPB (09:16)
--- NOTE | 2024-11-24 12:04 | P.PNIM_ITS ---
Progress Note: A&P Assessment and Plan (1) Adult failure to thrive: Code(s): R62.7 - Adult failure to thrive Status: Acute (2) LISA (acute kidney injury): Code(s): N17.9 - Acute kidney failure, unspecified Status: Acute (3) Stage 3b chronic kidney disease: Code(s): N18.32 - Chronic kidney disease, stage 3b Status: Chronic (4) Acute dehydration: Code(s): E86.0 - Dehydration Status: Acute Plan # Adult failure to thrive: Delete due to multiple comorbidities, is aggravated by acute illness # LISA on CKD 3B Upon arrival, Creatinine 5.84, baseline creatinine 1.30 on October 13, 2024 Unclear etiology, Possibly resulting from UTI, dehydration, electrolyte abnormality Kidney ultrasound with no hydronephrosis Patient is on lactated Ringer 125 mL/hour which will be tapered down to 75 cc an hour. 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 Will hold lisinopril Will hold hydrochlorothiazide # Toxic metabolic encephalopathy: Likely secondary to sepsis # Weakness: Physical deconditioning due to multiple comorbidities, exacerbated by acute illness including sepsis, UTI, dehydration, electrolyte abnormality PT OT consult # Urinary tract infection: Patient is currently on ciprofloxacin and Flagyl # Diverticulitis: Patient started on ciprofloxacin and Flagyl # Hyperkalemia: Patient receives sodium zirconium in emergency room This has resolved Type 2 diabetes Hypertension Recent laparoscopic cholecystectomy for chronic cholecystitis Renal ultrasound with focal thickening of the left posterior wall of the bladder suspicious for urothelial carcinoma. Will need urology follow-up evaluation with cystoscopy DVT prophylaxis: Heparin subQ Code status modified code Subjective Date/time seen: 11/24/24 12:04 Interval history: Bit confused today with the transfer to a different floor. Denies any shortness of breath or chest pain. Labs reviewed. Urine output improved Review of Systems Review of Systems: All systems reviewed & are unremarkable except as noted in HPI and below Exam Narrative: GENERAL: Well-appearing, in no acute distress. Well-nourished. - EYES: EOMI. Anicteric. - HENT: Moist mucous membranes. - LUNGS: Clear to auscultation bilateral ly, no wheezing, rhonchi, or rales. - CARDIOVASCULAR: Regular rate and rhyth m. No murmur. No JVD. - ABDOMEN: Soft, non-tender and non-dist ended. No palpable masses. - EXTREMITIES: No edema. Peripheral puls es 2+. Non-tender. - NEUROLOGIC: Moving all extremities - PSYCHIATRIC: Alert and awake, convers ant, oriented to self Appropriate mood and affect. - SKIN: No rashes or lesions. Warm. - LYMPH: No cervical lymphadenopathy. Objective Data Vital Signs Vital Signs: Vital Signs - 24 hr 11/23/24 14:00 11/23/24 15:21 11/23/24 16:00 Temperature 98.1 F Pulse Rate 62 62 63 Respiratory Rate 16 Blood Pressure 141/82 H Pulse Oximetry 99 Oxygen Delivery 11/23/24 18:00 11/23/24 20:00 11/23/24 20:50 Temperature 98.1 F Pulse Rate 68 71 71 Respiratory Rate 18 18 Blood Pressure 138/76 Pulse Oximetry 98 98 Oxygen Delivery Room Air 11/23/24 22:25 11/24/24 01:30 11/24/24 04:25 Temperature 97 F L 96.7 F L Pulse Rate 70 61 66 Respiratory Rate 20 20 Blood Pressure 144/50 H 138/66 Pulse Oximetry 98 98 Oxygen Delivery 11/24/24 09:00 11/24/24 09:14 Temperature Pulse Rate 66 Respiratory Rate Blood Pressure Pulse Oximetry Oxygen Delivery Room Air Intake/Output Intake/Output: Intake & Output 11/21/24 11/22/24 11/23/24 11/24/24 23:59 23:59 23:59 23:59 Intake Total 1517.5 4080 2988.3 1231.7 Output Total 062 336 2406 250 Balance 1417.5 3155 1198.3 981.7 Meds/Results Medications: Active Medications Generic Name Dose Route Start Last Admin Trade Name Freq PRN Reason Stop Dose Admin Acetaminophen 650 mg 11/20/24 18:46 Acetaminophen 325 Mg Tablet PO Q4H PRN Mild Pain (1-3) or Fever Anastrozole 1 mg 11/21/24 09:00 11/24/24 09:15 Anastrozole (*Chemo) 1 Mg Tablet PO 1 mg DAILY VERENA Administration Ciprofloxacin 500 mg 11/22/24 21:00 11/23/24 22:25 Ciprofloxacin 500 Mg Tab PO 11/26/24 21:01 500 mg Q24H VERENA Administration Donepezil HCl 5 mg 11/21/24 21:00 11/23/24 22:25 Donepezil Hcl 5 Mg Tablet PO 5 mg QHS VERENA Administration Lactated Ringer's 1,000 mls @ 75 mls/hr 11/20/24 18:50 11/24/24 05:11 Lr - Lactated Ringers Iv IV CONT 75 mls/hr .[id number] VERENA Administration Metoprolol Tartrate 50 mg 11/21/24 09:00 11/24/24 09:14 Metoprolol Tartrate 50 Mg Tab PO 50 mg Q12HR VERENA Administration Metronidazole 500 mg 11/22/24 22:00 11/24/24 05:12 Metronidazole 500 Mg Tablet PO 11/26/24 22:01 500 mg Q8HR VERENA Administration Mirtazapine 15 mg 11/21/24 09:00 11/24/24 09:14 Mirtazapine 15 Mg Tablet PO 15 mg DAILY VERENA Administration Ondansetron HCl 4 mg 11/20/24 18:46 Ondansetron Inj 4 Mg/2 Ml Vial IV PUSH Q4H PRN Nausea Pantoprazole Sodium 40 mg 11/21/24 09:00 11/24/24 09:15 Pantoprazole Sodium Iv 40 Mg Vial IV PUSH 40 mg QAM VERENA Administration Sodium Chloride 10 ml 11/21/24 14:00 11/24/24 05:12 Saline Lock Flush IV PUSH 10 ml Q8HR VERENA Administration Sodium Chloride 10 ml 11/21/24 12:40 Saline Lock Flush IV PUSH PRN PRN Flush Sodium Chloride 20 ml 11/21/24 12:40 Saline Lock Flush IV PUSH PRN PRN after blood draws Radiology Results: ITS Impressions Chest X-Ray 11/20/24 16:34 IMPRESSION: 1. No acute cardiopulmonary disease. Head CT 11/20/24 17:14 IMPRESSION: No acute intracranial findings. Abdomen/Pelvis CT 11/20/24 17:18 IMPRESSION: 1. Mild diverticulitis of descending colon. No perforation or abscess. Renal Ultrasound 11/21/24 10:01 IMPRESSION: 1. Mild atrophy of right kidney. No hydronephrosis. 2. Focal thickening of the left posterior wall of the bladder suspicious for urothelial carcinoma. Labs Labs: Laboratory Results - last 24 hr 11/24/24 06:32 WBC 5.0 RBC 2.90 L Hgb 9.1 L Hct 27.2 L MCV 93.8 MCH 31.4 MCHC 33.5 RDW 12.9 Plt Count 185 MPV 10.7 H Immature Gran % (Auto) 0.4 Neut % (Auto) 59.4 Lymph % (Auto) 24.0 [place] % (Auto) 10.8 H Eos % (Auto) 5.2 H Baso % (Auto) 0.2 Lymph # (Auto) 1.20 [place] # (Auto) 0.5 Eos # (Auto) 0.3 Baso # (Auto) 0.0 Abs Immat Gran (auto) 0.02 Absolute Neuts (auto) 3.0 Absolute Nucleated RBC 0.000 Nucleated RBC % 0.0 Sodium 139 Potassium 3.7 Chloride 108 H Carbon Dioxide 24 Anion Gap 7 BUN 35 H D Creatinine 3.80 H Estim Creat Clear Calc 8 Estimated GFR 11 L Glucose 98 Calcium 9.9 Phosphorus 3.0 Magnesium 1.5 L Total Bilirubin 0.4 AST 17 ALT 11 Alkaline Phosphatase 69 Total Protein 5.0 L Albumin 2.7 L
--- NOTE | 2024-11-24 12:28 | P.PNNP_ITS ---
Progress Note: A&P Assessment and Plan (1) LISA (acute kidney injury): Code(s): N17.9 - Acute kidney failure, unspecified Status: Acute Assessment and Plan: * LISA * suspect multifactorial etiology: * poor oral intake x 2 weeks if not longer * low bp on admission * continue use of SHELIA-I and HCTZ prior to admission * suspected urinary tract infection (E coli on cipro) * evaluation to date noted: * renal u/s with mild atrophy of right kidney and focal thickening of the left posterior wall of the bladder suspicious for urothelial carcinoma * UA suggests infection * urine electrolytes abd FeUrea non-prerenal * urine eosinophils negative * moderate proteinuria * CPK low * some improvement noted with IVFscreatinine has fallen to 4.2. * pt looks rehydrated. * I agree with decreasing IVFs. * follow trend of repeat labs and UOP * Discussed with Dr Ramirez. (2) Stage 3b chronic kidney disease: Code(s): N18.32 - Chronic kidney disease, stage 3b Status: Chronic Assessment and Plan: * baseline creatinine seems to run ~ 1.3 - 1.4mg/dl * presumably due to hypertension, diabetes, vascular disease, and age-related change (3) Sepsis: Code(s): A41.9 - Sepsis, unspecified organism Status: Acute Assessment and Plan: * as suggested on admission with altered mental status, hypotension, and LISA * presumed source = diverticulitis +/- UTI * BP improved * Blood cx neg but UCx positive for E coli. * on Cipro (4) Hyperkalemia: Code(s): E87.5 - Hyperkalemia Status: Acute Assessment and Plan: * as noted by admission labs * s/p medical management in the ER * resolved. (5) Diverticulitis: Code(s): K57.92 - Diverticulitis of intestine, part unspecified, without perforation or abscess without bleeding Status: Acute Assessment and Plan: * as noted by admission CT of A/P * blood cx neg * on cipro and flagyl. (6) Urinary tract infection: Code(s): N39.0 - Urinary tract infection, site not specified Status: Acute Assessment and Plan: * admission UA somewhat suggestive * follow culture data * on cipro 500 once a day (renally adjusted) (7) Adult failure to thrive: Code(s): R62.7 - Adult failure to thrive Status: Acute Assessment and Plan: * recurrent issue/problem as noted by multiple hospitalizations * suspect due to progression of underlying dementia * may need to consider G-tube placement if family is willing... (8) HTN (hypertension): Qualifiers: Hypertension type: primary hypertension Qualified Code(s): I10 - Essential (primary) hypertension Code(s): I10 - Essential (primary) hypertension Status: Chronic Assessment and Plan: * soft on admission * better at this time * holding HCTZ and lisinopril given #1 * BP doing well now. 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 Subjective Date/time seen: 11/24/24 12:28 Interval history: Jolene is feeling fine. No chest pain or shortness of breath. She was walking in the halls yesterday. Exam Narrative: General: elderly but frail female in NAD ENT: Mucus Membranes moist Heart: normal S1 and S2; no rub or ballop Lungs: clear Abdomen: soft, nontender, nondistended, positive bowel sounds Extremities: no edema Skin: no rash or subcu nodule Objective Data Vital Signs Vital Signs: Vital Signs - 24 hr 11/23/24 14:00 11/23/24 15:21 11/23/24 16:00 Temperature 98.1 F Pulse Rate 62 62 63 Respiratory Rate 16 Blood Pressure 141/82 H Pulse Oximetry 99 Oxygen Delivery 11/23/24 18:00 11/23/24 20:00 11/23/24 20:50 Temperature 98.1 F Pulse Rate 68 71 71 Respiratory Rate 18 18 Blood Pressure 138/76 Pulse Oximetry 98 98 Oxygen Delivery Room Air 11/23/24 22:25 11/24/24 01:30 11/24/24 04:25 Temperature 97 F L 96.7 F L Pulse Rate 70 61 66 Respiratory Rate 20 20 Blood Pressure 144/50 H 138/66 Pulse Oximetry 98 98 Oxygen Delivery 11/24/24 09:00 11/24/24 09:14 Temperature Pulse Rate 66 Respiratory Rate Blood Pressure Pulse Oximetry Oxygen Delivery Room Air Intake/Output Intake/Output: Intake & Output 11/21/24 11/22/24 11/23/24 11/24/24 23:59 23:59 23:59 23:59 Intake Total 1517.5 4080 2988.3 1231.7 Output Total 353 589 7492 250 Balance 1417.5 3155 1198.3 981.7 Meds/Results Medications: Active Medications Generic Name Dose Route Start Last Admin Trade Name Freq PRN Reason Stop Dose Admin Acetaminophen 650 mg 11/20/24 18:46 Acetaminophen 325 Mg Tablet PO Q4H PRN Mild Pain (1-3) or Fever Anastrozole 1 mg 11/21/24 09:00 11/24/24 09:15 Anastrozole (*Chemo) 1 Mg Tablet PO 1 mg DAILY VERENA Administration Ciprofloxacin 500 mg 11/22/24 21:00 11/23/24 22:25 Ciprofloxacin 500 Mg Tab PO 11/26/24 21:01 500 mg Q24H VERENA Administration Donepezil HCl 5 mg 11/21/24 21:00 11/23/24 22:25 Donepezil Hcl 5 Mg Tablet PO 5 mg QHS VERENA Administration Lactated Ringer's 1,000 mls @ 75 mls/hr 11/20/24 18:50 11/24/24 05:11 Lr - Lactated Ringers Iv IV CONT 75 mls/hr .[id number] VERENA Administration Metoprolol Tartrate 50 mg 11/21/24 09:00 11/24/24 09:14 Metoprolol Tartrate 50 Mg Tab PO 50 mg Q12HR VERENA Administration Metronidazole 500 mg 11/22/24 22:00 11/24/24 05:12 Metronidazole 500 Mg Tablet PO 11/26/24 22:01 500 mg Q8HR VERENA Administration Mirtazapine 15 mg 11/21/24 09:00 11/24/24 09:14 Mirtazapine 15 Mg Tablet PO 15 mg DAILY VERENA Administration Ondansetron HCl 4 mg 11/20/24 18:46 Ondansetron Inj 4 Mg/2 Ml Vial IV PUSH Q4H PRN Nausea Pantoprazole Sodium 40 mg 11/21/24 09:00 11/24/24 09:15 Pantoprazole Sodium Iv 40 Mg Vial IV PUSH 40 mg QAM VERENA Administration Sodium Chloride 10 ml 11/21/24 14:00 11/24/24 05:12 Saline Lock Flush IV PUSH 10 ml Q8HR VERENA Administration Sodium Chloride 10 ml 11/21/24 12:40 Saline Lock Flush IV PUSH PRN PRN Flush Sodium Chloride 20 ml 11/21/24 12:40 Saline Lock Flush IV PUSH PRN PRN after blood draws Radiology Results: ITS Impressions Chest X-Ray 11/20/24 16:34 IMPRESSION: 1. No acute cardiopulmonary disease. Head CT 11/20/24 17:14 IMPRESSION: No acute intracranial findings. Abdomen/Pelvis CT 11/20/24 17:18 IMPRESSION: 1. Mild diverticulitis of descending colon. No perforation or abscess. Renal Ultrasound 11/21/24 10:01 IMPRESSION: 1. Mild atrophy of right kidney. No hydronephrosis. 2. Focal thickening of the left posterior wall of the bladder suspicious for urothelial carcinoma. Labs Labs: Laboratory Results - last 24 hr 11/24/24 06:32 WBC 5.0 RBC 2.90 L Hgb 9.1 L Hct 27.2 L MCV 93.8 MCH 31.4 MCHC 33.5 RDW 12.9 Plt Count 185 MPV 10.7 H Immature Gran % (Auto) 0.4 Neut % (Auto) 59.4 Lymph % (Auto) 24.0 [place] % (Auto) 10.8 H Eos % (Auto) 5.2 H Baso % (Auto) 0.2 Lymph # (Auto) 1.20 [place] # (Auto) 0.5 Eos # (Auto) 0.3 Baso # (Auto) 0.0 Abs Immat Gran (auto) 0.02 Absolute Neuts (auto) 3.0 Absolute Nucleated RBC 0.000 Nucleated RBC % 0.0 Sodium 139 Potassium 3.7 Chloride 108 H Carbon Dioxide 24 Anion Gap 7 BUN 35 H D Creatinine 3.80 H Estim Creat Clear Calc 8 Estimated GFR 11 L Glucose 98 Calcium 9.9 Phosphorus 3.0 Magnesium 1.5 L Total Bilirubin 0.4 AST 17 ALT 11 Alkaline Phosphatase 69 Total Protein 5.0 L Albumin 2.7 L
--- NOTE | 2024-11-24 12:32 | P.PNNP_ITS ---
Progress Note: A&P Assessment and Plan (1) LISA (acute kidney injury): Code(s): N17.9 - Acute kidney failure, unspecified Status: Acute Assessment and Plan: * LISA * suspect multifactorial etiology: * poor oral intake x 2 weeks if not longer * low bp on admission * continue use of SHELIA-I and HCTZ prior to admission * suspected urinary tract infection (E coli on cipro) * evaluation to date noted: * renal u/s with mild atrophy of right kidney and focal thickening of the left posterior wall of the bladder suspicious for urothelial carcinoma * UA suggests infection * urine electrolytes abd FeUrea non-prerenal * urine eosinophils negative * moderate proteinuria * CPK low * some improvement noted with IVFscreatinine has fallen to 3.8. * pt looks rehydrated. I encouraged her to take in liquids and food. * However the patient is an taking enough in to maintain hydration. Intake/output shows only about 500cc of fluid. * Will repeat labs tomorrow (2) Stage 3b chronic kidney disease: Code(s): N18.32 - Chronic kidney disease, stage 3b Status: Chronic Assessment and Plan: * baseline creatinine seems to run ~ 1.3 - 1.4mg/dl * presumably due to hypertension, diabetes, vascular disease, and age-related change (3) Sepsis: Code(s): A41.9 - Sepsis, unspecified organism Status: Acute Assessment and Plan: * as suggested on admission with altered mental status, hypotension, and LISA * presumed source = diverticulitis +/- UTI * BP improved * Blood cx neg but UCx positive for E coli. * on Cipro (4) Hyperkalemia: Code(s): E87.5 - Hyperkalemia Status: Acute Assessment and Plan: * as noted by admission labs * s/p medical management in the ER * resolved. (5) Diverticulitis: Code(s): K57.92 - Diverticulitis of intestine, part unspecified, without perforation or abscess without bleeding Status: Acute Assessment and Plan: * as noted by admission CT of A/P * blood cx neg * on cipro and flagyl. (6) Urinary tract infection: Code(s): N39.0 - Urinary tract infection, site not specified Status: Acute Assessment and Plan: * admission UA shows pyuria. * Urine is growing Klebsiella. * on cipro 500 once a day (renally adjusted) (7) Adult failure to thrive: Code(s): R62.7 - Adult failure to thrive Status: Acute Assessment and Plan: * recurrent issue/problem as noted by multiple hospitalizations * suspect due to progression of underlying dementia * may need to consider G-tube placement if family is willing... (8) HTN (hypertension): Qualifiers: Hypertension type: primary hypertension Qualified Code(s): I10 - Essential (primary) hypertension Code(s): I10 - Essential (primary) hypertension Status: Chronic Assessment and Plan: * soft on admission * better at this time * holding HCTZ and lisinopril given #1 * BP doing well now with a systolic at 138 (9) Diabetes: Qualifiers: Diabetes mellitus type: type 2 Diabetes mellitus parts counterman insulin use: without mcfp use Diabetes mellitus complication status: without complication Qualified Code(s): E11.9 - Type 2 diabetes mellitus without complications Code(s): E11.9 - Type 2 diabetes mellitus without complications Status: Chronic Assessment and Plan: * follow accu-cheks * glycemic control per hospitalist Will continue to follow. Subjective Date/time seen: 11/24/24 12:32 Interval history: Patient is feeling okay. Walked in the halls yesterday. Eating pretty well. Exam Narrative: General: elderly but frail female in NAD ENT: Mucus Membranes moist Heart: normal S1 and S2; no rub or ballop Lungs: clear Abdomen: soft, nontender, nondistended, positive bowel sounds Extremities: no edema Skin: no rash or subcu nodule Objective Data Vital Signs Vital Signs: Vital Signs - 24 hr 11/23/24 14:00 11/23/24 15:21 11/23/24 16:00 Temperature 98.1 F Pulse Rate 62 62 63 Respiratory Rate 16 Blood Pressure 141/82 H Pulse Oximetry 99 Oxygen Delivery 11/23/24 18:00 11/23/24 20:00 11/23/24 20:50 Temperature 98.1 F Pulse Rate 68 71 71 Respiratory Rate 18 18 Blood Pressure 138/76 Pulse Oximetry 98 98 Oxygen Delivery Room Air 11/23/24 22:25 11/24/24 01:30 11/24/24 04:25 Temperature 97 F L 96.7 F L Pulse Rate 70 61 66 Respiratory Rate 20 20 Blood Pressure 144/50 H 138/66 Pulse Oximetry 98 98 Oxygen Delivery 11/24/24 09:00 11/24/24 09:14 Temperature Pulse Rate 66 Respiratory Rate Blood Pressure Pulse Oximetry Oxygen Delivery Room Air Intake/Output Intake/Output: Intake & Output 11/21/24 11/22/24 11/23/24 11/24/24 23:59 23:59 23:59 23:59 Intake Total 1517.5 4080 2988.3 1231.7 Output Total 568 269 3534 250 Balance 1417.5 3155 1198.3 981.7 Meds/Results Medications: Active Medications Generic Name Dose Route Start Last Admin Trade Name Freq PRN Reason Stop Dose Admin Acetaminophen 650 mg 11/20/24 18:46 Acetaminophen 325 Mg Tablet PO Q4H PRN Mild Pain (1-3) or Fever Anastrozole 1 mg 11/21/24 09:00 11/24/24 09:15 Anastrozole (*Chemo) 1 Mg Tablet PO 1 mg DAILY VERENA Administration Ciprofloxacin 500 mg 11/22/24 21:00 11/23/24 22:25 Ciprofloxacin 500 Mg Tab PO 11/26/24 21:01 500 mg Q24H VERENA Administration Donepezil HCl 5 mg 11/21/24 21:00 11/23/24 22:25 Donepezil Hcl 5 Mg Tablet PO 5 mg QHS VERENA Administration Lactated Ringer's 1,000 mls @ 75 mls/hr 11/20/24 18:50 11/24/24 05:11 Lr - Lactated Ringers Iv IV CONT 75 mls/hr .[id number] VERENA Administration Metoprolol Tartrate 50 mg 11/21/24 09:00 11/24/24 09:14 Metoprolol Tartrate 50 Mg Tab PO 50 mg Q12HR VERENA Administration Metronidazole 500 mg 11/22/24 22:00 11/24/24 05:12 Metronidazole 500 Mg Tablet PO 11/26/24 22:01 500 mg Q8HR VERENA Administration Mirtazapine 15 mg 11/21/24 09:00 11/24/24 09:14 Mirtazapine 15 Mg Tablet PO 15 mg DAILY VERENA Administration Ondansetron HCl 4 mg 11/20/24 18:46 Ondansetron Inj 4 Mg/2 Ml Vial IV PUSH Q4H PRN Nausea Pantoprazole Sodium 40 mg 11/21/24 09:00 11/24/24 09:15 Pantoprazole Sodium Iv 40 Mg Vial IV PUSH 40 mg QAM VERENA Administration Sodium Chloride 10 ml 11/21/24 14:00 11/24/24 05:12 Saline Lock Flush IV PUSH 10 ml Q8HR VERENA Administration Sodium Chloride 10 ml 11/21/24 12:40 Saline Lock Flush IV PUSH PRN PRN Flush Sodium Chloride 20 ml 11/21/24 12:40 Saline Lock Flush IV PUSH PRN PRN after blood draws Radiology Results: ITS Impressions Chest X-Ray 11/20/24 16:34 IMPRESSION: 1. No acute cardiopulmonary disease. Head CT 11/20/24 17:14 IMPRESSION: No acute intracranial findings. Abdomen/Pelvis CT 11/20/24 17:18 IMPRESSION: 1. Mild diverticulitis of descending colon. No perforation or abscess. Renal Ultrasound 11/21/24 10:01 IMPRESSION: 1. Mild atrophy of right kidney. No hydronephrosis. 2. Focal thickening of the left posterior wall of the bladder suspicious for urothelial carcinoma. Labs Labs: Laboratory Results - last 24 hr 11/24/24 06:32 WBC 5.0 RBC 2.90 L Hgb 9.1 L Hct 27.2 L MCV 93.8 MCH 31.4 MCHC 33.5 RDW 12.9 Plt Count 185 MPV 10.7 H Immature Gran % (Auto) 0.4 Neut % (Auto) 59.4 Lymph % (Auto) 24.0 [place] % (Auto) 10.8 H Eos % (Auto) 5.2 H Baso % (Auto) 0.2 Lymph # (Auto) 1.20 [place] # (Auto) 0.5 Eos # (Auto) 0.3 Baso # (Auto) 0.0 Abs Immat Gran (auto) 0.02 Absolute Neuts (auto) 3.0 Absolute Nucleated RBC 0.000 Nucleated RBC % 0.0 Sodium 139 Potassium 3.7 Chloride 108 H Carbon Dioxide 24 Anion Gap 7 BUN 35 H D Creatinine 3.80 H Estim Creat Clear Calc 8 Estimated GFR 11 L Glucose 98 Calcium 9.9 Phosphorus 3.0 Magnesium 1.5 L Total Bilirubin 0.4 AST 17 ALT 11 Alkaline Phosphatase 69 Total Protein 5.0 L Albumin 2.7 L
[2024-11-24 14:00] VITALS: BP 143/71; PULSE 66; RESP 18; TEMP 36.3; O2SAT 98
[2024-11-24] MEDS: DONEPEZIL HCL 5 MG TABLET PO (20:28)
[2024-11-24] MEDS: CIPROFLOXACIN 500 MG TAB PO (20:28)
[2024-11-24 20:30] VITALS: BP 153/76; PULSE 65; RESP 20; TEMP 36.8; O2SAT 99
[2024-11-25] MEDS: LACTATED RINGERS 1,000 ML 75 ML IV CONT ×2 (02:38→12:23)
[2024-11-25 05:10] VITALS: BP 122/45; PULSE 57; RESP 20; TEMP 36.5; O2SAT 98
[2024-11-25] MEDS: metroNIDAZOLE 500 MG TABLET PO ×3 (05:44→21:26)
[2024-11-25] MEDS: SALINE LOCK FLUSH 10 ML IV PUSH ×3 (05:45→21:33)
[2024-11-25 08:24] VITALS: PULSE 58
[2024-11-25] MEDS: METOPROLOL TARTRATE 50 MG TAB PO ×2 (08:24→21:26)
[2024-11-25] MEDS: ANASTROZOLE (*CHEMO) 1 MG TABLET PO (08:24)
[2024-11-25] MEDS: MIRTAZAPINE 15 MG TABLET PO (08:24)
[2024-11-25] MEDS: PANTOPRAZOLE SODIUM IV 40 MG VIAL IV PUSH (08:26)
[2024-11-25 09:00] LABS: Basophils Percent Auto 0.4 % (0.2-1.2); Eosinophils Absolute Auto 0.4 K/mm3 (0-0.3); Eosinophils Percent Auto 6.6 % (0-4.4); Hematocrit 31.5 % (37.0-47.0); Hemoglobin 10.1 g/dL (12.0-15.0); Immature Granulocyte Absolute 0.03 K/mm3 (0.00-0.031); Immature Granulocyte Percent A 0.5 % (0-0.5); Lymphocytes Absolute Auto 1.36 K/mm3 (0.9-3.2); Lymphocytes Percent Auto 24.2 % (18.3-44.2); Mean Corpuscular HGB Conc 32.1 g/dl (32-36); Mean Corpuscular Hemoglobin 31.1 pg (26-34); Mean Corpuscular Volume 96.9 fl (80-100); Mean Platelet Volume 10.5 fl (7.4-10.4); Monocytes Absolute Auto 0.6 K/mm3 (0.1-0.6); Monocytes Percent Auto 10.9 % (2.6-8.5); Neutrophils Absolute Auto 3.2 K/mm3 (1.3-6.7); Neutrophils Percent Auto 57.4 % (45.5-73.1); Platelet Count Result 189 k/mm3 (150-375); Red Blood Count 3.25 M/mm3 (4.2-5.4); Red Cell Distribution Width 13.1 % (11.5-14.5); White Blood Count 5.6 K/mm3 (4.5-10.0)
[2024-11-25 09:18] LABS: Alanine Aminotransferase 12 U/L (6-35); Alkaline Phosphatase 72 U/L (38-126); Anion Gap 8 mmol/L (4-12); Aspartate Amino Transferase 23 U/L (14-36); Bilirubin,Total 0.6 mg/dL (0.2-1.3); Blood Urea Nitrogen 27 mg/dL (7-17); Calcium 9.7 mg/dL (8.4-10.2); Carbon Dioxide 22 mmol/L (22-30); Chloride 108 mmol/L (98-107); Estimated CRCL calculation 10 ml/min; Estimated Glomerular Filt Rate 14; Glucose 87 mg/dL (65-110); Magnesium 1.8 mg/dL (1.6-2.3); Phosphorus 3.7 mg/dL (2.5-4.5); Potassium 3.4 mmol/L (3.4-5.0); Sodium 138 mmol/L (137-145)
--- NOTE | 2024-11-25 10:23 | P.PNIM_ITS ---
Progress Note: A&P Assessment and Plan (1) Adult failure to thrive: Code(s): R62.7 - Adult failure to thrive Status: Acute (2) LISA (acute kidney injury): Code(s): N17.9 - Acute kidney failure, unspecified Status: Acute (3) Stage 3b chronic kidney disease: Code(s): N18.32 - Chronic kidney disease, stage 3b Status: Chronic (4) Acute dehydration: Code(s): E86.0 - Dehydration Status: Acute Plan # Adult failure to thrive: Delete due to multiple comorbidities, is aggravated by acute illness # LISA on CKD 3B Upon arrival, Creatinine 5.84, baseline creatinine 1.30 on October 13, 2024 Unclear etiology, Possibly resulting from UTI, dehydration, electrolyte abnormality Kidney ultrasound with no hydronephrosis Patient is on lactated Ringer 125 mL/hour which will be tapered down to 75 cc an hour. Creatinine continues to improve slowly Consult rubber molder for evaluation treatment Will hold lisinopril Will hold hydrochlorothiazide Cr down to 3.19 # Toxic metabolic encephalopathy: Likely secondary to sepsis # Weakness: Physical deconditioning due to multiple comorbidities, exacerbated by acute illness including sepsis, UTI, dehydration, electrolyte abnormality PT OT consult # Urinary tract infection: Patient is currently on ciprofloxacin and Flagyl # Diverticulitis: Patient started on ciprofloxacin and Flagyl # Hyperkalemia: Patient receives sodium zirconium in emergency room This has resolved Type 2 diabetes Hypertension Recent laparoscopic cholecystectomy for chronic cholecystitis Renal ultrasound with focal thickening of the left posterior wall of the bladder suspicious for urothelial carcinoma. Will need urology follow-up evaluation with cystoscopy DVT prophylaxis: Heparin subQ Code status modified code Subjective Date/time seen: 11/25/24 10:23 Interval history: Patient still has a poor intake, feels tired, denies abdomen pain nausea vomiting or chest pain. Patient is afebrile, blood pressure stable, no O2 desaturation on room air, labs reviewed, renal function continue to improve, creatinine 3.19, patient has no new issue even overnight Exam Narrative: GENERAL: Well-appearing, in no acute distress. Well-nourished. - EYES: EOMI. Anicteric. - HENT: Moist mucous membranes. - LUNGS: Clear to auscultation bilateral ly, no wheezing, rhonchi, or rales. - CARDIOVASCULAR: Regular rate and rhyth m. No murmur. No JVD. - ABDOMEN: Soft, non-tender and non-dist ended. No palpable masses. - EXTREMITIES: No edema. Peripheral puls es 2+. Non-tender. - NEUROLOGIC: Moving all extremities - PSYCHIATRIC: Alert and awake, convers ant, oriented to self Appropriate mood and affect. - SKIN: No rashes or lesions. Warm. - LYMPH: No cervical lymphadenopathy. Objective Data Vital Signs Vital Signs: Vital Signs - 24 hr 11/24/24 14:00 11/24/24 20:00 11/24/24 20:30 Temperature 97.4 F L 98.3 F Pulse Rate 66 65 Respiratory Rate 18 20 Blood Pressure 143/71 H 153/76 H Pulse Oximetry 98 99 Oxygen Delivery Room Air 11/25/24 05:10 11/25/24 08:24 11/25/24 08:25 Temperature 97.7 F Pulse Rate 57 L 58 L Respiratory Rate 20 Blood Pressure 122/45 L Pulse Oximetry 98 Oxygen Delivery Room Air Intake/Output Intake/Output: Intake & Output 11/22/24 11/23/24 11/24/24 11/25/24 23:59 23:59 23:59 23:59 Intake Total 4080 2988.3 2471.7 547 Output Total 925 1790 250 Balance 3155 1198.3 2221.7 547 Meds/Results Medications: Active Medications Generic Name Dose Route Start Last Admin Trade Name Freq PRN Reason Stop Dose Admin Acetaminophen 650 mg 11/20/24 18:46 Acetaminophen 325 Mg Tablet PO Q4H PRN Mild Pain (1-3) or Fever Anastrozole 1 mg 11/21/24 09:00 11/25/24 08:24 Anastrozole (*Chemo) 1 Mg Tablet PO 1 mg DAILY VERENA Administration Ciprofloxacin 500 mg 11/22/24 21:00 11/24/24 20:28 Ciprofloxacin 500 Mg Tab PO 11/26/24 21:01 500 mg Q24H VERENA Administration Donepezil HCl 5 mg 11/21/24 21:00 11/24/24 20:28 Donepezil Hcl 5 Mg Tablet PO 5 mg QHS VERENA Administration Lactated Ringer's 1,000 mls @ 75 mls/hr 11/20/24 18:50 11/25/24 02:38 Lr - Lactated Ringers Iv IV CONT 75 mls/hr .[id number] VERENA Administration Metoprolol Tartrate 50 mg 11/21/24 09:00 11/25/24 08:24 Metoprolol Tartrate 50 Mg Tab PO 50 mg Q12HR VERENA Administration Metronidazole 500 mg 11/22/24 22:00 11/25/24 05:44 Metronidazole 500 Mg Tablet PO 11/26/24 22:01 500 mg Q8HR VERENA Administration Mirtazapine 15 mg 11/21/24 09:00 11/25/24 08:24 Mirtazapine 15 Mg Tablet PO 15 mg DAILY VERENA Administration Ondansetron HCl 4 mg 11/20/24 18:46 Ondansetron Inj 4 Mg/2 Ml Vial IV PUSH Q4H PRN Nausea Pantoprazole Sodium 40 mg 11/21/24 09:00 11/25/24 08:26 Pantoprazole Sodium Iv 40 Mg Vial IV PUSH 40 mg QAM VERENA Administration Sodium Chloride 10 ml 11/21/24 14:00 11/25/24 05:45 Saline Lock Flush IV PUSH 10 ml Q8HR VERENA Administration Sodium Chloride 10 ml 11/21/24 12:40 Saline Lock Flush IV PUSH PRN PRN Flush Sodium Chloride 20 ml 11/21/24 12:40 Saline Lock Flush IV PUSH PRN PRN after blood draws Radiology Results: ITS Impressions Chest X-Ray 11/20/24 16:34 IMPRESSION: 1. No acute cardiopulmonary disease. Head CT 11/20/24 17:14 IMPRESSION: No acute intracranial findings. Abdomen/Pelvis CT 11/20/24 17:18 IMPRESSION: 1. Mild diverticulitis of descending colon. No perforation or abscess. Renal Ultrasound 11/21/24 10:01 IMPRESSION: 1. Mild atrophy of right kidney. No hydronephrosis. 2. Focal thickening of the left posterior wall of the bladder suspicious for urothelial carcinoma. Labs Labs: Laboratory Results - last 24 hr 11/25/24 08:51 WBC 5.6 RBC 3.25 L Hgb 10.1 L Hct 31.5 L MCV 96.9 MCH 31.1 MCHC 32.1 RDW 13.1 Plt Count 189 MPV 10.5 H Immature Gran % (Auto) 0.5 Neut % (Auto) 57.4 Lymph % (Auto) 24.2 [place] % (Auto) 10.9 H Eos % (Auto) 6.6 H Baso % (Auto) 0.4 Lymph # (Auto) 1.36 [place] # (Auto) 0.6 Eos # (Auto) 0.4 H Baso # (Auto) 0.0 Abs Immat Gran (auto) 0.03 Absolute Neuts (auto) 3.2 Absolute Nucleated RBC 0.000 Nucleated RBC % 0.0 Sodium 138 Potassium 3.4 Chloride 108 H Carbon Dioxide 22 Anion Gap 8 BUN 27 H Creatinine 3.19 H Estim Creat Clear Calc 10 Estimated GFR 14 L Glucose 87 Calcium 9.7 Phosphorus 3.7 Magnesium 1.8 Total Bilirubin 0.6 AST 23 ALT 12 Alkaline Phosphatase 72 Total Protein 6.0 L Albumin 3.0 L
--- NOTE | 2024-11-25 10:47 | P.PNNP_ITS ---
Progress Note: A&P Assessment and Plan (1) LISA (acute kidney injury): Code(s): N17.9 - Acute kidney failure, unspecified Status: Acute Assessment and Plan: * slow improvement * suspect multifactorial etiology: * poor oral intake x 2 weeks if not longer * low bp on admission * continue use of SHELIA-I and HCTZ prior to admission * suspected urinary tract infection (E coli on cipro) * evaluation to date noted: * renal u/s with mild atrophy of right kidney and focal thickening of the left posterior wall of the bladder suspicious for urothelial carcinoma * UA suggests infection * urine electrolytes abd FeUrea non-prerenal * urine eosinophils negative * moderate proteinuria * CPK low * continue IVFs given poor oral intake (2) Stage 3b chronic kidney disease: Code(s): N18.32 - Chronic kidney disease, stage 3b Status: Chronic Assessment and Plan: * baseline creatinine seems to run ~ 1.3 - 1.4mg/dl * presumably due to hypertension, diabetes, vascular disease, and age-related change (3) Sepsis: Code(s): A41.9 - Sepsis, unspecified organism Status: Acute Assessment and Plan: * as suggested on admission with altered mental status, hypotension, and LISA * presumed source = diverticulitis +/- UTI * BP improved * culture data noted * on antibiotics (4) Hyperkalemia: Code(s): E87.5 - Hyperkalemia Status: Acute Assessment and Plan: * resolved * as noted by admission labs * s/p medical management in the ER (5) Diverticulitis: Code(s): K57.92 - Diverticulitis of intestine, part unspecified, without perforation or abscess without bleeding Status: Acute Assessment and Plan: * as noted by admission CT of A/P * blood cultures negative to date * on antibiotics (6) Urinary tract infection: Code(s): N39.0 - Urinary tract infection, site not specified Status: Acute Assessment and Plan: * admission UA shows pyuria. * Urine culture with Klebsiella * on antibiotics (7) Adult failure to thrive: Code(s): R62.7 - Adult failure to thrive Status: Acute Assessment and Plan: * recurrent issue/problem as noted by multiple hospitalizations * suspect due to progression of underlying dementia * may need to consider G-tube placement if family is willing... (8) HTN (hypertension): Qualifiers: Hypertension type: primary hypertension Qualified Code(s): I10 - Essential (primary) hypertension Code(s): I10 - Essential (primary) hypertension Status: Chronic Assessment and Plan: * soft on admission * better at this time * holding HCTZ and lisinopril given #1 * BP better at this time (9) Diabetes: Qualifiers: Diabetes mellitus complication status: without complication Diabetes mellitus termite treater insulin use: without termite treater use Diabetes mellitus type: t ype 2 Qualified Code(s): E11.9 - Type 2 diabetes mellitus without complications Code(s): E11.9 - Type 2 diabetes mellitus without complications Status: Chronic Assessment and Plan: * follow accu-cheks * glycemic control per hospitalist Long extensive discussion with the patient's daughter and POA (> 25 minutes) by phone -- although the patient's kidney function is improving with gentle IV fluid hydration, the main issue/concern is that she is not eating and drinking enough on her own. I suspect this will continue be an ongoing problem on discharge and she will likely be readmitted for dehydration and altered mental status again as as proven by her recent history of recurrent admissions for the same issue/problem. The family is not interested in pursuing G-tube placement and they seem to be leaning towards comfort care measures given her progressive dementia that appears to have clinically worsened in the last several months. Unfortunately, IV fluid hydration is a temporary measure at best in terms of improving her kidney function and once this is discontinued, I suspect her kidney function will deteriorate again as it has proven so with her recent hospitalizations, discharges, and readmissions. The patient's family is well aware of this which has led to their decision on pursuing comfort care measures after discharge when she is home. Based on this discussion - she can be discharged when the patient's family wants to take her home and will continue to follow from a distance. L Subjective Date/time seen: 11/25/24 10:47 Interval history: Follow-up for acute kidney injury/acute renal failure on chronic kidney disease. Chart reviewed since last seen -- renal function/creatinine slowly improving with IVF hydration but patient continues to have issues with adequate food/fluid intake as noted by nursing; remains pleasantly confused at the time of my visit; no apparen distress voiced. Exam 2 Narrative: General: elderly but frail female in NAD Heart: normal S1 and S2; no rub or ballop Lungs: clear anteriorly Abdomen: soft, nontender, nondistended, positive bowel sounds Extremities: no cyanosis, clubbing, or edema Skin: warm and dry Objective Data Vital Signs Vital Signs: Vital Signs Temp Pulse Resp BP Pulse Ox O2 Del Method 11/25/24 14:00 97.1 F L 65 18 137/68 100 11/25/24 10:41 Room Air 11/25/24 09:58 Room Air 11/25/24 08:25 Room Air 11/25/24 08:24 58 L 11/25/24 05:10 97.7 F 57 L 20 122/45 L 98 11/24/24 20:30 98.3 F 65 20 153/76 H 99 11/24/24 20:00 Room Air Intake/Output Intake/Output: Intake & Output 11/22/24 11/23/24 11/24/24 11/25/24 23:59 23:59 23:59 23:59 Intake Total 4080 2988.3 2471.7 1997.3 Output Total 925 1790 250 Balance 3155 1198.3 2221.7 1997.3 Meds/Results Medications: Active Medications Generic Name Dose Route Start Last Admin Trade Name Freq PRN Reason Stop Dose Admin Acetaminophen 650 mg 11/20/24 18:46 Acetaminophen 325 Mg Tablet PO Q4H PRN Mild Pain (1-3) or Fever Anastrozole 1 mg 11/21/24 09:00 11/25/24 08:24 Anastrozole (*Chemo) 1 Mg Tablet PO 1 mg DAILY VERENA Administration Ciprofloxacin 500 mg 11/22/24 21:00 11/24/24 20:28 Ciprofloxacin 500 Mg Tab PO 11/26/24 21:01 500 mg Q24H VERENA Administration Donepezil HCl 5 mg 11/21/24 21:00 11/24/24 20:28 Donepezil Hcl 5 Mg Tablet PO 5 mg QHS VERENA Administration Lactated Ringer's 1,000 mls @ 75 mls/hr 11/20/24 18:50 11/25/24 12:23 Lr - Lactated Ringers Iv IV CONT 75 mls/hr .[id number] VERENA Administration Metoprolol Tartrate 50 mg 11/21/24 09:00 11/25/24 08:24 Metoprolol Tartrate 50 Mg Tab PO 50 mg Q12HR VERENA Administration Metronidazole 500 mg 11/22/24 22:00 11/25/24 13:52 Metronidazole 500 Mg Tablet PO 11/26/24 22:01 500 mg Q8HR VERENA Administration Mirtazapine 15 mg 11/21/24 09:00 11/25/24 08:24 Mirtazapine 15 Mg Tablet PO 15 mg DAILY VERENA Administration Ondansetron HCl 4 mg 11/20/24 18:46 Ondansetron Inj 4 Mg/2 Ml Vial IV PUSH Q4H PRN Nausea Pantoprazole Sodium 40 mg 11/21/24 09:00 11/25/24 08:26 Pantoprazole Sodium Iv 40 Mg Vial IV PUSH 40 mg QAM VERENA Administration Sodium Chloride 10 ml 11/21/24 14:00 11/25/24 13:52 Saline Lock Flush IV PUSH 10 ml Q8HR VERENA Administration Sodium Chloride 10 ml 11/21/24 12:40 Saline Lock Flush IV PUSH PRN PRN Flush Sodium Chloride 20 ml 11/21/24 12:40 Saline Lock Flush IV PUSH PRN PRN after blood draws Radiology Results: ITS Impressions Chest X-Ray 11/20/24 16:34 IMPRESSION: 1. No acute cardiopulmonary disease. Head CT 11/20/24 17:14 IMPRESSION: No acute intracranial findings. Abdomen/Pelvis CT 11/20/24 17:18 IMPRESSION: 1. Mild diverticulitis of descending colon. No perforation or abscess. Renal Ultrasound 11/21/24 10:01 IMPRESSION: 1. Mild atrophy of right kidney. No hydronephrosis. 2. Focal thickening of the left posterior wall of the bladder suspicious for urothelial carcinoma. Labs Labs: Laboratory Tests 11/25/24 08:51 11/25/24 08:51 Calcium 9.7 Phosphorus 3.7 Magnesium 1.8 Total Bilirubin 0.6 AST 23 ALT 12 Alkaline Phosphatase 72 Total Protein 6.0 L Albumin 3.0 L
[2024-11-25 14:00] VITALS: BP 137/68; PULSE 65; RESP 18; TEMP 36.2; O2SAT 100
[2024-11-25 20:25] VITALS: BP 121/81; PULSE 73; RESP 16; TEMP 37; O2SAT 98
[2024-11-25 21:26] VITALS: PULSE 89
[2024-11-25] MEDS: CIPROFLOXACIN 500 MG TAB PO (21:26)
[2024-11-25] MEDS: DONEPEZIL HCL 5 MG TABLET PO (21:26)
[2024-11-26] MEDS: LACTATED RINGERS 1,000 ML 75 ML IV CONT (04:10)
[2024-11-26 05:00] VITALS: BP 139/52; PULSE 61; RESP 16; TEMP 37.4; O2SAT 99
[2024-11-26] MEDS: metroNIDAZOLE 500 MG TABLET PO ×3 (05:41→21:21)
[2024-11-26] MEDS: SALINE LOCK FLUSH 10 ML IV PUSH ×3 (06:38→21:22)
[2024-11-26 07:41] LABS: Basophils Percent Auto 0.4 % (0.2-1.2); Eosinophils Absolute Auto 0.3 K/mm3 (0-0.3); Eosinophils Percent Auto 6.3 % (0-4.4); Hematocrit 26.7 % (37.0-47.0); Hemoglobin 8.9 g/dL (12.0-15.0); Immature Granulocyte Absolute 0.01 K/mm3 (0.00-0.031); Immature Granulocyte Percent A 0.2 % (0-0.5); Lymphocytes Absolute Auto 1.25 K/mm3 (0.9-3.2); Mean Corpuscular HGB Conc 33.3 g/dl (32-36); Mean Corpuscular Hemoglobin 31.4 pg (26-34); Mean Corpuscular Volume 94.3 fl (80-100); Monocytes Absolute Auto 0.5 K/mm3 (0.1-0.6); Monocytes Percent Auto 11.7 % (2.6-8.5); Neutrophils Absolute Auto 2.5 K/mm3 (1.3-6.7); Neutrophils Percent Auto 54.4 % (45.5-73.1); Platelet Count Result 170 k/mm3 (150-375); Red Blood Count 2.83 M/mm3 (4.2-5.4); White Blood Count 4.6 K/mm3 (4.5-10.0)
[2024-11-26 08:20] LABS: Alanine Aminotransferase 10 U/L (6-35); Albumin Level 2.5 g/dL (3.5-5.1); Alkaline Phosphatase 67 U/L (38-126); Anion Gap 5 mmol/L (4-12); Aspartate Amino Transferase 19 U/L (14-36); Bilirubin,Total 0.5 mg/dL (0.2-1.3); Blood Urea Nitrogen 22 mg/dL (7-17); Calcium 9.1 mg/dL (8.4-10.2); Carbon Dioxide 25 mmol/L (22-30); Chloride 109 mmol/L (98-107); Estimated CRCL calculation 12 ml/min; Estimated Glomerular Filt Rate 15; Glucose 92 mg/dL (65-110); Magnesium 1.4 mg/dL (1.6-2.3); Potassium 2.9 mmol/L (3.4-5.0); Sodium 139 mmol/L (137-145)
[2024-11-26 08:38] VITALS: O2SAT 98
[2024-11-26] MEDS: PANTOPRAZOLE SODIUM IV 40 MG VIAL IV PUSH (09:13)
[2024-11-26] MEDS: METOPROLOL TARTRATE 50 MG TAB PO ×2 (09:13→21:22)
[2024-11-26] MEDS: ANASTROZOLE (*CHEMO) 1 MG TABLET PO (09:13)
[2024-11-26] MEDS: MIRTAZAPINE 15 MG TABLET PO (09:13)
--- NOTE | 2024-11-26 09:47 | P.PNIM_ITS ---
Progress Note: A&P Assessment and Plan (1) Adult failure to thrive: Code(s): R62.7 - Adult failure to thrive Status: Acute (2) LISA (acute kidney injury): Code(s): N17.9 - Acute kidney failure, unspecified Status: Acute (3) Stage 3b chronic kidney disease: Code(s): N18.32 - Chronic kidney disease, stage 3b Status: Chronic (4) Acute dehydration: Code(s): E86.0 - Dehydration Status: Acute Plan # Adult failure to thrive due to multiple comorbidities, is aggravated by acute illness # LISA on CKD 3B Upon arrival, Creatinine 5.84, baseline creatinine 1.30 on October 13, 2024 Unclear etiology, Possibly resulting from UTI, dehydration, electrolyte abnormality Kidney ultrasound with no hydronephrosis Patient was on lactated Ringer 125 mL/hour which will be tapered down to 75 cc an hour. Consult insulation board back tender for evaluation treatment Will hold lisinopril Will hold hydrochlorothiazide Cr down to2.94 Creatinine continues to improve slowly Toxic metabolic encephalopathy: Likely secondary to sepsis improves Weakness: Physical deconditioning due to multiple comorbidities, exacerbated by acute illness including sepsis, UTI, dehydration, electrolyte abnormality PT OT consult # Urinary tract infection: Patient is currently on ciprofloxacin and Flagyl # Diverticulitis: Patient started on ciprofloxacin and Flagyl # Hyperkalemia: Patient receives sodium zirconium in emergency room This has resolved Type 2 diabetes Hypertension Recent laparoscopic cholecystectomy for chronic cholecystitis Renal ultrasound with focal thickening of the left posterior wall of the bladder suspicious for urothelial carcinoma. Will need urology follow-up evaluation with cystoscopy DVT prophylaxis: Heparin subQ Code status modified code Subjective Date/time seen: 11/26/24 09:47 Interval history: Patient still has a poor intake, feels tired, denies abdomen pain nausea vomiting or chest pain. Patient is afebrile, blood pressure stable, no O2 desaturation on room air, labs reviewed, renal function continue to improve, creatinine 2.94, patient has no new issue even overnight Exam Narrative: GENERAL: Well-appearing, in no acute distress. Well-nourished. - EYES: EOMI. Anicteric. - HENT: Moist mucous membranes. - LUNGS: Clear to auscultation bilateral ly, no wheezing, rhonchi, or rales. - CARDIOVASCULAR: Regular rate and rhyth m. No murmur. No JVD. - ABDOMEN: Soft, non-tender and non-dist ended. No palpable masses. - EXTREMITIES: No edema. Peripheral puls es 2+. Non-tender. - NEUROLOGIC: Moving all extremities - PSYCHIATRIC: Alert and awake, convers ant, oriented to self Appropriate mood and affect. - SKIN: No rashes or lesions. Warm. - LYMPH: No cervical lymphadenopathy. Objective Data Vital Signs Vital Signs: Vital Signs - 24 hr 11/25/24 09:58 11/25/24 10:41 11/25/24 14:00 Temperature 97.1 F L Pulse Rate 65 Respiratory Rate 18 Blood Pressure 137/68 Pulse Oximetry 100 Oxygen Delivery Room Air Room Air 11/25/24 20:00 11/25/24 20:25 11/25/24 21:26 Temperature 98.6 F Pulse Rate 73 89 Respiratory Rate 16 Blood Pressure 121/81 Pulse Oximetry 98 Oxygen Delivery Room Air 11/26/24 05:00 11/26/24 08:38 Temperature 99.3 F Pulse Rate 61 Respiratory Rate 16 Blood Pressure 139/52 L Pulse Oximetry 99 98 Oxygen Delivery Room Air Intake/Output Intake/Output: Intake & Output 11/23/24 11/24/24 11/25/24 11/26/24 23:59 23:59 23:59 23:59 Intake Total 2988.3 2471.7 1997.3 1822 Output Total 1790 250 3 Balance 1198.3 2221.7 1997.3 1819 Meds/Results Medications: Active Medications Generic Name Dose Route Start Last Admin Trade Name Freq PRN Reason Stop Dose Admin Acetaminophen 650 mg 11/20/24 18:46 Acetaminophen 325 Mg Tablet PO Q4H PRN Mild Pain (1-3) or Fever Anastrozole 1 mg 11/21/24 09:00 11/26/24 09:13 Anastrozole (*Chemo) 1 Mg Tablet PO 1 mg DAILY VERENA Administration Ciprofloxacin 500 mg 11/22/24 21:00 11/25/24 21:26 Ciprofloxacin 500 Mg Tab PO 11/26/24 21:01 500 mg Q24H VERENA Administration Donepezil HCl 5 mg 11/21/24 21:00 11/25/24 21:26 Donepezil Hcl 5 Mg Tablet PO 5 mg QHS VERENA Administration Lactated Ringer's 1,000 mls @ 75 mls/hr 11/20/24 18:50 11/26/24 04:10 Lr - Lactated Ringers Iv IV CONT 75 mls/hr .[id number] VERENA Administration Metoprolol Tartrate 50 mg 11/21/24 09:00 11/26/24 09:13 Metoprolol Tartrate 50 Mg Tab PO 50 mg Q12HR VERENA Administration Metronidazole 500 mg 11/22/24 22:00 11/26/24 05:41 Metronidazole 500 Mg Tablet PO 11/26/24 22:01 500 mg Q8HR VERENA Administration Mirtazapine 15 mg 11/21/24 09:00 11/26/24 09:13 Mirtazapine 15 Mg Tablet PO 15 mg DAILY VERENA Administration Ondansetron HCl 4 mg 11/20/24 18:46 Ondansetron Inj 4 Mg/2 Ml Vial IV PUSH Q4H PRN Nausea Pantoprazole Sodium 40 mg 11/21/24 09:00 11/26/24 09:13 Pantoprazole Sodium Iv 40 Mg Vial IV PUSH 40 mg QAM VERENA Administration Sodium Chloride 10 ml 11/21/24 14:00 11/26/24 06:38 Saline Lock Flush IV PUSH 10 ml Q8HR VERENA Administration Sodium Chloride 10 ml 11/21/24 12:40 Saline Lock Flush IV PUSH PRN PRN Flush Sodium Chloride 20 ml 11/21/24 12:40 Saline Lock Flush IV PUSH PRN PRN after blood draws Radiology Results: ITS Impressions Chest X-Ray 11/20/24 16:34 IMPRESSION: 1. No acute cardiopulmonary disease. Head CT 11/20/24 17:14 IMPRESSION: No acute intracranial findings. Abdomen/Pelvis CT 11/20/24 17:18 IMPRESSION: 1. Mild diverticulitis of descending colon. No perforation or abscess. Renal Ultrasound 11/21/24 10:01 IMPRESSION: 1. Mild atrophy of right kidney. No hydronephrosis. 2. Focal thickening of the left posterior wall of the bladder suspicious for urothelial carcinoma. Labs Labs: Laboratory Results - last 24 hr 11/26/24 07:28 WBC 4.6 RBC 2.83 L Hgb 8.9 L Hct 26.7 L MCV 94.3 MCH 31.4 MCHC 33.3 RDW 13.0 Plt Count 170 MPV 10.0 Immature Gran % (Auto) 0.2 Neut % (Auto) 54.4 Lymph % (Auto) 27.0 [place] % (Auto) 11.7 H Eos % (Auto) 6.3 H Baso % (Auto) 0.4 Lymph # (Auto) 1.25 [place] # (Auto) 0.5 Eos # (Auto) 0.3 Baso # (Auto) 0.0 Abs Immat Gran (auto) 0.01 Absolute Neuts (auto) 2.5 Absolute Nucleated RBC 0.000 Nucleated RBC % 0.0 Sodium 139 Potassium 2.9 L Chloride 109 H Carbon Dioxide 25 Anion Gap 5 BUN 22 H Creatinine 2.94 H Estim Creat Clear Calc 12 Estimated GFR 15 L Glucose 92 Calcium 9.1 Phosphorus 4.0 Magnesium 1.4 L Total Bilirubin 0.5 AST 19 ALT 10 Alkaline Phosphatase 67 Total Protein 5.0 L Albumin 2.5 L
[2024-11-26 14:00] VITALS: BP 146/58; PULSE 60; RESP 20; TEMP 36.3; O2SAT 99
[2024-11-26 20:35] VITALS: BP 157/96; PULSE 63; RESP 16; TEMP 36.7; O2SAT 99
[2024-11-26 21:22] VITALS: PULSE 60
[2024-11-26] MEDS: CIPROFLOXACIN 500 MG TAB PO (21:22)
[2024-11-26] MEDS: DONEPEZIL HCL 5 MG TABLET PO (21:22)
[2024-11-27] MEDS: LACTATED RINGERS 1,000 ML 75 ML IV CONT ×2 (01:20→18:38)
[2024-11-27] MEDS: SALINE LOCK FLUSH 10 ML IV PUSH ×3 (05:03→21:09)
[2024-11-27 05:10] VITALS: BP 150/55; PULSE 56; RESP 16; TEMP 36.9; O2SAT 97
[2024-11-27 09:18] VITALS: PULSE 64
[2024-11-27] MEDS: ANASTROZOLE (*CHEMO) 1 MG TABLET PO (09:18)
[2024-11-27] MEDS: PANTOPRAZOLE SODIUM IV 40 MG VIAL IV PUSH (09:18)
[2024-11-27] MEDS: METOPROLOL TARTRATE 50 MG TAB PO ×2 (09:18→21:03)
[2024-11-27] MEDS: MIRTAZAPINE 15 MG TABLET PO (09:18)
--- NOTE | 2024-11-27 10:46 | PCNWS ---
Weekly nutritional screen. Patient is tolerating current renal diet with improved intake, 50-100% last 48 hours. Plan to discharge home for comfort care. No weight loss reported. No nutritional needs at this time.
--- NOTE | 2024-11-27 13:40 | P.PNIM_ITS ---
Progress Note: A&P Assessment and Plan (1) Adult failure to thrive: Code(s): R62.7 - Adult failure to thrive Status: Acute (2) LISA (acute kidney injury): Code(s): N17.9 - Acute kidney failure, unspecified Status: Acute (3) Stage 3b chronic kidney disease: Code(s): N18.32 - Chronic kidney disease, stage 3b Status: Chronic (4) Acute dehydration: Code(s): E86.0 - Dehydration Status: Acute Plan # Adult failure to thrive due to multiple comorbidities, is aggravated by acute illness # LISA on CKD 3B Upon arrival, Creatinine 5.84, baseline creatinine 1.30 on October 13, 2024 Unclear etiology, Possibly resulting from UTI, dehydration, electrolyte abnormality Kidney ultrasound with no hydronephrosis Patient was on lactated Ringer 125 mL/hour which will be tapered down to 75 cc an hour. Consult dice person for evaluation treatment Will hold lisinopril Will hold hydrochlorothiazide Cr down to2.94 Creatinine continues to improve slowly Toxic metabolic encephalopathy: Likely secondary to sepsis improves Weakness: Physical deconditioning due to multiple comorbidities, exacerbated by acute illness including sepsis, UTI, dehydration, electrolyte abnormality PT OT consult # Urinary tract infection: Patient is currently on ciprofloxacin and Flagyl # Diverticulitis: Patient started on ciprofloxacin and Flagyl # Hyperkalemia: Patient receives sodium zirconium in emergency room This has resolved Type 2 diabetes Hypertension Recent laparoscopic cholecystectomy for chronic cholecystitis Renal ultrasound with focal thickening of the left posterior wall of the bladder suspicious for urothelial carcinoma. Will need urology follow-up evaluation with cystoscopy DVT prophylaxis: Heparin subQ Code status modified code Patient family wishes persists patient on hospice care, the family does not pursue any further workup and medical management for acute and chronic comorbidities. Hospice care team is consulted. Plan discharge patient home with home hospice tomorrow Subjective Date/time seen: 11/27/24 13:40 Interval history: Patient feels better today, alert, engage conversations, denies abdomen pain nausea vomiting or chest pain. Patient is afebrile, blood pressure stable, no O2 desaturation on room air, labs reviewed, renal function continue to improve,. patient has no new issue even overnight Exam Narrative: GENERAL: Well-appearing, in no acute distress. Well-nourished. - EYES: EOMI. Anicteric. - HENT: Moist mucous membranes. - LUNGS: Clear to auscultation bilateral ly, no wheezing, rhonchi, or rales. - CARDIOVASCULAR: Regular rate and rhyth m. No murmur. No JVD. - ABDOMEN: Soft, non-tender and non-dist ended. No palpable masses. - EXTREMITIES: No edema. Peripheral puls es 2+. Non-tender. - NEUROLOGIC: Moving all extremities - PSYCHIATRIC: Alert and awake, convers ant, oriented to self Appropriate mood and affect. - SKIN: No rashes or lesions. Warm. - LYMPH: No cervical lymphadenopathy. Objective Data Vital Signs Vital Signs: Vital Signs - 24 hr 11/26/24 14:00 11/26/24 20:00 11/26/24 20:35 Temperature 97.4 F L 98.1 F Pulse Rate 60 63 Respiratory Rate 20 16 Blood Pressure 146/58 H 157/96 H Pulse Oximetry 99 99 Oxygen Delivery Room Air 11/26/24 21:22 11/27/24 05:10 11/27/24 08:00 Temperature 98.5 F Pulse Rate 60 56 L Respiratory Rate 16 Blood Pressure 150/55 H Pulse Oximetry 97 Oxygen Delivery Room Air 11/27/24 09:18 Temperature Pulse Rate 64 Respiratory Rate Blood Pressure Pulse Oximetry Oxygen Delivery Intake/Output Intake/Output: Intake & Output 11/24/24 11/25/24 11/26/24 11/27/24 23:59 23:59 23:59 23:59 Intake Total 2471.7 1997.3 3042 1440 Output Total 250 3 Balance 2221.7 1997.3 3039 1440 Meds/Results Medications: Active Medications Generic Name Dose Route Start Last Admin Trade Name Talya PRN Reason Stop Dose Admin Acetaminophen 650 mg 11/20/24 18:46 Acetaminophen 325 Mg Tablet PO Q4H PRN Mild Pain (1-3) or Fever Anastrozole 1 mg 11/21/24 09:00 11/27/24 09:18 Anastrozole (*Chemo) 1 Mg Tablet PO 1 mg DAILY VERENA Administration Donepezil HCl 5 mg 11/21/24 21:00 11/26/24 21:22 Donepezil Hcl 5 Mg Tablet PO 5 mg QHS VERENA Administration Lactated Ringer's 1,000 mls @ 75 mls/hr 11/20/24 18:50 11/27/24 01:20 Lr - Lactated Ringers Iv IV CONT 75 mls/hr .[id number] VERENA Administration Metoprolol Tartrate 50 mg 11/21/24 09:00 11/27/24 09:18 Metoprolol Tartrate 50 Mg Tab PO 50 mg Q12HR VERENA Administration Mirtazapine 15 mg 11/21/24 09:00 11/27/24 09:18 Mirtazapine 15 Mg Tablet PO 15 mg DAILY VERENA Administration Ondansetron HCl 4 mg 11/20/24 18:46 Ondansetron Inj 4 Mg/2 Ml Vial IV PUSH Q4H PRN Nausea Pantoprazole Sodium 40 mg 11/21/24 09:00 11/27/24 09:18 Pantoprazole Sodium Iv 40 Mg Vial IV PUSH 40 mg QAM VERENA Administration Sodium Chloride 10 ml 11/21/24 14:00 11/27/24 05:03 Saline Lock Flush IV PUSH 10 ml Q8HR VERENA Administration Sodium Chloride 10 ml 11/21/24 12:40 Saline Lock Flush IV PUSH PRN PRN Flush Sodium Chloride 20 ml 11/21/24 12:40 Saline Lock Flush IV PUSH PRN PRN after blood draws Radiology Results: ITS Impressions Chest X-Ray 11/20/24 16:34 IMPRESSION: 1. No acute cardiopulmonary disease. Head CT 11/20/24 17:14 IMPRESSION: No acute intracranial findings. Abdomen/Pelvis CT 11/20/24 17:18 IMPRESSION: 1. Mild diverticulitis of descending colon. No perforation or abscess. Renal Ultrasound 11/21/24 10:01 IMPRESSION: 1. Mild atrophy of right kidney. No hydronephrosis. 2. Focal thickening of the left posterior wall of the bladder suspicious for urothelial carcinoma.
[2024-11-27 13:50] VITALS: BP 144/60; PULSE 69; RESP 18; TEMP 36.3; O2SAT 99
[2024-11-27 21:03] VITALS: PULSE 69
[2024-11-27] MEDS: DONEPEZIL HCL 5 MG TABLET PO (21:03)
[2024-11-27 21:43] VITALS: BP 183/71; PULSE 64; RESP 17; TEMP 36.5; O2SAT 100
[2024-11-28 05:56] VITALS: BP 167/77; PULSE 52; RESP 16; TEMP 36.4; O2SAT 99
[2024-11-28] MEDS: ACETAMINOPHEN 325 MG TABLET 650 MG PO (06:08)
[2024-11-28] MEDS: SALINE LOCK FLUSH 10 ML IV PUSH (06:08)
[2024-11-28] MEDS: LACTATED RINGERS 1,000 ML 75 ML IV CONT (08:40)
[2024-11-28 08:41] VITALS: PULSE 58
[2024-11-28] MEDS: METOPROLOL TARTRATE 50 MG TAB PO (08:41)
[2024-11-28] MEDS: MIRTAZAPINE 15 MG TABLET PO (08:41)
[2024-11-28] MEDS: PANTOPRAZOLE SODIUM IV 40 MG VIAL IV PUSH (08:41)
[2024-11-28] MEDS: ANASTROZOLE (*CHEMO) 1 MG TABLET PO (08:41)
--- NOTE | 2024-11-28 10:52 | P.PNIM_ITS ---
Progress Note: A&P Assessment and Plan (1) Adult failure to thrive: Code(s): R62.7 - Adult failure to thrive Status: Acute (2) LISA (acute kidney injury): Code(s): N17.9 - Acute kidney failure, unspecified Status: Acute (3) Stage 3b chronic kidney disease: Code(s): N18.32 - Chronic kidney disease, stage 3b Status: Chronic (4) Acute dehydration: Code(s): E86.0 - Dehydration Status: Acute Plan # Adult failure to thrive due to multiple comorbidities, is aggravated by acute illness # LISA on CKD 3B Upon arrival, Creatinine 5.84, baseline creatinine 1.30 on October 13, 2024 Unclear etiology, Possibly resulting from UTI, dehydration, electrolyte abnormality Kidney ultrasound with no hydronephrosis Patient was on lactated Ringer 125 mL/hour which will be tapered down to 75 cc an hour. Consult leasing machine tender for evaluation treatment Will hold lisinopril Will hold hydrochlorothiazide Cr down to2.94 Creatinine continues to improve slowly Toxic metabolic encephalopathy: Likely secondary to sepsis improves Weakness: Physical deconditioning due to multiple comorbidities, exacerbated by acute illness including sepsis, UTI, dehydration, electrolyte abnormality PT OT consult # Urinary tract infection: Patient is currently on ciprofloxacin and Flagyl # Diverticulitis: Patient started on ciprofloxacin and Flagyl # Hyperkalemia: Patient receives sodium zirconium in emergency room This has resolved Type 2 diabetes Hypertension Recent laparoscopic cholecystectomy for chronic cholecystitis Renal ultrasound with focal thickening of the left posterior wall of the bladder suspicious for urothelial carcinoma. Will need urology follow-up evaluation with cystoscopy DVT prophylaxis: Heparin subQ Code status modified code Patient family wishes persists patient on hospice care, the family does not pursue any further workup and medical management for acute and chronic comorbidities. Hospice care team is consulted. Plan discharge patient home with home hospice tomorrow Subjective Date/time seen: 11/28/24 10:52 Interval history: patient has no new issue even overnight Exam Narrative: GENERAL: Well-appearing, in no acute distress. Well-nourished. - EYES: EOMI. Anicteric. - HENT: Moist mucous membranes. - LUNGS: Clear to auscultation bilateral ly, no wheezing, rhonchi, or rales. - CARDIOVASCULAR: Regular rate and rhyth m. No murmur. No JVD. - ABDOMEN: Soft, non-tender and non-dist ended. No palpable masses. - EXTREMITIES: No edema. Peripheral puls es 2+. Non-tender. - NEUROLOGIC: Moving all extremities - PSYCHIATRIC: Alert and awake, convers ant, oriented to self Appropriate mood and affect. - SKIN: No rashes or lesions. Warm. - LYMPH: No cervical lymphadenopathy. Objective Data Vital Signs Vital Signs: Vital Signs - 24 hr 11/27/24 13:50 11/27/24 20:00 11/27/24 21:03 Temperature 97.3 F L Pulse Rate 69 69 Respiratory Rate 18 Blood Pressure 144/60 H Pulse Oximetry 99 Oxygen Delivery Room Air 11/27/24 21:43 11/28/24 05:56 11/28/24 08:00 Temperature 97.7 F 97.5 F L Pulse Rate 64 52 L Respiratory Rate 17 16 Blood Pressure 183/71 H 167/77 H Pulse Oximetry 100 99 Oxygen Delivery Room Air 11/28/24 08:41 Temperature Pulse Rate 58 L Respiratory Rate Blood Pressure Pulse Oximetry Oxygen Delivery Intake/Output Intake/Output: Intake & Output 11/25/24 11/26/24 11/27/24 11/28/24 23:59 23:59 23:59 23:59 Intake Total 1997.3 3042 2920 1120 Output Total 3 Balance 1997.3 3039 2920 1120 Meds/Results Medications: Active Medications Generic Name Dose Route Start Last Admin Trade Name Freq PRN Reason Stop Dose Admin Acetaminophen 650 mg 11/20/24 18:46 11/28/24 06:08 Acetaminophen 325 Mg Tablet PO 650 mg Q4H PRN Administration Mild Pain (1-3) or Fever Anastrozole 1 mg 11/21/24 09:00 11/28/24 08:41 Anastrozole (*Chemo) 1 Mg Tablet PO 1 mg DAILY VERENA Administration Donepezil HCl 5 mg 11/21/24 21:00 11/27/24 21:03 Donepezil Hcl 5 Mg Tablet PO 5 mg QHS VERENA Administration Lactated Ringer's 1,000 mls @ 75 mls/hr 11/20/24 18:50 11/28/24 08:40 Lr - Lactated Ringers Iv IV CONT 75 mls/hr .[id number] VERENA Administration Metoprolol Tartrate 50 mg 11/21/24 09:00 11/28/24 08:41 Metoprolol Tartrate 50 Mg Tab PO 50 mg Q12HR VERENA Administration Mirtazapine 15 mg 11/21/24 09:00 11/28/24 08:41 Mirtazapine 15 Mg Tablet PO 15 mg DAILY VERENA Administration Ondansetron HCl 4 mg 11/20/24 18:46 Ondansetron Inj 4 Mg/2 Ml Vial IV PUSH Q4H PRN Nausea Pantoprazole Sodium 40 mg 11/21/24 09:00 11/28/24 08:41 Pantoprazole Sodium Iv 40 Mg Vial IV PUSH 40 mg QAM VERENA Administration Sodium Chloride 10 ml 11/21/24 14:00 11/28/24 06:08 Saline Lock Flush IV PUSH 10 ml Q8HR VERENA Administration Sodium Chloride 10 ml 11/21/24 12:40 Saline Lock Flush IV PUSH PRN PRN Flush Sodium Chloride 20 ml 11/21/24 12:40 Saline Lock Flush IV PUSH PRN PRN after blood draws Radiology Results: ITS Impressions Chest X-Ray 11/20/24 16:34 IMPRESSION: 1. No acute cardiopulmonary disease. Head CT 11/20/24 17:14 IMPRESSION: No acute intracranial findings. Abdomen/Pelvis CT 11/20/24 17:18 IMPRESSION: 1. Mild diverticulitis of descending colon. No perforation or abscess. Renal Ultrasound 11/21/24 10:01 IMPRESSION: 1. Mild atrophy of right kidney. No hydronephrosis. 2. Focal thickening of the left posterior wall of the bladder suspicious for u rothelial carcinoma.
--- NOTE | 2024-11-28 10:52 | PM.DS ---
DS: Admitting Diagnosis Discharge Date 11/28/24 Admitting Diagnosis (1) Adult failure to thrive: Code(s): R62.7 - Adult failure to thrive Status: Acute (2) LISA (acute kidney injury): Code(s): N17.9 - Acute kidney failure, unspecified Status: Acute (3) Stage 3b chronic kidney disease: Code(s): N18.32 - Chronic kidney disease, stage 3b Status: Chronic (4) Acute dehydration: Code(s): E86.0 - Dehydration Status: Acute DS: Discharge Diagnosis Discharge Diagnosis (1) Adult failure to thrive: Code(s): R62.7 - Adult failure to thrive Status: Acute (2) LISA (acute kidney injury): Code(s): N17.9 - Acute kidney failure, unspecified Status: Acute (3) Stage 3b chronic kidney disease: Code(s): N18.32 - Chronic kidney disease, stage 3b Status: Chronic (4) Acute dehydration: Code(s): E86.0 - Dehydration Status: Acute DS: Summary Hospital Course Hospital Course: This is an 83-year-old female with past medical history significant for hypertension, chronic kidney disease, breast CA, GERD, dyslipidemia, dementia. Patient with recent cholecystectomy complicated with intra-abdominal abscesses. Patient is brought to the emergency room from home due to altered mental status for the last day or so patient in the last 2 weeks has had poor per orally intake and overall very weak. Patient unable to provide any meaningful history which has been obtained from daughters who are sitting at bedside. Preliminary workup was significant for a sodium of 135, creatinine 5.8 BUN is 66 urinalysis significant for numerous WBCs present. Patient ruled out for influenza type A influenza type B COVID and RSV. CT of abdomen and pelvis showed mild diverticulitis and ureteral stricture. Patient has been admitted for further evaluation management and treatment. The following med issues have been addressed during hospitalization Adult failure to thrive due to multiple comorbidities, is aggravated by acute illness LISA on CKD 3B Upon arrival, Creatinine 5.84, baseline creatinine 1.30 on October 13, 2024 Unclear etiology, Possibly resulting from UTI, dehydration, electrolyte abnormality Kidney ultrasound with no hydronephrosis Patient was on lactated Ringer 125 mL/hour which will be tapered down to 75 cc an hour. Consult turf manager for evaluation treatment Will hold lisinopril Will hold hydrochlorothiazide Cr down to2.94 Creatinine continues to improve slowly Toxic metabolic encephalopathy: Likely secondary to sepsis improves Weakness: Physical deconditioning due to multiple comorbidities, exacerbated by acute illness including sepsis, UTI, dehydration, electrolyte abnormality PT OT consult Urinary tract infection: Patient is currently on ciprofloxacin and Flagyl Diverticulitis: Patient started on ciprofloxacin and Flagyl Hyperkalemia: Patient receives sodium zirconium in emergency room This has resolved Type 2 diabetes Hypertension Recent laparoscopic cholecystectomy for chronic cholecystitis Renal ultrasound with focal thickening of the left posterior wall of the bladder suspicious for urothelial carcinoma. Will need urology follow-up evaluation with cystoscopy DVT prophylaxis: Heparin subQ Code status modified code Patient family wishes persists patient on hospice care, the family does not pursue any further workup and medical management for acute and chronic comorbidities. Hospice care team is consulted. discharge patient home with home hospice today Time Spent with Patient Time attestation: Total time spent providing and/or coordinating discharge services: Exam Narrative: GENERAL: Well-appearing, in no acute distress. Well-nourished. - EYES: EOMI. Anicteric. - HENT: Moist mucous membranes. - LUNGS: Clear to auscultation bilaterally, no wheezing, rhonchi, or rales. - CARDIOVASCULAR: Regular rate and rhythm. No murmur. No JVD. - ABDOMEN: Soft, non-tender and non-distended. No palpable masses. - EXTREMITIES: No edema. Peripheral pulses 2+. Non-tender. - NEUROLOGIC: Moving all extremities - PSYCHIATRIC: Alert and awake, conversant, oriented to self Appropriate mood and affect. - SKIN: No rashes or lesions. Warm. - LYMPH: No cervical lymphadenopathy. Discharge Plan Discharge Attending physician on discharge: Marina Morel Consulting providers: Keron Cao Discharging Clinician: Marina Morel Anticipated Discharge Date/Time: 11/28/24 10:53 Patient Disposition: Hospice - Home Activity: as tolerated Diet: as tolerated Patient Instructions: Pain Management (GEN) Patient Language: Grenadian Stand Alone Forms: General Discharge Information Discharge Medications: Continued pantoprazole 40 mg tablet,delayed release (DR/EC) 40 mg PO QAM hydrochlorothiazide 25 mg tablet 25 mg PO DAILY donepezil [Aricept] 5 mg tablet 5 mg PO QHS Qty: 90 4RF Rx Instructions: increase to 2 tablets after 1 month if no side effects metformin 500 mg tablet 500 mg PO DAILY anastrozole 1 mg tablet 1 mg PO DAILY atorvastatin 20 mg tablet 20 mg PO DAILY metoprolol tartrate 50 mg tablet 50 mg PO BID lisinopril 40 mg tablet 40 mg PO DAILY ondansetron 4 mg tablet,disintegrating 8 mg PO PRN PRN (Reason: Nausea) hydrocodone-acetaminophen 5-325 mg Tablet 1 tablet PO Q6H PRN (Reason: Pain Rated 4-6) Qty: 7 0RF (DME) blood-glucose meter [[email or web address] Verio Flex meter] Misc MISCELLANEOUS (DME) OneTouch Verio test strips Strip MISCELLANEOUS mirtazapine 15 mg tablet 15 mg PO DAILY (DME) lancing device with lancets [[employer] Delica Plus Lanc Dev] Kit MISCELLANEOUS ([facility] [place]) lancets [OneTouch Delica Plus Lancet] 33 gauge [facility] [place] MISCELLANEOUS nitrofurantoin monohyd/m-cryst 100 mg capsule 100 mg PO BID omeprazole 20 mg capsule,delayed release(DR/EC) 20 mg PO DAILY Date of admission: 11/20/24 18:46 Primary Care Provider: Reilly,David Matos Admitting Provider: Shayy Hdz Attending physician on admission: Shayy Hdz Condition: Serious
[2024-11-28 14:00] VITALS: BP 151/59; PULSE 62; RESP 18; TEMP 36.1; O2SAT 100
== END 2024-11-28 14:15 | disposition home or self-care (01) | DRG 871 ==
LOC: ANHED 16:37 → ANHIMU 19:29 → ANH3MEDSUR 11-24 00:59
PROVIDERS: Internal Medicine; Internal Medicine Nephrology; Student in an Organized Health Care Education/Training Program; Admitting Provider Internal Medicine; Emergency Provider Student in an Organized Health Care Education/Training Program; PCP Internal Medicine; Visit Provider Hospitalist
DX: A41.9 Sepsis, unspecified organism (principal); G92.8 Other toxic encephalopathy; N17.9 Acute kidney failure, unspecified; N39.0 Urinary tract infection, site not specified; K57.92 Diverticulitis of intestine, part unspecified, without perforation or abscess without bleeding; B96.1 Klebsiella pneumoniae [K. pneumoniae] as the cause of diseases classified elsewhere; E86.0 Dehydration; I12.9 Hypertensive chronic kidney disease with stage 1 through stage 4 chronic kidney disease, or unspecified chronic kidney disease; E78.5 Hyperlipidemia, unspecified; E87.5 Hyperkalemia; E11.22 Type 2 diabetes mellitus with diabetic chronic kidney disease; F03.90 Unspecified dementia, unspecified severity, without behavioral disturbance, psychotic disturbance, mood disturbance, and anxiety; F41.9 Anxiety disorder, unspecified; K21.9 Gastro-esophageal reflux disease without esophagitis; N18.32 Chronic kidney disease, stage 3b; Z87.891 Personal history of nicotine dependence; Z85.3 Personal history of malignant neoplasm of breast; Z90.49 Acquired absence of other specified parts of digestive tract; Z20.822 Contact with and (suspected) exposure to COVID-19; Z66 Do not resuscitate; Z79.84 Long term (current) use of oral hypoglycemic drugs
CPT/HCPCS: 36415; 36569; 70450; 71045; 74176; 76775; 80048; 80053; 81001; 81050; 82550; 82570; 82948; 83605; 83735; 84100; 84156; 84300; 84443; 84484; 84540; 85025; 85999; 87040; 87086; 87186; 87637; 93005; 96361; 96365; 96367; 96375; 97161; 97165; 97530; 97535; 99285; A9270; C1751; J0612; J0744; J1836; J2003; J2470; J3475; J7120